=== PATIENT | male | born 1950 | race Caucasian/White ===

== ENCOUNTER → 2016-08-17 | Outpatient (CLI) | payer MEDICARE ==
--- NOTE | 2016-08-17 13:43 | CT ---
EXAMINATION TYPE: CT lumbar spine wo con DATE OF EXAM: 08/17/2016 9:08 AM COMPARISON: NONE HISTORY: Low back pain, bilateral hip pain CT DLP: 339.7 mGycm CONTRAST: None TECHNIQUE: CT of the lumbar spine is performed on a spiral scan at 3 mm thick sections. Reconstructed images are performed in the coronal and sagittal planes. FINDINGS: T12-L1: No focal disc herniation or significant disc bulge is evident. No spinal canal stenosis or neural foraminal stenosis is present. L1-L2: No focal disc herniation or significant disc bulge is evident. No spinal canal stenosis or n eural foraminal stenosis is present L2-L3: Mild disc bulging is anterior thecal sac contact. No spinal canal stenosis or neural foraminal stenosis isn't. L3-L4: Disc bulging is present with mild anterior thecal sac compression. Facet hypertrophy is presen t. Mild spinal canal narrowing may be present. L4-L5: Broad-based disc bulge is moderate anterior thecal sac compression. Facet hypertrophy is prese nt. Spinal canal narrowing is present. L5-S1: There is loss of disc height at this level. Vacuum disc phenomenon is present. No spinal canal stenosis is present. Vertebral alignment appears normal. Vascular calcifications within the aorta. There may be some fusif orm prominence of the distal abdominal aorta. The anterior wall extends out of the [id number] and AP measurement cannot be obtained. IMPRESSION: 1. Degenerative disc changes with loss of disc at L5-S1. 2. Disc bulging L2-3 through L5-S1. This greatest at L4-5 with moderate anterior thecal sac compressi on and some spinal canal narrowing. Milder spinal canal narrowing may be present L3-4.
== END | disposition home or self-care (01) ==
LOC: RADCTMAIN 08:33
PROVIDERS: ATTEND Family Medicine
DX: M99.73 Connective tissue and disc stenosis of intervertebral foramina of lumbar region (principal); M51.17 Intervertebral disc disorders with radiculopathy, lumbosacral region
CPT/HCPCS: 72131

== ENCOUNTER 2017-10-26 13:56 | Emergency (ER) | payer MEDICARE ==
[2017-10-26 14:20] VITALS: BP 127/58; PULSE 63; RESP 18; TEMP 98.3
[2017-10-26] MEDS ORDERED: KETOROLAC 60 MG/2 ML VIAL IM STA (14:41)
--- NOTE | 2017-10-26 14:46 | ED ---
General Adult HPI - General Chief complaint: Back Pain/Injury Stated complaint: Back pain Time Seen by Provider: 10/26/17 14:37 Source: patient, RN notes reviewed Mode of arrival: wheelchair Limitations: no limitations - History of Present Illness Initial comments: Patient is a pleasant 67-year-old male presenting to the emergency Department with complaints of lower back pain. Patient has chronic lower back pain. Symptoms have been worse the past few months. Patient has previously seen doctors and previously had x-rays. Patient has similar type discomfort. Discomfort starts lower back and radiates to both hips and down both legs. Patient denies loss of sensation. Patient denies weakness. Patient denies incontinence or retention of bowel or bladder. Patient has a history of crack cocaine use however states he has not used in the past 5 or 6 months. - Related Data Previous Rx's Medication Instructions Recorded Naproxen [Naprosyn] 500 mg PO BID #14 tab 09/05/15 Citalopram Hydrobromide [CeleXA] 20 mg PO DAILY #30 tab 03/15/16 Losartan [Cozaar] 50 mg PO DAILY #30 tab 03/15/16 Nicotine 14Mg/24Hr Patch [Habitrol] 1 patch TRANSDERM DAILY #14 patch 03/15/16 QUEtiapine [SEROquel] 50 mg PO HS #30 tab 03/15/16 Cyclobenzaprine [Flexeril] 10 mg PO TID PRN #12 tablet 10/26/17 methylPREDNISolone Dose Pack 24 mg PO DAILY #1 tab 10/26/17 [Medrol Dose Pack] Allergies Allergy/AdvReac Type Severity Reaction Status Date / Time No Known Allergies Allergy Verified 10/26/17 14:20 Review of Systems ROS Statement: Those systems with pertinent positive or pertinent negative responses have been documented in the HPI. ROS Other: All systems not noted in ROS Statement are negative. Constitutional: Denies: fever Eyes: Denies: eye pain ENT: Denies: ear pain Respiratory: Denies: cough Cardiovascular: Denies: chest pain Endocrine: Denies: fatigue Gastrointestinal: Denies: abdominal pain Genitourinary: Denies: dysuria Musculoskeletal: Reports: back pain Skin: Denies: rash Neurological: Denies: weakness Past Medical History Past Medical History: Hypertension Additional Past Medical History / Comment(s): sciatica, hepatitis C History of Any Multi-Drug Resistant Organisms: None Reported Past Surgical History: Coronary Bypass/CABG Additional Past Surgical History / Comment(s): left knee, right wrist, and right knee surgeries. I&D of the left knee following Staphylococcus infection. Past Anesthesia/Blood Transfusion Reactions: No Reported Reaction Past Psychological History: Anxiety, Depression Smoking Status: Current every day smoker Past Alcohol Use History: Occasional Past Drug Use History: Cocaine, Marijuana - Past Family History Mother History Unknown: Yes Additional Family Medical History / Comment(s): Mother is 85 years of age with no major medical problems. Father History Unknown: Yes Family Medical History: CVA/TIA, Hypertension Additional Family Medical History / Comment(s): Father at age 75 with history of for CVAs and hypertension. Brother(s) Additional Family Medical History / Comment(s): He has 4 brothers that are healthy with no major medical problems. He has one sister that is healthy. He has 3 daughters with no major medical problems. General Exam Limitations: no limitations General appearance: alert, in no apparent distress Head exam: Present: atraumatic Eye exam: Present: normal appearance Neck exam: Present: normal inspection. Absent: tenderness Respiratory exam: Present: normal lung sounds bilaterally Cardiovascular Exam: Present: regular rate, normal rhythm GI/Abdominal exam: Present: soft. Absent: tenderness, pulsatile mass Extremities exam: Present: normal inspection. Absent: tenderness, pedal edema, calf tenderness Back exam: Present: tenderness (Minimal tenderness lower lumbar spine), other ( Straight leg raise positive bilaterally around 45) Neurological exam: Present: alert. Absent: motor sensory deficit Expanded Sensory exam: Lower Extremity Light Touch: Normal Motor strength exam: RLE: 5, LLE: 5 Psychiatric exam: Present: normal affect, normal mood Skin exam: Present: normal color. Absent: rash Course Vital Signs 10/26/17 14:18 Temperature 98.3 F Pulse Rate 63 Respiratory 18 Rate Blood Pressure 127/58 O2 Sat by Pulse 99 Oximetry Disposition Clinical Impression: Low back pain Disposition: HOME SELF-CARE Condition: Stable Instructions: Chronic Back Pain (ED) Additional Instructions: Please follow-up with primary care physician in the next day or 2 for recheck and further evaluation and treatment. Return for weakness, loss of sensation, fever, loss of control of bowel or bladder, worsening symptoms or other concerns. Prescriptions: Cyclobenzaprine [Flexeril] 10 mg PO TID PRN #12 tablet PRN Reason: Pain methylPREDNISolone Dose Pack [Medrol Dose Pack] 24 mg PO DAILY #1 tab Is patient prescribed a controlled substance at d/c from ED?: No Referrals: Alessandro Barreto MD [Primary Care Provider] - 1-2 days Time of Disposition: 14:46
== END 2017-10-26 15:14 | disposition home or self-care (01) ==
LOC: EC 13:56
DX: M54.5 Low back pain (principal); F17.200 Nicotine dependence, unspecified, uncomplicated; Z86.19 Personal history of other infectious and parasitic diseases
CPT/HCPCS: 99283; 96372; J1885

== ENCOUNTER 2017-11-01 10:10 | Emergency (ER) | payer MEDICARE ==
[2017-11-01 10:46] VITALS: RESP 18
[2017-11-01] MEDS ORDERED: KETOROLAC 30 MG/ML 1 ML VIAL IM STA (12:11)
[2017-11-01] MEDS ORDERED: CYCLOBENZAPRINE 10 MG TAB PO STA (12:12)
--- NOTE | 2017-11-01 12:32 | ED ---
General Adult HPI - General Chief complaint: Back Pain/Injury Stated complaint: Lower back pain Time Seen by Provider: 11/01/17 12:03 Source: patient, RN notes reviewed Mode of arrival: ambulatory Limitations: no limitations - History of Present Illness Initial comments: 67-year-old male presents to the emergency department for a chief complaint of low back pain 6 months. Patient states he has shooting pains down the bilateral legs. Patient denies numbness or tingling in the lower extremities. Patient denies numbness or tingling in the groin or buttock area. Patient denies any bladder or bowel changes. He states he is urinating regularly. Patient denies any injuries to the back. Patient states he has had multiple x- rays and he does not want one today. Patient states he has an MRI scheduled in one week. Patient has no other complaints at this time including shortness of breath, chest pain, abdominal pain, nausea or vomiting, headache, or visual changes. - Related Data Home Medications Medication Instructions Recorded Confirmed QUEtiapine FUMARATE [SEROquel] 300 mg PO HS 10/26/17 10/26/17 Previous Rx's Medication Instructions Recorded Cyclobenzaprine [Flexeril] 10 mg PO TID PRN #12 tablet 10/26/17 methylPREDNISolone Dose Pack 24 mg PO DAILY #1 tab 10/26/17 [Medrol Dose Pack] Allergies Allergy/AdvReac Type Severity Reaction Status Date / Time No Known Allergies Allergy Verified 11/01/17 10:46 Review of Systems ROS Statement: Those systems with pertinent positive or pertinent negative responses have been documented in the HPI. ROS Other: All systems not noted in ROS Statement are negative. Past Medical History Past Medical History: Hypertension Additional Past Medical History / Comment(s): sciatica, hepatitis C History of Any Multi-Drug Resistant Organisms: None Reported Past Surgical History: Coronary Bypass/CABG Additional Past Surgical History / Comment(s): left knee, right wrist, and right knee surgeries. I&D of the left knee following Staphylococcus infection. Past Anesthesia/Blood Transfusion Reactions: No Reported Reaction Past Psychological History: Anxiety, Depression Smoking Status: Current every day smoker Past Alcohol Use History: Occasional Past Drug Use History: Cocaine, Marijuana - Past Family History Mother History Unknown: Yes Additional Family Medical History / Comment(s): Mother is 85 years of age with no major medical problems. Father History Unknown: Yes Family Medical History: CVA/TIA, Hypertension Additional Family Medical History / Comment(s): Father at age 75 with history of for CVAs and hypertension. Brother(s) Additional Family Medical History / Comment(s): He has 4 brothers that are healthy with no major medical problems. He has one sister that is healthy. He has 3 daughters with no major medical problems. General Exam Limitations: no limitations General appearance: alert, in no apparent distress Respiratory exam: Present: normal lung sounds bilaterally. Absent: respiratory distress, wheezes, rales, rhonchi, stridor Cardiovascular Exam: Present: regular rate, normal rhythm, normal heart sounds. Absent: systolic murmur, diastolic murmur, rubs, gallop, clicks Extremities exam: Present: full ROM (Full range of motion of lower extremities bilaterally. Patient is able to wiggle all toes.), normal capillary refill ( Refill less than 2 seconds in lower extremities bilaterally. PD and PT pulses strong with Doppler in lower extremities bilaterally.), other (Sensation intact in lower extremities bilaterally.) Back exam: Present: full ROM (Patient has full flexion without any pain. Patient has mild pain with extension of the back. Patient is able to twist and bend laterally.), tenderness (Mild lumbar tenderness). Absent: CVA tenderness ( R), CVA tenderness (L) Course Vital Signs 11/01/17 11/01/17 10:41 12:47 Temperature 97.0 F L 97.3 F L Pulse Rate 63 60 Respiratory 18 18 Rate Blood Pressure 137/65 134/72 O2 Sat by Pulse 100 99 Oximetry Medical Decision Making - Medical Decision Making 67-year-old male presents to the emergency determine for a chief complaint of lower back pain 6 months. Patient was seen in the emergency department recently and given a steroid as well as a muscle relaxer. Patient states these did not help very much. However the Toradol he was given in the emergency department last time did help. Patient was given Toradol and Flexeril in the ER today which helped with his pain. On exam patient has full flexion and extension of the lumbar spine. Patient has mild pain with extension of the lumbar spine. Patient is able to rotate the spine and laterally bend. PD and PT pulses strong with Doppler and lower extremities bilaterally. Feet warm to touch in the lower extremities bilaterally. Patient is able to move bilateral legs without difficulty. Patient denies any numbness or tingling in the groin area or buttocks. Patient denies any bladder or bowel changes. Patient was offered an x-ray which she refused because he has had x-rays before which were all normal. Patient has an MRI scheduled in one week. Patient will attend this appointment. He will take Motrin and Tylenol for pain relief in the meantime. He will follow up with primary care in 1-2 days. He was educated to return to the emergency department if he has any numbness or tingling in the feet, bladder or bowel changes, or saddle anesthesia. Disposition Clinical Impression: Mechanical back pain Disposition: HOME SELF-CARE Condition: Good Instructions: Chronic Back Pain (ED) Additional Instructions: Please take Motrin and Tylenol for pain. Please attend MRI appointment as scheduled. Follow-up with family doctor in one to 2 days. Return to the emergency department if you have any worsening symptoms, bladder or bowel changes, or loss of lower leg function. Is patient prescribed a controlled substance at d/c from ED?: No Referrals: Alessandro Barreto MD [Primary Care Provider] - 1-2 days Time of Disposition: 12:31
[2017-11-01 12:52] VITALS: BP 134/72; PULSE 60; TEMP 97.3
== END 2017-11-01 12:51 | disposition home or self-care (01) ==
LOC: EC 10:10
DX: M54.5 Low back pain (principal); F32.9 Major depressive disorder, single episode, unspecified; F17.200 Nicotine dependence, unspecified, uncomplicated; Z53.29 Procedure and treatment not carried out because of patient's decision for other reasons; Z95.1 Presence of aortocoronary bypass graft; Z79.899 Other long term (current) drug therapy
CPT/HCPCS: 99283; 96372; J1885

== ENCOUNTER 2017-11-20 18:29 | Emergency (ER) | payer MEDICARE ==
[2017-11-20 18:34] VITALS: BP 156/74; PULSE 77; RESP 18; TEMP 98.6
[2017-11-20] MEDS ORDERED: CYCLOBENZAPRINE 10MG STARTER 3 TAB BTL PO STA (18:48)
--- NOTE | 2017-11-20 18:52 | ED ---
General Adult HPI - General Chief complaint: Extremity Injury, Lower Stated complaint: Hip Pain Time Seen by Provider: 11/20/17 18:39 Source: EMS, RN notes reviewed Mode of arrival: EMS Limitations: no limitations - History of Present Illness Initial comments: Patient 67-year-old male presented to the emergency room with chief complaint of back pain. He states it's been going on for the last 4-6 months. Patient denies any specific injury or trauma. Does admit that he followed up with the family physician is scheduled MRIs first was canceled. States his sexual was early in the morning he could not make it there. Patient also admits that he's been at the [facility] most recently 1 week ago. He states he was given a short prescription of steroids and Flexeril. He states did not help much with his symptoms. He does admit that is experiencing some radicular pain to the top of the thighs bilaterally in both the left and right side. Denies any bowel or bladder incontinence or retention. Denies any saddle anesthesia. Patient states his are all symptoms that have been consistent over the last several months. Denies anything new today. Patient denies any recent fever, chills, shortness of breath, chest pain, abdominal pain, nausea or vomiting, dysuria or hematuria, constipation or diarrhea, headaches or visual changes, or any other complaints. - Related Data Home Medications Medication Instructions Recorded Confirmed QUEtiapine FUMARATE [SEROquel] 300 mg PO HS 10/26/17 11/01/17 Previous Rx's Medication Instructions Recorded Cyclobenzaprine [Flexeril] 10 mg PO TID PRN #12 tablet 10/26/17 methylPREDNISolone Dose Pack 24 mg PO DAILY #1 tab 10/26/17 [Medrol Dose Pack] Cyclobenzaprine [Flexeril] 10 mg PO TID #20 tab 11/20/17 Ibuprofen [Motrin] 600 mg PO Q6HR PRN #40 day 11/20/17 Allergies Allergy/AdvReac Type Severity Reaction Status Date / Time No Known Allergies Allergy Verified 11/01/17 10:46 Review of Systems ROS Statement: Those systems with pertinent positive or pertinent negative responses have been documented in the HPI. ROS Other: All systems not noted in ROS Statement are negative. Past Medical History Past Medical History: Hypertension Additional Past Medical History / Comment(s): sciatica, hepatitis C History of Any Multi-Drug Resistant Organisms: None Reported Past Surgical History: Coronary Bypass/CABG Additional Past Surgical History / Comment(s): left knee, right wrist, and right knee surgeries. I&D of the left knee following Staphylococcus infection. Past Anesthesia/Blood Transfusion Reactions: No Reported Reaction Past Psychological History: Anxiety, Depression Smoking Status: Current every day smoker Past Alcohol Use History: Occasional Past Drug Use History: Cocaine, Marijuana - Past Family History Mother History Unknown: Yes Additional Family Medical History / Comment(s): Mother is 85 years of age with no major medical problems. Father History Unknown: Yes Family Medical History: CVA/TIA, Hypertension Additional Family Medical History / Comment(s): Father at age 75 with history of for CVAs and hypertension. Brother(s) Additional Family Medical History / Comment(s): He has 4 brothers that are healthy with no major medical problems. He has one sister that is healthy. He has 3 daughters with no major medical problems. General Exam - General Exam Comments Initial Comments: General: The patient is awake and alert, in no distress, and does not appear acutely ill. Eye: Pupils are equal, round and reactive to light, extra-ocular movements are intact. No nystagmus. There is normal conjunctiva bilaterally. No signs of icterus. Ears, nose, mouth and throat: There are moist mucous membranes and no oral lesions. Neck: The neck is supple, there is no tenderness or JVD. Musculoskeletal: Normal ROM. Strength 5/5. Sensation intact. Neurological: A&O x 3. CN II-XII intact, There are no obvious motor or sensory deficits. Coordination appears grossly intact. Speech is normal. Skin: Skin is warm and dry and no rashes or lesions are noted. Psychiatric: Cooperative, appropriate mood & affect, normal judgment. Limitations: no limitations Course Vital Signs 11/20/17 18:30 Temperature 98.6 F Pulse Rate 77 Respiratory 18 Rate Blood Pressure 156/74 O2 Sat by Pulse 97 Oximetry Medical Decision Making - Medical Decision Making Patient is advised that MRI is status post at this time and he should try to make this upcoming appointment. Patient will be given prescription for Flexeril for his symptoms. Was on steroids recently in the past. Patient advised to use anti-inflammatories will be given prescription of ibuprofen. Disposition Clinical Impression: Chronic back pain Disposition: HOME SELF-CARE Condition: Good Instructions: Chronic Back Pain (ED) Additional Instructions: Please follow-up and have MRI performed as discussed. Please continue follow family physician or orthopedics for further evaluation. Please use medication as prescribed and return to emergency room for any other concerns. Prescriptions: Cyclobenzaprine [Flexeril] 10 mg PO TID #20 tab Ibuprofen [Motrin] 600 mg PO Q6HR PRN #40 day PRN Reason: Pain Is patient prescribed a controlled substance at d/c from ED?: No Referrals: Alessandro Barreto MD [Primary Care Provider] - 1-2 days Time of Disposition: 18:51
== END 2017-11-20 19:12 | disposition home or self-care (01) ==
LOC: EC 18:29
DX: G89.29 Other chronic pain (principal); M54.9 Dorsalgia, unspecified; F32.9 Major depressive disorder, single episode, unspecified; F17.200 Nicotine dependence, unspecified, uncomplicated; Z95.1 Presence of aortocoronary bypass graft; Z79.899 Other long term (current) drug therapy
CPT/HCPCS: 99283

== ENCOUNTER 2017-12-05 13:19 | Emergency (ER) | payer MEDICARE ==
[2017-12-05 14:53] VITALS: BP 127/74; PULSE 84; RESP 18; TEMP 98.2
--- NOTE | 2017-12-05 15:42 | ED ---
General Adult HPI - General Chief complaint: Extremity Injury, Lower Stated complaint: bilat hip/leg pain Time Seen by Provider: 12/05/17 15:02 Source: patient Mode of arrival: wheelchair Limitations: no limitations - History of Present Illness Initial comments: 67-year-old male presents to the emergency department for bilateral hip pain 5 months. Patient states the pain as a sharp shooting pain down bilateral hips. Patient states it is exacerbated when sitting and walking. Patient denies pain worsening the farther he walks. Patient denies calf pain or pain behind the knees. Patient denies bladder or bowel changes. Patient states that he has been scheduled an MRI but is having trouble getting to the appointment due to the bus system. Patient presented today for an MRI. Patient does not want an x -ray. Patient denies any injuries. Patient denies any IV drug use. Patient's states steroids have helped in the past. Patient has no other complaints at this time including shortness of breath, chest pain, abdominal pain, nausea or vomiting, headache, or visual changes. - Related Data Home Medications Medication Instructions Recorded Confirmed QUEtiapine FUMARATE [SEROquel] 300 mg PO HS 10/26/17 11/01/17 Previous Rx's Medication Instructions Recorded Cyclobenzaprine [Flexeril] 10 mg PO TID PRN #12 tablet 10/26/17 methylPREDNISolone Dose Pack 24 mg PO DAILY #1 tab 10/26/17 [Medrol Dose Pack] Cyclobenzaprine [Flexeril] 10 mg PO TID #20 tab 11/20/17 Ibuprofen [Motrin] 600 mg PO Q6HR PRN #40 day 11/20/17 predniSONE 50 mg PO DAILY #5 tablet 12/05/17 Allergies Allergy/AdvReac Type Severity Reaction Status Date / Time No Known Allergies Allergy Verified 12/05/17 14:52 Review of Systems ROS Statement: Those systems with pertinent positive or pertinent negative responses have been documented in the HPI. ROS Other: All systems not noted in ROS Statement are negative. Past Medical History Past Medical History: Hypertension Additional Past Medical History / Comment(s): sciatica, hepatitis C History of Any Multi-Drug Resistant Organisms: None Reported Past Surgical History: Coronary Bypass/CABG Additional Past Surgical History / Comment(s): left knee, right wrist, and right knee surgeries. I&D of the left knee following Staphylococcus infection. Past Anesthesia/Blood Transfusion Reactions: No Reported Reaction Past Psychological History: Anxiety, Depression Smoking Status: Current every day smoker Past Alcohol Use History: Occasional Past Drug Use History: None Reported - Past Family History Mother History Unknown: Yes Additional Family Medical History / Comment(s): Mother is 85 years of age with no major medical problems. Father History Unknown: Yes Family Medical History: CVA/TIA, Hypertension Additional Family Medical History / Comment(s): Father at age 75 with history of for CVAs and hypertension. Brother(s) Additional Family Medical History / Comment(s): He has 4 brothers that are healthy with no major medical problems. He has one sister that is healthy. He has 3 daughters with no major medical problems. General Exam Limitations: no limitations General appearance: alert, in no apparent distress Head exam: Present: atraumatic, normocephalic, normal inspection Eye exam: Present: normal appearance ENT exam: Present: normal exam, mucous membranes moist Neck exam: Present: normal inspection. Absent: tenderness, meningismus, lymphadenopathy Respiratory exam: Present: normal lung sounds bilaterally. Absent: respiratory distress, wheezes, rales, rhonchi, stridor Cardiovascular Exam: Present: regular rate, normal rhythm, normal heart sounds. Absent: bradycardia, tachycardia, irregular rhythm Extremities exam: Present: normal capillary refill (Refill less than 2 seconds. Feet are warm to palpation. Right foot has a strong PD and PT pulses with Doppler. Left foot has strong PT pulse with Doppler.). Absent: full ROM ( Patient has limited flexion of the lumbar spine to about 45. Patient is able to walk. Patient is able to flex the hips to about 90. Patient has full extension of the hips.), tenderness (No tenderness to the bilateral hips.), calf tenderness (No tenderness in the calf. No warmth swelling or redness in the calf.) Back exam: Present: normal inspection. Absent: full ROM (Patient has about 45 flexion of the lumbar spine.), tenderness Course Vital Signs 12/05/17 14:51 Temperature 98.2 F Pulse Rate 84 Respiratory 18 Rate Blood Pressure 127/74 O2 Sat by Pulse 98 Oximetry Medical Decision Making - Medical Decision Making 67-year-old male patient to the emergency department for a chief complaint of bilateral shooting hip pain 5 months. Patient states it is worse when he sits down as well as when he walks. Patient denies pain worsening the farther he walks. Patient denies any pain in the calf. Pain does not seem vascular in nature. On exam patient does have some limited range of motion of the lumbar spine and hips. Capillary refill less than 2 seconds in lower extremities bilaterally. Feet are warm to palpation. Right foot has strong PD and PT pulses on Doppler. Left foot has strong PT pulse with Doppler. Patient can feel me touch his feet. No bladder or bowel changes. Patient has an MRI scheduled but has trouble getting to the appointment due to the bus system. Patient was offered x-rays in the emergency department which she refused because he needs an MRI. He was now where we could not do an MRI through the emergency department. Patient will be referred to both orthopedics and vascular. He will follow up with primary care about the MRI. He will return to the emergency department if he has any worsening symptoms. Disposition Clinical Impression: Bilateral hip pain Disposition: HOME SELF-CARE Condition: Good Instructions: Hip Pain (ED) Additional Instructions: Please take steroid as directed. Please monitor for worsening symptoms and return if these occur. Discussed with your primary care doctor the best time for you to get your MRI. Follow-up with orthopedics and vascular in one to 2 days. Prescriptions: predniSONE 50 mg PO DAILY #5 tablet Is patient prescribed a controlled substance at d/c from ED?: No Referrals: Alessandro Barreto MD [Primary Care Provider] - 1-2 days Matthew Randolph MD [STAFF PHYSICIAN] - 1-2 days Jose Mckeon MD [STAFF PHYSICIAN] - 1-2 days Time of Disposition: 15:40
== END 2017-12-05 15:48 | disposition home or self-care (01) ==
LOC: EC 13:19
DX: M25.551 Pain in right hip (principal); M25.552 Pain in left hip; F32.9 Major depressive disorder, single episode, unspecified; F17.200 Nicotine dependence, unspecified, uncomplicated; Z79.899 Other long term (current) drug therapy
CPT/HCPCS: 99283

== ENCOUNTER → 2017-12-08 | Outpatient (CLI) | payer MEDICARE | END | disposition home or self-care (01) | LOC: RADMRIMAIN 11:44 | PROVIDERS: ATTEND Internal Medicine | DX: Z53.9 Procedure and treatment not carried out, unspecified reason (principal) | CPT/HCPCS: 36415; 82565; 84520 ==

== ENCOUNTER → 2017-12-08 | Outpatient (CLI) | payer MEDICARE ==
[2017-12-08 13:36] LABS: Blood Urea Nitrogen 14 mg/dL (9-20)
== END | disposition home or self-care (01) ==
LOC: LABWHC1 12:06
PROVIDERS: ATTEND Internal Medicine
DX: R10.30 Lower abdominal pain, unspecified (principal)
CPT/HCPCS: 36415; 82565; 84520

== ENCOUNTER 2017-12-12 13:10 | Emergency (ER) | payer MEDICARE ==
[2017-12-12 13:35] VITALS: BP 157/80; PULSE 78; RESP 18; TEMP 97.5
[2017-12-12] MEDS ORDERED: LIDOCAINE 1% INJ 10MG/ML (20 ML MDV) SQ ONE (13:51)
--- NOTE | 2017-12-12 14:08 | ED ---
Skin/Abscess/FB HPI - General Chief complaint: Skin/Abscess/Foreign Body Stated complaint: abscess under chin Time Seen by Provider: 12/12/17 13:37 Source: patient, RN notes reviewed Mode of arrival: ambulatory Limitations: no limitations - History of Present Illness Initial comments: 67-year-old male presents emergency Department with chief complaint of abscess underneath his chin. Patient states has been present for last couple weeks but has increased in size. He did have some drainage yesterday after he scraped off some skin. Patient reports no fever no chills no tobacco swelling states is minimally painful. Patient states she's had a history of these in the past. He believes it started with an ingrown hair. - Related Data Home Medications Medication Instructions Recorded Confirmed QUEtiapine FUMARATE [SEROquel] 300 mg PO HS 10/26/17 11/01/17 Previous Rx's Medication Instructions Recorded Cyclobenzaprine [Flexeril] 10 mg PO TID PRN #12 tablet 10/26/17 methylPREDNISolone Dose Pack 24 mg PO DAILY #1 tab 10/26/17 [Medrol Dose Pack] Cyclobenzaprine [Flexeril] 10 mg PO TID #20 tab 11/20/17 Ibuprofen [Motrin] 600 mg PO Q6HR PRN #40 day 11/20/17 predniSONE 50 mg PO DAILY #5 tablet 12/05/17 Sulfamethox-Tmp 800-160Mg [Bactrim 1 each PO Q12HR #20 tab 12/12/17 Ds] Allergies Allergy/AdvReac Type Severity Reaction Status Date / Time No Known Allergies Allergy Verified 12/12/17 13:35 Review of Systems ROS Statement: Those systems with pertinent positive or pertinent negative responses have been documented in the HPI. ROS Other: All systems not noted in ROS Statement are negative. Past Medical History Past Medical History: Hypertension Additional Past Medical History / Comment(s): sciatica, hepatitis C History of Any Multi-Drug Resistant Organisms: None Reported Past Surgical History: Coronary Bypass/CABG Additional Past Surgical History / Comment(s): left knee, right wrist, and right knee surgeries. I&D of the left knee following Staphylococcus infection. Past Anesthesia/Blood Transfusion Reactions: No Reported Reaction Past Psychological History: Anxiety, Depression Smoking Status: Current every day smoker Past Alcohol Use History: Occasional Past Drug Use History: None Reported - Past Family History Mother History Unknown: Yes Additional Family Medical History / Comment(s): Mother is 85 years of age with no major medical problems. Father History Unknown: Yes Family Medical History: CVA/TIA, Hypertension Additional Family Medical History / Comment(s): Father at age 75 with history of for CVAs and hypertension. Brother(s) Additional Family Medical History / Comment(s): He has 4 brothers that are healthy with no major medical problems. He has one sister that is healthy. He has 3 daughters with no major medical problems. General Exam Limitations: no limitations General appearance: alert, in no apparent distress Head exam: Present: atraumatic, normocephalic, normal inspection Eye exam: Present: normal appearance, PERRL, EOMI. Absent: scleral icterus, conjunctival injection, periorbital swelling ENT exam: Present: normal exam, normal oropharynx, mucous membranes moist, TM's normal bilaterally, normal external ear exam Neck exam: Present: full ROM. Absent: normal inspection (1 cm abscess inferior of the chin fluctuant with scab noted), tenderness, meningismus, lymphadenopathy Respiratory exam: Present: normal lung sounds bilaterally. Absent: respiratory distress, wheezes, rales, rhonchi, stridor Cardiovascular Exam: Present: regular rate, normal rhythm, normal heart sounds. Absent: systolic murmur, diastolic murmur, rubs, gallop, clicks Course Vital Signs 12/12/17 13:33 Temperature 97.5 F L Pulse Rate 78 Respiratory 18 Rate Blood Pressure 157/80 O2 Sat by Pulse 100 Oximetry Procedures - Incision & Drainage Consent Obtained: verbal consent Indication: Abscess Site: face Size (cm): 1 Anesthetic Used: lidocaine 1%, without epi Amount (mLs): 7 I&D Cleaning Method: Chloroprep Scalpel Used: #11 I&D Drainage Obtained: Pus, Blood Culture Obtained?: Yes Patient Tolerated Procedure: well, no complications Medical Decision Making - Medical Decision Making 67-year-old male presented for abscess. This was I&D in the emergency department. Patient had culture obtained patient minimal pain prior and no complications during the procedure. This is a localized abscess there is no concern for blood legs angina at this time. Patiently placed on Bactrim with follow-up tomorrow. Disposition Clinical Impression: Facial abscess Disposition: HOME SELF-CARE Condition: Stable Instructions: Abscess Incision and Drainage (ED) Additional Instructions: Please return to the Emergency Department if symptoms worsen or any other concerns. Prescriptions: Sulfamethox-Tmp 800-160Mg [Bactrim Ds] 1 each PO Q12HR #20 tab Is patient prescribed a controlled substance at d/c from ED?: No Referrals: Alessandro Barreto MD [Primary Care Provider] - 1-2 days Time of Disposition: 14:08
== END 2017-12-12 14:12 | disposition home or self-care (01) ==
LOC: EC 13:10
DX: L02.01 Cutaneous abscess of face (principal); F32.9 Major depressive disorder, single episode, unspecified; F17.200 Nicotine dependence, unspecified, uncomplicated; Z95.1 Presence of aortocoronary bypass graft; Z79.899 Other long term (current) drug therapy
CPT/HCPCS: 99283; 10060; 87070; 87205; 87077; 87186; J2001; 36415; 82565; 84520

== ENCOUNTER 2018-01-18 13:50 | Emergency (ER) | payer MEDICARE ==
[2018-01-18 13:57] VITALS: BP 171/76; PULSE 76; RESP 18; TEMP 97.8
--- NOTE | 2018-01-18 14:07 | ED ---
Skin/Abscess/FB HPI - General Chief complaint: Skin/Abscess/Foreign Body Stated complaint: lump under chin Time Seen by Provider: 01/18/18 14:04 Source: patient Mode of arrival: ambulatory Limitations: no limitations - History of Present Illness Initial comments: This is a 67-year-old male past medical history of hepatitis C and hypertension who presents today for chief complaint of multiple bumps under chin, that he says he thinks or ingrown hairs. Patient was seen here in the ER 3 weeks ago for same complaint, were to I&D was performed and patient was placed on Bactrim for 10 days. Patient states that the ID did give him some relief, and he took the whole course of antibiotics however the bumps remained. Patient states that the bump is tender to palpation, and there is some surrounding erythema patient denies any fever, chills or malaise. Patient was able to express some blood from one of the bumps under his chin however there is no expression of purulent discharge. Patient presented today requesting I&D of the abscesses. Patient presents emergency department in stable condition, afebrile. Patient denies any medication for the pain. - Related Data Home Medications Medication Instructions Recorded Confirmed QUEtiapine FUMARATE [SEROquel] 300 mg PO HS 10/26/17 11/01/17 Previous Rx's Medication Instructions Recorded Cyclobenzaprine [Flexeril] 10 mg PO TID PRN #12 tablet 10/26/17 methylPREDNISolone Dose Pack 24 mg PO DAILY #1 tab 10/26/17 [Medrol Dose Pack] Cyclobenzaprine [Flexeril] 10 mg PO TID #20 tab 11/20/17 Ibuprofen [Motrin] 600 mg PO Q6HR PRN #40 day 11/20/17 predniSONE 50 mg PO DAILY #5 tablet 12/05/17 Sulfamethox-Tmp 800-160Mg [Bactrim 1 each PO Q12HR #20 tab 12/12/17 Ds] Clindamycin [Cleocin] 450 mg PO Q8H 10 Days #90 capsule 01/18/18 Allergies Allergy/AdvReac Type Severity Reaction Status Date / Time No Known Allergies Allergy Verified 01/18/18 13:56 Review of Systems ROS Statement: Those systems with pertinent positive or pertinent negative responses have been documented in the HPI. ROS Other: All systems not noted in ROS Statement are negative. Constitutional: Denies: fever, chills, weakness, weight change, night sweats Respiratory: Denies: cough, dyspnea Cardiovascular: Denies: chest pain, palpitations Gastrointestinal: Denies: abdominal pain, nausea, vomiting Genitourinary: Denies: urgency, dysuria Skin: Reports: as per HPI, lesions. Denies: rash Neurological: Denies: headache, weakness, numbness, paresthesias, confusion Past Medical History Past Medical History: Hypertension Additional Past Medical History / Comment(s): sciatica, hepatitis C History of Any Multi-Drug Resistant Organisms: None Reported Past Surgical History: Coronary Bypass/CABG Additional Past Surgical History / Comment(s): left knee, right wrist, and right knee surgeries. I&D of the left knee following Staphylococcus infection. Past Anesthesia/Blood Transfusion Reactions: No Reported Reaction Past Psychological History: Anxiety, Depression Smoking Status: Current every day smoker Past Alcohol Use History: Rare Past Drug Use History: None Reported - Past Family History Mother History Unknown: Yes Additional Family Medical History / Comment(s): Mother is 85 years of age with no major medical problems. Father History Unknown: Yes Family Medical History: CVA/TIA, Hypertension Additional Family Medical History / Comment(s): Father at age 75 with history of for CVAs and hypertension. Brother(s) Additional Family Medical History / Comment(s): He has 4 brothers that are healthy with no major medical problems. He has one sister that is healthy. He has 3 daughters with no major medical problems. General Exam - General Exam Comments Initial Comments: General: The patient is awake and alert, in no distress, and does not appear acutely ill. Eye: Pupils are equal, round and reactive to light, extra-ocular movements are intact. No nystagmus. There is normal conjunctiva bilaterally. No signs of icterus. Ears, nose, mouth and throat: There are moist mucous membranes and no oral lesions. Neck: The neck is supple, there is no tenderness or JVD. No palpable submental , submandibular or cervical anterior cervical lymphadenopathy. Cardiovascular: There is a regular rate and rhythm. No murmur, rub or gallop is appreciated. Respiratory: Lungs are clear to auscultation, respirations are non-labored, breath sounds are equal. No wheezes, stridor, rales, or rhonchi. Musculoskeletal: Normal ROM. Pulses equal bilaterally 2+. Neurological: A&O x 3. CN II-XII intact, There are no obvious motor or sensory deficits. Coordination appears grossly intact. Speech is normal. Skin: Skin is warm and dry and no rashes. Multiple indurated confluent carbuncles under the chin, there is mild surrounding soft tissue erythema without swelling. Lesions are painful to palpation, there are some areas of fluctuance. Psychiatric: Cooperative, appropriate mood & affect, normal judgment. Limitations: no limitations Course Vital Signs 01/18/18 13:53 Temperature 97.8 F Pulse Rate 76 Respiratory 18 Rate Blood Pressure 171/76 O2 Sat by Pulse 100 Oximetry Procedures - Procedures Initial comment: Four palpable confluent carbuncles of the neck inferior to the chin area fluctuant to the most superior lesion. Iodine was used to cleanse the area, patient him with topical lidocaine locally. 10/#11 blade scapel used for I&D, expression of blood. Irrigated. Sterile bandage applied. Pt tolerated pt well. Medical Decision Making - Medical Decision Making 67-year-old male sitting today for chief complaint of bumps under chin. Upon physical examination the superior to be confluent carbuncles, with areas of fluctuance concerning for possible abscess. These do not appear to be lymphadenopathy, glands or ludwigs angina. Patient denies dental pain. Patient is afebrile, no concern for systemic infection at this time I&D was performed in the emergency department, unable to express purulent discharge for culture. Some blood was expressed. Patient was previously placed on Bactrim every 12 hours for 10 days for last I&D. Case is discussed Dr. Santoro, we will place patient on clindamycin every 8 hours for 10 days. [facility]. Patient is instructed to follow-up with primary care provider one to 2 days. Disposition Clinical Impression: Carbuncle of neck, Abscess of skin of neck Disposition: HOME SELF-CARE Condition: Good Instructions: Abscess Incision and Drainage (ED) Additional Instructions: Please use medication as discussed. Please follow-up with family doctor in the next 2 days. Please return to emergency room if the symptoms increase or worsen or for any other concerns. Prescriptions: Clindamycin [Cleocin] 450 mg PO Q8H 10 Days #90 capsule Is patient prescribed a controlled substance at d/c from ED?: No Referrals: None,Stated [REFERRING] - 1-2 days Time of Disposition: 14:49
== END 2018-01-18 14:54 | disposition home or self-care (01) ==
LOC: EC 13:50
DX: L02.13 Carbuncle of neck (principal); L02.11 Cutaneous abscess of neck; F32.9 Major depressive disorder, single episode, unspecified; F17.200 Nicotine dependence, unspecified, uncomplicated; Z95.1 Presence of aortocoronary bypass graft; Z79.899 Other long term (current) drug therapy
CPT/HCPCS: 10060; 99283

== ENCOUNTER → 2018-05-12 | Outpatient (CLI) | payer MEDICARE ==
--- NOTE | 2018-05-14 09:36 | MR ---
EXAMINATION TYPE: MR lumbar spine wo con DATE OF EXAM: 05/12/2018 COMPARISON: CT lumbar spine dated 08/17/2016 HISTORY: LBP, BLE radic TECHNIQUE: Multiplanar, multisequence images of the lumbar spine were acquired without intravenous contrast. FINDINGS: The lumbar spine vertebral bodies maintain normal vertebral body height and alignment. Mult ilevel disc desiccation is seen. Conus medullaris is unremarkable terminating at L1-L2. Paraspinal mu sculature is unremarkable. L1-L2: There is a broad-based disc bulge resulting in mild bilateral neural foraminal narrowing. No s reshma canal stenosis. L2-L3: There is a broad-based disc bulge and mild facet arthropathy resulting in mild to moderate james ateral neural foraminal narrowing. No spinal canal stenosis. L3-L4: There is a broad-based disc bulge and facet arthropathy resulting in moderate bilateral neural foraminal narrowing. Minimal ligamentum flavum buckling contributes to mild spinal canal stenosis at this level. L4-L5: There is facet arthropathy and a broad-based disc bulge resulting in mild to moderate right an d mild left neural foraminal narrowing. No spinal canal stenosis. L5-S1: There is a broad-based disc bulge and mild facet arthropathy resulting in mild bilateral neura l foraminal narrowing. No spinal canal stenosis. IMPRESSION: 1. No evidence of focal disc herniation, lumbar spine malalignment or compression deformity. 2. Moderate multilevel degenerative disc disease resulting in mild spinal canal stenosis at L3-L4 and variable neural foraminal narrowing ranging from mild to moderate most pronounced at L3-L4 where the re is abutment with the exiting nerve roots.
== END ==
LOC: RADMRIMAIN 16:13
PROVIDERS: ATTEND Family Medicine
DX: M48.061 Spinal stenosis, lumbar region without neurogenic claudication (principal); M99.73 Connective tissue and disc stenosis of intervertebral foramina of lumbar region; M51.36 Other intervertebral disc degeneration, lumbar region
CPT/HCPCS: 72148

== ENCOUNTER 2018-06-03 16:14 | Inpatient (IN) | payer MEDICARE ==
--- NOTE | 2018-06-03 18:08 | ED ---
Psych HPI - General Chief Complaint: Psychiatric Symptoms Stated Complaint: DEPRESSION, LEG PAIN Time Seen by Provider: 06/03/18 17:12 Source: patient Mode of arrival: ambulatory - History of Present Illness Initial Comments: 68-year-old male patient presents to the emergency department today with chief complaint of depression and "emotional problems". Patient states he has chronic leg pain and it is causing him to be very depressed. States he does not take medication for pain currently. He denies any recent injury to the legs or low back. Patient did report to nursing staff that he was feeling suicidal and homicidal. He denied both to me. He denies any alcohol use. States he occasionally uses crack to help with his pain. He denies any hallucinations rate states he is eating and drinking and sleeping without difficulty. States he has been admitted inpatient for psychiatric care in the past. He is requesting admission to [facility] at this time. Patient denies any recent rash, fever, chills, shortness breath, chest pain, abdominal pain, nausea , vomiting, diarrhea, constipation, back pain, numbness, tingling, dizziness, weakness, hematuria, dysuria, urinary urgency, urinary frequency, headache, visual changes, or any other complaints. - Related Data Home Medications Medication Instructions Recorded Confirmed QUEtiapine FUMARATE [SEROquel] 300 mg PO HS 10/26/17 06/03/18 Allergies Allergy/AdvReac Type Severity Reaction Status Date / Time No Known Allergies Allergy Verified 06/03/18 18:39 Review of Systems ROS Statement: Those systems with pertinent positive or pertinent negative responses have been documented in the HPI. ROS Other: All systems not noted in ROS Statement are negative. Past Medical History Past Medical History: Hypertension Additional Past Medical History / Comment(s): sciatica, hepatitis C History of Any Multi-Drug Resistant Organisms: None Reported Past Surgical History: Coronary Bypass/CABG Additional Past Surgical History / Comment(s): left knee, right wrist, and right knee surgeries. I&D of the left knee following Staphylococcus infection. Past Anesthesia/Blood Transfusion Reactions: No Reported Reaction Past Psychological History: Anxiety, Depression Smoking Status: Current every day smoker Past Alcohol Use History: Rare Past Drug Use History: Cocaine - Past Family History Mother History Unknown: Yes Additional Family Medical History / Comment(s): Mother is 85 years of age with no major medical problems. Father History Unknown: Yes Family Medical History: CVA/TIA, Hypertension Additional Family Medical History / Comment(s): Father at age 75 with history of for CVAs and hypertension. Brother(s) Additional Family Medical History / Comment(s): He has 4 brothers that are healthy with no major medical problems. He has one sister that is healthy. He has 3 daughters with no major medical problems. General Exam Limitations: no limitations General appearance: alert, in no apparent distress, other (Physical well- developed, well-nourished adult male patient in no acute distress. Vital signs upon presentation are temperature 97.5F, pulse 82, respirations 20, blood pressure 138/64, pulse ox 99% on room air.) Eye exam: Present: normal appearance, PERRL, EOMI. Absent: scleral icterus, conjunctival injection, periorbital swelling ENT exam: Present: normal exam, normal oropharynx, mucous membranes moist Respiratory exam: Present: normal lung sounds bilaterally. Absent: respiratory distress, wheezes, rales, rhonchi, stridor Cardiovascular Exam: Present: regular rate, normal rhythm, normal heart sounds. Absent: systolic murmur, diastolic murmur, rubs, gallop, clicks GI/Abdominal exam: Present: soft, normal bowel sounds. Absent: distended, tenderness, guarding, rebound, rigid Extremities exam: Present: normal inspection, full ROM, normal capillary refill , other (Skin to the lower extremities are pink, warm, and dry. Cap refills less than 3 seconds. Pedal pulses 2+ and equal bilaterally.). Absent: tenderness, pedal edema, joint swelling, calf tenderness Back exam: Present: normal inspection. Absent: vertebral tenderness Neurological exam: Present: alert, oriented X3, CN II-XII intact Psychiatric exam: Present: normal affect, normal mood Skin exam: Present: warm, dry, intact, normal color. Absent: rash Course Vital Signs 06/03/18 16:18 Temperature 97.5 F L Pulse Rate 82 Respiratory 20 Rate Blood Pressure 138/64 O2 Sat by Pulse 99 Oximetry Medical Decision Making - Medical Decision Making 68-year-old male patient percents to the emergency department today chief complaint of depression, does report suicidal and homicidal ideation to nursing staff. Physical examination is unremarkable. Labs reviewed and are unremarkable. Patient was seen and evaluated by emergency psychiatric services consult is felt that he would benefit from inpatient admission at this time. He 'll be transferred to the mental health unit. Patient is aware of plan and is agreeable. - Lab Data Result diagrams: 06/03/18 18:35 06/03/18 18:35 Lab Results 06/03/18 06/03/18 06/03/18 Range/Units 18:35 18:35 19:13 WBC 5.9 (3.8-10.6) k/uL RBC 4.78 (4.30-5.90) m/uL Hgb 14.3 (13.0-17.5) gm/dL Hct 44.5 (39.0-53.0) % MCV 93.1 (80.0-100.0) fL MCH 29.8 (25.0-35.0) pg MCHC 32.0 (31.0-37.0) g/dL RDW 13.6 (11.5-15.5) % Plt Count 150 (150-450) k/uL Neutrophils % 49 % Lymphocytes % 36 % Monocytes % 6 % Eosinophils % 6 % Basophils % 1 % Neutrophils # 2.9 (1.3-7.7) k/uL Lymphocytes # 2.2 (1.0-4.8) k/uL Monocytes # 0.4 (0-1.0) k/uL Eosinophils # 0.4 (0-0.7) k/uL Basophils # 0.0 (0-0.2) k/uL Sodium 139 (137-145) mmol/L Potassium 4.7 (3.5-5.1) mmol/L Chloride 105 (98-107) mmol/L Carbon Dioxide 25 (22-30) mmol/L Anion Gap 9 mmol/L BUN 26 H (9-20) mg/dL Creatinine 0.77 (0.66-1.25) mg/dL Est GFR (CKD-EPI)AfAm >90 (>60 ml/min/1.73 sqM) Est GFR (CKD-EPI)NonAf >90 (>60 ml/min/1.73 sqM) Glucose 98 (74-99) mg/dL Calcium 9.5 (8.4-10.2) mg/dL Total Bilirubin 0.6 (0.2-1.3) mg/dL AST 43 (17-59) U/L ALT 45 (21-72) U/L Alkaline Phosphatase 66 (38-126) U/L Total Protein 6.7 (6.3-8.2) g/dL Albumin 3.8 (3.5-5.0) g/dL Urine Color Yellow Urine Appearance Clear (Clear) Urine pH 7.5 (5.0-8.0) Ur Specific [place] 1.011 (1.001-1.035) Urine Protein Negative (Negative) Urine Glucose (UA) Negative (Negative) Urine Ketones Negative (Negative) Urine Blood Negative (Negative) Urine Nitrite Negative (Negative) Urine Bilirubin Negative (Negative) Urine Urobilinogen 2.0 (<2.0) mg/dL Ur Leukocyte Esterase Negative (Negative) - EKG Data -: EKG Interpreted by Fl EKG Comments: EKG obtained at 1930 shows normal sinus rhythm with a ventricular rate of 76, HI interval 142, QRS duration 70, QT 364, QTC 409. No evidence of ST elevation or depression. Disposition Clinical Impression: Depression Disposition: TRANSFER TO PSYCH HOSP/UNIT Condition: Serious - Out of Hospital Transfer - Req. Specs Out of Hospital Transfer - Requested Specifics[facility]
[2018-06-03 18:52] LABS: Basophils % (A) 1 %; Eosinophils # (A) 0.4 k/uL (0-0.7); Eosinophils % (A) 6 %; HCT 44.5 % (39.0-53.0); HGB 14.3 gm/dL (13.0-17.5); Lymphocytes # (A) 2.2 k/uL (1.0-4.8); Lymphocytes % (A) 36 %; MCH 29.8 pg (25.0-35.0); MCV 93.1 fL (80.0-100.0); Mean Platelet Volume 7.4; Monocytes # (A) 0.4 k/uL (0-1.0); Monocytes % (A) 6 %; Neutrophils # (A) 2.9 k/uL (1.3-7.7); Neutrophils % (A) 49 %; Platelet Count 150 k/uL (150-450); RBC 4.78 m/uL (4.30-5.90); RDW 13.6 % (11.5-15.5); WBC 5.9 k/uL (3.8-10.6)
[2018-06-03 19:05] LABS: ALT 45 U/L (21-72); AST 43 U/L (17-59); Albumin 3.8 g/dL (3.5-5.0); Alkaline Phosphatase 66 U/L (38-126); Blood Urea Nitrogen 26 mg/dL (9-20); Calcium 9.5 mg/dL (8.4-10.2); Carbon Dioxide 25 mmol/L (22-30); Glucose 98 mg/dL (74-99); Total Bilirubin 0.6 mg/dL (0.2-1.3); Total Protein 6.7 g/dL (6.3-8.2)
[2018-06-03 19:15] LABS: Anion Gap 9 mmol/L; Chloride 105 mmol/L (98-107); Potassium 4.7 mmol/L (3.5-5.1); Sodium 139 mmol/L (137-145)
[2018-06-03] MEDS ORDERED: KETOROLAC 30 MG/ML 1 ML VIAL IM STA (19:15)
[2018-06-03 19:32] LABS: Appearance,Urine Clear (Clear); Bilirubin,Urine Negative (Negative); Blood,Urine Negative (Negative); Color,Urine Yellow; Glucose,Urine (UA) Negative (Negative); Ketones,Urine Negative (Negative); Leukocyte Esterase,Urine Negative (Negative); Nitrite,Urine Negative (Negative); PH, Urine 7.5 (5.0-8.0); Protein,Urine Negative (Negative); Specific Gravity,Urine 1.011 (1.001-1.035)
[2018-06-03] MEDS ORDERED: MAGNESIUM HYDROXIDE 2,400 MG/10 ML CUP PO PRN (20:23)
[2018-06-03] MEDS ORDERED: ZIPRASIDONE 20 MG VIAL IM PRN (20:23)
[2018-06-03] MEDS ORDERED: MAG HYDROX/AL HYDROX/SIMETH 30 ML CUP PO PRN (20:23)
[2018-06-03] MEDS ORDERED: ACETAMINOPHEN TAB 325 MG TAB PO PRN (20:23)
[2018-06-03 21:18] LABS: Amphetamine Screen,Urine Not Detected (NotDetected); Barbiturate Screen,Urine Not Detected (NotDetected); Benzodiazepines Screen,Urine Not Detected (NotDetected); Cocaine Screen,Urine Not Detected (NotDetected); Methadone Screen, Urine Not Detected (NotDetected); Opiate Screen,Urine Not Detected (NotDetected); Oxycodone Screen, Urine Not Detected (NotDetected); Phencyclidine Screen,Urine Not Detected (NotDetected); Tricyclic Antidepressant,Urine Detected (NotDetected); Urn Cannabinoid Scrn Not Detected (NotDetected)
[2018-06-04 07:46] LABS: Basophils % (A) 1 %; Eosinophils # (A) 0.5 k/uL (0-0.7); Eosinophils % (A) 6 %; HCT 44.4 % (39.0-53.0); HGB 14.7 gm/dL (13.0-17.5); Lymphocytes # (A) 2.6 k/uL (1.0-4.8); Lymphocytes % (A) 33 %; MCH 30.4 pg (25.0-35.0); MCHC 33.2 g/dL (31.0-37.0); MCV 91.7 fL (80.0-100.0); Mean Platelet Volume 7.4; Monocytes # (A) 0.5 k/uL (0-1.0); Monocytes % (A) 7 %; Neutrophils # (A) 4.1 k/uL (1.3-7.7); Neutrophils % (A) 52 %; Platelet Count 160 k/uL (150-450); RBC 4.84 m/uL (4.30-5.90); RDW 13.5 % (11.5-15.5); WBC 7.8 k/uL (3.8-10.6)
[2018-06-04 07:59] LABS: ALT 48 U/L (21-72); AST 50 U/L (17-59); Albumin 3.4 g/dL (3.5-5.0); Alkaline Phosphatase 77 U/L (38-126); Anion Gap 7 mmol/L; Blood Urea Nitrogen 30 mg/dL (9-20); Calcium 9.4 mg/dL (8.4-10.2); Carbon Dioxide 24 mmol/L (22-30); Chloride 108 mmol/L (98-107); Cholesterol 156 mg/dL (<200); Glucose 90 mg/dL (74-99); HDL Cholesterol 41 mg/dL (40-60); LDL Cholesterol,Calculated 93 mg/dL (0-99); Potassium 4.9 mmol/L (3.5-5.1); Sodium 139 mmol/L (137-145); Total Bilirubin 0.6 mg/dL (0.2-1.3); Total Protein 6.3 g/dL (6.3-8.2); Triglycerides 110 mg/dL (<150)
[2018-06-04] MEDS: NICOTINE 14MG/24HR PATCH TRANSDERM SCH (09:48)
[2018-06-04 11:53] VITALS: BMI 19.1
--- NOTE | 2018-06-04 12:06 | P.HP ---
Psychiatric H&P - . H&P Date: 06/04/18 History & Physical: Allergies Allergy/AdvReac Type Severity Reaction Status Date / Time No Known Allergies Allergy Verified 06/03/18 18:39 Vital Signs Temp 97 F L 06/04/18 11:39 Pulse 76 06/04/18 11:39 Resp 16 06/04/18 11:39 BP 143/84 06/04/18 11:39 Pulse Ox 96 06/03/18 22:03 Intake & Output 06/03/18 06/04/18 06/04/18 18:59 06:59 18:59 Weight 58.967 kg 52 kg Laboratory Last Values WBC 7.8 k/uL (3.8-10.6) 06/04/18 07:26 RBC 4.84 m/uL (4.30-5.90) 06/04/18 07:26 Hgb 14.7 gm/dL (13.0-17.5) 06/04/18 07:26 Hct 44.4 % (39.0-53.0) 06/04/18 07:26 MCV 91.7 fL (80.0-100.0) 06/04/18 07:26 MCH 30.4 pg (25.0-35.0) 06/04/18 07:26 MCHC 33.2 g/dL (31.0-37.0) 06/04/18 07:26 RDW 13.5 % (11.5-15.5) 06/04/18 07:26 Plt Count 160 k/uL (150-450) 06/04/18 07:26 Neutrophils % 52 % 06/04/18 07:26 Lymphocytes % 33 % 06/04/18 07:26 Monocytes % 7 % 06/04/18 07:26 Eosinophils % 6 % 06/04/18 07:26 Basophils % 1 % 06/04/18 07:26 Neutrophils # 4.1 k/uL (1.3-7.7) 06/04/18 07:26 Lymphocytes # 2.6 k/uL (1.0-4.8) 06/04/18 07:26 Monocytes # 0.5 k/uL (0-1.0) 06/04/18 07:26 Eosinophils # 0.5 k/uL (0-0.7) 06/04/18 07:26 Basophils # 0.0 k/uL (0-0.2) 06/04/18 07:26 Sodium 139 mmol/L (137-145) 06/04/18 07:26 Potassium 4.9 mmol/L (3.5-5.1) 06/04/18 07:26 Chloride 108 mmol/L (98-107) H 06/04/18 07:26 Carbon Dioxide 24 mmol/L (22-30) 06/04/18 07:26 Anion Gap 7 mmol/L 06/04/18 07:26 BUN 30 mg/dL (9-20) H 06/04/18 07:26 Creatinine 0.84 mg/dL (0.66-1.25) 06/04/18 07:26 Est GFR (CKD-EPI)AfAm >90 (>60 ml/min/1.73 sqM) 06/04/18 07:26 Est GFR (CKD-EPI)NonAf 89 (>60 ml/min/1.73 sqM) 06/04/18 07:26 Glucose 90 mg/dL (74-99) 06/04/18 07:26 Calcium 9.4 mg/dL (8.4-10.2) 06/04/18 07:26 Total Bilirubin 0.6 mg/dL (0.2-1.3) 06/04/18 07:26 AST 50 U/L (17-59) 06/04/18 07:26 ALT 48 U/L (21-72) 06/04/18 07:26 Alkaline Phosphatase 77 U/L (38-126) 06/04/18 07:26 Total Protein 6.3 g/dL (6.3-8.2) 06/04/18 07:26 Albumin 3.4 g/dL (3.5-5.0) L 06/04/18 07:26 Triglycerides 110 mg/dL (<150) 06/04/18 07:26 Cholesterol 156 mg/dL (<200) 06/04/18 07:26 LDL Cholesterol, Calc 93 mg/dL (0-99) 06/04/18 07:26 HDL Cholesterol 41 mg/dL (40-60) 06/04/18 07:26 TSH 1.250 mIU/L (0.465-4.680) 06/04/18 07:26 Urine Color Yellow 06/03/18 19:13 Urine Appearance Clear (Clear) 06/03/18 19:13 Urine pH 7.5 (5.0-8.0) 06/03/18 19:13 Ur Specific [place] 1.011 (1.001-1.035) 06/03/18 19:13 Urine Protein Negative (Negative) 06/03/18 19:13 Urine Glucose (UA) Negative (Negative) 06/03/18 19:13 Urine Ketones Negative (Negative) 06/03/18 19:13 Urine Blood Negative (Negative) 06/03/18 19:13 Urine Nitrite Negative (Negative) 06/03/18 19:13 Urine Bilirubin Negative (Negative) 06/03/18 19:13 Urine Urobilinogen 2.0 mg/dL (<2.0) 06/03/18 19:13 Ur Leukocyte Esterase Negative (Negative) 06/03/18 19:13 Urine Opiates Screen Not Detected (NotDetected) 06/03/18 19:13 Ur Oxycodone Screen Not Detected (NotDetected) 06/03/18 19:13 Urine Methadone Screen Not Detected (NotDetected) 06/03/18 19:13 Ur Propoxyphene Screen Not Detected (NotDetected) 06/03/18 19:13 Ur Barbiturates Screen Not Detected (NotDetected) 06/03/18 19:13 U Tricyclic Antidepress Detected (NotDetected) H 06/03/18 19:13 Ur Phencyclidine Scrn Not Detected (NotDetected) 06/03/18 19:13 Ur Amphetamines Screen Not Detected (NotDetected) 06/03/18 19:13 U Methamphetamines Scrn Not Detected (NotDetected) 06/03/18 19:13 U Benzodiazepines Scrn Not Detected (NotDetected) 06/03/18 19:13 Urine Cocaine Screen Not Detected (NotDetected) 06/03/18 19:13 U Marijuana (THC) Screen Not Detected (NotDetected) 06/03/18 19:13 06/04/18 12:02 Chief Complaint : " Homicidal ideation" HPI: The patient admitted here secondary to worsening agitation and homicidal ideation towards [facility] facility. Hereports sleeping in car for last few months andhis car got towed by this gentleman. Heis very upset andangry. Has beentreated for Bipolar in past. Has been off his medications for long time. He has been feeling very stressed out due to chronic body aches, housing and financial issues. He has not been sleeping good. Denies symptoms of lesley, psychoses or OCD to me. PAST PSYCHIATRIC HISTORY: Bipolar Disorder ALLERGIES: NO KNOWN DRUG ALLERGIES MEDICATIONS: None CHEMICAL DEPENDENCY HISTORY: Crack Use. FAMILY PSYCHIATRIC HISTORY: Unknown SOCIAL HISTORY: The patient lives in a car as he his homeless. Finished High school and now disabled. MENTAL STATUS EXAM: The patient is an average height and built male appearing his stated age. Poor eye contact. Minimally interactive. Speech soft tone. Mood depressed and anxious with congruent affect. Has no suicidal ideation but has homicidal ideation. No symptoms of psychoses. Has poor insight and poor judgment STRENGTHS/WEAKNESSES: Housing, Financial INTELLECTUAL FUNCTIONING: average IMPRESSIONS: [] 1. Bipolar Disorder, most recent episode depression Stimulant Use Disorder PLAN: The patient has been admitted to the mental health unit in voluntarily. Will resume and adjust medications accordingly. He will be seen by internal medicine for routine history and physical exam. Social work will meet with the patient to complete a psychosocial assessment. We will monitor him for safety and encourage participation in the milieu. Vital signs reviewed.
[2018-06-04] MEDS ORDERED: IBUPROFEN 400 MG TAB PO PRN (15:05)
--- NOTE | 2018-06-04 15:09 | P.CONS ---
History of Present Illness - History of Present Illness This is a pleasant 68 years old male with past medical history of depression, hypertension and hepatitis C with C [place], he has history of coronary artery disease and chronic low back pain for one year. His exercise symptoms of depression and homicidal ideation and his been evaluated by psychiatrist and admitted to the psychiatric unit. Been asked to see the patient for medical consultation for medical management. Patient states that he complains only from constipation since yesterday but he doesn't want any other medication. Also was complaining of from low back pain that is something to be given for him. Review of Systems CONSTITUTIONAL: No fever, no malaise, no fatigue. HEENT: No recent visual problems or hearing problems. Denied any sore throat. CARDIOVASCULAR: No orthopnea, PND, no palpitations, no syncope. PULMONARY: No shortness of breath, no cough, no hemoptysis. GASTROINTESTINAL: No diarrhea, no nausea, no vomiting, no abdominal pain. Normoactive bowel sounds. NEUROLOGICAL: No headaches, no weakness, no numbness. HEMATOLOGICAL: Denies any bleeding or petechiae. GENITOURINARY: Denies any burning micturition, frequency, or urgency. MUSCULOSKELETAL/RHEUMATOLOGICAL: Denies any joint pain, swelling, or any muscle pain. ENDOCRINE: Denies any polyuria or polydipsia. Past Medical History Past Medical History: No Reported History, Hypertension Additional Past Medical History / Comment(s): sciatica, hepatitis C History of Any Multi-Drug Resistant Organisms: None Reported Past Surgical History: Coronary Bypass/CABG Additional Past Surgical History / Comment(s): left knee, right wrist, and right knee surgeries. I&D of the left knee following Staphylococcus infection. Past Anesthesia/Blood Transfusion Reactions: No Reported Reaction Past Psychological History: Anxiety, Depression Smoking Status: Current every day smoker Past Alcohol Use History: Rare Additional Past Alcohol Use History / Comment(s): Patient states he smokes 7 cigarettes per day and has been smoking since he was 9 years of age. He states he smoked marijuana on a regular basis in the past but quit 8-9 months ago. He denies any alcohol use and denies any previous alcohol abuse. He denies any street drug use. Past Drug Use History: Cocaine Additional Drug Use History / Comment(s): Smokes weed "when I have it" Pt also states he had been smoking crack cocaine but stopped three weeks ago - Past Family History Mother History Unknown: Yes Additional Family Medical History / Comment(s): Mother is 85 years of age with no major medical problems. Father History Unknown: Yes Family Medical History: CVA/TIA, Hypertension Additional Family Medical History / Comment(s): Father at age 75 with history of for CVAs and hypertension. Brother(s) Additional Family Medical History / Comment(s): He has 4 brothers that are healthy with no major medical problems. He has one sister that is healthy. He has 3 daughters with no major medical problems. Medications and Allergies Home Medications Medication Instructions Recorded Confirmed Type QUEtiapine FUMARATE [SEROquel] 300 mg PO HS 10/26/17 06/03/18 History Allergies Allergy/AdvReac Type Severity Reaction Status Date / Time No Known Allergies Allergy Verified 06/03/18 18:39 Physical Exam Vitals: Vital Signs Temp Pulse Pulse Resp BP BP Pulse Ox 06/04/18 11:39 97 F L 76 16 143/84 06/04/18 06:39 97.9 F 69 16 125/59 06/03/18 22:03 97.4 F L 76 16 143/84 96 06/03/18 20:23 97 F L 77 20 139/79 97 06/03/18 16:18 97.5 F L 82 20 138/64 99 Intake and Output 06/04/18 06/04/18 06/04/18 06:59 14:59 22:59 Other: Weight 52 kg GENERAL: The patient is alert and oriented x3, not in any acute distress. Well developed, well nourished. HEENT: Pupils are round and equally reacting to light. EOMI. No scleral icterus. No conjunctival pallor. Normocephalic, atraumatic. No pharyngeal erythema. No thyromegaly. CARDIOVASCULAR: S1 and S2 present. No murmurs, rubs, or gallops. PULMONARY: Chest is clear to auscultation, no wheezing or crackles. ABDOMEN: Soft, nontender, nondistended, normoactive bowel sounds. No palpable organomegaly. MUSCULOSKELETAL: No joint swelling or deformity. EXTREMITIES: No cyanosis, clubbing, or pedal edema. NEUROLOGICAL: Gross neurological examination did not reveal any focal deficits. SKIN: No rashes. Results CBC & Chem 7: 06/04/18 07:26 06/04/18 07:26 Labs: Abnormal Lab Results - Last 24 Hours (Table) 06/03/18 06/03/18 06/04/18 Range/Units 18:35 19:13 07:26 Chloride 108 H (98-107) mmol/L BUN 26 H 30 H (9-20) mg/dL Albumin 3.4 L (3.5-5.0) g/dL U Tricyclic Antidepress Detected H (NotDetected) Assessment and Plan Assessment: Depression, homicidal ideation and other psychiatric illnesses, management as per sec team. Chronic low back pain, continue with pain management Constipation,pt refused medication History of hepatitis C History of coronary artery disease History of degenerative joint disease Plan: This is a pleasant 68 years old male who presents with homicidal ideation, complains from chronic back pain. start ibuprofen for few days. Continue with pain management. Labs and medication were reviewed.. Continue same treatment. Continue with symptomatic treatment. Resume home medication. Monitor lytes and vitals. DVT and GI prophylaxis. Further recommendations of the clinical course of the patient Prognosis is guarded
[2018-06-04] MEDS: QUEtiapine 100 MG TAB PO SCH (21:40)
[2018-06-04] MEDS: LORazepam 1 MG TAB PO PRN (21:42)
[2018-06-05] MEDS ORDERED: DULoxetine HCL 30 MG CAPSULE.DR PO SCH (09:00)
[2018-06-05] MEDS: NICOTINE 14MG/24HR PATCH TRANSDERM SCH (09:01)
[2018-06-05 10:31] LABS: Hemoglobin A1C 5.5 % (4.0-6.0)
--- NOTE | 2018-06-05 17:10 | P.PN ---
Progress Note - Text Progress Note Date: 06/05/18 Found him still in lot of pain and depressed. Isolating and withdrawing MENTAL STATUS EXAM: The patient is an average height and built male appearing his stated age. Poor eye contact. Minimally interactive. Speech soft tone. Mood depressed and anxious with congruent affect. Has no suicidal ideation but has homicidal ideation. No symptoms of psychoses. Has poor insight and poor judgment STRENGTHS/WEAKNESSES: Housing, Financial INTELLECTUAL FUNCTIONING: average IMPRESSIONS: [] 1. Bipolar Disorder, most recent episode depression Stimulant Use Disorder PLAN: Will continue to adjust medications accordingly Social work will meet with the patient to complete a psychosocial assessment. We will monitor him for safety and encourage participation in the milieu. Vital signs reviewed.
[2018-06-05] MEDS: QUEtiapine 100 MG TAB PO SCH (20:27)
[2018-06-06] MEDS: DULoxetine HCL 60 MG CAPSULE.DR PO SCH (09:16)
[2018-06-06] MEDS: NICOTINE 14MG/24HR PATCH TRANSDERM SCH (09:16)
[2018-06-06] MEDS: traMADol 50 MG TAB PO PRN ×2 (11:16→15:17)
--- NOTE | 2018-06-06 12:00 | P.PN ---
Progress Note - Text Progress Note Date: 06/06/18 Found him in his room. Feeling very depressed and anxious. Still in lot of pain and depressed. Isolating and withdrawing MENTAL STATUS EXAM: The patient is an average height and built male appearing his stated age. Poor eye contact. Minimally interactive. Speech soft tone. Mood depressed and anxious with congruent affect. Has no suicidal ideation but has homicidal ideation. No symptoms of psychoses. Has poor insight and poor judgment STRENGTHS/WEAKNESSES: Housing, Financial INTELLECTUAL FUNCTIONING: average IMPRESSIONS: 1. Bipolar Disorder, most recent episode depression Stimulant Use Disorder PLAN: Will continue to adjust medications accordingly Encouraged to attend groups and meetings on the unit
[2018-06-06] MEDS: QUEtiapine 100 MG TAB PO SCH (20:12)
[2018-06-06] MEDS: LORazepam 1 MG TAB PO PRN (20:33)
[2018-06-07] MEDS: DULoxetine HCL 60 MG CAPSULE.DR PO SCH ×2 (10:27→13:12)
[2018-06-07] MEDS: NICOTINE 14MG/24HR PATCH TRANSDERM SCH ×2 (10:27→13:11)
--- NOTE | 2018-06-07 17:26 | P.PN ---
Progress Note - Text Progress Note Date: 06/07/18 Found him in his room. Feeling very depressed and anxious. In moderate distress due to chronic back and leg pains. Isolating and withdrawing MENTAL STATUS EXAM: The patient is an average height and built male appearing his stated age. Poor eye contact. Minimally interactive. Speech soft tone. Mood depressed and anxious with congruent affect. Has no suicidal ideation but has homicidal ideation. No symptoms of psychoses. Has poor insight and poor judgment STRENGTHS/WEAKNESSES: Housing, Financial INTELLECTUAL FUNCTIONING: average IMPRESSIONS: 1. Bipolar Disorder, most recent episode depression Stimulant Use Disorder PLAN: Will continue to adjust medications accordingly Encouraged to attend groups and meetings on the unit
[2018-06-07] MEDS: QUEtiapine 100 MG TAB PO SCH (20:10)
[2018-06-08] MEDS: NICOTINE 14MG/24HR PATCH TRANSDERM SCH (08:44)
[2018-06-08] MEDS: DULoxetine HCL 60 MG CAPSULE.DR PO SCH (08:44)
--- NOTE | 2018-06-08 10:56 | P.PN ---
Progress Note - Text Interval history: The patient is found in his room he follows me to an interview room. He indicates his mood is still frustrated. He describes feelings of anger towards individuals at the [facility]. He indicates that they had his vehicle towed away after had been there 2 weeks and it was inoperable. He was residing in that vehicle for the last 2 weeks. He indicates still feeling angry towards them and had thoughts of strangling them. We reviewed his current psychotropic medication his questions were answered. He has chronically been on Seroquel but the Cymbalta is been added since he has been here. Mental status exam: The patient is a short statured thin male appearing his stated age. He is dressed in his own clothing. Eye contact is intermittent speech is fluent. He responds to questions asked. He indicates his mood is depressed and angry. He reports having hopeless thinking. He reports no auditory or visual hallucinations he endorses no specific delusions. He is rather focused on having his car taken away not demonstrating appropriate insight into the situation. He demonstrates no verbal or physical aggressiveness. He demonstrates a bland affect. He is oriented to person place month day and year. Plan: The patient will continue on his current psychotropic medications. His questions regarding Cymbalta were answered. Vital signs reviewed. He is sleeping adequately at night. We will monitor him for safety and encourage participation in the milieu. He is concerned about lack of placement upon discharge and this was discussed during team meeting.
[2018-06-08] MEDS: traMADol 50 MG TAB PO PRN (15:51)
[2018-06-08] MEDS: QUEtiapine 100 MG TAB PO SCH (20:39)
[2018-06-08] MEDS: LORazepam 1 MG TAB PO PRN (20:42)
[2018-06-09] MEDS: NICOTINE 14MG/24HR PATCH TRANSDERM SCH (08:27)
[2018-06-09] MEDS: DULoxetine HCL 60 MG CAPSULE.DR PO SCH (08:27)
--- NOTE | 2018-06-09 11:00 | P.PN ---
Progress Note - Text Interval history: The patient's found in his room he follows me to an interview room. He indicates his mood is tired. He reports having ongoing hopeless feeling. He is concerned about where he will reside upon discharge. We reviewed his psychotropic medications he had no questions. He has not been attending groups and we discussed the importance of him participating in the milieu. He indicates he has been eating. Mental status exam: The patient is a thin short statured male appearing his stated age. Hygiene and grooming are impaired he is malodorous. He demonstrates some mild psychomotor slowing. Affect is bland. He reports a depressed mood with hopelessness thinking. He feels safe here in the hospital in terms of suicidal ideation. He has previously voiced homicidal thoughts. The patient demonstrates no verbal or physical aggressiveness he demonstrates no abnormal involuntary movements. He provides brief answers to questions asked and has no spontaneous speech. He is endorsing no auditory or visual hallucinations or any specific delusions. Plan: The patient will continue on his current psychotropic medication. He strongly encouraged to attend groups and participate in the milieu as it is an important part of the treatment we provide. We will monitor him for safety. Vital signs reviewed.
[2018-06-09] MEDS: QUEtiapine 100 MG TAB PO SCH (20:17)
[2018-06-09] MEDS: LORazepam 1 MG TAB PO PRN (20:18)
[2018-06-10] MEDS: NICOTINE 14MG/24HR PATCH TRANSDERM SCH (08:10)
[2018-06-10] MEDS: DULoxetine HCL 60 MG CAPSULE.DR PO SCH (08:10)
[2018-06-10] MEDS: LORazepam 1 MG TAB PO PRN (13:33)
[2018-06-10] MEDS: IBUPROFEN 600 MG TAB PO SCH ×2 (18:07→22:05)
[2018-06-10] MEDS ORDERED: DULoxetine HCL 30 MG CAPSULE.DR PO SCH (18:15)
[2018-06-10] MEDS: QUEtiapine 100 MG TAB PO SCH (20:34)
--- NOTE | 2018-06-10 21:43 | PN ---
DATE OF SERVICE: 06/10/2018 PROGRESS NOTE CHIEF COMPLAINT: The patient had anger, agitation, and was making threats after having his car towed, he had been living in his car. INTERVAL HISTORY: The patient has been doing fair. He had a quiet evening last night. He slept fair, does wake up some in the night. He has been mostly quiet today. He keeps to himself. He does not attend groups. He did request Ativan this afternoon at 1:33 pm stating he was having racing thoughts and anxiety. He was unable to identify specific issues about that. He continues to be fairly down in his mood. He has a poor outlook. His main issue is what will happen for a living situation when he is discharged. He tells me that he has been living for the last year in his car. Prior to that he had been renting a room in a house. Apparently the conditions were extremely poor and he eventually had to move out. In the middle of the night on the at 1:50 am, the patient had reported an episode of explosive diarrhea. He is not reporting any GI symptoms today. He has been cooperative. He says he has been limited in walking as he gets pain and tiredness in his legs. He says typically he will walk a short distance and then feels he has to sit down and rest. He tolerates his psychotropic medications. MENTAL STATUS: Patient gave fair eye contact. Psychomotor activity was slowed. Speech was monotone and soft. He answered questions with brief responses. His thoughts were clear. His affect was flat. His mood depressed. He seemed moderately distressed. There was no indication of thought disorder. He was ambulatory, walked with a slow measured gait. ASSESSMENT: I will continue the current diagnosis and treatment plan. I will increase Cymbalta to 90 mg a day. We will continue Seroquel 300 mg a day. I discontinued Ativan due to risk of fall as well as aggravation of any cognitive issues we can look for alternative options to help with anxiety if he has some acute episodes, we will continue to focus on stabilization and discharge planning. MARLA / SHANNON: [id number] / MTDD
[2018-06-11] MEDS: NICOTINE 14MG/24HR PATCH TRANSDERM SCH (07:35)
[2018-06-11] MEDS: DULoxetine HCL 30 MG CAPSULE.DR PO SCH (07:35)
[2018-06-11] MEDS: IBUPROFEN 600 MG TAB PO SCH ×3 (07:35→20:21)
--- NOTE | 2018-06-11 15:24 | PN ---
PROGRESS NOTE DATE OF SERVICE: 06/11/2018. CHIEF COMPLAINT: The patient had anger, agitation, and was making threats after having his car towed. He had been living in his car. INTERVAL HISTORY: Patient has been doing fair. He had a quiet evening last night. He slept well today. He has been up. He spends a fair amount of time in his room. He said that he attended 2 groups though I did not find a clear documentation of that. The patient says that his mood is about the same or perhaps a little better. He still worries about where he will be living when he is out of the hospital. For the most part he seems fairly down and withdrawn in his manner more than anything else. He tolerates his psychotropic medication. The patient did say that he is trying to make some effort at doing some therapeutic walking. MENTAL STATUS: Patient was in his room lying down. He was awake. He gave fair eye contact at best. Psychomotor activity was slowed. Speech was monotone and soft. He answered questions with brief 1 or 2 word responses. He did not say much. His affect was flat. Mood depressed. He seemed moderately distressed. ASSESSMENT: I will continue the current diagnosis and treatment plan at this point. I will continue Cymbalta 90 mg a day. I will switch the patient from Seroquel to Zyprexa, given that he has been on Seroquel prior to coming into the hospital and has continued to have mood issues, not clear he has gotten much benefit and would have concern that he may get excessive sedation from the Seroquel which could add to some of his withdrawal. Start Zyprexa 5 mg in the morning, 10 mg at bedtime. The aim of Zyprexa is to help augment his antidepressant. It is noted that Zyprexa in combination with SSRI medications does have an indication for complicated depression. We will continue to encourage the patient towards increased activity. We will focus on stabilization and discharge planning. MMODL / IJN: [id number] /
[2018-06-11] MEDS: OLANZapine 5 MG TAB PO SCH (15:44)
[2018-06-11] MEDS: QUEtiapine 100 MG TAB PO SCH (20:21)
[2018-06-11] MEDS ORDERED: OLANZapine 10 MG TAB PO SCH (21:00)
[2018-06-12] MEDS: NICOTINE 14MG/24HR PATCH TRANSDERM SCH (08:47)
[2018-06-12] MEDS: DULoxetine HCL 30 MG CAPSULE.DR PO SCH (08:47)
[2018-06-12] MEDS: OLANZapine 5 MG TAB PO SCH (08:47)
[2018-06-12] MEDS: IBUPROFEN 600 MG TAB PO SCH ×3 (08:47→20:48)
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
[2018-06-12] MEDS ORDERED: OLANZapine 5 MG TAB PO STA (19:59)
[2018-06-13] MEDS: IBUPROFEN 600 MG TAB PO SCH ×3 (07:55→21:10)
[2018-06-13] MEDS: NICOTINE 14MG/24HR PATCH TRANSDERM SCH (07:55)
[2018-06-13] MEDS: DULoxetine HCL 30 MG CAPSULE.DR PO SCH (07:56)
--- NOTE | 2018-06-13 12:07 | P.PN ---
Progress Note - Text Interval history: The patient is found in group he follows me to an interview room. He states his mood is stabilizing. He feels as though the Zyprexa is not the right medication for him and wants to go back on his Seroquel. He feels he is not able to sleep without the Seroquel. He has no questions or concerns regarding Cymbalta. He is making more of an effort to attend group. He discusses plans he will pursue upon discharge. Although he still has feelings of frustration regarding his car being towed he verbalizes no plan or intent to harm anyone. Appetite is been stable. Mental status exam: The patient is a short statured thin male appearing his stated age. He is dressed in his own clothing. Eye contact is appropriate. Speech is fluent spontaneous nonpressured. He denies having any suicidal or homicidal ideation intent or plan. He is endorsing no auditory or visual hallucinations or any specific delusions. His mood is becoming less depressed. He does voice feelings of frustration due to his vehicle being towed. Insight and judgment improving. He demonstrates no verbal or physical aggressiveness. He demonstrates no involuntary repetitive movements. Affect is constricted. Plan: The patient will continue on the Cymbalta as written we will discontinue the Zyprexa and restart Seroquel 150 mg at bedtime. We will monitor him for safety and encourage his continued participation in the milieu. We will continue to assess his status daily and he may be appropriate for discharge in the next 1-2 days.
[2018-06-13] MEDS ORDERED: OLANZapine 5 MG TAB PO SCH (21:00)
[2018-06-13] MEDS: QUEtiapine 100 MG TAB PO SCH (21:09)
[2018-06-14 07:00] VITALS: RESP 16
[2018-06-14] MEDS: NICOTINE 14MG/24HR PATCH TRANSDERM SCH (07:40)
[2018-06-14] MEDS: IBUPROFEN 600 MG TAB PO SCH ×3 (07:40→21:02)
[2018-06-14] MEDS: DULoxetine HCL 30 MG CAPSULE.DR PO SCH (07:40)
--- NOTE | 2018-06-14 10:15 | PN ---
PROGRESS NOTE DATE OF SERVICE: 06/14/2018 CHIEF COMPLAINT: The patient had anger, agitation, and was making threats after having his car towed. He had been living in his car. INTERVAL HISTORY: Patient has been doing fair. He had a quiet evening last night. He slept fairly well. Today he has been up. He did attend one group yesterday. He did complete a goals assessment. He seems to be doing a little better overall. He is a little more engaging. He acknowledges that he has had significant depression issues, though feels that he has made some progress in that regard. He has a better outlook. He has been able to talk about discharge plans. He has been cooperative. He reports no problems with his medications. MENTAL STATUS: Patient gave fairly good eye contact. Psychomotor activity was slowed. Speech was monotone. He answered questions appropriately. His thoughts were clear. He was soft spoken, though responded in a direct way to questions. He was thoughtful. His affect was somewhat constricted. His mood reserved. He seemed a little better in his mood in previous days. There was no indication of thought disorder. ASSESSMENT: I will continue the current diagnosis and treatment plan. Will continue psychotropic medications the same. Patient appears to tolerate his medications well. We will continue to focus on discharge planning issues. The patient has been able to engage in planning in this regard. I would anticipate the patient being discharged fairly soon. AMRLA / SHANNON: [id number] /
[2018-06-14] MEDS: QUEtiapine 100 MG TAB PO SCH (21:03)
[2018-06-15 07:08] VITALS: BP 116/53; PULSE 64; TEMP 98.1
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
[2018-06-15] MEDS: DULoxetine HCL 30 MG CAPSULE.DR PO SCH (09:49)
[2018-06-15] MEDS: IBUPROFEN 600 MG TAB PO SCH (09:50)
[2018-06-15] MEDS: NICOTINE 14MG/24HR PATCH TRANSDERM SCH (09:52)
== END 2018-06-15 11:30 | disposition home or self-care (01) | DRG 885 ==
LOC: EC 16:14 → 3MHU 20:17
PROVIDERS: ADMIT Psychiatry & Neurology Psychiatry; ATTEND Psychiatry & Neurology Psychiatry
DX: F31.4 Bipolar disorder, current episode depressed, severe, without psychotic features (principal); R45.851 Suicidal ideations; F14.10 Cocaine abuse, uncomplicated; Z71.6 Tobacco abuse counseling; F17.210 Nicotine dependence, cigarettes, uncomplicated; F41.9 Anxiety disorder, unspecified; G89.29 Other chronic pain; I10 Essential (primary) hypertension; I25.10 Atherosclerotic heart disease of native coronary artery without angina pectoris; K59.00 Constipation, unspecified; R45.850 Homicidal ideations; Z59.0 Homelessness; Z79.899 Other long term (current) drug therapy; Z82.3 Family history of stroke; Z82.49 Family history of ischemic heart disease and other diseases of the circulatory system; Z91.81 History of falling; Z95.1 Presence of aortocoronary bypass graft; M19.90 Unspecified osteoarthritis, unspecified site; M54.30 Sciatica, unspecified side; Z86.19 Personal history of other infectious and parasitic diseases
CPT/HCPCS: 36415; 80053; 80061; 80306; 81003; 82075; 83036; 84443; 85025; 93005; 96372; 99285

== ENCOUNTER 2018-07-21 09:17 | Emergency (ER) | payer MEDICARE ==
[2018-07-21] MEDS ORDERED: SODIUM CHLORIDE 0.9% 500 ML 500 ML IV STA (09:22)
[2018-07-21] MEDS ORDERED: SODIUM CHLORIDE 0.9% 1,000 ML IV STA ×2 (09:22)
--- NOTE | 2018-07-21 09:22 | ED ---
Weakness HPI - General Stated complaint: Found outside Time Seen by Provider: 07/21/18 09:21 - History of Present Illness Complaint: generalized weakness (hypothermia) -: unknown Location: generalized Severity: severe Severity scale (1-10): 8 Quality: tingling, numbness Consistency: constant Improves with: none Worsens with: none Context: other Associated Symptoms: denies other symptoms, fever/chills (freezing) - Related Data Home Medications Medication Instructions Recorded Confirmed DULoxetine HCL [Cymbalta] 30 mg PO DAILY 07/21/18 07/21/18 QUEtiapine FUMARATE [SEROquel] 300 mg PO HS 07/21/18 07/21/18 Allergies Allergy/AdvReac Type Severity Reaction Status Date / Time No Known Allergies Allergy Verified 07/21/18 10:47 Review of Systems ROS Statement: Those systems with pertinent positive or pertinent negative responses have been documented in the HPI. ROS Other: All systems not noted in ROS Statement are negative. Past Medical History Past Medical History: No Reported History, Hypertension Additional Past Medical History / Comment(s): sciatica, hepatitis C History of Any Multi-Drug Resistant Organisms: None Reported Past Surgical History: Coronary Bypass/CABG Additional Past Surgical History / Comment(s): left knee, right wrist, and right knee surgeries. I&D of the left knee following Staphylococcus infection. Past Anesthesia/Blood Transfusion Reactions: No Reported Reaction Past Psychological History: Anxiety, Depression Smoking Status: Current every day smoker Past Alcohol Use History: Rare Additional Past Alcohol Use History / Comment(s): Patient states he smokes 7 cigarettes per day and has been smoking since he was 9 years of age. He states he smoked marijuana on a regular basis in the past but quit 8-9 months ago. He denies any alcohol use and denies any previous alcohol abuse. He denies any street drug use. Past Drug Use History: Cocaine Additional Drug Use History / Comment(s): Smokes weed "when I have it" Pt also states he had been smoking crack cocaine but stopped three weeks ago - Past Family History Mother History Unknown: Yes Additional Family Medical History / Comment(s): Mother is 85 years of age with no major medical problems. Father History Unknown: Yes Family Medical History: CVA/TIA, Hypertension Additional Family Medical History / Comment(s): Father at age 75 with history of for CVAs and hypertension. Brother(s) Additional Family Medical History / Comment(s): He has 4 brothers that are healthy with no major medical problems. He has one sister that is healthy. He has 3 daughters with no major medical problems. General Exam General appearance: alert, in no apparent distress Head exam: Present: atraumatic, normocephalic, normal inspection Eye exam: Present: normal appearance, PERRL, EOMI. Absent: scleral icterus, conjunctival injection, periorbital swelling ENT exam: Present: normal exam, mucous membranes moist Neck exam: Present: normal inspection. Absent: tenderness, meningismus, lymphadenopathy Respiratory exam: Present: normal lung sounds bilaterally. Absent: respiratory distress, wheezes, rales, rhonchi, stridor Cardiovascular Exam: Present: regular rate, normal rhythm, normal heart sounds. Absent: systolic murmur, diastolic murmur, rubs, gallop, clicks GI/Abdominal exam: Present: soft, normal bowel sounds. Absent: distended, tenderness, guarding, rebound, rigid Extremities exam: Present: normal inspection, full ROM, normal capillary refill. Absent: tenderness, pedal edema, joint swelling, calf tenderness Back exam: Present: normal inspection Neurological exam: Present: alert, oriented X3, CN II-XII intact Psychiatric exam: Present: normal affect, normal mood Skin exam: Present: warm, dry, intact, normal color. Absent: rash Course Vital Signs 07/21/18 07/21/18 07/21/18 09:20 09:38 09:39 Temperature 96.2 F L 96.9 F L Pulse Rate 89 Pulse Rate [ 86 Carding Doubler ] Respiratory 18 Rate Blood Pressure 215/108 O2 Sat by Pulse 97 Oximetry 07/21/18 07/21/18 07/21/18 09:42 09:58 10:57 Temperature 97.7 F 98.1 F Pulse Rate 96 89 78 Pulse Rate [ Carding Doubler ] Respiratory 18 18 18 Rate Blood Pressure 179/93 162/85 118/63 O2 Sat by Pulse 97 98 98 Oximetry EKG Findings - EKG Comments: EKG Findings:: EKG shows sinus rhythm rate of 76, NJ 108, QRS 72, QTc 420 Medical Decision Making - Lab Data Result diagrams: 07/21/18 09:30 07/21/18 09:30 Lab Results 07/21/18 07/21/18 07/21/18 Range/Units 09:30 09:30 09:30 WBC 9.4 (3.8-10.6) k/uL RBC 4.85 (4.30-5.90) m/uL Hgb 14.6 (13.0-17.5) gm/dL Hct 44.2 (39.0-53.0) % MCV 91.3 (80.0-100.0) fL MCH 30.2 (25.0-35.0) pg MCHC 33.1 (31.0-37.0) g/dL RDW 13.9 (11.5-15.5) % Plt Count 146 L (150-450) k/uL Neutrophils % 73 % Lymphocytes % 17 % Monocytes % 7 % Eosinophils % 3 % Basophils % 0 % Neutrophils # 6.8 (1.3-7.7) k/uL Lymphocytes # 1.6 (1.0-4.8) k/uL Monocytes # 0.6 (0-1.0) k/uL Eosinophils # 0.2 (0-0.7) k/uL Basophils # 0.0 (0-0.2) k/uL PT (9.0-12.0) sec INR (<1.2) APTT (22.0-30.0) sec Sodium 140 (137-145) mmol/L Potassium 4.5 (3.5-5.1) mmol/L Chloride 105 (98-107) mmol/L Carbon Dioxide 23 (22-30) mmol/L Anion Gap 12 mmol/L BUN 16 (9-20) mg/dL Creatinine 0.70 (0.66-1.25) mg/dL Est GFR (CKD-EPI)AfAm >90 (>60 ml/min/1.73 sqM) Est GFR (CKD-EPI)NonAf >90 (>60 ml/min/1.73 sqM) Glucose 121 H (74-99) mg/dL Plasma Lactic Acid Alfa (0.7-2.0) mmol/L Calcium 9.8 (8.4-10.2) mg/dL Phosphorus 3.7 (2.5-4.5) mg/dL Magnesium 1.6 (1.6-2.3) mg/dL Total Bilirubin 0.8 (0.2-1.3) mg/dL AST 57 (17-59) U/L ALT 75 H (21-72) U/L Alkaline Phosphatase 106 (38-126) U/L Total Creatine Kinase 76 (55-170) U/L CK-MB (CK-2) 1.6 (0.0-2.4) ng/mL CK-MB (CK-2) Rel Index 2.1 Troponin I <0.012 (0.000-0.034) ng/mL Total Protein 7.2 (6.3-8.2) g/dL Albumin 4.2 (3.5-5.0) g/dL Serum Alcohol <10 mg/dL 07/21/18 07/21/18 Range/Units 09:30 09:30 WBC (3.8-10.6) k/uL RBC (4.30-5.90) m/uL Hgb (13.0-17.5) gm/dL Hct (39.0-53.0) % MCV (80.0-100.0) fL MCH (25.0-35.0) pg MCHC (31.0-37.0) g/dL RDW (11.5-15.5) % Plt Count (150-450) k/uL Neutrophils % % Lymphocytes % % Monocytes % % Eosinophils % % Basophils % % Neutrophils # (1.3-7.7) k/uL Lymphocytes # (1.0-4.8) k/uL Monocytes # (0-1.0) k/uL Eosinophils # (0-0.7) k/uL Basophils # (0-0.2) k/uL PT 11.1 (9.0-12.0) sec INR 1.0 (<1.2) APTT 26.2 (22.0-30.0) sec Sodium (137-145) mmol/L Potassium (3.5-5.1) mmol/L Chloride (98-107) mmol/L Carbon Dioxide (22-30) mmol/L Anion Gap mmol/L BUN (9-20) mg/dL Creatinine (0.66-1.25) mg/dL Est GFR (CKD-EPI)AfAm (>60 ml/min/1.73 sqM) Est GFR (CKD-EPI)NonAf (>60 ml/min/1.73 sqM) Glucose (74-99) mg/dL Plasma Lactic Acid Alfa 4.6 H* (0.7-2.0) mmol/L Calcium (8.4-10.2) mg/dL Phosphorus (2.5-4.5) mg/dL Magnesium (1.6-2.3) mg/dL Total Bilirubin (0.2-1.3) mg/dL AST (17-59) U/L ALT (21-72) U/L Alkaline Phosphatase (38-126) U/L Total Creatine Kinase (55-170) U/L CK-MB (CK-2) (0.0-2.4) ng/mL CK-MB (CK-2) Rel Index Troponin I (0.000-0.034) ng/mL Total Protein (6.3-8.2) g/dL Albumin (3.5-5.0) g/dL Serum Alcohol mg/dL Disposition Clinical Impression: Syncope, Weakness, Hypothermia Disposition: HOME SELF-CARE Condition: Good Instructions (If sedation given, give patient instructions): Acute Hypothermia (ED) Is patient prescribed a controlled substance at d/c from ED?: No Referrals: Halima Blanco MD [Primary Care Provider] - 1-2 days
[2018-07-21] MEDS ORDERED: DIAZEPAM 5 MG/ML 2 ML INJ IVP STA (09:27)
[2018-07-21 09:38] VITALS: RESP 18
[2018-07-21 09:54] LABS: Basophils % (A) 0 %; Eosinophils # (A) 0.2 k/uL (0-0.7); Eosinophils % (A) 3 %; HCT 44.2 % (39.0-53.0); HGB 14.6 gm/dL (13.0-17.5); Lymphocytes # (A) 1.6 k/uL (1.0-4.8); Lymphocytes % (A) 17 %; MCH 30.2 pg (25.0-35.0); MCHC 33.1 g/dL (31.0-37.0); MCV 91.3 fL (80.0-100.0); Mean Platelet Volume 7.7; Monocytes # (A) 0.6 k/uL (0-1.0); Monocytes % (A) 7 %; Neutrophils # (A) 6.8 k/uL (1.3-7.7); Neutrophils % (A) 73 %; Platelet Count 146 k/uL (150-450); RBC 4.85 m/uL (4.30-5.90); RDW 13.9 % (11.5-15.5); WBC 9.4 k/uL (3.8-10.6)
[2018-07-21 10:05] LABS: ALT 75 U/L (21-72); AST 57 U/L (17-59); Albumin 4.2 g/dL (3.5-5.0); Alcohol <10 mg/dL; Alkaline Phosphatase 106 U/L (38-126); Anion Gap 12 mmol/L; Blood Urea Nitrogen 16 mg/dL (9-20); Calcium 9.8 mg/dL (8.4-10.2); Carbon Dioxide 23 mmol/L (22-30); Chloride 105 mmol/L (98-107); Glucose 121 mg/dL (74-99); Magnesium 1.6 mg/dL (1.6-2.3); Partial Thromboplastin Time 26.2 sec (22.0-30.0); Phosphorus 3.7 mg/dL (2.5-4.5); Potassium 4.5 mmol/L (3.5-5.1); Prothrombin Time 11.1 sec (9.0-12.0); Sodium 140 mmol/L (137-145); Total Bilirubin 0.8 mg/dL (0.2-1.3); Total Protein 7.2 g/dL (6.3-8.2)
[2018-07-21 10:27] LABS: Creatine Kinase 76 U/L (55-170)
[2018-07-21 10:40] LABS: Creatine Kinase MB 1.6 ng/mL (0.0-2.4); Troponin I <0.012 ng/mL (0.000-0.034)
[2018-07-21 10:58] VITALS: PULSE 78
[2018-07-21 11:48] VITALS: BP 134/80; TEMP 98
== END 2018-07-21 12:00 | disposition home or self-care (01) ==
LOC: EC 09:17
DX: T68.XXXA Hypothermia, initial encounter (principal); R53.1 Weakness; R20.0 Anesthesia of skin; R20.2 Paresthesia of skin; F32.9 Major depressive disorder, single episode, unspecified; F41.9 Anxiety disorder, unspecified; F17.210 Nicotine dependence, cigarettes, uncomplicated; Z79.899 Other long term (current) drug therapy; W93.8XXA Exposure to other excessive cold of man-made origin, initial encounter
CPT/HCPCS: 36415; 80053; 82550; 82553; 83605; 83735; 84100; 84484; 85025; 85610; 85730; 99285; 96374; 96361 ×2; G0480; J3360; 80320

== ENCOUNTER 2018-11-16 17:39 | Inpatient (IN) | payer MEDICARE ==
--- NOTE | 2018-11-16 18:08 | ED ---
General Adult HPI - General Chief complaint: Psychiatric Symptoms Stated complaint: EPS eval Time Seen by Provider: 11/16/18 17:48 Source: patient, RN notes reviewed, old records reviewed Mode of arrival: ambulatory Limitations: no limitations - History of Present Illness Initial comments: 68 -year-old male presenting with depression and suicidal ideation. Patient states he is using cocaine, he plans to commit suicide by over dosing on cocaine. Denies any other substance ingestion. He states symptoms have been worsening over the past one week. Denies any physical harm. Denies any physical complaints. - Related Data Home Medications Medication Instructions Recorded Confirmed QUEtiapine FUMARATE [SEROquel] 300 mg PO HS 07/21/18 11/16/18 Allergies Allergy/AdvReac Type Severity Reaction Status Date / Time No Known Allergies Allergy Verified 11/16/18 18:32 Review of Systems ROS Statement: Those systems with pertinent positive or pertinent negative responses have been documented in the HPI. ROS Other: All systems not noted in ROS Statement are negative. Past Medical History Past Medical History: No Reported History, Hypertension Additional Past Medical History / Comment(s): sciatica, hepatitis C History of Any Multi-Drug Resistant Organisms: None Reported Past Surgical History: Coronary Bypass/CABG Additional Past Surgical History / Comment(s): left knee, right wrist, and right knee surgeries. I&D of the left knee following Staphylococcus infection. Past Anesthesia/Blood Transfusion Reactions: No Reported Reaction Past Psychological History: Anxiety, Depression Smoking Status: Current every day smoker Past Alcohol Use History: Rare Past Drug Use History: Cocaine - Past Family History Mother History Unknown: Yes Additional Family Medical History / Comment(s): Mother is 85 years of age with no major medical problems. Father History Unknown: Yes Family Medical History: CVA/TIA, Hypertension Additional Family Medical History / Comment(s): Father at age 75 with history of for CVAs and hypertension. Brother(s) Additional Family Medical History / Comment(s): He has 4 brothers that are healthy with no major medical problems. He has one sister that is healthy. He has 3 daughters with no major medical problems. General Exam Limitations: no limitations General appearance: alert, in no apparent distress Head exam: Present: atraumatic, normocephalic Eye exam: Present: normal appearance, PERRL ENT exam: Present: normal exam Neck exam: Present: normal inspection. Absent: tenderness, meningismus Respiratory exam: Present: normal lung sounds bilaterally. Absent: respiratory distress, wheezes Cardiovascular Exam: Present: regular rate, normal rhythm GI/Abdominal exam: Present: soft. Absent: distended, tenderness, guarding Extremities exam: Present: normal inspection, normal capillary refill. Absent: pedal edema Back exam: Present: normal inspection Neurological exam: Present: alert, oriented X3, CN II-XII intact. Absent: motor sensory deficit Psychiatric exam: Present: depressed, flat affect, suicidal ideation Skin exam: Present: warm, dry, intact. Absent: cyanosis, diaphoretic Course Vital Signs 11/16/18 17:47 Temperature 98.0 F Pulse Rate 80 Respiratory 18 Rate Blood Pressure 124/75 O2 Sat by Pulse 100 Oximetry Medical Decision Making - Medical Decision Making 68-year-old male presenting with depression suicidal ideation. Patient medically cleared, evaluated by EPS in the emergency department. He will be adm itted for further psychiatric evaluation treatment. Patient signed and for medical treatment. - Lab Data Lab Results 11/16/18 Range/Units 18:07 Urine Opiates Screen Not Detected (NotDetected) Ur Oxycodone Screen Not Detected (NotDetected) Urine Methadone Screen Not Detected (NotDetected) Ur Propoxyphene Screen Not Detected (NotDetected) Ur Barbiturates Screen Not Detected (NotDetected) U Tricyclic Antidepress Detected H (NotDetected) Ur Phencyclidine Scrn Not Detected (NotDetected) Ur Amphetamines Screen Not Detected (NotDetected) U Methamphetamines Scrn Not Detected (NotDetected) U Benzodiazepines Scrn Detected H (NotDetected) Urine Cocaine Screen Detected H (NotDetected) U Marijuana (THC) Screen Not Detected (NotDetected) Disposition Clinical Impression: Suicidal ideation, Depression, Cocaine use disorder Disposition: ADMITTED IP TO THIS [facility] Condition: Stable Is patient prescribed a controlled substance at d/c from ED?: No Referrals: Halima Blanco MD [Primary Care Provider] - 1-2 days Decision to Admit Reason: Admit from EC Decision Date: 11/16/18 Decision Time: 19:31
[2018-11-16 18:24] LABS: Amphetamine Screen,Urine Not Detected (NotDetected); Barbiturate Screen,Urine Not Detected (NotDetected); Benzodiazepines Screen,Urine Detected (NotDetected); Cocaine Screen,Urine Detected (NotDetected); Methadone Screen, Urine Not Detected (NotDetected); Opiate Screen,Urine Not Detected (NotDetected); Oxycodone Screen, Urine Not Detected (NotDetected); Phencyclidine Screen,Urine Not Detected (NotDetected); Tricyclic Antidepressant,Urine Detected (NotDetected); Urn Cannabinoid Scrn Not Detected (NotDetected)
[2018-11-16] MEDS ORDERED: MAGNESIUM HYDROXIDE 2,400 MG/10 ML CUP PO PRN (20:18)
[2018-11-16] MEDS ORDERED: ACETAMINOPHEN TAB 325 MG TAB PO PRN (20:18)
[2018-11-16] MEDS ORDERED: MAG HYDROX/AL HYDROX/SIMETH 30 ML CUP PO PRN (20:18)
[2018-11-16 22:02] LABS: Appearance,Urine Clear (Clear); Bilirubin,Urine Negative (Negative); Blood,Urine Negative (Negative); Color,Urine Yellow; Glucose,Urine (UA) Negative (Negative); Ketones,Urine Negative (Negative); Leukocyte Esterase,Urine Negative (Negative); Nitrite,Urine Negative (Negative); PH, Urine 5.5 (5.0-8.0); Protein,Urine Negative (Negative); Specific Gravity,Urine 1.026 (1.001-1.035)
[2018-11-16] MEDS: QUEtiapine 100 MG TAB PO SCH (22:12)
[2018-11-17 11:08] LABS: Basophils % (A) 1 %; Eosinophils # (A) 0.6 k/uL (0-0.7); Eosinophils % (A) 8 %; HCT 48.6 % (39.0-53.0); HGB 15.6 gm/dL (13.0-17.5); Lymphocytes # (A) 2.8 k/uL (1.0-4.8); Lymphocytes % (A) 36 %; MCH 29.2 pg (25.0-35.0); MCHC 32.1 g/dL (31.0-37.0); MCV 90.9 fL (80.0-100.0); Monocytes # (A) 0.6 k/uL (0-1.0); Monocytes % (A) 8 %; Neutrophils # (A) 3.5 k/uL (1.3-7.7); Neutrophils % (A) 46 %; Platelet Count 155 k/uL (150-450); RBC 5.35 m/uL (4.30-5.90); WBC 7.7 k/uL (3.8-10.6)
[2018-11-17 11:14] LABS: Bilirubin, Delta 0.1 mg/dL (0.0-0.2); Bilirubin,Unconjugated 0.8 mg/dL (0.0-1.1); Calcium 9.7 mg/dL (8.4-10.2); Total Bilirubin 0.9 mg/dL (0.2-1.3); Total Protein 6.9 g/dL (6.3-8.2)
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
[2018-11-17] MEDS: NICOTINE 14MG/24HR PATCH TRANSDERM SCH (13:11)
--- NOTE | 2018-11-17 14:03 | CONS ---
CONSULTATION REASON FOR CONSULTATION: Advice regarding hypertension and other multiple medical issues requested by Psychiatry. HISTORY OF PRESENT ILLNESS: This is a 68-year-old gentleman with past medical history of hypertension, sciatic, history of hepatitis C, history of CAD, CABG, anxiety, depression, history of polysubstance abuse including nicotine and as well as cocaine, being followed by Dr. Ly Moeller in the outpatient setting was admitted for psychiatric evaluation. There is no history of fever, chills, or rigors. No history of headache, loss of consciousness, seizures. Patient apparently had a pending consultation with SUZANNE Cuellar for evaluation and treatment of hepatitis C. PAST MEDICAL HISTORY: History of hypertension, sciatic, hepatitis C, history of CAD, CABG, anxiety, depression, history of nicotine dependence. MEDICATIONS: Prior to admission include Tylenol 650 q.4 p.r.n., Maalox 30 mL q.8 p.r.n., milk of magnesia, Habitrol 14 daily, Seroquel 100 mg q.h.s. SOCIAL HISTORY: History of smoking, history of THC, history of cocaine. REVIEW OF SYSTEMS: ENT: No diminished hearing or vision. CARDIOVASCULAR: No angina. RESPIRATION: As mentioned earlier. GI: As mentioned earlier. ; No dysuria. NERVOUS SYSTEM: No numbness or weakness. ALLERGY/IMMUNOLOGY: No asthma or hay fever. MUSCULOSKELETAL: As mentioned earlier. HEMATOLOGY: No history of anemia. ENDOCRINE: No history of diabetes or hypothyroidism. CONSTITUTIONAL: As mentioned earlier. DERMATOLOGY: Negative. RHEUMATOLOGY: Negative. PSYCHIATRY: As mentioned earlier. PHYSICAL EXAMINATION: Patient is alert, oriented x3. Pulse 68, blood pressure 130/59, respirations 16, temperature 98 degrees, pulse ox 98% on room air. HEENT: Conjunctivae normal. NECK: No jugular venous distension. CARDIOVASCULAR: S1, S2, muffled. RESPIRATION: Breath sounds diminished at the bases, a few scattered rhonchi, no crackles. ABDOMEN: Soft, nontender. LEGS: No edema, no swelling. NERVOUS SYSTEM: Higher functions as mentioned earlier, moves all 4 limbs, no focal deficits. LYMPHATICS: No lymph node enlargement in the neck or axillae. SKIN: No rash, ulcer or bleeding. JOINTS: No active deforming arthropathy. LABS: Sodium 140, potassium 4, AST is 70. ASSESSMENT: 1. Hypertension. 2. Sciatica. 3. Hepatitis C. 4. Coronary artery disease, coronary artery bypass grafting. 5. Anxiety, depression. 6. Polysubstance abuse including cocaine, THC. RECOMMENDATION: Recommend to continue with current management and symptomatic treatment. Recommend follow closely with primary physician. Resume the home medications. Follow up with . Guarded prognosis, further recommendations to follow. MMODL / IJN: [id number] / TRENT
[2018-11-17 18:46] LABS: Hemoglobin A1C 5.5 % (4.0-6.0)
[2018-11-17] MEDS: QUEtiapine 100 MG TAB PO SCH (21:24)
[2018-11-18] MEDS: NICOTINE 14MG/24HR PATCH TRANSDERM SCH (09:22)
--- NOTE | 2018-11-18 14:40 | P.PN ---
Progress Note - Text Progress Note Date: 11/18/18 Interval history: Patient is seen in cross coverage today. He is found in his room lying in bed. He relates that he does not wish to meet with me today. He relays that he is doing okay today. Mental status exam: He is found in his room lying in bed. After several times calling his name he does respond in relays that he does not wish to meet with me today. He relays that he is doing okay. He has not displaying any significant agitation. Plan: We'll maintain current psychotropic medication regimen. We'll attempt again tomorrow to interview patient. Continue to monitor for any medication side effects monitor his ongoing response to treatment.
[2018-11-18] MEDS: QUEtiapine 100 MG TAB PO SCH (20:49)
[2018-11-19] MEDS: NICOTINE 14MG/24HR PATCH TRANSDERM SCH (10:08)
--- NOTE | 2018-11-19 13:32 | P.PN ---
Progress Note - Text Progress Note Date: 11/19/18 Interval history: Patient is seen in [facility] again today. He is agreeable to come to the interview room. He is taking his psychotropic medication. He inquires regarding treatment regarding hepatitis C. He is encouraged to follow-up with his primary doctor. Mental status exam: He is alert and cooperative with the interview. His affect is restricted. Says his mood could be better but he does seem to report some improvement compared to when he came in the hospital. He denies any current thoughts of harm to self. He does not voice any thoughts of harm to others. Regarding any hallucinations he states that sometimes he sees a flash of a person go by. He does not show any agitation. Plan: We'll maintain current psychotropic medication regimen. Continue to monitor for any medication side effects monitor his ongoing response to treatment.
[2018-11-19] MEDS: QUEtiapine 100 MG TAB PO SCH (20:16)
[2018-11-20] MEDS: NICOTINE 14MG/24HR PATCH TRANSDERM SCH (08:49)
--- NOTE | 2018-11-20 12:27 | P.PN ---
Progress Note - Text Progress Note Date: 11/20/18 Interval History: Patient is a 68-year-old male who was found in his room sleeping and came to the interview room. Patient states that he has not been attending groups and spends his whole day in his room and states that he is not sure he needs rehab for his cocaine use. He complained of his roommates snoring and stated that when his roommate snores he has suicidal thoughts otherwise he does not. Patient reports that he is eating and had no other concerns at this time, questioning whether he needs inpatient rehab and whether his use of cocaine as a problem or not Mental Status: Appearance/Attitude: Patient is dressed in a hospital gown, makes little to no eye contact and is superficially cooperative Behavior: Patient does not exhibit any psychomotor agitation or retardation Speech/Language: Patient responds to questions, normal volume and rhythm and he is coherent Thought Process: Patient is goal-directed there is no evidence of loose association or flight of ideas Thought Content: Patient denies any auditory or visual hallucinations no delusions or paranoid ideation or elicited. Patient states he is not attending groups and spends his day in room in his room in bed. He states that he is eating and states that his roommate snores and when his roommate snores he feels suicidal otherwise he is not having suicidal thoughts. Patient states that he is not sure that the cocaine is a problem and uncertain about whether he needs inpatient rehab or not Suicidal/Homicidal Ideation: Patient states only time he has suicidal ideation was when his roommate was snoring otherwise he denies any suicidal thoughts and no current homicidal ideation Sensorium/Cognition: Patient is alert and oriented to person, place, and time and his recent and remote memory are grossly intact Mood/Affect: Patient's mood is restricted and his affect is appropriate to his mood Insight/Judgment: Patient's insight and judgment are fair Assessment: Patient continues to spend his days and his room in bed, not attending groups but states that he is eating and was sleeping until his roommate started snoring at which time the patient states that he felt suicidal otherwise he has no suicidal thoughts while on the unit. Patient is not endorsing any psychotic symptoms. Patient states that he is questioning whether his cocaine use is a problem or not and whether he needs to go to inpatient rehab. Patient has not been attending groups or activities. Plan: Patient will continue on Seroquel 300 mg at bedtime, patient was encouraged to attend groups and activities as well as to consider inpatient rehab for his cocaine use. Patient requires hospitalization to further stabilize his mood. Patient was given information on contacting inpatient rehab however he has not made any calls.
[2018-11-20] MEDS: QUEtiapine 100 MG TAB PO SCH (20:40)
[2018-11-21] MEDS: NICOTINE 14MG/24HR PATCH TRANSDERM SCH (09:31)
--- NOTE | 2018-11-21 14:58 | P.PN ---
Progress Note - Text Progress Note Date: 11/21/18 Interval History: Patient is a 68-year-old male who was seen who is sleeping in his room and is not been attending groups. Patient states that he doesn't feel like it and he has been eating. Patient states that he is now interested in inpatient rehab but has not made any calls. Patient reports that he is not feeling suicidal and was not hearing any voices. Patient states that he is not having any side effects from the restart of Seroquel 300 mg at bedtime Mental Status: Appearance/Attitude: Patient is dressed in appropriate clothing, makes intermittent eye contact and is cooperative Behavior: Patient does not exhibit any psychomotor agitation or retardation Speech/Language: Patient responds to questions with minimal information, speaks in a normal volume and rhythm and is coherent Thought Process: Patient is goal-directed and there is no evidence of loose association or flight of ideas Thought Content: Patient denies any auditory or visual hallucinations and no delusions or paranoid ideation or elicited. Patient states he doesn't feel like attending groups and so has not done so spends his day sleeping in his room and has been eating. Patient reports that he is denying any side effects from the Seroquel Suicidal/Homicidal Ideation: Patient denies any current suicidal or homicidal ideation Sensorium/Cognition: Patient is alert and oriented to person, place, and time and his recent and remote memory are grossly intact Mood/Affect: Patient's mood is stable and his affect is appropriate to his mood Insight/Judgment: Patient insight and judgment are fair Assessment: Patient has not been attending groups or activities however he has been eating and has been spending his day in bed sleeping. He reports that he now is interested in inpatient rehab but has not made any calls to begin the process. Patient reports no psychotic symptoms and states that he is not fee ling suicidal. He reports no side effects from the Seroquel. He reports that he is not feeling depressed Plan: Patient will continue on Seroquel 300 mg at bedtime the patient was instructed to contact programs to begin inpatient rehab, patient and I discussed discharge on he was agreeable with this plan. Patient states he has no place to live need to live at a [facility] after discharge.
[2018-11-21] MEDS: QUEtiapine 100 MG TAB PO SCH (20:16)
[2018-11-22 06:50] VITALS: BP 144/65; PULSE 61; RESP 14; TEMP 97.7
[2018-11-22] MEDS: NICOTINE 14MG/24HR PATCH TRANSDERM SCH (10:03)
--- NOTE | 2018-11-22 12:08 | P.PN ---
Progress Note - Text Progress Note Date: 11/22/18 Interval History: Patient is a 68-year-old male who was seen in the office today and he states that he is still feeling rotten because he is not thinking about anything. Patient spends his day in his room and states he is not attending any groups but is eating well. He states he contacted [facility] yesterday. Patient is not reporting any suicidal thoughts. States he has no side effects from the medication. Mental Status: Appearance/Attitude: Patient is neatly and appropriately dressed, makes intermittent eye contact and is cooperative Behavior: Patient does not display any psychomotor agitation or retardation. Speech/Language: Patient's speech is spontaneous with little elaboration and he speaks in a normal volume and rhythm and is coherent Thought Process: Patient is goal-directed there is no evidence of loose association or flight of ideas Thought Content: Patient denies any auditory or visual hallucinations and no delusions or paranoid ideation or elicited. Patient is sleeping and eating well. Patient states he feels rotten and states this is because he is not thinking about anything. Patient denies feeling hopeless helpless or worthless. Suicidal/Homicidal Ideation: Patient denies any current suicidal or homicidal ideation. Sensorium/Cognition: Patient is alert and oriented to person, place, time and his recent and remote memory are grossly intact. Mood/Affect: Patient's mood is stable and his affect is slightly blunted Insight/Judgment: Patient's insight and judgment are fair Assessment: Patient is not attending groups, spending his day in his room sleeping and he is eating well, patient states he feels rotten because he is not thinking about anything but was able to contact [facility] yesterday and states that he is still interested in going to inpatient rehab. Patient reports no side effects from the medication and does not report feeling depressed nor having any suicidal ideation at this time. Plan: Patient continues on Seroquel 300 mg at bedtime, packet will be faxed to [facility] and the patient and I discussed his discharge for tomorrow, patient states he will need to go to a skilled nursing as he has no other place to live.
[2018-11-22] MEDS: QUEtiapine 100 MG TAB PO SCH (20:35)
[2018-11-23] MEDS: NICOTINE 14MG/24HR PATCH TRANSDERM SCH (08:08)
--- NOTE | 2018-11-23 12:20 | P.DS ---
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 Patient states that he has been homeless for the last 5 days and had been living in a drug house but ran out of money. Patient states over the last 4 days he spent $1000 on cocaine. Patient was very tired during the interview and was not very elaborative when questioned. Patient states that he after his discharge from the inpatient unit here in June 2018 did not follow-up with the referral to professional counseling nor was he compliant with his medications at that time of cerebral 1 or 50 mg and Cymbalta 90 mg. He states that recently his primary care physician has prescribed Seroquel 300 mg at bedtime for which he states he was taking. Patient states that he's been using cocaine over the last 3 years started on it by a friend. He states that he's been homeless for the last 3 years. Patient states that he was feeling suicidal and states he was going to use cocaine states that he has never been to any rehab programs for his cocaine use. Patient did not endorse any symptoms of psychosis and was difficult to obtain any symptoms of lesley as the patient complains that he is depressed. Patient states that he is on disability receiving $1000 a month. Patient states he has not been eating well or sleeping well. Mental status on Admission: Appearance/Attitude: Patient is dressed in a hospital gown with poor grooming and makes intermittent eye contact and is cooperative Behavior: Patient does not display any psychomotor agitation or retardation Speech/Language: Patient's speech is nonspontaneous he is only responding to questions with brief sentences and is coherent and speaks in a normal volume and rhythm Thought Process: Patient is goal-directed although not elaborative and is no evidence of loose association or flight of ideas Thought Content: Patient denies any auditory or visual hallucinations and no delusions or paranoid ideation were elicited. Patient states that he is homeless and feeling depressed and tired and has not been sleeping or eating well prior to admission. Suicidal/Homicidal Ideation: Patient denies any current suicidal ideation or homicidal ideation Sensorium/Cognition: Patient is alert and oriented to person, place and time and his recent and remote memory are grossly intact Mood/Affect: Patient's mood is depressed and his affect is blunted Insight/Judgment: Patient's insight and judgment are fair Hospital Course: Patient was admitted on a voluntary basis, routine observation was ordered as well as group and activity therapy. Patient also had routine laboratory studies and a medical consultation. Patient stated that his home medication was Seroquel 300 mg at bedtime and he was continued on this while in the hospital. Patient spent most of his time while he was in the hospital in bed sleeping did not attend any groups or activities but was up eating well. Patient initially verbalized continued suicidal thoughts and depression but later in the hospital course deny that he was having any suicidal ideation and denied that he was feeling depressed. Patient was agreeable for referral for inpatient rehab and made to contact to [facility]. Patient on the day of discharge reported that he was feeling too sleepy on Seroquel 300 mg at bedtime and states he only been taking 150 mg as an outpatient and so at the time of discharge his dose will be decreased to 150 mg at bedtime. Patient voiced no other concerns or symptoms and he will stay in a senior care and be referred to [facility] as well for follow-up care. Allergies No Known Allergies Allergy (Verified 11/16/18 18:32) Laboratory Last Values WBC 7.7 k/uL (3.8-10.6) 11/17/18 10:41 RBC 5.35 m/uL (4.30-5.90) 11/17/18 10:41 Hgb 15.6 gm/dL (13.0-17.5) 11/17/18 10:41 Hct 48.6 % (39.0-53.0) 11/17/18 10:41 MCV 90.9 fL (80.0-100.0) 11/17/18 10:41 MCH 29.2 pg (25.0-35.0) 11/17/18 10:41 MCHC 32.1 g/dL (31.0-37.0) 11/17/18 10:41 RDW 14.0 % (11.5-15.5) 11/17/18 10:41 Plt Count 155 k/uL (150-450) 11/17/18 10:41 Neutrophils % 46 % 11/17/18 10:41 Lymphocytes % 36 % 11/17/18 10:41 Monocytes % 8 % 11/17/18 10:41 Eosinophils % 8 % 11/17/18 10:41 Basophils % 1 % 11/17/18 10:41 Neutrophils # 3.5 k/uL (1.3-7.7) 11/17/18 10:41 Lymphocytes # 2.8 k/uL (1.0-4.8) 11/17/18 10:41 Monocytes # 0.6 k/uL (0-1.0) 11/17/18 10:41 Eosinophils # 0.6 k/uL (0-0.7) 11/17/18 10:41 Basophils # 0.0 k/uL (0-0.2) 11/17/18 10:41 Sodium 142 mmol/L (137-145) 11/17/18 10:41 Potassium 5.0 mmol/L (3.5-5.1) 11/17/18 10:41 Chloride 105 mmol/L (98-107) 11/17/18 10:41 Carbon Dioxide 30 mmol/L (22-30) 11/17/18 10:41 Anion Gap 7 mmol/L 11/17/18 10:41 BUN 22 mg/dL (9-20) H 11/17/18 10:41 Creatinine 1.01 mg/dL (0.66-1.25) 11/17/18 10:41 Est GFR (CKD-EPI)AfAm 88 (>60 ml/min/1.73 sqM) 11/17/18 10:41 Est GFR (CKD-EPI)NonAf 76 (>60 ml/min/1.73 sqM) 11/17/18 10:41 Glucose 86 mg/dL (74-99) 11/17/18 10:[address] Glu mg/dL 111 11/17/18 10:41 Hemoglobin A1c 5.5 % (4.0-6.0) 11/17/18 10:41 Calcium 9.7 mg/dL (8.4-10.2) 11/17/18 10:41 Total Bilirubin 0.9 mg/dL (0.2-1.3) 11/17/18 10:41 Conjugated Bilirubin 0.0 mg/dL (0.0-0.3) 11/17/18 10:41 Unconjugated Bilirubin 0.8 mg/dL (0.0-1.1) 11/17/18 10:41 Delta Bilirubin 0.1 mg/dL (0.0-0.2) 11/17/18 10:41 AST 70 U/L (17-59) H 11/17/18 10:41 ALT 56 U/L (21-72) 11/17/18 10:41 Alkaline Phosphatase 81 U/L (38-126) 11/17/18 10:41 Total Protein 6.9 g/dL (6.3-8.2) 11/17/18 10:41 Albumin 4.0 g/dL (3.5-5.0) 11/17/18 10:41 Triglycerides 84 mg/dL (<150) 11/17/18 10:41 Cholesterol 140 mg/dL (<200) 11/17/18 10:41 LDL Cholesterol, Calc 80 mg/dL (0-99) 11/17/18 10:41 HDL Cholesterol 43 mg/dL (40-60) 11/17/18 10:41 TSH 0.687 mIU/L (0.465-4.680) 11/17/18 10:41 Urine Color Yellow 11/16/18 18:07 Urine Appearance Clear (Clear) 11/16/18 18:07 Urine pH 5.5 (5.0-8.0) 11/16/18 18:07 Ur Specific Ada 1.026 (1.001-1.035) 11/16/18 18:07 Urine Protein Negative (Negative) 11/16/18 18:07 Urine Glucose (UA) Negative (Negative) 11/16/18 18:07 Urine Ketones Negative (Negative) 11/16/18 18:07 Urine Blood Negative (Negative) 11/16/18 18:07 Urine Nitrite Negative (Negative) 11/16/18 18:07 Urine Bilirubin Negative (Negative) 11/16/18 18:07 Urine Urobilinogen 2.0 mg/dL (<2.0) 11/16/18 18:07 Ur Leukocyte Esterase Negative (Negative) 11/16/18 18:07 Urine Opiates Screen Not Detected (NotDetected) 11/16/18 18:07 Ur Oxycodone Screen Not Detected (NotDetected) 11/16/18 18:07 Urine Methadone Screen Not Detected (NotDetected) 11/16/18 18:07 Ur Propoxyphene Screen Not Detected (NotDetected) 11/16/18 18:07 Ur Barbiturates Screen Not Detected (NotDetected) 11/16/18 18:07 U Tricyclic Antidepress Detected (NotDetected) H 11/16/18 18:07 Ur Phencyclidine Scrn Not Detected (NotDetected) 11/16/18 18:07 Ur Amphetamines Screen Not Detected (NotDetected) 11/16/18 18:07 U Methamphetamines Scrn Not Detected (NotDetected) 11/16/18 18:07 U Benzodiazepines Scrn Detected (NotDetected) H 11/16/18 18:07 Urine Cocaine Screen Detected (NotDetected) H 11/16/18 18:07 U Marijuana (THC) Screen Not Detected (NotDetected) 11/16/18 18:07 Discharge Mental Status: Appearance/Attitude: Patient is neatly and appropriately dressed, makes eye contact and is cooperative Behavior: Patient does not display any psychomotor agitation or retardation. Speech/Language: Patient's speech is spontaneous although with little elaboration, he speaks in a normal volume and rhythm and is coherent. Thought Process: patient is goal-directed there is no evidence of loose association or flight of ideas Thought Content: patient denies any auditory or visual hallucinations no delusions or paranoid ideation or elicited. Patient states that he has been eating but is feeling too sleepy during the day and stated today that he was only taking 150 mg a Seroquel at bedtime not 300 as he stated on admission. Patient requested his Seroquel be decreased back to 150 mg for discharge. Patient has not been attending groups or activities. Suicidal/Homicidal Ideation: patient denies any current suicidal or homicidal ideation Sensorium/Cognition: patient is alert and oriented to person, place, and time and his recent and remote memory are grossly intact Mood/Affect: patient's mood is stable and his affect is appropriate Insight/Judgment: patient's insight and judgment are fair Risk Assessment: patient's risk for readmission high should the patient not be compliant with medication and appointments and return to using drugs and/or alc ohol Discharge Plan: patient will be discharged, he will be living in a senior care, he has a follow-up appointment at [facility] on November 29 and the patient requested his Seroquel be decreased to 150 mg at bedtime and he will be given a prescription for this. Patient was advised to avoid any alcohol or drugs and be compliant with follow-up care and his medication. Patient also has an intake scheduled at [facility] on November 28 and he was advised to avoid all alcohol and drugs prior to his intake at [facility]. Patient Condition at Discharge: Stable Plan - Discharge Summary New Discharge Prescriptions: New QUEtiapine [SEROquel] 100 mg PO HS #21 tablet Discontinued QUEtiapine FUMARATE [SEROquel] 300 mg PO HS Discharge Medication List QUEtiapine [SEROquel] 100 mg PO HS #21 tablet 11/23/18 [Rx] Follow up Appointment(s)/Referral(s): [facility] [Outside] - 11/28/18 9:15 am (11/28/18 at 915 intake ) [facility] [Outside] - 11/29/18 1:30 pm Halima Blanco MD [Primary Care Provider] - 1-2 days Patient Instructions/Handouts: Cocaine Abuse (DC), Depression (DC), Suicide Prevention (DC) Activity/Diet/Wound Care/Special Instructions: Activity and diet as tolerated. No guns or weapons in the home. Refrain from all drugs and alcohol not prescribed by physician. Take all medications as prescribed. Attend all follow up appointments as scheduled. If in need of medication refills, please go to your primary care physician, or go to your out patient psychiatric provider. If in crisis, please call , or go the nearest ER. Discharge Disposition: HOME SELF-CARE
[2018-11-23 14:20] VITALS: BMI 19.5
== END 2018-11-23 14:07 | disposition home or self-care (01) | DRG 897 ==
LOC: EC 17:39 → 3MHU 20:09
PROVIDERS: ADMIT Psychiatry & Neurology Psychiatry; ATTEND Psychiatry & Neurology Psychiatry
DX: F14.24 Cocaine dependence with cocaine-induced mood disorder (principal); R45.851 Suicidal ideations; I10 Essential (primary) hypertension; I25.10 Atherosclerotic heart disease of native coronary artery without angina pectoris; M54.30 Sciatica, unspecified side; F41.9 Anxiety disorder, unspecified; B19.20 Unspecified viral hepatitis C without hepatic coma; F12.10 Cannabis abuse, uncomplicated; F17.210 Nicotine dependence, cigarettes, uncomplicated; Z71.6 Tobacco abuse counseling; Z91.19 Patient's noncompliance with other medical treatment and regimen; Z79.899 Other long term (current) drug therapy; Z59.0 Homelessness; Z98.890 Other specified postprocedural states; Z95.1 Presence of aortocoronary bypass graft; Z86.19 Personal history of other infectious and parasitic diseases; Z82.3 Family history of stroke; Z82.49 Family history of ischemic heart disease and other diseases of the circulatory system
CPT/HCPCS: 80053; 80061; 80306; 81003; 82075; 82248; 83036; 84443; 85025; 99285

== ENCOUNTER 2019-04-12 06:20 | Emergency (ER) | payer MEDICARE ==
[2019-04-12 06:31] VITALS: RESP 18; TEMP 97.4
[2019-04-12] MEDS ORDERED: IBUPROFEN 600 MG STARTER PACK 4 TAB BTL PO STA (06:44)
[2019-04-12] MEDS ORDERED: amLODIPine 5 MG TAB PO STA (06:47)
[2019-04-12] MEDS ORDERED: Acetaminophen-Codeine 300-30mg TAB PO STA (06:47)
--- NOTE | 2019-04-12 06:48 | ED ---
Extremity Problem HPI - General Chief complaint: Extremity Problem,Nontraumatic Stated complaint: Leg and Hip Pain Time Seen by Provider: 04/12/19 06:32 Source: patient, EMS, RN notes reviewed, old records reviewed Mode of arrival: EMS Limitations: physical limitation - History of Present Illness Initial comments: Patient is a 6-year-old male, presents emergency department today for chief complaint of leg and hip pain, complaining of arthritis-like pain. He reports he is homeless and been outside for the past 8 weeks. He states it was cold last night which flared up his chronic leg and hip pain. Patient reports that he's had no fall or trauma. Patient states that he has "only here for pain pills". 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 - Related Data Previous Rx's Medication Instructions Recorded Ibuprofen [Motrin] 400 mg PO Q4H #20 tab 04/12/19 Allergies Allergy/AdvReac Type Severity Reaction Status Date / Time No Known Allergies Allergy Verified 04/12/19 07:28 Review of Systems ROS Statement: Those systems with pertinent positive or pertinent negative responses have been documented in the HPI. ROS Other: All systems not noted in ROS Statement are negative. Past Medical History Past Medical History: No Reported History, Hypertension Additional Past Medical History / Comment(s): sciatica, hepatitis C History of Any Multi-Drug Resistant Organisms: None Reported Past Surgical History: Coronary Bypass/CABG Additional Past Surgical History / Comment(s): left knee, right wrist, and right knee surgeries. I&D of the left knee following Staphylococcus infection. Past Anesthesia/Blood Transfusion Reactions: No Reported Reaction Past Psychological History: Anxiety, Depression Smoking Status: Current every day smoker Past Alcohol Use History: Rare Past Drug Use History: Cocaine - Past Family History Mother History Unknown: Yes Additional Family Medical History / Comment(s): Mother is 85 years of age with no major medical problems. Father History Unknown: Yes Family Medical History: CVA/TIA, Hypertension Additional Family Medical History / Comment(s): Father at age 75 with history of for CVAs and hypertension. Brother(s) Additional Family Medical History / Comment(s): He has 4 brothers that are healthy with no major medical problems. He has one sister that is healthy. He has 3 daughters with no major medical problems. General Exam - General Exam Comments Initial Comments: 69-year-old male. Limitations: physical limitation General appearance: alert, in no apparent distress Head exam: Present: atraumatic, normocephalic, normal inspection Eye exam: Present: normal appearance, PERRL, EOMI. Absent: scleral icterus, conjunctival injection, periorbital swelling ENT exam: Present: normal exam, mucous membranes moist Neck exam: Present: normal inspection Respiratory exam: Present: normal lung sounds bilaterally. Absent: respiratory distress, wheezes, rales, rhonchi, stridor Cardiovascular Exam: Present: regular rate, normal rhythm, normal heart sounds. Absent: systolic murmur, diastolic murmur, rubs, gallop, clicks GI/Abdominal exam: Present: soft, normal bowel sounds. Absent: distended, tenderness, guarding, rebound, rigid Extremities exam: Present: normal inspection, full ROM, normal capillary refill, other (Patient's refusing to allow me to take off socks check pulse or exam his legs due to being cold.). Absent: tenderness, pedal edema, joint swelling, calf tenderness Back exam: Present: normal inspection Neurological exam: Present: alert, oriented X3, CN II-XII intact Psychiatric exam: Present: agitated, other (hostile mood and derogitory to staff. ). Absent: normal affect, normal mood Skin exam: Present: warm, dry, intact, normal color. Absent: rash Course Vital Signs 04/12/19 06:27 Temperature 97.4 F L Pulse Rate 61 Respiratory 18 Rate Blood Pressure 180/79 O2 Sat by Pulse 100 Oximetry Medical Decision Making - Medical Decision Making Patient is a 69-year-old male presents today for chronic hip and leg pain. Patient has been on the cold states it's been a flareup of his arthritis. Denies any fall or trauma. What emergency Department Patient was given blank ets, he was digitally hostile to staff, stating "he is only here for pain pills". Patient was given it's a temperature medicine of Motrin, 1 Tylenol codeine, and was given 1 dose of Norflex to 2 noted the pressure elevation. Patient was reevaluated and resting comfortably in bed, has full range of motion of his lower extremities. I discussed that Patient needs to follow-up with primary care doctor. Discussed taking referrals for shelters. All questions were answered and return parameters were discussed. Disposition Clinical Impression: Chronic leg pain, Hip pain, bilateral, Episode of hypertension Disposition: HOME SELF-CARE Condition: Good Instructions (If sedation given, give patient instructions): Arthralgia (ED) Additional Instructions: Please use medication as discussed. Please follow up with family doctor if symptoms have not improved over the next two days. Please return to the emergency room if your symptoms increase or worsen or for any other concerns. Prescriptions: Ibuprofen [Motrin] 400 mg PO Q4H #20 tab Is patient prescribed a controlled substance at d/c from ED?: No Referrals: Halima Blanco MD [Primary Care Provider] - 1-2 days Time of Disposition: 07:44
[2019-04-12 08:09] VITALS: BP 170/73; PULSE 63
== END 2019-04-12 08:06 | disposition home or self-care (01) ==
LOC: EC 06:20
DX: G89.29 Other chronic pain (principal); M25.552 Pain in left hip; M25.551 Pain in right hip; I10 Essential (primary) hypertension; R45.1 Restlessness and agitation; F17.200 Nicotine dependence, unspecified, uncomplicated; B19.20 Unspecified viral hepatitis C without hepatic coma; M54.30 Sciatica, unspecified side; Z95.1 Presence of aortocoronary bypass graft; Z98.890 Other specified postprocedural states; Z59.0 Homelessness
CPT/HCPCS: 99284

== ENCOUNTER 2019-08-09 18:37 | Inpatient (IN) | payer MEDICARE, MEDICAID ==
--- NOTE | 2019-08-09 18:57 | ED ---
General Adult HPI - General Chief complaint: Psychiatric Symptoms Stated complaint: Mental Health Time Seen by Provider: 08/09/19 18:45 Source: patient Mode of arrival: ambulatory Limitations: no limitations - History of Present Illness Initial comments: Dictation was produced using [employer] dictation software. please excuse any grammatical, word or spelling errors. Chief Complaint: 69-year-old male presents with auditory hallucinations History of Present Illness: Patient is 69-year-old male he presents today with auditory hallucinations. Patient states she's been hearing voices for the last 3 months. States that the voices tell him but random things. Patient has any suicidal or homicidal ideation. States that he lives at home by himself. Denies any medical complaints at this time. Here in the emergency department because he is tired of several weeks of hearing voices. He requests to see a psychiatrist. He reports having history of psychiatric disease in the past. Denies taking any medications. The ROS documented in this emergency department record has been reviewed and confirmed by me. Those systems with pertinent positive or negative responses have been documented in the HPI. All other systems are other negative and/or noncontributory. PHYSICAL EXAM: General Impression: Alert and oriented x3, not in acute distress HEENT: Normocephalic atraumatic, extra-ocular movements intact, pupils equal and reactive to light bilaterally, mucous membranes moist. Cardiovascular: Heart regular rate and rhythm, S1&S2 audible, no murmurs, rubs or gallops Chest: Lungs clear to auscultation bilaterally, no rhonchi, no wheeze, no rales Abdomen: Bowel sounds present, abdomen soft, non-tender, non-distended, no organ omegaly Musculoskeletal: Pulses present and equal in all extremities, no peripheral edema Motor: no focal deficits noted Neurological: CN II-XII grossly intact, no focal motor or sensory deficits noted Skin: Intact with no visualized rashes Psych: Normal affect and mood ED course: 69 yo Male presents with auditory hallucinations. Vital signs upon arrival are within acceptable limits. Patient medically cleared for EPS evaluation. Patient will be admitted to inpatient psychiatry - Related Data Previous Rx's Medication Instructions Recorded FLUoxetine HCL [PROzac] 40 mg PO DAILY #30 cap 08/16/19 Melatonin 10 mg PO HS tablet 08/16/19 Nicotine 14Mg/24Hr Patch [Habitrol] 1 patch TRANSDERM DAILY patch 08/16/19 OLANZapine [ZyPREXA] 10 mg PO HS #30 tab 08/16/19 Pantoprazole [Protonix] 40 mg PO AC-[id number] tablet. 08/16/19 Allergies Allergy/AdvReac Type Severity Reaction Status Date / Time No Known Allergies Allergy Verified 08/10/19 00:20 Review of Systems ROS Statement: Those systems with pertinent positive or pertinent negative responses have been documented in the HPI. ROS Other: All systems not noted in ROS Statement are negative. Past Medical History Past Medical History: Hypertension Additional Past Medical History / Comment(s): sciatica, hepatitis C History of Any Multi-Drug Resistant Organisms: None Reported Past Surgical History: Coronary Bypass/CABG Additional Past Surgical History / Comment(s): left knee, right wrist, and right knee surgeries. I&D of the left knee following Staphylococcus infection. Past Anesthesia/Blood Transfusion Reactions: No Reported Reaction Past Psychological History: Anxiety, Depression Smoking Status: Current every day smoker Past Alcohol Use History: Rare Past Drug Use History: Cocaine - Past Family History Mother History Unknown: Yes Additional Family Medical History / Comment(s): Mother is 85 years of age with no major medical problems. Father History Unknown: Yes Family Medical History: CVA/TIA, Hypertension Additional Family Medical History / Comment(s): Father at age 75 with history of for CVAs and hypertension. Brother(s) Additional Family Medical History / Comment(s): He has 4 brothers that are healthy with no major medical problems. He has one sister that is healthy. He has 3 daughters with no major medical problems. General Exam Limitations: no limitations Course Vital Signs 08/09/19 08/09/19 18:41 21:17 Temperature 98.3 F 98.4 F Pulse Rate 83 74 Respiratory 16 16 Rate Blood Pressure 161/82 117/54 O2 Sat by Pulse 100 98 Oximetry Medical Decision Making - Lab Data Result diagrams: 08/10/19 07:46 08/10/19 07:46 Lab Results 08/09/19 Range/Units 19:18 Urine Opiates Screen Not Detected (NotDetected) Ur Oxycodone Screen Not Detected (NotDetected) Urine Methadone Screen Not Detected (NotDetected) Ur Propoxyphene Screen Not Detected (NotDetected) Ur Barbiturates Screen Not Detected (NotDetected) U Tricyclic Antidepress Not Detected (NotDetected) Ur Phencyclidine Scrn Not Detected (NotDetected) Ur Amphetamines Screen Not Detected (NotDetected) U Methamphetamines Scrn Not Detected (NotDetected) U Benzodiazepines Scrn Not Detected (NotDetected) Urine Cocaine Screen Not Detected (NotDetected) U Marijuana (THC) Screen Not Detected (NotDetected) Disposition Clinical Impression: Psychosis Disposition: ADMITTED IP TO THIS [facility] Condition: Fair Decision Time: 22:49
[2019-08-09 19:49] LABS: Amphetamine Screen,Urine Not Detected (NotDetected); Cocaine Screen,Urine Not Detected (NotDetected); Opiate Screen,Urine Not Detected (NotDetected); Phencyclidine Screen,Urine Not Detected (NotDetected)
[2019-08-09 19:50] LABS: Barbiturate Screen,Urine Not Detected (NotDetected); Benzodiazepines Screen,Urine Not Detected (NotDetected); Methadone Screen, Urine Not Detected (NotDetected); Oxycodone Screen, Urine Not Detected (NotDetected); Tricyclic Antidepressant,Urine Not Detected (NotDetected); Urn Cannabinoid Scrn Not Detected (NotDetected)
[2019-08-09] MEDS ORDERED: LORazepam 1 MG TAB PO PRN (21:30)
[2019-08-09] MEDS ORDERED: ACETAMINOPHEN TAB 325 MG TAB PO PRN (21:30)
[2019-08-09] MEDS ORDERED: MAG HYDROX/AL HYDROX/SIMETH 30 ML CUP PO PRN (21:30)
[2019-08-09] MEDS ORDERED: ZIPRASIDONE 20 MG VIAL IM PRN (21:30)
[2019-08-09] MEDS ORDERED: MAGNESIUM HYDROXIDE 2,400 MG/10 ML CUP PO PRN (21:30)
[2019-08-10 08:33] LABS: Basophils % (A) 1 %; Eosinophils # (A) 0.2 k/uL (0-0.7); Eosinophils % (A) 4 %; HCT 45.6 % (39.0-53.0); HGB 14.6 gm/dL (13.0-17.5); Lymphocytes # (A) 2.4 k/uL (1.0-4.8); Lymphocytes % (A) 37 %; MCH 29.7 pg (25.0-35.0); MCHC 32.1 g/dL (31.0-37.0); MCV 92.5 fL (80.0-100.0); Mean Platelet Volume 8.2; Monocytes # (A) 0.5 k/uL (0-1.0); Monocytes % (A) 8 %; Neutrophils # (A) 3.2 k/uL (1.3-7.7); Neutrophils % (A) 49 %; Platelet Count 162 k/uL (150-450); RBC 4.93 m/uL (4.30-5.90); RDW 12.9 % (11.5-15.5); WBC 6.4 k/uL (3.8-10.6)
[2019-08-10 08:43] LABS: ALT 41 U/L (4-49); AST 56 U/L (17-59); African American GFR (CKD) >90 (>60 ml/min/1.73 sqM); Albumin 3.6 g/dL (3.5-5.0); Alkaline Phosphatase 90 U/L (38-126); Anion Gap 6 mmol/L; Blood Urea Nitrogen 22 mg/dL (9-20); Calcium 9.2 mg/dL (8.4-10.2); Carbon Dioxide 29 mmol/L (22-30); Chloride 102 mmol/L (98-107); Cholesterol 132 mg/dL (<200); Glucose 84 mg/dL (74-99); HDL Cholesterol 44 mg/dL (40-60); LDL Cholesterol,Calculated 76 mg/dL (0-99); Non-African American GFR(CKD) 89 (>60 ml/min/1.73 sqM); Potassium 4.6 mmol/L (3.5-5.1); Sodium 137 mmol/L (137-145); Total Bilirubin 1.2 mg/dL (0.2-1.3); Total Protein 6.5 g/dL (6.3-8.2); Triglycerides 61 mg/dL (<150)
[2019-08-10] MEDS: NICOTINE 14MG/24HR PATCH TRANSDERM SCH (10:25)
--- NOTE | 2019-08-10 10:48 | P.CONS ---
History of Present Illness - History of Present Illness This is a pleasant 69 years old male with past medical history of hypertension, COPD, hepatitis C, coronary artery disease status post CABG, anxiety depression, cigarette smoker smoking marijuana. Previous history of cocaine drug Presents because of auditory hallucination and he was admitted to the mental health unit, medical consult has been requested for medical management. She denies symptoms, no chest pain, no abdominal pain, no dyspnea, no change in urine or bowel habits, no nausea vomiting. No fever. Vitas looks stable. Labs are unremarkable including CBC, BMP, liver enzymes, TSH, urinary tracts drained. Patient counseled about quitting smoking, and substance abuse oriented, he denies alcohol use Past Medical History Past Medical History: Hypertension Additional Past Medical History / Comment(s): sciatica, hepatitis C- current/active History of Any Multi-Drug Resistant Organisms: None Reported Past Surgical History: Coronary Bypass/CABG Additional Past Surgical History / Comment(s): left knee, right wrist, and right knee surgeries. I&D of the left knee following Staphylococcus infection, denies CABG. Past Anesthesia/Blood Transfusion Reactions: No Reported Reaction Past Psychological History: Anxiety, Depression Smoking Status: Current every day smoker Past Alcohol Use History: Rare Additional Past Alcohol Use History / Comment(s): Patient states he smokes 7 cigarettes per day and has been smoking since he was 9 years of age. He states he smoked marijuana on a regular basis in the past but quit 8-9 months ago. He denies any alcohol use and denies any previous alcohol abuse. He denies any street drug use. Past Drug Use History: Cocaine Additional Drug Use History / Comment(s): Smokes weed "when I have it" Pt also states he had been smoking crack cocaine but stopped three weeks ago - Past Family History Mother History Unknown: Yes Additional Family Medical History / Comment(s): Mother is 85 years of age with no major medical problems. Father History Unknown: Yes Family Medical History: CVA/TIA, Hypertension Additional Family Medical History / Comment(s): Father at age 75 with history of for CVAs and hypertension. Brother(s) Additional Family Medical History / Comment(s): He has 4 brothers that are healthy with no major medical problems. He has one sister that is healthy. He has 3 daughters with no major medical problems. Medications and Allergies Home Medications Medication Instructions Recorded Confirmed Type No Known Home Medications 08/09/19 08/10/19 History Allergies Allergy/AdvReac Type Severity Reaction Status Date / Time No Known Allergies Allergy Verified 08/10/19 00:20 Physical Exam Vitals: Vital Signs Temp Pulse Pulse Resp BP BP Pulse Ox 08/10/19 07:02 98.4 F 68 16 129/62 08/09/19 21:41 98.0 F 78 16 136/80 96 08/09/19 21:17 98.4 F 74 16 117/54 98 08/09/19 18:41 98.3 F 83 16 161/82 100 Intake and Output 08/09/19 08/10/19 08/10/19 22:59 06:59 14:59 Other: Weight 51.738 kg 51.738 kg Results CBC & Chem 7: 08/10/19 07:46 08/10/19 07:46 Labs: Abnormal Lab Results - Last 24 Hours (Table) 08/10/19 Range/Units 07:46 BUN 22 H (9-20) mg/dL Assessment and Plan Plan: -Auditory hallucination, and review of his history of anxiety and depression. Management [facility] primary team -Nicotine dependence. Patient is counseled continue with nicotine patch -Substance abuse including marijuana, history of cocaine abuse. Patient is counseled -History of Hypertension. Currently patient is not on any medication and his blood pressure is controlled -History of coronary artery disease status post CABG Patient was instructed to follow up with his PCP Dr. mccarty in one week , however pt is not interested in follow up Thank you for consulting us, we will follow up with the patient on as needed basis. Please feel free to contact us for any further question or clarification
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
[2019-08-10] MEDS ORDERED: MELATONIN 5 MG TABLET PO PRN (12:29)
[2019-08-10] MEDS: PANTOPRAZOLE 40 MG TABLET PO SCH (13:20)
[2019-08-10 14:24] LABS: Hemoglobin A1C 5.4 % (4.0-6.0)
[2019-08-10] MEDS: OLANZapine 5 MG TAB PO SCH (21:19)
[2019-08-11] MEDS: NICOTINE 14MG/24HR PATCH TRANSDERM SCH ×2 (10:00→10:04)
[2019-08-11] MEDS: PANTOPRAZOLE 40 MG TABLET PO SCH (10:00)
--- NOTE | 2019-08-11 13:55 | P.PN ---
Progress Note - Text Progress Note Date: 08/11/19 Interval history: Patient seen in [facility] today. He says he slept well last night and he is eating well. He does not voice any adverse psychotropic medication side effects. He does describe continuing to have some auditory hallucinations, he relates visual hallucinations are better today. Mental status exam: He is alert and cooperative with the interview. He does not show any agitation. His mood overall seems to be better today. He denies any thoughts of harm to self or others. He verbalizes some ongoing auditory hallucinations, he makes reference to it being a woman's voice. He describes that any visual hallucinations are improved today. He does not show any agitation. Plan: Patient will be maintained on current psychotropic medication regimen. Continue to monitor for any medication side effects and monitor his ongoing response to treatment.
[2019-08-11] MEDS: OLANZapine 5 MG TAB PO SCH (21:25)
[2019-08-12] MEDS: NICOTINE 14MG/24HR PATCH TRANSDERM SCH (09:11)
[2019-08-12] MEDS: PANTOPRAZOLE 40 MG TABLET PO SCH (09:11)
--- NOTE | 2019-08-12 10:31 | P.PN ---
Progress Note - Text Progress Note Date: 08/12/19 Interval history: Patient seen in [facility] again today. He slept well last night. He does seem to be eating well. He continues to describe hearing a woman's voice. He does not verbalize any adverse psychotropic medication side effects. Mental status exam: He is alert and cooperative with the interview. His answers are somewhat brief. His affect is restricted. His mood he seems to describe is overall better. He denies any thoughts of harm to self or others. He reports that he is continuing to hear woman's voice telling him that she is not going to leave him and calling his name. He denies any visual hallucinations. He does not show any agitation. Plan: Patient will be maintained on current psychotropic medication regimen. Continue to monitor for any medication side effects and monitor his ongoing response to treatment
[2019-08-12] MEDS: OLANZapine 5 MG TAB PO SCH (22:06)
[2019-08-13] MEDS: PANTOPRAZOLE 40 MG TABLET PO SCH (08:36)
[2019-08-13] MEDS: NICOTINE 14MG/24HR PATCH TRANSDERM SCH (08:36)
--- NOTE | 2019-08-13 09:35 | P.PN ---
Progress Note - Text Progress Note Date: 08/13/19 Interval History: Patient was seen lying down in his bed this morning and was directable and agr eeable streaked red in the office. Patient continues to have a constricted affect however states that he is doing "better" overall and claimed that his mood is also been improving. He states that he has been taking his medications over the weekend and denies any complaints. He states that he is sleeping through the night. Patient claims that the voices have been continuing on and he describes his ex-girlfriend telling him "random things". Patient is agreeable to have his Zyprexa increased today. He denies any side effects at this time. He states that his appetite is fair and energy level is fair. At this time patient denies any suicidal or homical ideations, intent or plan. Patient denies any visual hallucinations and denies any paranoia or delusions. Patient was asking about options for housing as he is currently homeless. Mental Status Exam: General Appearance: Patient appears to be stated age is alert, and attempts to cooperate. Patient appears to have improving hygiene and grooming. Behavior: Patient is seated without any agitated behavior. Attempts to cooperate. Speech: Patient's speech is fluent and nonpressured. Soft tone Mood/Affect: Patient reports their mood is "fine", affect is congruent and constricted. Suicidality/Homicidality: Patient denies having any homicidal ideation intent or plan. Denies any suicidal ideations at this time. Perceptions: Patient denies any visual hallucinations and has auditory hallucinations of his ex-girlfriend Though content/process: There is no evidence of any delusional thought content and thought process is linear and goal-directed. [place]/poverty of content. Memory and concentration: AOX3, grossly intact for the purposes of this session. Judgment and insight: poor Assessment Bipolar disorder with psychotic features History of cocaine abuse Nicotine dependence Plan: -Patient continues to meet criteria for inpatient psychiatric admission for symptom stabilization and safety. Patient has signed adult voluntary form and medication consent and was placed in patient's chart. -Medications: Will increase Zyprexa to 7.5 mg daily at bedtime for mood stabilization/psychosis. Will continue to titrate up as needed. Melatonin 5 mg daily at bedtime when necessary for sleep. -When necessary Ativan and Geodon for agitation/aggression. -NRT - nicotine patch -SW on board for discharge planning. Encourage patient to participate in groups to work on coping skills. Patient is currently homeless at this time and will need to speak to social worker palliative care about housing options.
[2019-08-13] MEDS ORDERED: OLANZapine 2.5 MG TAB PO SCH (21:00)
[2019-08-14] MEDS: NICOTINE 14MG/24HR PATCH TRANSDERM SCH (08:56)
[2019-08-14] MEDS: PANTOPRAZOLE 40 MG TABLET PO SCH (08:56)
[2019-08-14] MEDS: FLUoxetine HCL 20 MG CAP PO SCH (09:46)
--- NOTE | 2019-08-14 11:07 | P.PN ---
Progress Note - Text Progress Note Date: 08/14/19 Interval History: Patient was seen lying down in his bed this morning and was directable and agr eeable to speak with script writer in the office. Patient continues to have a constricted affect and states that he is continuing to feel depressed at this time. He spoke about feeling hopeless and also states that the Zyprexa did not help him sleep last night. He states that the voices that he is hearing are the same intensity and have not changed and are distressing to him. He states that he has been taking his medications over the weekend and denies any complaints. Patient claimed that he went to 1 group yesterday and will be trying to go to more groups today. Patient has mainly been isolating himself in his room. Patient is agreeable to have his Zyprexa increased today once again and will take melatonin at nighttime. Patient was also agreeable to be started on Prozac at this time for mood. He denies any side effects at this time. He states that his appetite is fair and energy level is poor. At this time patient denies any suicidal or homical ideations, intent or plan. Patient denies any visual hallucinations and denies any paranoia or delusions. Mental Status Exam: General Appearance: Patient appears to be stated age is alert, and attempts to cooperate. Patient appears to have poor hygiene and grooming. Poor eye contact. Behavior: Patient is seated without any agitated behavior. Attempts to cooperate. Speech: Patient's speech is fluent and nonpressured. Soft tone Mood/Affect: Patient reports their mood is "depressed", affect is congruent and constricted. Suicidality/Homicidality: Patient denies having any homicidal ideation intent or plan. Denies any suicidal ideations at this time. Perceptions: Patient denies any visual hallucinations and has auditory hallucinations of his ex-girlfriend Though content/process: There is no evidence of any delusional thought content and thought process is linear and goal-directed. [place]/poverty of content. Memory and concentration: AOX3, grossly intact for the purposes of this session. Judgment and insight: poor Assessment Bipolar disorder with psychotic features History of cocaine abuse Nicotine dependence Plan: -Patient continues to meet criteria for inpatient psychiatric admission for symptom stabilization and safety. Patient has signed adult voluntary form and medication consent and was placed in patient's chart. -Medications: Will increase Zyprexa to 10 mg daily at bedtime for mood stabilization/psychosis. Will continue to titrate up as needed. Melatonin 5 mg daily at bedtime for sleep. Added on Prozac 20 mg daily for mood. -When necessary Ativan and Geodon for agitation/aggression. -NRT - nicotine patch -SW on board for discharge planning. Encourage patient to participate in groups to work on coping skills. Patient is currently homeless at this time and will either be discharged to a residential versus his friend's house. Likely discharge in 2-3 days.
[2019-08-14] MEDS ORDERED: MELATONIN 3 MG TABLET PO SCH (21:00)
[2019-08-14] MEDS ORDERED: OLANZapine 5 MG TAB PO SCH (21:00)
[2019-08-14] MEDS: OLANZapine 10 MG TAB PO SCH (21:13)
[2019-08-15 06:29] VITALS: RESP 15
[2019-08-15] MEDS: FLUoxetine HCL 20 MG CAP PO SCH (09:08)
[2019-08-15] MEDS: NICOTINE 14MG/24HR PATCH TRANSDERM SCH (09:08)
[2019-08-15] MEDS: PANTOPRAZOLE 40 MG TABLET PO SCH (09:08)
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
[2019-08-15 15:25] VITALS: BMI 19.8
[2019-08-15] MEDS ORDERED: MELATONIN 5 MG TABLET PO SCH (21:00)
[2019-08-15] MEDS: OLANZapine 10 MG TAB PO SCH (21:05)
[2019-08-16 06:47] VITALS: PULSE 54; TEMP 97.6
[2019-08-16 06:48] VITALS: BP 138/72
[2019-08-16] MEDS ORDERED: FLUoxetine HCL 20 MG CAP PO SCH (09:00)
[2019-08-16] MEDS: NICOTINE 14MG/24HR PATCH TRANSDERM SCH (09:26)
[2019-08-16] MEDS: PANTOPRAZOLE 40 MG TABLET PO SCH (09:26)
--- NOTE | 2019-08-16 12:37 | DS ---
DISCHARGE SUMMARY DATE OF ADMISSION: 08/09/2019 DATE OF DISCHARGE: 08/16/2019. ADMISSION AND DISCHARGE DIAGNOSES: 1. Bipolar disorder with psychotic features. 2. History of cocaine dependence. 3. Hypertension. 4. History of coronary artery bypass. HISTORY OF PRESENTING ILLNESS: The patient presented to the ED with increasing intensity of auditory hallucinations for the past 3 months. He said that he was hearing voices saying random things. He had a history of cocaine abuse, though his urine drug screen on admission was negative. He had been living in his car for the past 5 months though it was recently impounded as a significant stress issue. He was sleeping poorly. He had some thoughts of suicide and made statements of "wanting to cut myself." He did not have a plan in this regard. He had been off psychotropic medications for the past 7 months. He was admitted for further evaluation. PAST MEDICAL HISTORY: As per medical consultation. MENTAL STATUS EXAM: Hygiene and grooming were poor. He sat without agitation. He was cooperative. His speech was fluent and non-pressured. At times he was hesitant in his speech. Affect was incongruent and constricted. Mood was even. He did not present with outward indications of delusional thoughts or response to internal stimuli. Cognitive exam was clear. PHYSICAL EXAM: As per medical consultation. COURSE OF HOSPITALIZATION: The patient was admitted for comprehensive medical, psychiatric and psychosocial evaluation. We engaged the patient in individual and group therapeutic activities. The patient was started on Zyprexa 5 mg at bedtime. The dose was titrated up to 10 mg a day. In addition, he was started on Prozac 20 mg a day. On August 14, the dose was increased to 40 mg a day. The patient tended to keep to himself. He spent a lot of time in his room. He only attended one group. During his hospital stay, he was reporting that voices were persistent but they were not distressing him. He could say that he was able to distract himself from the voices. He felt some improvement with his mood. Appetite was fair and energy was improving. He was able to engage in discharge planning. CONDITION AT DISCHARGE: Patient was stable. His mood was improved. He was having less intrusive hallucinations. He tolerated his psychotropic medications. He voiced no thoughts of harm to self or others. RECOMMENDATIONS AND FOLLOWUP: The patient is discharged to a local snf with followup set up through social work. Please refer to discharge records for details. Discharge medications include: 1. Prozac 40 mg a day. 2. Zyprexa 10 mg at bedtime. MMODL / IJN: [id number] /
== END 2019-08-16 12:49 | disposition home or self-care (01) | DRG 885 ==
LOC: EC 18:37 → 3MHU 21:26
PROVIDERS: ADMIT Psychiatry & Neurology Psychiatry; ATTEND Psychiatry & Neurology Psychiatry
DX: F31.89 Other bipolar disorder (principal); F23 Brief psychotic disorder; F14.20 Cocaine dependence, uncomplicated; R45.851 Suicidal ideations; F17.210 Nicotine dependence, cigarettes, uncomplicated; I10 Essential (primary) hypertension; M54.30 Sciatica, unspecified side; B19.20 Unspecified viral hepatitis C without hepatic coma; F41.9 Anxiety disorder, unspecified; I25.10 Atherosclerotic heart disease of native coronary artery without angina pectoris; J44.9 Chronic obstructive pulmonary disease, unspecified; F12.90 Cannabis use, unspecified, uncomplicated; Z95.1 Presence of aortocoronary bypass graft; Z59.0 Homelessness; Z71.6 Tobacco abuse counseling; Z71.3 Dietary counseling and surveillance; Z98.890 Other specified postprocedural states; Z86.19 Personal history of other infectious and parasitic diseases; Z82.49 Family history of ischemic heart disease and other diseases of the circulatory system; Z82.3 Family history of stroke
CPT/HCPCS: 80053; 80061; 80306; 82075; 83036; 84443; 85025; 99285

== ENCOUNTER 2019-08-29 09:43 | Inpatient (IN) | payer MEDICARE, MEDICAID ==
[2019-08-29] MEDS ORDERED: SODIUM CHLORIDE 0.9% 500 ML 500 ML IV STA (10:31)
--- NOTE | 2019-08-29 10:36 | ED ---
General Adult HPI - General Chief complaint: Upper Respiratory Infection Stated complaint: Cough Time Seen by Provider: 08/29/19 10:06 Source: patient, old records reviewed Mode of arrival: ambulatory Limitations: no limitations - History of Present Illness Initial comments: 69-year-old male with a past medical or history of hypertension, sciatica, depr ession, bipolar disorder presents to the emergency department with police. Apparently patient was kicked out of a homeless residential today. Patient states the told him they were full. Therefore the police were called this patient did not have anywhere to go and he was brought here. Patient states he does have a cough and congestion and doesn't feel well because of this. Patient also stating he is hearing voices which has never happened before. States he is taking his normal medications. Patient is noted to be prescribed Zyprexa and Prozac. - Related Data Home Medications Medication Instructions Recorded Confirmed Infinity Boost 1 tab PO DAILY 08/29/19 08/29/19 Previous Rx's Medication Instructions Recorded FLUoxetine HCL [PROzac] 40 mg PO DAILY #30 cap 08/16/19 OLANZapine [ZyPREXA] 10 mg PO HS #30 tab 08/16/19 Allergies Allergy/AdvReac Type Severity Reaction Status Date / Time No Known Allergies Allergy Verified 08/29/19 10:21 Review of Systems ROS Statement: Those systems with pertinent positive or pertinent negative responses have been documented in the HPI. ROS Other: All systems not noted in ROS Statement are negative. Past Medical History Past Medical History: Hypertension Additional Past Medical History / Comment(s): sciatica, hepatitis C History of Any Multi-Drug Resistant Organisms: None Reported Past Surgical History: Coronary Bypass/CABG Additional Past Surgical History / Comment(s): left knee, right wrist, and right knee surgeries. I&D of the left knee following Staphylococcus infection. Past Anesthesia/Blood Transfusion Reactions: No Reported Reaction Past Psychological History: Anxiety, Depression Smoking Status: Current every day smoker Past Alcohol Use History: Rare Past Drug Use History: Cocaine - Past Family History Mother History Unknown: Yes Additional Family Medical History / Comment(s): Mother is 85 years of age with no major medical problems. Father History Unknown: Yes Family Medical History: CVA/TIA, Hypertension Additional Family Medical History / Comment(s): Father at age 75 with history of for CVAs and hypertension. Brother(s) Additional Family Medical History / Comment(s): He has 4 brothers that are healthy with no major medical problems. He has one sister that is healthy. He has 3 daughters with no major medical problems. General Exam Limitations: no limitations General appearance: alert, in no apparent distress Head exam: Present: atraumatic, normocephalic, normal inspection Eye exam: Present: normal appearance, PERRL, EOMI. Absent: scleral icterus, conjunctival injection, periorbital swelling ENT exam: Present: normal exam, mucous membranes moist Neck exam: Present: normal inspection, full ROM. Absent: tenderness, meningismus, lymphadenopathy Respiratory exam: Present: normal lung sounds bilaterally. Absent: respiratory distress, wheezes, rales, rhonchi, stridor Cardiovascular Exam: Present: regular rate, normal rhythm, normal heart sounds. Absent: systolic murmur, diastolic murmur, rubs, gallop, clicks GI/Abdominal exam: Present: soft, normal bowel sounds. Absent: distended, tenderness, guarding, rebound, rigid Course Vital Signs 08/29/19 08/29/19 08/29/19 09:46 11:42 12:00 Temperature 97.5 F L Pulse Rate 66 72 72 Respiratory 18 16 16 Rate Blood Pressure 194/96 176/72 158/70 O2 Sat by Pulse 99 98 97 Oximetry Medical Decision Making - Medical Decision Making EPS RN evaluated patient, recommend inpatient management. - Lab Data Result diagrams: 08/29/19 10:50 08/29/19 10:50 Lab Results 08/29/19 08/29/19 08/29/19 Range/Units 10:16 10:50 10:50 WBC 8.5 (3.8-10.6) k/uL RBC 4.85 (4.30-5.90) m/uL Hgb 14.8 (13.0-17.5) gm/dL Hct 45.1 (39.0-53.0) % MCV 93.0 (80.0-100.0) fL MCH 30.6 (25.0-35.0) pg MCHC 32.9 (31.0-37.0) g/dL RDW 13.5 (11.5-15.5) % Plt Count 135 L (150-450) k/uL Neutrophils % 58 % Lymphocytes % 27 % Monocytes % 8 % Eosinophils % 5 % Basophils % 0 % Neutrophils # 4.9 (1.3-7.7) k/uL Lymphocytes # 2.3 (1.0-4.8) k/uL Monocytes # 0.7 (0-1.0) k/uL Eosinophils # 0.4 (0-0.7) k/uL Basophils # 0.0 (0-0.2) k/uL Sodium 140 (137-145) mmol/L Potassium 4.5 (3.5-5.1) mmol/L Chloride 110 H (98-107) mmol/L Carbon Dioxide 25 (22-30) mmol/L Anion Gap 5 mmol/L BUN 23 H (9-20) mg/dL Creatinine 0.71 (0.66-1.25) mg/dL Est GFR (CKD-EPI)AfAm >90 (>60 ml/min/1.73 sqM) Est GFR (CKD-EPI)NonAf >90 (>60 ml/min/1.73 sqM) Glucose 88 (74-99) mg/dL Calcium 8.8 (8.4-10.2) mg/dL Total Bilirubin 0.8 (0.2-1.3) mg/dL AST 54 (17-59) U/L ALT 54 H (4-49) U/L Alkaline Phosphatase 112 (38-126) U/L Total Protein 6.4 (6.3-8.2) g/dL Albumin 3.5 (3.5-5.0) g/dL Urine Color Yellow Urine Appearance Clear (Clear) Urine pH 6.0 (5.0-8.0) Ur Specific Muir 1.023 (1.001-1.035) Urine Protein Negative (Negative) Urine Glucose (UA) Negative (Negative) Urine Ketones Negative (Negative) Urine Blood Negative (Negative) Urine Nitrite Negative (Negative) Urine Bilirubin Negative (Negative) Urine Urobilinogen 4.0 (<2.0) mg/dL Ur Leukocyte Esterase Negative (Negative) Urine Opiates Screen Not Detected (NotDetected) Ur Oxycodone Screen Not Detected (NotDetected) Urine Methadone Screen Not Detected (NotDetected) Ur Propoxyphene Screen Not Detected (NotDetected) Ur Barbiturates Screen Not Detected (NotDetected) U Tricyclic Antidepress Not Detected (NotDetected) Ur Phencyclidine Scrn Not Detected (NotDetected) Ur Amphetamines Screen Not Detected (NotDetected) U Methamphetamines Scrn Not Detected (NotDetected) U Benzodiazepines Scrn Not Detected (NotDetected) Urine Cocaine Screen Not Detected (NotDetected) U Marijuana (THC) Screen Not Detected (NotDetected) Influenza Type A RNA (Not Detectd) Influenza Type B (PCR) (Not Detectd) 08/29/19 Range/Units 11:00 WBC (3.8-10.6) k/uL RBC (4.30-5.90) m/uL Hgb (13.0-17.5) gm/dL Hct (39.0-53.0) % MCV (80.0-100.0) fL MCH (25.0-35.0) pg MCHC (31.0-37.0) g/dL RDW (11.5-15.5) % Plt Count (150-450) k/uL Neutrophils % % Lymphocytes % % Monocytes % % Eosinophils % % Basophils % % Neutrophils # (1.3-7.7) k/uL Lymphocytes # (1.0-4.8) k/uL Monocytes # (0-1.0) k/uL Eosinophils # (0-0.7) k/uL Basophils # (0-0.2) k/uL Sodium (137-145) mmol/L Potassium (3.5-5.1) mmol/L Chloride (98-107) mmol/L Carbon Dioxide (22-30) mmol/L Anion Gap mmol/L BUN (9-20) mg/dL Creatinine (0.66-1.25) mg/dL Est GFR (CKD-EPI)AfAm (>60 ml/min/1.73 sqM) Est GFR (CKD-EPI)NonAf (>60 ml/min/1.73 sqM) Glucose (74-99) mg/dL Calcium (8.4-10.2) mg/dL Total Bilirubin (0.2-1.3) mg/dL AST (17-59) U/L ALT (4-49) U/L Alkaline Phosphatase (38-126) U/L Total Protein (6.3-8.2) g/dL Albumin (3.5-5.0) g/dL Urine Color Urine Appearance (Clear) Urine pH (5.0-8.0) Ur Specific Mu[place] (1.001-1.035) Urine Protein (Negative) Urine Glucose (UA) (Negative) Urine Ketones (Negative) Urine Blood (Negative) Urine Nitrite (Negative) Urine Bilirubin (Negative) Urine Urobilinogen (<2.0) mg/dL Ur Leukocyte Esterase (Negative) Urine Opiates Screen (NotDetected) Ur Oxycodone Screen (NotDetected) Urine Methadone Screen (NotDetected) Ur Propoxyphene Screen (NotDetected) Ur Barbiturates Screen (NotDetected) U Tricyclic Antidepress (NotDetected) Ur Phencyclidine Scrn (NotDetected) Ur Amphetamines Screen (NotDetected) U Methamphetamines Scrn (NotDetected) U Benzodiazepines Scrn (NotDetected) Urine Cocaine Screen (NotDetected) U Marijuana (THC) Screen (NotDetected) Influenza Type A RNA Not Detected (Not Detectd) Influenza Type B (PCR) Not Detected (Not Detectd) Disposition Clinical Impression: Auditory hallucinations Disposition: TRANSFER TO PSYCH HOSP/UNIT Condition: Fair Is patient prescribed a controlled substance at d/c from ED?: No Referrals: Halima Blanco MD [Primary Care Provider] - 1-2 days Time of Disposition: 15:30
[2019-08-29 11:11] LABS: Basophils % (A) 0 %; Eosinophils # (A) 0.4 k/uL (0-0.7); Eosinophils % (A) 5 %; HCT 45.1 % (39.0-53.0); HGB 14.8 gm/dL (13.0-17.5); Lymphocytes # (A) 2.3 k/uL (1.0-4.8); Lymphocytes % (A) 27 %; MCH 30.6 pg (25.0-35.0); MCHC 32.9 g/dL (31.0-37.0); Mean Platelet Volume 8.2; Monocytes # (A) 0.7 k/uL (0-1.0); Monocytes % (A) 8 %; Neutrophils # (A) 4.9 k/uL (1.3-7.7); Neutrophils % (A) 58 %; Platelet Count 135 k/uL (150-450); RBC 4.85 m/uL (4.30-5.90); RDW 13.5 % (11.5-15.5); WBC 8.5 k/uL (3.8-10.6)
[2019-08-29 11:12] LABS: Appearance,Urine Clear (Clear); Bilirubin,Urine Negative (Negative); Blood,Urine Negative (Negative); Color,Urine Yellow; Glucose,Urine (UA) Negative (Negative); Ketones,Urine Negative (Negative); Leukocyte Esterase,Urine Negative (Negative); Nitrite,Urine Negative (Negative); Protein,Urine Negative (Negative); Specific Gravity,Urine 1.023 (1.001-1.035)
--- NOTE | 2019-08-29 11:16 | XR ---
EXAMINATION TYPE: XR chest 2V DATE OF EXAM: 08/29/2019 COMPARISON: NONE HISTORY: Cough TECHNIQUE: Frontal and lateral views of the chest are obtained. FINDINGS: There is no focal air space opacity, pleural effusion, or pneumothorax seen. The cardiac silhouette size is upper limits of normal size. The osseous structures are intact. Mild multilevel degenerative change of the spine. IMPRESSION: No acute cardiopulmonary process.
[2019-08-29 11:26] LABS: ALT 54 U/L (4-49); AST 54 U/L (17-59); African American GFR (CKD) >90 (>60 ml/min/1.73 sqM); Albumin 3.5 g/dL (3.5-5.0); Alkaline Phosphatase 112 U/L (38-126); Anion Gap 5 mmol/L; Blood Urea Nitrogen 23 mg/dL (9-20); Calcium 8.8 mg/dL (8.4-10.2); Carbon Dioxide 25 mmol/L (22-30); Chloride 110 mmol/L (98-107); Glucose 88 mg/dL (74-99); Non-African American GFR(CKD) >90 (>60 ml/min/1.73 sqM); Potassium 4.5 mmol/L (3.5-5.1); Sodium 140 mmol/L (137-145); Total Bilirubin 0.8 mg/dL (0.2-1.3); Total Protein 6.4 g/dL (6.3-8.2)
[2019-08-29 11:28] LABS: Amphetamine Screen,Urine Not Detected (NotDetected); Barbiturate Screen,Urine Not Detected (NotDetected); Benzodiazepines Screen,Urine Not Detected (NotDetected); Cocaine Screen,Urine Not Detected (NotDetected); Methadone Screen, Urine Not Detected (NotDetected); Opiate Screen,Urine Not Detected (NotDetected); Oxycodone Screen, Urine Not Detected (NotDetected); Phencyclidine Screen,Urine Not Detected (NotDetected); Tricyclic Antidepressant,Urine Not Detected (NotDetected); Urn Cannabinoid Scrn Not Detected (NotDetected)
[2019-08-29] MEDS ORDERED: MAGNESIUM HYDROXIDE 2,400 MG/10 ML CUP PO PRN (16:30)
[2019-08-29] MEDS ORDERED: ACETAMINOPHEN TAB 325 MG TAB PO PRN (16:30)
[2019-08-29] MEDS ORDERED: MAG HYDROX/AL HYDROX/SIMETH 30 ML CUP PO PRN (16:30)
[2019-08-29] MEDS ORDERED: LORazepam 1 MG TAB PO PRN (16:30)
[2019-08-29] MEDS: OLANZapine 10 MG TAB PO SCH (22:00)
[2019-08-30] MEDS: NICOTINE 14MG/24HR PATCH TRANSDERM SCH (10:17)
[2019-08-30] MEDS: FLUoxetine HCL 20 MG CAP PO SCH (10:17)
--- NOTE | 2019-08-30 11:11 | P.HP ---
Psychiatric H&P - . H&P Date: 08/30/19 History & Physical: Allergies Allergy/AdvReac Type Severity Reaction Status Date / Time No Known Allergies Allergy Verified 08/29/19 10:21 Vital Signs Temp 98.0 F 08/30/19 10:19 Pulse 76 08/30/19 10:19 Resp 16 08/30/19 10:19 BP 149/71 08/30/19 10:19 Pulse Ox 95 08/30/19 10:19 Intake & Output 08/29/19 08/30/19 08/30/19 18:59 06:59 18:59 Intake Total 500 Balance 500 Weight 58.967 kg Intake: Amount of Fluid Infused ( 500 ml) Laboratory Last Values WBC 8.5 k/uL (3.8-10.6) 08/29/19 10:50 RBC 4.85 m/uL (4.30-5.90) 08/29/19 10:50 Hgb 14.8 gm/dL (13.0-17.5) 08/29/19 10:50 Hct 45.1 % (39.0-53.0) 08/29/19 10:50 MCV 93.0 fL (80.0-100.0) 08/29/19 10:50 MCH 30.6 pg (25.0-35.0) 08/29/19 10:50 MCHC 32.9 g/dL (31.0-37.0) 08/29/19 10:50 RDW 13.5 % (11.5-15.5) 08/29/19 10:50 Plt Count 135 k/uL (150-450) L 08/29/19 10:50 Neutrophils % 58 % 08/29/19 10:50 Lymphocytes % 27 % 08/29/19 10:50 Monocytes % 8 % 08/29/19 10:50 Eosinophils % 5 % 08/29/19 10:50 Basophils % 0 % 08/29/19 10:50 Neutrophils # 4.9 k/uL (1.3-7.7) 08/29/19 10:50 Lymphocytes # 2.3 k/uL (1.0-4.8) 08/29/19 10:50 Monocytes # 0.7 k/uL (0-1.0) 08/29/19 10:50 Eosinophils # 0.4 k/uL (0-0.7) 08/29/19 10:50 Basophils # 0.0 k/uL (0-0.2) 08/29/19 10:50 Sodium 140 mmol/L (137-145) 08/29/19 10:50 Potassium 4.5 mmol/L (3.5-5.1) 08/29/19 10:50 Chloride 110 mmol/L (98-107) H 08/29/19 10:50 Carbon Dioxide 25 mmol/L (22-30) 08/29/19 10:50 Anion Gap 5 mmol/L 08/29/19 10:50 BUN 23 mg/dL (9-20) H 08/29/19 10:50 Creatinine 0.71 mg/dL (0.66-1.25) 08/29/19 10:50 Est GFR (CKD-EPI)AfAm >90 (>60 ml/min/1.73 sqM) 08/29/19 10:50 Est GFR (CKD-EPI)NonAf >90 (>60 ml/min/1.73 sqM) 08/29/19 10:50 Glucose 88 mg/dL (74-99) 08/29/19 10:50 Calcium 8.8 mg/dL (8.4-10.2) 08/29/19 10:50 Total Bilirubin 0.8 mg/dL (0.2-1.3) 08/29/19 10:50 AST 54 U/L (17-59) 08/29/19 10:50 ALT 54 U/L (4-49) H 08/29/19 10:50 Alkaline Phosphatase 112 U/L (38-126) 08/29/19 10:50 Total Protein 6.4 g/dL (6.3-8.2) 08/29/19 10:50 Albumin 3.5 g/dL (3.5-5.0) 08/29/19 10:50 TSH 0.424 mIU/L (0.465-4.680) L 08/29/19 10:50 Free T4 0.86 ng/dL (0.78-2.19) 08/29/19 10:50 Urine Color Yellow 08/29/19 10:16 Urine Appearance Clear (Clear) 08/29/19 10:16 Urine pH 6.0 (5.0-8.0) 08/29/19 10:16 Ur Specific [place] 1.023 (1.001-1.035) 08/29/19 10:16 Urine Protein Negative (Negative) 08/29/19 10:16 Urine Glucose (UA) Negative (Negative) 08/29/19 10:16 Urine Ketones Negative (Negative) 08/29/19 10:16 Urine Blood Negative (Negative) 08/29/19 10:16 Urine Nitrite Negative (Negative) 08/29/19 10:16 Urine Bilirubin Negative (Negative) 08/29/19 10:16 Urine Urobilinogen 4.0 mg/dL (<2.0) 08/29/19 10:16 Ur Leukocyte Esterase Negative (Negative) 08/29/19 10:16 Urine Opiates Screen Not Detected (NotDetected) 08/29/19 10:16 Ur Oxycodone Screen Not Detected (NotDetected) 08/29/19 10:16 Urine Methadone Screen Not Detected (NotDetected) 08/29/19 10:16 Ur Propoxyphene Screen Not Detected (NotDetected) 08/29/19 10:16 Ur Barbiturates Screen Not Detected (NotDetected) 08/29/19 10:16 U Tricyclic Antidepress Not Detected (NotDetected) 08/29/19 10:16 Ur Phencyclidine Scrn Not Detected (NotDetected) 08/29/19 10:16 Ur Amphetamines Screen Not Detected (NotDetected) 08/29/19 10:16 U Methamphetamines Scrn Not Detected (NotDetected) 08/29/19 10:16 U Benzodiazepines Scrn Not Detected (NotDetected) 08/29/19 10:16 Urine Cocaine Screen Not Detected (NotDetected) 08/29/19 10:16 U Marijuana (THC) Screen Not Detected (NotDetected) 08/29/19 10:16 Influenza Type A RNA Not Detected (Not Detectd) 08/29/19 11:00 Influenza Type B (PCR) Not Detected (Not Detectd) 08/29/19 11:00 08/30/19 10:33 IDENTIFYING DATA: Patient is a 69-year-old male with a history of bipolar disorder who currently is homeless single has 3 daughters were estranged and collects Social Security disability HPI: Patient presented to the hospital yesterday and was accompanied by police. Patient had been recently discharged from mental health unit on 08/09/2019 for bipolar depression. Patient claimed in the ER that he was kicked out of the homeless skilled nursing and stated that he did not have anywhere to go. Patient was n oted to have cough and congestion however was influenza negative had normal white count and normal chest x-ray. Patient claims that he had been compliant on his medications including Zyprexa and Prozac. Patient's UDS was negative at this time however in the past patient has been positive for cocaine abuse. Was seen at the bedside and appeared to be irritable with ad writer and swore at him and was difficult to redirect. Patient eventually followed ad writer to the room/office to speak. Patient was concrete and guarded and gave few details about life in the hospital. He states that he was sleeping in the laundry room of an apartment as he was not able to get into the skilled nursing. He states that his mood is "not good" and admitted to depression. He denies any anxiety at this time. He mentions that he has poor sleep. Patient also claims that he continues to hear voices however are not distressing to him. He states that the voices are of his ex-girlfriend telling him to do things including "don't do this don't do that". Patient stated that he does not know why the police brought him into the hospital Patient denies any homicidal ideations intent or plan. At this time patient denies any visual hallucinations. Patient denies any flight of ideas racing thoughts and increased in goal directed behavior. He denies any suicidal or homicidal ideations intent or plan. Patient admits to using cigarettes every day. He does not endorse any other drug use and states that he can quit cocaine about 7 months ago. PAST PSYCHIATRIC HISTORY: Patient states that he has a history of bipolar disorder and polysubstance abuse in the past. Patient has been hospitalized on the mental health floor several times and the last admission was on 08/09/2019. Patient was then discharged on Zyprexa 10 mg daily at bedtime and Prozac 40 mg daily. Patient has failed to follow-up with [facility]. He denies any history of suicide attempts in the past. PMH: CAD, hepatitis C, sciatica, hypertension ALLERGIES: as per EMR CHEMICAL DEPENDENCY HISTORY: as per HPI FAMILY PSYCHIATRIC/SUBSTANCE USE HISTORY: denies SOCIAL HISTORY: Patient was born and raised in [place] and patient is now currently homeless and was living in his car. 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 He has 3 daughters were estranged and currently collects Social Security disability. MENTAL STATUS EXAM: General Appearance: Patient appears to be stated age is alert, and irritable/guarded. Patient appears to have poor hygiene and grooming. Behavior: Patient is seated without any agitated behavior. Irritable/guarded. Speech: Patient's speech is fluent and nonpressured. Soft tone, hesitant at times. Mood/Affect: Patient reports their mood is "not good", affect is incongruent and constricted. Suicidality/Homicidality: Patient denies having any homicidal ideation intent or plan. Denies any suicidal ideations intent or plan.. Perceptions: Patient denies any visual hallucinations and has auditory hallucinations of his ex-girlfriend Though content/process: There is no evidence of any delusional thought content and thought process is linear and goal-directed. [place]/guarded. Memory and concentration: AOX3, grossly intact for the purposes of this session. Can spell "WORLD" backwards Judgment and insight: poor STRENGTHS/WEAKNESSES: strength is that patient is resilient. Weakness is that patient has poor judgment and poor insight INTELLECT: average IMPRESSIONS: Bipolar disorder with psychotic features History of cocaine abuse Nicotine dependence PLAN: -Patient is admitted under voluntary status to MHU for stabilization of psychiatric symptoms and safety. Patient signed adult voluntary form and medication consent and is placed in patient's chart. -Medications : Will restart patient on Zyprexa 10 mg daily at bedtime for mood stabilization/psychosis. We'll plan to titrated up as tolerated/needed. We'll restart Prozac 40 mg daily for mood. -Ativan and Geodon PRN for agitation/aggression -Patient was informed of the risks, benefits and side effects of the medication and patient verbally consented to taking the medications. Patient signed med con sent form and was placed in chart. -Internal Medicine consult to perform medical evaluation and physical. -NRT - nicotine patch -SW on board for discharge planning. Encourage patient to participate in groups to work on coping skills. Patient is currently homeless at this time and will work on placement. 08/30/19 10:36 08/30/19 11:07
--- NOTE | 2019-08-30 18:44 | P.MDCNMH ---
History of Present Illness H&P Date: 08/30/19 Chief Complaint: Medical management 69-year-old male with PMH of hypertension, sciatica, depression and bipolar disorder presents the ED brought by police after eating kicked out of a homeless care home today. He has been admitted to mental health unit for observation. [facility] physicians has been consulted for medical management of this patient. Patient complains of URI-like symptoms for the past 2 weeks. His symptoms are characterized by rhinorrhea, nasal congestion and a dry cough. Patient reports smoking half pack of cigarettes daily for the past 50 years. Patient denies any headache, lower extremity edema, nausea or vomiting, fever or chills, chest pain, shortness of breath, changes in urination or bowel habits. No changes in appetite or weight. He denies any dizziness, numbness/weakness/tingling of the extremities. Review of lab work shows platelet count of 135, chloride of 110, BUN 23, ALT 54, TSH 0.424. Urinalysis is negative. UDS is negative. Influenza is negative. Review of Systems Pertinent positives and negatives as discussed in HPI, a complete review of systems was performed and all other systems are negative. Past Medical History Past Medical History: Hypertension Additional Past Medical History / Comment(s): sciatica, hepatitis C History of Any Multi-Drug Resistant Organisms: None Reported Past Surgical History: Coronary Bypass/CABG Additional Past Surgical History / Comment(s): left knee, right wrist, and right knee surgeries. I&D of the left knee following Staphylococcus infection. Past Anesthesia/Blood Transfusion Reactions: No Reported Reaction Past Psychological History: Anxiety, Depression Smoking Status: Current every day smoker Past Alcohol Use History: Rare Past Drug Use History: Cocaine - Past Family History Mother History Unknown: Yes Additional Family Medical History / Comment(s): Mother is 85 years of age with no major medical problems. Father History Unknown: Yes Family Medical History: CVA/TIA, Hypertension Additional Family Medical History / Comment(s): Father at age 75 with history of for CVAs and hypertension. Brother(s) Additional Family Medical History / Comment(s): He has 4 brothers that are healthy with no major medical problems. He has one sister that is healthy. He has 3 daughters with no major medical problems. Medications and Allergies Home Medications Medication Instructions Recorded Confirmed Type FLUoxetine HCL [PROzac] 40 mg PO DAILY #30 cap 08/16/19 08/29/19 Rx OLANZapine [ZyPREXA] 10 mg PO HS #30 tab 08/16/19 08/29/19 Rx Infinity Boost 1 tab PO DAILY 08/29/19 08/29/19 History Allergies Allergy/AdvReac Type Severity Reaction Status Date / Time No Known Allergies Allergy Verified 08/29/19 10:21 Physical Exam Vitals: Vital Signs Temp Pulse Resp BP Pulse Ox 08/30/19 10:19 98.0 F 76 16 149/71 95 General: [non toxic], [no distress], [appears at stated age] Derm: [warm], [dry] Head: [atraumatic], [normocephalic], [symmetric] Eyes: [EOMI], [no lid lag], [anicteric sclera] Mouth: [no lip lesion], [mucus membranes moist] Cardiovascular: [S1S2 reg], [no murmur], [positive posterior tibial pulse bilateral], Lungs: [CTA bilateral], [no rhonchi, no rales] , [no accessory muscle use] Abdominal: [soft], [ nontender to palpation], [no guarding], [no appreciable organomegaly] Ext: [no gross muscle atrophy], [no edema], [no contractures] Neuro: [ CN II-XI grossly intact], [no focal neuro deficits] Psych: [Alert], [oriented], [appropriate affect] Cranial Nerve Examination - Cranial Nerves Cranial Nerve II- Optic: Intact Cranial Nerve III- Oculomotor: Intact Cranial Nerve IV- Trochlear: Intact Cranial Nerve V- Trigeminal: Intact Cranial Nerve - Abducens: Intact Cranial Nerve VII- Facial: Intact Cranial Nerve VIII- Auditory: Intact Cranial Nerve IX- Glossopharyngeal: Intact Cranial Nerve X- Vagus: Intact Cranial Nerve XI- Accessory: Intact Cranial Nerve XII- Hypoglossal: Intact Results CBC & Chem 7: 08/29/19 10:50 08/29/19 10:50 Labs: Abnormal Lab Results - Last 24 Hours (Table) 08/29/19 Range/Units 10:50 TSH 0.424 L (0.465-4.680) mIU/L Assessment and Plan Assessment: Hypertension Viral URI Thrombocytopenia Low TSH Elevated BUN Patient's blood pressures currently 149/71. He does not take any antihypertensi ve medication at home and will be monitored for the time being. Patient's symptoms of rhinorrhea, congestion and dry cough is consistent with a viral URI. We will symptomatically treat this patient. He does have a low platelet count of 135 which is of unknown significance. There are no signs of bleeding at this time. His TSH is decreased at 0.4-4 with free T4 within normal limits. He will need to repeat his TSH in 6 weeks. His elevated BUN of 23 is likely due to dehydration. Patient has been encourage hydration by mouth. Thank you for this consult. Please call with any additional questions or concerns.
[2019-08-30] MEDS: OLANZapine 10 MG TAB PO SCH (20:46)
[2019-08-31] MEDS: NICOTINE 14MG/24HR PATCH TRANSDERM SCH (09:33)
[2019-08-31] MEDS: FLUoxetine HCL 20 MG CAP PO SCH (09:33)
--- NOTE | 2019-08-31 11:52 | P.PN ---
Progress Note - Text Progress Note Date: 08/31/19 Interval History: Patient was seen laying down in his bed and was directable and agreeable to sp scottk with advertising writer however did not want to leave his room. Patient states that he has been taking his medications and claims that he would like to keep the doses at the same at this time. He states that he was able to sleep tonight however was complaining about the air ventilation in the new room that he has. He states that he is continuing to hear the voices which are chronic for him of his ex-girlfriend telling him what to do. He states that he is learning to live with them. He states that he has mainly been isolating himself in his room and states that his mood is "okay" and denies any depression at this time. He denies any anxiety. He states that he has not been going to groups. At this time patient denies any suicidal or homical ideations, intent or plan. Patient denies any auditory, visual hallucinations and denies any paranoia or delusions. Patient denies any side effects from the medications and has been compliant with meds. Mental Status Exam: General Appearance: Patient appears to be stated age is alert, and less irritable today. Patient appears to have poor hygiene and grooming. Behavior: Patient is seated without any agitated behavior. Less irritable today. Speech: Patient's speech is fluent and nonpressured. Soft tone Mood/Affect: Patient reports their mood is "ok", affect is congruent and constricted. Suicidality/Homicidality: Patient denies having any homicidal ideation intent or plan. Denies any suicidal ideations intent or plan.. Perceptions: Patient denies any visual hallucinations and has auditory hallucinations of his ex-girlfriend Though content/process: There is no evidence of any delusional thought content and thought process is linear and goal-directed. [place]/guarded, poverty of content. Memory and concentration: AOX3, grossly intact for the purposes of this session. Can spell "WORLD" backwards Judgment and insight: poor, mildly improving Assessment Bipolar disorder with psychotic features History of cocaine abuse Nicotine dependence Plan: -Patient continues to meet criteria for inpatient psychiatric admission for symptom stabilization and safety. Patient has signed adult voluntary form and medication consent and was placed in patient's chart. -Medications: Can continue with Zyprexa 10 mg daily at bedtime for mood stabilization/psychosis. Continue with Prozac 40 mg daily for mood. -When necessary Ativan and Geodon for agitation/aggression. -NRT - nicotine patch -SW on board for discharge planning. Encouraged the patient to participate in milieu. Patient is currently homeless at this time and will work on placement.
[2019-08-31] MEDS: OLANZapine 10 MG TAB PO SCH (21:40)
[2019-09-01] MEDS: NICOTINE 14MG/24HR PATCH TRANSDERM SCH (08:21)
[2019-09-01] MEDS: FLUoxetine HCL 20 MG CAP PO SCH (08:21)
--- NOTE | 2019-09-01 11:30 | P.PN ---
Progress Note - Text Interval history: The patient is found in his room he follows me to an interview room. He indicates his mood is okay but he still has feelings of depression. He states he's been going to groups but nonetheless morning. He indicates he ate breakfast and slept throughout the night. He has been compliant with medication. He states that the Prozac gets in his hips and releases the pain and he is able to move better. He describes experiencing an auditory hallucination which appears chronic. This is a female voice asking for money. He states he experiences no auditory hallucinations directing self-harm or harm to others. He indicates feeling safe in the hospital. Socially speaking he is homeless and states he's not sure where he then ago from the hospital once he is discharged. Mental status exam: The patient is alert he is dressed in hospital gowns. Hygiene grooming fair. Eye contact is appropriate speech is fluent spontaneous nonpressured. He speaks quietly. He demonstrates no pressured speech he demonstrates no tangential thinking loose associations or flight of ideas. He does not appear hypomanic or manic. He maintains a bland affect throughout the session. He reports feeling safe in the hospital he reports no homicidal ideation intent or plan. He endorses a frequent auditory hallucination asking for money but endorses no command auditory hallucinations. He demonstrates no verbal or physical aggressiveness or any involuntary repetitive movements. Insight and judgment limited. Plan: The patient will continue on his current psychotropic medication. He has no questions or concerns regarding the Zyprexa or Prozac. Vital signs reviewed. He is encouraged to more fully participate in the milieu. We will monitor him for safety. He requires continued psychiatric hospitalization for evaluation and treatment purposes.
[2019-09-01] MEDS: OLANZapine 10 MG TAB PO SCH (22:15)
[2019-09-02] MEDS: FLUoxetine HCL 20 MG CAP PO SCH (09:10)
[2019-09-02] MEDS: NICOTINE 14MG/24HR PATCH TRANSDERM SCH (09:10)
--- NOTE | 2019-09-02 11:47 | P.PN ---
Progress Note - Text Interval history: The patient's found in his room he prefers to speak their today. He indicates that his mood is "not bad". He has been isolating in his room this morning. He indicates that he did go down and eat breakfast however. He reports ongoing auditory hallucinations but states that they are becoming less frequent. He continues to hear the same female voice saying things such as "what are you doing, when are you going to come see me?" He has no questions or concerns regarding his psychotropic medication. Mental status exam: The patient is a male appearing his stated age he is lying in bed he is alert he makes appropriate eye contact. He maintains a constricted to bland affect. He reports feeling safe in the hospital in terms of suicidal ideation. He reports no homicidal ideation intent or plan. He endorses an auditory hallucination as noted but states it is noncommanding. No visual hallucinations reported no specific delusions reported. He does not appear to be attending to the hallucination during our conversation. He demonstrates no tangential thinking loose associations or flight of ideas. Her is no evidence of hypomania or lesley. He demonstrates no verbal or physical aggressiveness he demonstrates no involuntary repetitive movements. Insight and judgment limited. Plan: The patient will continue on his current psychotropic medication. He strongly encouraged to participate in the milieu including groups and is encouraged to ambulate several times a day. Vital signs reviewed. We will continue to monitor him for safety.
[2019-09-02] MEDS: OLANZapine 10 MG TAB PO SCH (21:49)
[2019-09-03] MEDS: NICOTINE 14MG/24HR PATCH TRANSDERM SCH (09:09)
[2019-09-03] MEDS: FLUoxetine HCL 20 MG CAP PO SCH (09:09)
--- NOTE | 2019-09-03 11:38 | P.PN ---
Progress Note - Text Progress Note Date: 09/03/19 Interval History: Patient was seen sitting in the lounge and this morning and was directable and agreeable to speak with radio news writer in the office. Patient states that he did fairly well this weekend and offered no overnight complaints. He states that the voices he's been hearing of his ex-girlfriend have gradually been improving. Patient continues to have a constricted affect and is preoccupied about his discharge and his safety. He states that he is only gone to some groups however not finding them helpful. She continues to be concrete and have poverty of content. Patient asked radio news writer about how he can turn down the air in his room. He states that his mood has been gradually improving with the medications and wants to remain the same dose. He denies any depression at this time. He denies any anxiety. At this time patient denies any suicidal or homical ideations, intent or plan. Patient denies any auditory, visual hallucinations and denies any paranoia or delusions. Patient denies any side effects from the medications and has been compliant with meds. Mental Status Exam: General Appearance: Patient appears to be stated age is alert, and less irritable today, attempts to cooperate. Patient appears to have improving hygiene and grooming. Behavior: Patient is seated without any agitated behavior. Attempts to cooperate. Speech: Patient's speech is fluent and nonpressured. Soft tone Mood/Affect: Patient reports their mood is "fine", affect is congruent and constricted. Suicidality/Homicidality: Patient denies having any homicidal ideation intent or plan. Denies any suicidal ideations intent or plan.. Perceptions: Patient denies any visual hallucinations and has auditory hallucinations of his ex-girlfriend Though content/process: There is no evidence of any delusional thought content. [place]/guarded, poverty of content. Memory and concentration: AOX3, grossly intact for the purposes of this session. Can spell "WORLD" backwards Judgment and insight: poor, mildly improving Assessment Bipolar disorder with psychotic features History of cocaine abuse Nicotine dependence Plan: -Patient continues to meet criteria for inpatient psychiatric admission for symptom stabilization and safety. Patient has signed adult voluntary form and medication consent and was placed in patient's chart. -Medications: Can continue with Zyprexa 10 mg daily at bedtime for mood stabilization/psychosis. Continue with Prozac 40 mg daily for mood. -When necessary Ativan and Geodon for agitation/aggression. -NRT - nicotine patch -SW on board for discharge planning. Encouraged the patient to participate in milieu. Patient is currently homeless at this time and will work on placement.
[2019-09-03] MEDS: OLANZapine 10 MG TAB PO SCH (22:55)
[2019-09-04] MEDS: FLUoxetine HCL 20 MG CAP PO SCH (08:41)
[2019-09-04] MEDS: NICOTINE 14MG/24HR PATCH TRANSDERM SCH (08:41)
--- NOTE | 2019-09-04 11:22 | P.PN ---
Progress Note - Text Progress Note Date: 09/04/19 Interval History: Patient was living down in his room this morning and was directable and agreea ble to speak with property underwriter in the office. Patient appeared to have a constricted affect this morning and states that he slept well last night. He denied any overnight complaints. He continues to state that the voices he's been hearing of his ex-girlfriend have gradually been improving and are not distressing him any longer. Patient is continuing to mainly isolate himself in his room. He states that he is only gone to 1 group yesterday and patient did not elaborate further on what the group was about. She continues to be concrete and have poverty of content. He states that his mood has been "fine" and states that he is continuing to be hopeful about a placement when he is discharged from the unit. He denies any depression at this time. He denies any anxiety. At this time patient denies any suicidal or homical ideations, intent or plan. Patient denies any visual hallucinations and denies any paranoia or delusions. Patient denies any side effects from the medications and has been compliant with meds. Mental Status Exam: General Appearance: Patient appears to be short in stature, stated age is alert, attempts to cooperate. Patient appears to have improving hygiene and grooming. Behavior: Patient is seated without any agitated behavior. Attempts to cooperate. Speech: Patient's speech is fluent and nonpressured. Soft tone Mood/Affect: Patient reports their mood is "fine", affect is congruent and constricted. Suicidality/Homicidality: Patient denies having any homicidal ideation intent or plan. Denies any suicidal ideations intent or plan.. Perceptions: Patient denies any visual hallucinations and has auditory hallucinations of his ex-girlfriend Though content/process: There is no evidence of any delusional thought content. [place]/guarded, poverty of content. Memory and concentration: AOX3, grossly intact for the purposes of this session. Can spell "WORLD" backwards Judgment and insight: poor, mildly improving Assessment Bipolar disorder with psychotic features History of cocaine abuse Nicotine dependence Plan: -Patient continues to meet criteria for inpatient psychiatric admission for symptom stabilization and safety. Patient has signed adult voluntary form and medication consent and was placed in patient's chart. -Medications: Can continue with Zyprexa 10 mg daily at bedtime for mood stabilization/psychosis. Continue with Prozac 40 mg daily for mood. -When necessary Ativan and Geodon for agitation/aggression. -NRT - nicotine patch -SW on board for discharge planning. Encouraged the patient to participate in milieu. Patient is currently homeless at this time and will continue to work on placement.
[2019-09-04] MEDS: OLANZapine 10 MG TAB PO SCH (20:17)
[2019-09-05] MEDS: FLUoxetine HCL 20 MG CAP PO SCH (08:20)
[2019-09-05] MEDS: NICOTINE 14MG/24HR PATCH TRANSDERM SCH (08:20)
--- NOTE | 2019-09-05 14:30 | P.PN ---
Subjective Progress Note Date: 09/05/19 Patient seen and chart reviewed. The patient reports doing okay but his affect remained constricted. The patient reports fair sleep but the poor appetite. He has been withdrawn and isolating himself in his room and refuses to go to any groups or unit activities. The patient is appropriately pleasant during the interview. He continues to report slow improvement in auditory hallucinations.. At this time patient denies any suicidal or homicidal ideations, intent or plan. Patient denies any visual hallucinations and denies any paranoia or delusions. Patient denies any side effects from the medications and has been compliant with meds. Mental Status Exam: General Appearance: Patient appears to be short in stature, stated age is alert, attempts to cooperate. Behavior: Patient is seated without any agitated behavior. Attempts to cooperate. Speech: Patient's speech is fluent and nonpressured. Soft tone Mood/Affect: Patient reports their mood is "fine", affect is congruent and constricted. Suicidality/Homicidality: Patient denies having any homicidal ideation intent or plan. Denies any suicidal ideations intent or plan.. Perceptions: Patient denies any visual hallucinations and has auditory hallucinations of his ex-girlfriend Though content/process: There is no evidence of any delusional thought content. [place]/guarded, poverty of content. Memory and concentration: AOX3, grossly intact for the purposes of this session. Judgment and insight: poor Assessment Bipolar disorder with psychotic features History of cocaine abuse Nicotine dependence Plan: -Patient continues to meet criteria for inpatient psychiatric admission for symptom stabilization and safety. Patient has signed adult voluntary form and medication consent and was placed in patient's chart. -Medications: Can continue with Zyprexa 10 mg daily at bedtime for mood stabilization/psychosis. Continue with Prozac 40 mg daily for mood. -When necessary Ativan and Geodon for agitation/aggression. -NRT - nicotine patch -SW on board for discharge planning. Encouraged the patient to participate in milieu. Patient is currently homeless at this time and will continue to work on placement. Objective - Vital Signs Vital signs: Vital Signs Temp 97.8 F 09/05/19 06:15 Pulse 60 09/05/19 06:15 Resp 15 09/05/19 06:15 BP 131/60 09/05/19 06:15 Pulse Ox 93 L 09/03/19 07:28 - Labs CBC & Chem 7: 08/29/19 10:50 08/29/19 10:50
[2019-09-05] MEDS: OLANZapine 10 MG TAB PO SCH (21:06)
[2019-09-06] MEDS: NICOTINE 14MG/24HR PATCH TRANSDERM SCH (08:38)
[2019-09-06] MEDS: FLUoxetine HCL 20 MG CAP PO SCH (08:38)
[2019-09-06 09:58] VITALS: BMI 20.6
--- NOTE | 2019-09-06 12:17 | P.PN ---
Subjective Progress Note Date: 09/06/19 Patient seen and chart reviewed. The patient reports doing okay and reports improvement in his mood and functioning. The patient remained withdrawn and isolative and refuses to attend any unit activities. The patient reports improved sleep and appetite but complains of the food doesn't taste good. HThe patient is appropriately pleasant during the interview. He continues to report slow improvement in auditory hallucinations.. At this time patient denies any suicidal or homicidal ideations, intent or plan. Patient denies any visual hallucinations and denies any paranoia or delusions. Patient denies any side effects from the medications and has been compliant with meds. Objective - Vital Signs Vital signs: Vital Signs Temp 97.7 F 09/06/19 05:19 Pulse 60 09/06/19 05:19 Resp 16 09/06/19 05:19 BP 172/78 09/06/19 05:19 Pulse Ox 94 L 09/06/19 05:19 Intake & Output 09/05/19 09/06/19 09/06/19 18:59 06:59 18:59 Weight 56.2 kg - Exam Mental Status Exam: General Appearance: Patient appears to be short in stature, stated age is alert, attempts to cooperate. Behavior: Patient is seated without any agitated behavior. Attempts to cooperate. Speech: Patient's speech is fluent and nonpressured. Soft tone Mood/Affect: Patient reports their mood is "fine", affect is congruent and constricted. Suicidality/Homicidality: Patient denies having any homicidal ideation intent or plan. Denies any suicidal ideations intent or plan.. Perceptions: Patient denies any visual hallucinations and has auditory hallucinations of his ex-girlfriend Though content/process: There is no evidence of any delusional thought content. [place]/guarded, poverty of content. Memory and concentration: AOX3, grossly intact for the purposes of this session. Judgment and insight: poor - Labs CBC & Chem 7: 08/29/19 10:50 08/29/19 10:50 Assessment and Plan Assessment: Assessment Bipolar disorder with psychotic features History of cocaine abuse Nicotine dependence Plan: Plan: -Patient continues to meet criteria for inpatient psychiatric admission for symptom stabilization and safety. Patient has signed adult voluntary form and medication consent and was placed in patient's chart. -Medications: Continue with Zyprexa 10 mg daily at bedtime for mood stabilization/psychosis. Continue with Prozac 40 mg daily for mood. -When necessary Ativan and Geodon for agitation/aggression. -NRT - nicotine patch -SW on board for discharge planning. Encouraged the patient to participate in milieu. Patient is currently homeless at this time and will continue to work on placement.
[2019-09-06] MEDS: OLANZapine 10 MG TAB PO SCH (20:42)
[2019-09-07] MEDS: FLUoxetine HCL 20 MG CAP PO SCH (08:23)
[2019-09-07] MEDS: NICOTINE 14MG/24HR PATCH TRANSDERM SCH (08:23)
--- NOTE | 2019-09-07 12:22 | P.PN ---
Subjective Progress Note Date: 09/07/19 Patient seen and chart reviewed. The patient reports doing alright and reports improvement in his mood and functioning. The patient remained withdrawn and isolative but reports going to a group yesterday. The patient reports good sleep and appetite. HThe patient is appropriately pleasant during the interview. He continues to report increase in auditory hallucinations today. At this time patient denies any suicidal or homicidal ideations, intent or plan. Patient denies any visual hallucinations and denies any paranoia or delusions. Patient denies any side effects from the medications and has been compliant with meds. Objective - Vital Signs Vital signs: Vital Signs Temp 97.8 F 09/07/19 06:15 Pulse 61 09/07/19 06:15 Resp 15 09/07/19 06:15 BP 141/68 09/07/19 06:15 Pulse Ox 96 09/06/19 18:42 Intake & Output 09/06/19 09/07/19 09/07/19 18:59 06:59 18:59 Weight 56.2 kg - Exam Mental Status Exam: General Appearance: Patient appears to be short in stature, stated age is alert, attempts to cooperate. Behavior: Patient is seated without any agitated behavior. Attempts to cooperate. Speech: Patient's speech is fluent and nonpressured. Soft tone Mood/Affect: Patient reports their mood is "alright", affect is congruent and constricted. Suicidality/Homicidality: Patient denies having any homicidal ideation intent or plan. Denies any suicidal ideations intent or plan.. Perceptions: Patient denies any visual hallucinations and has auditory hallucin ations of his ex-girlfriend Though content/process: There is no evidence of any delusional thought content. [place]/guarded, poverty of content. Memory and concentration: AOX3, grossly intact for the purposes of this session. Judgment and insight: poor - Labs CBC & Chem 7: 08/29/19 10:50 08/29/19 10:50 Assessment and Plan Assessment: Assessment Bipolar disorder with psychotic features History of cocaine abuse Nicotine dependence Plan: Plan: -Patient continues to meet criteria for inpatient psychiatric admission for symptom stabilization and safety. Patient has signed adult voluntary form and medication consent and was placed in patient's chart. -Medications: Increase Zyprexa 15 mg daily at bedtime for mood stabilization/psychosis. Continue with Prozac 40 mg daily for mood. -When necessary Ativan and Geodon for agitation/aggression. -NRT - nicotine patch -SW on board for discharge planning. Encouraged the patient to participate in milieu. Patient is currently homeless at this time and will continue to work on placement.
[2019-09-07] MEDS: OLANZapine 5 MG TAB PO SCH (20:42)
[2019-09-08] MEDS: NICOTINE 14MG/24HR PATCH TRANSDERM SCH (08:45)
[2019-09-08] MEDS: FLUoxetine HCL 20 MG CAP PO SCH (08:46)
--- NOTE | 2019-09-08 12:21 | P.PN ---
Subjective Progress Note Date: 09/08/19 Principal diagnosis: Bipolar disorder with psychotic features, History of cocaine abuse, Nicotine dependence I reviewed the medical record and attempted to interview the patient. He would not get out of bed for the interview. In response to questions about himself he reply that he is "okay". He was unwilling to engage in discussion about his psychiatric symptoms. He is sleeping 6-7 hours per night and does not attend therapeutic groups and activities. He remains reclusive and isolative. He has minimal interaction with staff or peers. Objective - Vital Signs Vital signs: Vital Signs Temp 97.7 F 09/08/19 06:18 Pulse 65 09/08/19 06:18 Resp 14 09/08/19 06:18 BP 156/68 09/08/19 06:18 Pulse Ox 96 09/06/19 18:42 - Exam He presented as a casually groomed 69-year-old male who was guarded but pleasant on approach. He made eye contact and appeared to attend to the interview. He had a flat facial expression. He was alert and oriented to person and place. His speech was not spontaneous and had decreased rate, rhythm and volume. He had no articulation difficulties. His affect was flat and not reactive. In response to questions about suicidal ideation he replied "no". He gave a similar response to questions about homicidality. He did not express clear ideas reference, paranoid ideation or delusions. His thinking was concre te and associations appeared organized. He would not talk about hallucinatory experiences but did not appear to be responding to internal stimuli during our encounter. - Labs CBC & Chem 7: 08/29/19 10:50 08/29/19 10:50 Assessment and Plan Assessment: He is seriously mentally ill remarkably improve from admission. Plan: Continue psychiatric hospitalization due to severity of his psychiatric symptoms. Continue Prozac 40 mg daily and Zyprexa 15 mg at bedtime. Encourage participation in therapeutic groups and activities as tolerated. Evaluate clinical status response to treatment daily basis.
[2019-09-08] MEDS: OLANZapine 5 MG TAB PO SCH (20:44)
[2019-09-09] MEDS: NICOTINE 14MG/24HR PATCH TRANSDERM SCH (08:14)
[2019-09-09] MEDS: FLUoxetine HCL 20 MG CAP PO SCH (08:14)
--- NOTE | 2019-09-09 13:46 | P.PN ---
Subjective Progress Note Date: 09/09/19 Principal diagnosis: Bipolar disorder with psychotic features, History of cocaine abuse, Nicotine dependence I reviewed the medical record and attempted to interview the patient. He remains isolative and uninvolved with therapeutic groups and activities. He refused to get out of bed for the interview. He was pleasant but volunteered no information. When I inquired about his mood he replied "not good". He denied side effects to his current medications (Prozac and Zyprexa). He slept 7 hours last night. He does not engage with peers or therapeutic staff. Objective - Vital Signs Vital signs: Vital Signs Temp 98.0 F 09/09/19 06:20 Pulse 77 09/09/19 06:20 Resp 15 09/09/19 06:20 BP 107/53 09/09/19 06:20 Pulse Ox 96 09/06/19 18:42 - Exam He presented as a thin with short statured elderly man who appeared depressed. He did not make eye contact and did not engage in interview. He showed psychomotor retardation. Her speech was slow with decreased rate and rhythm. His affect was depressed and not reactive. He did not express suicidal ideation or wishes. He didn't express ideas reference or paranoid ideation. His thinking was concrete but his associations appeared coherent and logical. He denied hallucinations and did not appear to be responding to internal stimuli. - Labs CBC & Chem 7: 08/29/19 10:50 08/29/19 10:50 Assessment and Plan Assessment: Remains seriously mentally ill and minimally improve from admission. He is isolative and uninvolved with therapeutic activities.. Plan: Continue psychiatric hospitalization due to severity of his psychiatric symptoms. Continue Prozac 40 mg daily and Zyprexa 15 mg at bedtime. Encourage participation in therapeutic groups and activities as tolerated. Evaluate cl inical status response to treatment daily basis.
[2019-09-09] MEDS: OLANZapine 5 MG TAB PO SCH (20:42)
[2019-09-10] MEDS: FLUoxetine HCL 20 MG CAP PO SCH (09:00)
[2019-09-10] MEDS: NICOTINE 14MG/24HR PATCH TRANSDERM SCH (09:00)
--- NOTE | 2019-09-10 10:12 | P.PN ---
Progress Note - Text Progress Note Date: 09/10/19 Interval History: Patient was seen playing down on his bed in his room this morning and was dire ctable and agreeable to speak with radio script writer. Patient appeared to have an improved affect this morning and was appropriate during conversation. Patient continues to be concrete in his thought content and denied any overnight complaints stating that he slept to the night. He states that he is taking his medications and denies any side effects at this time. He continues to state that he is hearing his ex-girlfriend's voice however claims it is not bothering him at the moment and the voices have been improving. Patient is continuing to mainly isolate himself in his room during the day and states that he does not feel like going to groups as he doesn't "learn anything from them". He states that his mood has been "ok" and states that he is continuing to be hopeful about a placement when he is discharged from the unit. He denies any depression at this time. At this time patient denies any suicidal or homical ideations, intent or plan. Patient denies any visual hallucinations and denies any paranoia or delusions. Patient denies any side effects from the medications and has been compliant with meds. Mental Status Exam: General Appearance: Patient appears to be short in stature, stated age is alert, attempts to cooperate. Patient appears to have improving hygiene and grooming. Behavior: Patient is seated without any agitated behavior. Attempts to cooperate/concrete Speech: Patient's speech is fluent and nonpressured. Soft tone Mood/Affect: Patient reports their mood is "ok", affect is congruent and constricted. Suicidality/Homicidality: Patient denies having any homicidal ideation intent or plan. Denies any suicidal ideations intent or plan.. Perceptions: Patient denies any visual hallucinations and has auditory hallucinations of his ex-girlfriend which are improving Though content/process: There is no evidence of any delusional thought content. [place]/guarded, poverty of content. Memory and concentration: AOX3, grossly intact for the purposes of this session. Can spell "WORLD" backwards Judgment and insight: poor, mildly improving Assessment Bipolar disorder with psychotic features History of cocaine abuse Nicotine dependence Plan: -Patient continues to meet criteria for inpatient psychiatric admission for symptom stabilization and safety. Patient has signed adult voluntary form and medication consent and was placed in patient's chart. -Medications: Can continue with Zyprexa 15 mg daily at bedtime for mood stabilization/psychosis. Continue with Prozac 40 mg daily for mood. -When necessary Ativan and Geodon for agitation/aggression. -NRT - nicotine patch -SW on board for discharge planning. Encouraged the patient to participate in milieu. Patient is currently homeless at this time and will continue to work on placement.
[2019-09-10] MEDS: OLANZapine 5 MG TAB PO SCH (20:34)
[2019-09-11 06:53] VITALS: BP 152/81; PULSE 65; RESP 15; TEMP 97.9
[2019-09-11] MEDS: NICOTINE 14MG/24HR PATCH TRANSDERM SCH (08:11)
[2019-09-11] MEDS: FLUoxetine HCL 20 MG CAP PO SCH (08:11)
--- NOTE | 2019-09-11 10:12 | P.DS ---
Providers Date of admission: 08/29/19 16:28 Expected date of discharge: 09/11/19 Attending physician: Sheldon Robbins MD Consults: 08/29/19 16:30 Consult Physician Routine Consulting Provider: Ernestine Morgan Consult Reason/Comments: H & P and medical care Do you want consulting provider notified?: Yes Primary care physician: Halima Blanco - Discharge Diagnosis(es) (1) Bipolar disorder with psychotic features Current Visit: Yes Status: Acute Priority: High (2) History of cocaine abuse Current Visit: Yes Status: Acute Priority: Low (3) Nicotine dependence Current Visit: Yes Status: Acute Priority: Low Hospital Course: Admission HPI: Patient is a 69-year-old male with a history of bipolar disorder who currently is homeless single has 3 daughters were estranged and collects Social Security disability. Patient presented to the hospital yesterday and was accompanied by police. Patient had been recently discharged from mental health unit on 08/09/2019 for bipolar depression. Patient claimed in the ER that he was [facility] the [facility] and stated that he did not have anywhere to go. Patient was noted to have cough and congestion however was influenza negative had normal white count and normal chest x-ray. Patient claims that he had been compliant on his medications including Zyprexa and Prozac. Patient's UDS was negative at this time however in the past patient has been positive for cocaine abuse. Was seen at the bedside and appeared to be irritable with staff writer and swore at him and was difficult to redirect. Patient eventually followed staff writer to the room/office to speak. Patient was concrete and guarded and gave few details about life in the hospital. He states that he was sleeping in the laundry room of an apartment as he was not able to get into the [facility]. He states that his mood is "not good" and admitted to depression. He denies any anxiety at this time. He mentions that he has poor sleep. Patient also claims that he continues to hear voices however are not distressing to him. He states that the voices are of his ex-girlfriend telling him to do things including "don't do this don't do that". Patient stated that he does not know why the police brought him into the hospital Patient denies any homicidal ideations intent or plan. At this time patient denies any visual hallucinations. Patient denies any flight of ideas racing thoughts and increased in goal directed behavior. He denies any suicidal or homicidal ideations intent or plan. Patient admits to using cigarettes every day. He does not endorse any other drug use and states that he can quit cocaine about 7 months ago. Hospital course: Upon admission to the unit patient was initially calm and cooperative. Patient was however directable and agreeable to commence treatment. Patient got along well with other patients on the unit and followed unit protocol. Patient was compliant with the medications and denied any side effects throughout hospital course. Patient was re-started on Prozac 40 mg daily for mood and also restarted on Zyprexa which was increased to a dose of 15 mg nightly for mood stabilization/psychosis. Patient spoke of his stressors and engaged in individual therapy and only went to some groups. Patient was also seen by medical team for history and physical exam. Throughout the course of the hospitalization patient gradually improved with regards to mood, anxiety, psychotic symptoms, sleep and became future oriented with improved insight and judgment. Patient was noted to have chronic non-distressing auditory hallucinations which improved with medications and treatment and the voices return back to their baseline. On the day of discharge patient denied any suicidal or homicidal ideations intent or plan denied any visual hallucinations. Patient endorsed wanting to live for his future and his health. The patient denied any access to guns or weapons. Patient denied any paranoia and did not endorse any delusions. Patient does have a significant history of substance abuse and was counseled on abstaining from all substances including alcohol and marijuana. Patient was also counseled on the medications and need for regular compliance and was encouraged to follow-up with their outpatient appointment for mental health and also for primary care. Mental status exam: General Appearance: Patient appears to be short in stature, unshaven, stated age is alert, pleasant, and attempts to be cooperative. Patient is in no acute distress and has fair hygiene and grooming Behavior: Patient is calmly seated without any agitated behavior. Speech: Patient's speech is fluent and nonpressured. Soft tone. Mood/Affect: Patient reports their mood is "good", affect is congruent and euthymic. Suicidality/Homicidality: Patient denies having any suicidal or homicidal ideation intent or plan. Perceptions: Patient denies any visual hallucinations. Patient continues to have chronic and stable non-distressing auditory hallucinations which have improved during hospitalization. Though content/process: There is no evidence of any delusional thought content and thought process is linear and goal-directed. Memory and concentration: AOX3, grossly intact for the purposes of this session. Can spell "WORLD" backwards correctly. Judgment and insight: improved with guarded prognosis Impression: Bipolar disorder with psychotic features History of cocaine abuse Nicotine dependence Plan: -Continue with discharge today as patient has improved and stabilized psychiatrically and is not currently an imminent threat to himself and/or others. Patient has a chronic history of homelessness which may lead to chronically elevated risk of self-harm unintentionally. -Continue medications: Zyprexa 15 mg daily at bedtime for mood stabilization/psychosis. Continue with Prozac 40 mg daily for mood. -Patient was counseled on the need for medication compliance and appropriate follow-up at mental health and also primary care for medical issues. Patient verbalized understanding and agreed. -Social work to help patient arrange for housing and a ride after discharge. Social work also to arrange for patients follow up appointments with [facility] for psychiatric care along with follow up with primary care provider. -Patient counseled on abstaining from recreational drugs and marijuana and alcohol. Was informed/educated on the adverse effects on their physical and mental health. Patient verbally agreed and understood. -Patient was instructed to return to the hospital or seek immediate medical care if their psychiatric or medical symptoms do worsen or reoccur. Allergies Allergy/AdvReac Type Severity Reaction Status Date / Time No Known Allergies Allergy Verified 08/31/19 16:48 Laboratory Results WBC 8.5 k/uL (3.8-10.6) 08/29/19 10:50 RBC 4.85 m/uL (4.30-5.90) 08/29/19 10:50 Hgb 14.8 gm/dL (13.0-17.5) 08/29/19 10:50 Hct 45.1 % (39.0-53.0) 08/29/19 10:50 MCV 93.0 fL (80.0-100.0) 08/29/19 10:50 MCH 30.6 pg (25.0-35.0) 08/29/19 10:50 MCHC 32.9 g/dL (31.0-37.0) 08/29/19 10:50 RDW 13.5 % (11.5-15.5) 08/29/19 10:50 Plt Count 135 k/uL (150-450) L 08/29/19 10:50 Neutrophils % 58 % 08/29/19 10:50 Lymphocytes % 27 % 08/29/19 10:50 Monocytes % 8 % 08/29/19 10:50 Eosinophils % 5 % 08/29/19 10:50 Basophils % 0 % 08/29/19 10:50 Neutrophils # 4.9 k/uL (1.3-7.7) 08/29/19 10:50 Lymphocytes # 2.3 k/uL (1.0-4.8) 08/29/19 10:50 Monocytes # 0.7 k/uL (0-1.0) 08/29/19 10:50 Eosinophils # 0.4 k/uL (0-0.7) 08/29/19 10:50 Basophils # 0.0 k/uL (0-0.2) 08/29/19 10:50 Sodium 140 mmol/L (137-145) 08/29/19 10:50 Potassium 4.5 mmol/L (3.5-5.1) 08/29/19 10:50 Chloride 110 mmol/L (98-107) H 08/29/19 10:50 Carbon Dioxide 25 mmol/L (22-30) 08/29/19 10:50 Anion Gap 5 mmol/L 08/29/19 10:50 BUN 23 mg/dL (9-20) H 08/29/19 10:50 Creatinine 0.71 mg/dL (0.66-1.25) 08/29/19 10:50 Est GFR (CKD-EPI)AfAm >90 (>60 ml/min/1.73 sqM) 08/29/19 10:50 Est GFR (CKD-EPI)NonAf >90 (>60 ml/min/1.73 sqM) 08/29/19 10:50 Glucose 88 mg/dL (74-99) 08/29/19 10:50 Calcium 8.8 mg/dL (8.4-10.2) 08/29/19 10:50 Total Bilirubin 0.8 mg/dL (0.2-1.3) 08/29/19 10:50 AST 54 U/L (17-59) 08/29/19 10:50 ALT 54 U/L (4-49) H 08/29/19 10:50 Alkaline Phosphatase 112 U/L (38-126) 08/29/19 10:50 Total Protein 6.4 g/dL (6.3-8.2) 08/29/19 10:50 Albumin 3.5 g/dL (3.5-5.0) 08/29/19 10:50 TSH 0.424 mIU/L (0.465-4.680) L 08/29/19 10:50 Free T4 0.86 ng/dL (0.78-2.19) 08/29/19 10:50 Urine Color Yellow 08/29/19 10:16 Urine Appearance Clear (Clear) 08/29/19 10:16 Urine pH 6.0 (5.0-8.0) 08/29/19 10:16 Ur Specific [place] 1.023 (1.001-1.035) 08/29/19 10:16 Urine Protein Negative (Negative) 08/29/19 10:16 Urine Glucose (UA) Negative (Negative) 08/29/19 10:16 Urine Ketones Negative (Negative) 08/29/19 10:16 Urine Blood Negative (Negative) 08/29/19 10:16 Urine Nitrite Negative (Negative) 08/29/19 10:16 Urine Bilirubin Negative (Negative) 08/29/19 10:16 Urine Urobilinogen 4.0 mg/dL (<2.0) 08/29/19 10:16 Ur Leukocyte Esterase Negative (Negative) 08/29/19 10:16 Urine Opiates Screen Not Detected (NotDetected) 08/29/19 10:16 Ur Oxycodone Screen Not Detected (NotDetected) 08/29/19 10:16 Urine Methadone Screen Not Detected (NotDetected) 08/29/19 10:16 Ur Propoxyphene Screen Not Detected (NotDetected) 08/29/19 10:16 Ur Barbiturates Screen Not Detected (NotDetected) 08/29/19 10:16 U Tricyclic Antidepress Not Detected (NotDetected) 08/29/19 10:16 Ur Phencyclidine Scrn Not Detected (NotDetected) 08/29/19 10:16 Ur Amphetamines Screen Not Detected (NotDetected) 08/29/19 10:16 U Methamphetamines Scrn Not Detected (NotDetected) 08/29/19 10:16 U Benzodiazepines Scrn Not Detected (NotDetected) 08/29/19 10:16 Urine Cocaine Screen Not Detected (NotDetected) 08/29/19 10:16 U Marijuana (THC) Screen Not Detected (NotDetected) 08/29/19 10:16 Influenza Type A RNA Not Detected (Not Detectd) 08/29/19 11:00 Influenza Type B (PCR) Not Detected (Not Detectd) 08/29/19 11:00 Vital Signs Temp 97.9 F 09/11/19 06:30 Pulse 65 09/11/19 06:30 Resp 15 09/11/19 06:30 BP 152/81 09/11/19 06:30 Pulse Ox 98 09/11/19 06:30 Patient Condition at Discharge: Stable Plan - Discharge Summary Discharge Rx Participant: No New Discharge Prescriptions: New FLUoxetine HCL 40 mg PO DAILY 30 Days capsule Nicotine 14Mg/24Hr Patch [Habitrol] 1 patch TRANSDERM DAILY 14 Days patch OLANZapine [OLANZapine Odt] 15 mg PO HS 30 Days tab.rapdis Acetaminophen Tab [Tylenol] 650 mg PO Q4HR PRN tab PRN Reason: Pain/Discomfort Discontinued FLUoxetine HCL [PROzac] 40 mg PO DAILY #30 cap OLANZapine [ZyPREXA] 10 mg PO HS #30 tab Infinity Boost 1 tab PO DAILY Discharge Medication List Acetaminophen Tab [Tylenol] 650 mg PO Q4HR PRN tab 09/11/19 [Rx] FLUoxetine HCL 40 mg PO DAILY 30 Days capsule 09/11/19 [Rx] Nicotine 14Mg/24Hr Patch [Habitrol] 1 patch TRANSDERM DAILY 14 Days patch [Rx] OLANZapine [OLANZapine Odt] 15 mg PO HS 30 Days tab.rapdis 09/11/19 [Rx] Follow up Appointment(s)/Referral(s): Halima Blanco MD [Primary Care Provider] - [facility] Week Patient Instructions/Handouts: Cocaine Abuse (DC), Bipolar Disorder (DC), Depression (DC) Activity/Diet/Wound Care/Special Instructions: Activity and diet as tolerated. Avoid the use of street drugs and alcohol. Take all medications as prescribed. When you are in need of refills on your me dications please contact your medical provider and/or outpatient psychiatrist to have this done. Please go to scheduled outpatient appointment for aftercare treatment. If symptoms return or become worse, call the crisis line at and/or go to the nearest emergency room for evaluation. Discharge Disposition: HOME SELF-CARE
== END 2019-09-11 14:41 | disposition home or self-care (01) | DRG 885 ==
LOC: EC 09:43 → 3MHU 16:28
PROVIDERS: ADMIT Psychiatry & Neurology Psychiatry; ATTEND Psychiatry & Neurology Psychiatry
DX: F31.89 Other bipolar disorder (principal); F17.210 Nicotine dependence, cigarettes, uncomplicated; F29 Unspecified psychosis not due to a substance or known physiological condition; F41.9 Anxiety disorder, unspecified; I10 Essential (primary) hypertension; I25.10 Atherosclerotic heart disease of native coronary artery without angina pectoris; J06.9 Acute upper respiratory infection, unspecified; Z59.0 Homelessness; Z79.899 Other long term (current) drug therapy; Z82.3 Family history of stroke; Z82.49 Family history of ischemic heart disease and other diseases of the circulatory system; Z95.1 Presence of aortocoronary bypass graft; F14.11 Cocaine abuse, in remission; Z63.8 Other specified problems related to primary support group
CPT/HCPCS: 36415; 71046; 80053; 80306; 81003; 82075; 84439; 84443; 85025; 87502; 96360; 96361; 99285

== ENCOUNTER 2019-10-09 02:51 | Inpatient (IN) | payer MEDICARE, OTHER ==
[2019-10-09] MEDS ORDERED: MORPHINE SULFATE 2 MG/ML SYRINGE IVP STA (03:07)
[2019-10-09] MEDS ORDERED: ONDANSETRON 4 MG/2 ML VIAL IVP STA (03:07)
[2019-10-09] MEDS ORDERED: SODIUM CHLORIDE 0.9% 500 ML 500 ML IV STA (03:07)
--- NOTE | 2019-10-09 03:12 | ED ---
Nausea/Vomiting/Diarrhea HPI - General Chief complaint: Nausea/Vomiting/Diarrhea Stated complaint: nausea,vomiting Source: patient, EMS Mode of arrival: EMS Limitations: no limitations - History of Present Illness Initial comments: The patient is a 6-year-old male with past history of hepatitis C who presents to the emergency room with reported nausea, vomiting and epigastric abdominal pain. The patient states that he has been residing in [place] for the past 2 weeks. 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 Reports that he requested that police escort him to [place] as he resides here. Police dropped him off at a bus stop about an hour ago. Reports several he was there he began not feeling well. He began having epiga stric abdominal pain without radiation. He then had several episodes of nonbilious, nonbloody vomiting. She denies hematemesis. No ripping or tearing sensation to his back. Does admit to chest pain which has been present for the past 12 hours. No history of cardiac disease. Denies shortness of breath. No recent fevers or chills. Denies cough or hemoptysis. There are no alleviating, precipitating or modifying factors - Related Data Previous Rx's Medication Instructions Recorded Acetaminophen Tab [Tylenol] 650 mg PO Q4HR PRN tab 09/11/19 FLUoxetine HCL 40 mg PO DAILY 30 Days capsule 09/11/19 Nicotine 14Mg/24Hr Patch [Habitrol] 1 patch TRANSDERM DAILY 14 Days 09/11/19 patch OLANZapine [OLANZapine Odt] 15 mg PO HS 30 Days tab.rapdis 09/11/19 Allergies Allergy/AdvReac Type Severity Reaction Status Date / Time No Known Allergies Allergy Verified 08/31/19 16:48 Review of Systems ROS Statement: Those systems with pertinent positive or pertinent negative responses have been documented in the HPI. ROS Other: All systems not noted in ROS Statement are negative. Past Medical History Past Medical History: No Reported History Additional Past Medical History / Comment(s): sciatica, hepatitis C History of Any Multi-Drug Resistant Organisms: None Reported Past Surgical History: No Surgical Hx Reported Additional Past Surgical History / Comment(s): left knee, right wrist, and right knee surgeries. I&D of the left knee following Staphylococcus infection. Past Anesthesia/Blood Transfusion Reactions: No Reported Reaction Past Psychological History: Anxiety, Depression Smoking Status: Current every day smoker Past Alcohol Use History: Rare Past Drug Use History: Cocaine - Past Family History Mother History Unknown: Yes Additional Family Medical History / Comment(s): Mother is 85 years of age with no major medical problems. Father History Unknown: Yes Family Medical History: CVA/TIA, Hypertension Additional Family Medical History / Comment(s): Father at age 75 with history of for CVAs and hypertension. Brother(s) Additional Family Medical History / Comment(s): He has 4 brothers that are healthy with no major medical problems. He has one sister that is healthy. He has 3 daughters with no major medical problems. General Exam Limitations: no limitations Course Vital Signs 10/09/19 10/09/19 10/09/19 02:55 02:59 03:00 Temperature 97.6 F Pulse Rate 68 Respiratory 20 Rate Blood Pressure 175/96 175/96 175/96 O2 Sat by Pulse 98 Oximetry 10/09/19 10/09/19 10/09/19 03:10 03:20 03:30 Temperature Pulse Rate 72 79 74 Respiratory Rate Blood Pressure 175/96 175/96 175/96 O2 Sat by Pulse 97 Oximetry 10/09/19 10/09/19 10/09/19 03:40 03:50 04:00 Temperature Pulse Rate 73 73 Respiratory 18 Rate Blood Pressure 147/84 147/84 147/84 O2 Sat by Pulse 97 Oximetry Medical Decision Making - Medical Decision Making Upon arrival the patient was placed into room 6. There are history and physical exam was performed. Peripheral IV had been established by EMS. He was given 4 mg of Zofran by us. 12-lead EKG was performed. Laboratory studies were conducted. Patient was given 1500 mL of normal saline. Laboratory studies are markable for a lactic acid of 2.5. ALT 50. Lipase 1098. CT demonstrates normal appendix. Sigmoid diverticulosis without diverticulitis. Thrombosis of the abdominal aorta just below the renal arteries with collateral vessel development of the anterior abdominal wall. I did discuss results regarding the thrombosed aorta with Dr. Burgess. He does clarify that the findings resemble chronic changes as the patient does have collateral flow. The patient does report to the sensation that his feet are cold but this has been chronic. He does have capillary refill of about 5 seconds however no palpable pulses. I do attempt to utilize the Doppler however I cannot detect a pulse. I discussed the results with the patient. Recommend hospital admission in order to trend his troponins and a vascular consult for which the patient did agree. Patient will be admitted to [facility]. He remained in stable condition awaiting a bed on the floor - Lab Data Result diagrams: 10/09/19 03:06 10/09/19 03:06 Lab Results 10/09/19 10/09/19 10/09/19 Range/Units 03:06 03:06 03:06 WBC 11.5 H (3.8-10.6) k/uL RBC 4.89 (4.30-5.90) m/uL Hgb 15.4 (13.0-17.5) gm/dL Hct 45.6 (39.0-53.0) % MCV 93.1 (80.0-100.0) fL MCH 31.6 (25.0-35.0) pg MCHC 33.9 (31.0-37.0) g/dL RDW 13.3 (11.5-15.5) % Plt Count 176 (150-450) k/uL Neutrophils % 57 % Lymphocytes % 31 % Monocytes % 6 % Eosinophils % 4 % Basophils % 0 % Neutrophils # 6.5 (1.3-7.7) k/uL Lymphocytes # 3.5 (1.0-4.8) k/uL Monocytes # 0.7 (0-1.0) k/uL Eosinophils # 0.5 (0-0.7) k/uL Basophils # 0.0 (0-0.2) k/uL PT 11.5 (9.0-12.0) sec INR 1.1 (<1.2) APTT 23.9 (22.0-30.0) sec Sodium 136 L (137-145) mmol/L Potassium 3.9 (3.5-5.1) mmol/L Chloride 102 (98-107) mmol/L Carbon Dioxide 26 (22-30) mmol/L Anion Gap 8 mmol/L BUN 17 (9-20) mg/dL Creatinine 0.74 (0.66-1.25) mg/dL Est GFR (CKD-EPI)AfAm >90 (>60 ml/min/1.73 sqM) Est GFR (CKD-EPI)NonAf >90 (>60 ml/min/1.73 sqM) Glucose 100 H (74-99) mg/dL Plasma Lactic Acid Alfa (0.7-2.0) mmol/L Calcium 9.2 (8.4-10.2) mg/dL Magnesium 1.7 (1.6-2.3) mg/dL Total Bilirubin 0.7 (0.2-1.3) mg/dL AST 59 (17-59) U/L ALT 50 H (4-49) U/L Alkaline Phosphatase 114 (38-126) U/L Creatine Kinase 54 L (55-170) U/L Troponin I (0.000-0.034) ng/mL Total Protein 6.8 (6.3-8.2) g/dL Albumin 3.8 (3.5-5.0) g/dL Lipase 1098 H (23-300) U/L 10/09/19 10/09/19 Range/Units 03:06 03:06 WBC (3.8-10.6) k/uL RBC (4.30-5.90) m/uL Hgb (13.0-17.5) gm/dL Hct (39.0-53.0) % MCV (80.0-100.0) fL MCH (25.0-35.0) pg MCHC (31.0-37.0) g/dL RDW (11.5-15.5) % Plt Count (150-450) k/uL Neutrophils % % Lymphocytes % % Monocytes % % Eosinophils % % Basophils % % Neutrophils # (1.3-7.7) k/uL Lymphocytes # (1.0-4.8) k/uL Monocytes # (0-1.0) k/uL Eosinophils # (0-0.7) k/uL Basophils # (0-0.2) k/uL PT (9.0-12.0) sec INR (<1.2) APTT (22.0-30.0) sec Sodium (137-145) mmol/L Potassium (3.5-5.1) mmol/L Chloride (98-107) mmol/L Carbon Dioxide (22-30) mmol/L Anion Gap mmol/L BUN (9-20) mg/dL Creatinine (0.66-1.25) mg/dL Est GFR (CKD-EPI)AfAm (>60 ml/min/1.73 sqM) Est GFR (CKD-EPI)NonAf (>60 ml/min/1.73 sqM) Glucose (74-99) mg/dL Plasma Lactic Acid Alfa 2.5 H* (0.7-2.0) mmol/L Calcium (8.4-10.2) mg/dL Magnesium (1.6-2.3) mg/dL Total Bilirubin (0.2-1.3) mg/dL AST (17-59) U/L ALT (4-49) U/L Alkaline Phosphatase (38-126) U/L Creatine Kinase (55-170) U/L Troponin I <0.012 (0.000-0.034) ng/mL Total Protein (6.3-8.2) g/dL Albumin (3.5-5.0) g/dL Lipase (23-300) U/L - EKG Data EKG Comments: EKG demonstrates a sinus rhythm with PVC. Rate of 64. MN interval 1:30. QRS of 84. QTC 441. No acute ST segment elevations or depressions concerning for ischemic changes. Disposition Clinical Impression: Vomiting, Chest pain, Abdominal aorta thrombosis Disposition: ADMITTED IP TO THIS HOSP Condition: Stable Is patient prescribed a controlled substance at d/c from ED?: No Referrals: Halima Blanco MD [Primary Care Provider] - 1-2 days Decision to Admit Reason: Admit from EC Decision Date: 10/09/19 Decision Time: 04:59
[2019-10-09 03:20] LABS: Basophils % (A) 0 %; Eosinophils # (A) 0.5 k/uL (0-0.7); Eosinophils % (A) 4 %; HCT 45.6 % (39.0-53.0); HGB 15.4 gm/dL (13.0-17.5); Lymphocytes # (A) 3.5 k/uL (1.0-4.8); Lymphocytes % (A) 31 %; MCH 31.6 pg (25.0-35.0); MCHC 33.9 g/dL (31.0-37.0); MCV 93.1 fL (80.0-100.0); Mean Platelet Volume 8.2; Monocytes # (A) 0.7 k/uL (0-1.0); Monocytes % (A) 6 %; Neutrophils # (A) 6.5 k/uL (1.3-7.7); Neutrophils % (A) 57 %; Platelet Count 176 k/uL (150-450); RBC 4.89 m/uL (4.30-5.90); RDW 13.3 % (11.5-15.5); WBC 11.5 k/uL (3.8-10.6)
[2019-10-09 03:36] LABS: INR 1.1 (<1.2); Partial Thromboplastin Time 23.9 sec (22.0-30.0); Prothrombin Time 11.5 sec (9.0-12.0)
[2019-10-09 03:38] LABS: ALT 50 U/L (4-49); AST 59 U/L (17-59); African American GFR (CKD) >90 (>60 ml/min/1.73 sqM); Albumin 3.8 g/dL (3.5-5.0); Alkaline Phosphatase 114 U/L (38-126); Anion Gap 8 mmol/L; Blood Urea Nitrogen 17 mg/dL (9-20); Calcium 9.2 mg/dL (8.4-10.2); Carbon Dioxide 26 mmol/L (22-30); Chloride 102 mmol/L (98-107); Creatine Kinase 54 U/L (55-170); Glucose 100 mg/dL (74-99); Magnesium 1.7 mg/dL (1.6-2.3); Non-African American GFR(CKD) >90 (>60 ml/min/1.73 sqM); Potassium 3.9 mmol/L (3.5-5.1); Sodium 136 mmol/L (137-145); Total Bilirubin 0.7 mg/dL (0.2-1.3); Total Protein 6.8 g/dL (6.3-8.2)
--- NOTE | 2019-10-09 04:44 | CT ---
EXAMINATION TYPE: CT abdomen pelvis w con DATE OF EXAM: 10/09/2019 COMPARISON: None HISTORY: Abd pain, nausea, vomiting CT DLP: 580.40 mGycm Automated exposure control for dose reduction was used. CONTRAST: Performed with IV Contrast, patient injected with 100 mL of Isovue 300. Lung bases are clear of consolidation. There is mild subsegmental atelectasis right lung base. Heart size is normal. There is no pericardial effusion. There is small hiatal hernia. Stomach is intact. Ga llbladder appears normal. Liver and spleen appear normal. There is no pancreatic mass. The bile ducts are not dilated. There is no adrenal mass. Kidneys show satisfactory contrast opacification. There is no hydronephrosi s. There is normal excretion on the delayed images. There is no retroperitoneal adenopathy. There is no contrast seen in the abdominal aorta below the renal arteries. There is extensive atheros clerotic vascular calcification. There is some collateral flow seen in superficial intramuscular bran ches on the anterior abdominal wall which fill the femoral arteries in the left and right inguinal re gion. There are multiple sigmoid diverticula. I see no evidence of diverticulitis. There is no evidence of a bowel obstruction. There is no mesenteric edema. There is no ascites or free air. Appendix is poste rior and appears normal. Appendix extends up to the liver. Lumbar vertebra have normal alignment. Posterior elements are intact. Bony pelvis is intact. There is some narrowing of the L3-4 disc space. There is no compression fracture. There is arterial flow seen in the superior mesenteric artery and the celiac artery with plaque forma tion near the origins. There is bilateral arterial flow in the renal arteries. IMPRESSION: Normal appendix. Sigmoid diverticulosis without diverticulitis. 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
--- NOTE | 2019-10-09 04:46 | XR ---
EXAMINATION TYPE: XR chest 2V DATE OF EXAM: 10/09/2019 COMPARISON: 08/29/2019 HISTORY: Cough TECHNIQUE: 2 views FINDINGS: There is no heart failure nor confluent pneumonic infiltrate. Costophrenic angles are clear . Heart size is normal. There are chest leads. Bony thorax is intact. IMPRESSION: No active cardiopulmonary disease. Normal heart. No change.
[2019-10-09] MEDS ORDERED: NALOXONE 0.4 MG/ML 1 ML VIAL IV PRN (04:59)
[2019-10-09] MEDS ORDERED: ONDANSETRON 4 MG/2 ML VIAL IVP PRN (04:59)
--- NOTE | 2019-10-09 10:10 | P.GSCN ---
<Anne Lea - Last Filed: 10/09/19 09:56> History of Present Illness History of present illness: HISTORY OF PRESENTING ILLNESS This is a pleasant 69-year-old male past medical history significant for hepatitis C, chronic nicotine dependence and former heavy alcohol use. He has been sober for over 7 years. He denies prior diagnosis of peripher vascular disease. He presented to the hospital with symptoms of abdominal pain, nausea and vomiting. He underwent a CT abdomen/pelvis revaling thrombosis of the abdominal aorta just below the renal arteries with collaterals on the anterior abdominal wall. For this reason a vascular consult was placed. He is seen and examines laying flat resting comfortably in bed in no acute distress. He states his abdominal pain, nausea and vomiting has been intermittently occurring for the last few weeks. He has been experiencing pain in his legs for many years. He also describes his legs feeling cold frequently, especially at night. Laboratory data reviewed, WBC 11.5, hemoglobin 15.4, platelets 176, INR 1.1, sodium 136, potassium 3.9, lactic acid on admission 2. 5 repeat today 1.6, magnesium 1.7, CK 54, cardiac enzymes negative 2, lipase 1098 and Covid 19 ne gative. Current daily medications include fluoxetine 40 mg daily. He underwent a lower extremity Doppler in 2016 revealing moderate bilateral iliofemoral disease. REVIEW OF SYSTEMS At the time of my exam: CONSTITUTIONAL: Denies fever or chills. CARDIOVASCULAR: Denies chest pain, shortness of breath, orthopnea, PND or palpitations. RESPIRATORY: Denies cough. GASTROINTESTINAL: Complains of abdominal pain and nausea. Denies diarrhea, constipation or vomiting. MUSCULOSKELETAL: Denies myalgias. NEUROLOGIC: Denies numbness, tingling or weakness. ENDOCRINE: Denies fatigue, weight change, polydipsia or polyurina. GENITOURINARY: Denies burning, hematuria or urgency with micturation. HEMATOLOGIC: Denies history of anemia or bleeding. PHYSICAL EXAMINATION Blood pressure 149/79 heart rate 59 afebrile and maintaining oxygen saturation on room air. CONSTITUTIONAL: No apparent distress. HEENT: Head is normocephalic. Pupils are equal, round. Sclerae anicteric. Mucous membranes of the mouth are moist. No JVD. No carotid bruit. EXTREMITIES: Pulses auscultated by Doppler only; bilateral posterior tibial artery biphasic; bilateral dorsalis pedis monophasic. NEUROLOGIC EXAMINATION: Patient is awake, alert and oriented x3. ASSESSMENT Abdominal aorta thrombosis, chronic. Evidence of collateral flow Peripheral vascular disease Chronic nicotine dependence History of hepatitis C Former alcohol dependence, has been sober for 7 years PLAN No acute intervention required on this admission. However, he would benefit from lower extremity revascularization and thrombus removal. These procedures discussed in detail per Dr. Land. Follow up in the office in the next 1-2 weeks for further discussion and planning. Recommend daily aspirin 81 mg and atrovastatin 40 mg daily. Smoking cessation recommended. Stable for discharge from a vascular perspective. Thank you kindly for this consultation. Nurse Practitioner note has been reviewed, I agree with a documented findings and plan of care. Patient was seen and examined. Past Medical History Past Medical History: No Reported History Additional Past Medical History / Comment(s): sciatica, hepatitis C History of Any Multi-Drug Resistant Organisms: None Reported Past Surgical History: No Surgical Hx Reported Additional Past Surgical History / Comment(s): left knee, right wrist, and right knee surgeries. I&D of the left knee following Staphylococcus infection. Past Anesthesia/Blood Transfusion Reactions: No Reported Reaction Past Psychological History: Anxiety, Depression Smoking Status: Current every day smoker Past Alcohol Use History: None Reported Past Drug Use History: None Reported Additional Drug Use History / Comment(s): . - Past Family History Mother History Unknown: Yes Additional Family Medical History / Comment(s): Mother is 85 years of age with no major medical problems. Father History Unknown: Yes Family Medical History: CVA/TIA, Hypertension Additional Family Medical History / Comment(s): Father at age 75 with history of for CVAs and hypertension. Brother(s) Additional Family Medical History / Comment(s): He has 4 brothers that are healthy with no major medical problems. He has one sister that is healthy. He has 3 daughters with no major medical problems. Medications and Allergies Home Medications Medication Instructions Recorded Confirmed Type FLUoxetine HCL 40 mg PO DAILY 30 Days capsule 09/11/19 10/09/19 Rx Allergies Allergy/AdvReac Type Severity Reaction Status Date / Time No Known Allergies Allergy Verified 10/09/19 08:06 Surgical - Exam Vital Signs Temp Pulse Resp BP Pulse Ox 97.6 F 68 20 175/96 98 10/09/19 02:55 10/09/19 02:55 10/09/19 02:55 10/09/19 02:55 10/09/19 02:55 Results - Labs 10/09/19 03:06 10/09/19 03:06 Abnormal Lab Results - Last 24 Hours (Table) 10/09/19 10/09/19 10/09/19 Range/Units 03:06 03:06 03:06 WBC 11.5 H (3.8-10.6) k/uL Sodium 136 L (137-145) mmol/L Glucose 100 H (74-99) mg/dL Plasma Lactic Acid Alfa 2.5 H* (0.7-2.0) mmol/L ALT 50 H (4-49) U/L Creatine Kinase 54 L (55-170) U/L Lipase 1098 H (23-300) U/L Diabetes panel 10/09/19 Range/Units 03:06 Sodium 136 L (137-145) mmol/L Potassium 3.9 (3.5-5.1) mmol/L Chloride 102 (98-107) mmol/L Carbon Dioxide 26 (22-30) mmol/L BUN 17 (9-20) mg/dL Creatinine 0.74 (0.66-1.25) mg/dL Glucose 100 H (74-99) mg/dL Calcium 9.2 (8.4-10.2) mg/dL AST 59 (17-59) U/L ALT 50 H (4-49) U/L Alkaline Phosphatase 114 (38-126) U/L Total Protein 6.8 (6.3-8.2) g/dL Albumin 3.8 (3.5-5.0) g/dL Calcium panel 10/09/19 Range/Units 03:06 Calcium 9.2 (8.4-10.2) mg/dL Albumin 3.8 (3.5-5.0) g/dL Pituitary panel 10/09/19 Range/Units 03:06 Sodium 136 L (137-145) mmol/L Potassium 3.9 (3.5-5.1) mmol/L Chloride 102 (98-107) mmol/L Carbon Dioxide 26 (22-30) mmol/L BUN 17 (9-20) mg/dL Creatinine 0.74 (0.66-1.25) mg/dL Glucose 100 H (74-99) mg/dL Calcium 9.2 (8.4-10.2) mg/dL Adrenal panel 10/09/19 Range/Units 03:06 Sodium 136 L (137-145) mmol/L Potassium 3.9 (3.5-5.1) mmol/L Chloride 102 (98-107) mmol/L Carbon Dioxide 26 (22-30) mmol/L BUN 17 (9-20) mg/dL Creatinine 0.74 (0.66-1.25) mg/dL Glucose 100 H (74-99) mg/dL Calcium 9.2 (8.4-10.2) mg/dL Total Bilirubin 0.7 (0.2-1.3) mg/dL AST 59 (17-59) U/L ALT 50 H (4-49) U/L Alkaline Phosphatase 114 (38-126) U/L Total Protein 6.8 (6.3-8.2) g/dL Albumin 3.8 (3.5-5.0) g/dL <Abdelrahman Land - Last Filed: 10/09/19 20:16> History of Present Illness History of present illness: Will require aortobifemoral bypass in the future after medical clearance. Surgical - Exam Vital Signs Temp Pulse Resp BP Pulse Ox 97.6 F 68 20 175/96 98 10/09/19 02:55 10/09/19 02:55 10/09/19 02:55 10/09/19 02:55 10/09/19 02:55 Results - Labs 10/09/19 03:06 10/09/19 03:06 Abnormal Lab Results - Last 24 Hours (Table) 10/09/19 10/09/19 10/09/19 Range/Units 03:06 03:06 03:06 WBC 11.5 H (3.8-10.6) k/uL Sodium 136 L (137-145) mmol/L Glucose 100 H (74-99) mg/dL Plasma Lactic Acid Alfa 2.5 H* (0.7-2.0) mmol/L ALT 50 H (4-49) U/L Creatine Kinase 54 L (55-170) U/L Lipase 1098 H (23-300) U/L Diabetes panel 10/09/19 Range/Units 03:06 Sodium 136 L (137-145) mmol/L Potassium 3.9 (3.5-5.1) mmol/L Chloride 102 (98-107) mmol/L Carbon Dioxide 26 (22-30) mmol/L BUN 17 (9-20) mg/dL Creatinine 0.74 (0.66-1.25) mg/dL Glucose 100 H (74-99) mg/dL Calcium 9.2 (8.4-10.2) mg/dL AST 59 (17-59) U/L ALT 50 H (4-49) U/L Alkaline Phosphatase 114 (38-126) U/L Total Protein 6.8 (6.3-8.2) g/dL Albumin 3.8 (3.5-5.0) g/dL Calcium panel 10/09/19 Range/Units 03:06 Calcium 9.2 (8.4-10.2) mg/dL Albumin 3.8 (3.5-5.0) g/dL Pituitary panel 10/09/19 Range/Units 03:06 Sodium 136 L (137-145) mmol/L Potassium 3.9 (3.5-5.1) mmol/L Chloride 102 (98-107) mmol/L Carbon Dioxide 26 (22-30) mmol/L BUN 17 (9-20) mg/dL Creatinine 0.74 (0.66-1.25) mg/dL Glucose 100 H (74-99) mg/dL Calcium 9.2 (8.4-10.2) mg/dL Adrenal panel 10/09/19 Range/Units 03:06 Sodium 136 L (137-145) mmol/L Potassium 3.9 (3.5-5.1) mmol/L Chloride 102 (98-107) mmol/L Carbon Dioxide 26 (22-30) mmol/L BUN 17 (9-20) mg/dL Creatinine 0.74 (0.66-1.25) mg/dL Glucose 100 H (74-99) mg/dL Calcium 9.2 (8.4-10.2) mg/dL Total Bilirubin 0.7 (0.2-1.3) mg/dL AST 59 (17-59) U/L ALT 50 H (4-49) U/L Alkaline Phosphatase 114 (38-126) U/L Total Protein 6.8 (6.3-8.2) g/dL Albumin 3.8 (3.5-5.0) g/dL
[2019-10-09] MEDS ORDERED: ASPIRIN 81 MG ONE (11:16)
[2019-10-09] MEDS: ATORVASTATIN 40 MG TAB PO SCH (11:22)
[2019-10-09] MEDS: ASPIRIN 81 MG PO SCH (11:22)
[2019-10-09] MEDS ORDERED: PANTOPRAZOLE 40 MG/10 ML VIAL ONE (11:38)
[2019-10-09] MEDS: PANTOPRAZOLE 40 MG/10 ML VIAL IVP SCH ×2 (11:43→20:35)
[2019-10-09] MEDS: SODIUM CHLORIDE 0.9% 1,000 ML IV SCH ×2 (11:44→20:35)
[2019-10-09] MEDS ORDERED: NICOTINE 14MG/24HR PATCH TRANSDERM STA (12:01)
--- NOTE | 2019-10-09 12:06 | P.HPIM ---
History of Present Illness 69-year-old pleasant gentleman came in with complaints of left upper quadrant and epigastric abdominal pain associated with nausea vomiting moderate severity sharp in nature. Patient is also complaining of pain in the legs with ambu lation appears to have cerebrovascular disease patient has extensive smoking history still smokes about half a pack a day. 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 Patient was evaluated by vascular surgery no further intervention at this time except for aspirin and statin. Patient also found to have mildly elevated lipase. Nausea vomiting improved patient was started on clear liquid diet. Patient does have some leukocytosis patient denied any fever chills patient denied any cough. Patient was complaining of falls although doesn't appear to have significant weakness clinically no focal neurological deficit patient had limited lactic acid on admission no evidence of infection at this time. Patient was tested for coronavirus which is negative. Review of Systems REVIEW OF SYSTEMS: CONSTITUTIONAL: No fever, no malaise, no fatigue. HEENT: No recent visual problems or hearing problems. Denied any sore throat. CARDIOVASCULAR: No chest pain, orthopnea, PND, no palpitations, no syncope. PULMONARY: No shortness of breath, no cough, no hemoptysis. GASTROINTESTINAL: As mentioned in HPI NEUROLOGICAL: No headaches, no weakness, no numbness. HEMATOLOGICAL: Denies any bleeding or petechiae. GENITOURINARY: Denies any burning micturition, frequency, or urgency. MUSCULOSKELETAL/RHEUMATOLOGICAL: Denies any joint pain, swelling, or any muscle pain. ENDOCRINE: Denies any polyuria or polydipsia. The rest of the 14-point review of systems is negative. Past Medical History Past Medical History: No Reported History Additional Past Medical History / Comment(s): sciatica, hepatitis C History of Any Multi-Drug Resistant Organisms: None Reported Past Surgical History: No Surgical Hx Reported Additional Past Surgical History / Comment(s): left knee, right wrist, and right knee surgeries. I&D of the left knee following Staphylococcus infection. Past Anesthesia/Blood Transfusion Reactions: No Reported Reaction Past Psychological History: Anxiety, Depression Smoking Status: Current every day smoker Past Alcohol Use History: None Reported Past Drug Use History: None Reported Additional Drug Use History / Comment(s): . - Past Family History Mother History Unknown: Yes Additional Family Medical History / Comment(s): Mother is 85 years of age with no major medical problems. Father History Unknown: Yes Family Medical History: CVA/TIA, Hypertension Additional Family Medical History / Comment(s): Father at age 75 with history of for CVAs and hypertension. Brother(s) Additional Family Medical History / Comment(s): He has 4 brothers that are he althy with no major medical problems. He has one sister that is healthy. He has 3 daughters with no major medical problems. Medications and Allergies Home Medications Medication Instructions Recorded Confirmed Type FLUoxetine HCL 40 mg PO DAILY 30 Days capsule 09/11/19 10/09/19 Rx Allergies Allergy/AdvReac Type Severity Reaction Status Date / Time No Known Allergies Allergy Verified 10/09/19 08:06 Physical Exam Vitals: Vital Signs Temp Pulse Pulse Resp BP BP Pulse Ox 10/09/19 11:20 97.8 F 58 L 16 113/79 97 10/09/19 08:00 97.7 F 59 L 16 149/79 97 10/09/19 06:47 97.7 F 67 16 186/82 97 10/09/19 06:17 97.6 F 69 18 156/80 10/09/19 06:00 71 18 169/89 96 10/09/19 05:50 71 169/89 10/09/19 05:40 71 169/89 10/09/19 05:30 69 18 171/83 97 10/09/19 05:20 69 171/83 10/09/19 05:10 80 171/83 10/09/19 05:00 68 167/84 10/09/19 04:50 68 167/84 10/09/19 04:40 67 167/84 10/09/19 04:30 68 10/09/19 04:20 69 10/09/19 04:00 147/84 10/09/19 03:50 73 147/84 10/09/19 03:40 73 18 147/84 97 10/09/19 03:30 74 175/96 10/09/19 03:20 79 175/96 10/09/19 03:10 72 175/96 97 10/09/19 03:00 175/96 10/09/19 02:59 175/96 10/09/19 02:55 97.6 F 68 20 175/96 98 Intake and Output 0410/09/19 10/09/19 22:59 06:59 14:59 Output Total 400 Balance -400 Output: Urine 400 Other: Weight 58.967 kg PHYSICAL EXAMINATION: GENERAL: The patient is alert and oriented x3, not in any acute distress. Well developed, well nourished. HEENT: Pupils are round and equally reacting to light. EOMI. No scleral icterus. No conjunctival pallor. Normocephalic, atraumatic. No pharyngeal erythema. No thyromegaly. CARDIOVASCULAR: S1 and S2 present. No murmurs, rubs, or gallops. PULMONARY: Chest is clear to auscultation, no wheezing or crackles. ABDOMEN: Soft, nontender, nondistended, normoactive bowel sounds. No palpable organomegaly. MUSCULOSKELETAL: No joint swelling or deformity. EXTREMITIES: No cyanosis, clubbing, or pedal edema. NEUROLOGICAL: Gross neurological examination did not reveal any focal deficits. SKIN: No rashes. Results CBC & Chem 7: 10/09/19 03:06 10/09/19 03:06 Labs: Abnormal Lab Results - Last 24 Hours (Table) 10/09/19 10/09/19 10/09/19 Range/Units 03:06 03:06 03:06 WBC 11.5 H (3.8-10.6) k/uL Sodium 136 L (137-145) mmol/L Glucose 100 H (74-99) mg/dL Plasma Lactic Acid Alfa 2.5 H* (0.7-2.0) mmol/L ALT 50 H (4-49) U/L Creatine Kinase 54 L (55-170) U/L Lipase 1098 H (23-300) U/L Thrombosis Risk Factor Assmnt - Choose All That Apply Any of the Below Risk Factors Present?: No Other Risk Factors: Yes Each Risk Factor Represents 2 Points: Age 61-74 years Thrombosis Risk Factor Assessment Total Risk Factor Score: 2 Thrombosis Risk Factor Assessment Level: Low Risk Assessment and Plan Plan: -Possible gastritis peptic ulcer disease or mild pancreatitis: Patient will be started on Protonix possibility of pancreatic that is low patient quit drinking alcohol a few months ago. Patient does have history of hepatitis C. Patient's diet will be advanced patient will obtain ultrasound of the gallbladder to rule out any cholelithiasis or gallstone pancreatitis. But my suspicion for pancreatitis is low most probably patient has peptic ulcer disease. -Ruled out acute coronary syndromes -Severe peripheral vascular disease no further intervention at this time nicotine cessation counseling was provided patient was started on statin and aspirin -Nicotine abuse: Counseling was provided -History of hepatitis C for which patient will need to follow midmdstric probably as an outpatient -Falls PT and OT evaluation patient doesn't have any focal deficits at this time -DVT prophylaxis early ambulation
--- NOTE | 2019-10-09 16:08 | US ---
EXAMINATION TYPE: US gallbladder DATE OF EXAM: 10/09/2019 COMPARISON: NONE CLINICAL HISTORY: gall stones. RUQ Pain EXAM MEASUREMENTS: Liver Length: 13.6 cm Gallbladder Wall: .3 cm CBD: .5 cm Right Kidney: 8.9 x 3.9 x 3.6 cm Pancreas: Slightly echogenic. Liver: wnl Gallbladder: No stones seen Evidence for sonographic Randolph's sign: No CBD: wnl Right Kidney: Cortical thinning. IMPRESSION: 1. There is some mild gallbladder wall thickening present. Additional changes to suggest acute cholec ystitis is not evident.
[2019-10-10 07:38] VITALS: BP 137/65; PULSE 58; RESP 17; TEMP 98.4
[2019-10-10 07:58] LABS: Basophils % (A) 1 %; Eosinophils # (A) 0.4 k/uL (0-0.7); Eosinophils % (A) 6 %; HCT 41.7 % (39.0-53.0); HGB 14.1 gm/dL (13.0-17.5); Lymphocytes # (A) 2.3 k/uL (1.0-4.8); Lymphocytes % (A) 37 %; MCHC 33.9 g/dL (31.0-37.0); MCV 94.4 fL (80.0-100.0); Mean Platelet Volume 8.2; Monocytes # (A) 0.5 k/uL (0-1.0); Monocytes % (A) 8 %; Neutrophils % (A) 48 %; Platelet Count 122 k/uL (150-450); RBC 4.41 m/uL (4.30-5.90); RDW 13.6 % (11.5-15.5); WBC 6.2 k/uL (3.8-10.6)
[2019-10-10 08:04] LABS: African American GFR (CKD) >90 (>60 ml/min/1.73 sqM); Anion Gap 4 mmol/L; Blood Urea Nitrogen 14 mg/dL (9-20); Calcium 8.4 mg/dL (8.4-10.2); Carbon Dioxide 22 mmol/L (22-30); Chloride 109 mmol/L (98-107); Glucose 78 mg/dL (74-99); Non-African American GFR(CKD) >90 (>60 ml/min/1.73 sqM); Potassium 4.3 mmol/L (3.5-5.1); Sodium 135 mmol/L (137-145)
--- NOTE | 2019-10-10 09:26 | P.PN ---
Subjective Progress Note Date: 10/10/19 Principal diagnosis: Chronic aortic and iliac occlusion Patient was seen. No changes overnight. No new complaints. Objective - Vital Signs Vital signs: Vital Signs Temp 98.4 F 10/10/19 07:37 Pulse 58 L 10/10/19 07:37 Resp 17 10/10/19 07:37 BP 137/65 10/10/19 07:37 Pulse Ox 95 10/10/19 07:37 Intake & Output 10/09/19 10/10/19 10/10/19 18:59 06:59 18:59 Intake Total 700 480 Output Total 400 Balance 300 480 Weight 57.5 kg Intake: Intake, IV Titration 300 Amount Sodium Chloride 0.9% 1, 100 000 ml @ 100 mls/hr IV . Q10H JITENDRA Rx#:[id number] Sodium Chloride 0.9% 500 200 ml 500 ml @ 999 mls/hr IV .Q31M STA Rx#:[id number] Oral 400 480 Output: Urine 400 Other: Voiding Method Toilet # Voids 0 # Bowel Movements 0 - Exam Patient resting comfortably. - Constitutional General appearance: Present: average body habitus - Respiratory Respiratory: bilateral: CTA - Cardiovascular Rhythm: regular - Neurologic Neurologic: Present: CNII-XII intact. Absent: focal deficits - Psychiatric Psychiatric: Present: appropriate affect, intact judgment & insight - Labs CBC & Chem 7: 10/10/19 07:19 10/10/19 07:19 Labs: Abnormal Lab Results - Last 24 Hours (Table) 10/10/19 10/10/19 Range/Units 07:19 07:19 Plt Count 122 L (150-450) k/uL Sodium 135 L (137-145) mmol/L Chloride 109 H (98-107) mmol/L Assessment and Plan Assessment: #1 chronic aortoiliac occlusion\ #2 severe lower extremity claudication, rest pain [place] classification 4 #3 chronic nicotine dependence #4 history of hepatitis C #5 former alcohol dependence Plan: No emergent vascular surgery required at this time. We will follow up in the outpatient in 1-2 weeks once he is cleared medically we will schedule him for aortobifemoral bypass. He is to continue his aspirin and atorvastatin. Smoking cessation is recommended prior to surgical intervention. We will sign off and re-eval at your request.
[2019-10-10] MEDS: SODIUM CHLORIDE 0.9% 1,000 ML IV SCH (09:27)
[2019-10-10] MEDS: ATORVASTATIN 40 MG TAB PO SCH (09:28)
[2019-10-10] MEDS: PANTOPRAZOLE 40 MG/10 ML VIAL IVP SCH (09:28)
[2019-10-10] MEDS: ASPIRIN 81 MG PO SCH (09:28)
--- NOTE | 2019-10-10 12:35 | P.DS ---
Providers Date of admission: 10/09/19 07:55 Expected date of discharge: 10/10/19 Attending physician: Martha Casas Consults: 10/09/19 05:03 Consult Physician Routine Consulting Provider: Abdelrahman Land Consult Reason/Comments: aortic thrombosis, chronic appearing Do you want consulting provider notified?: Yes, Notify in am Primary care physician: Halima Wall [facility] Hospital Course: Final diagnosis -Possible gastritis peptic ulcer disease or mild pancreatitis -Ruled out acute coronary syndromes -Ruled out Covid 19 -Severe peripheral vascular disease -Nicotine abuse -History of hepatitis C -Falls -DVT prophylaxis Discharge disposition Patient is being discharged in a stable condition with guarded prognosis to home. Patient will follow-up with Dr. Wall upon discharge. Patient also instructed to follow-up with vascular surgery Dr. Land in the outpatient setting in 1 week. Total time taken is 35 minutes. History of present illness This is a 69-year-old male who was recently admitted with left upper quadrant and epigastric pain associated with nausea and vomiting and was being closely monitored. Patient was noted to have a significant atherosclerotic thrombotic occlusion of the inferior vena cava and vascular surgery was consulted. Recommending outpatient follow-up in the next 1-2 weeks along with continuing to avoid tobacco use and being initiated on aspirin and a statin upon discharge. Patient will also continue on Prilosec twice daily in the outpatient setting. Discussed with the patient at length about avoiding tobacco use and advancing diet slowly as tolerated. Patient verbalized understanding. Currently no reports of chest pain, shortness of breath, or palpitations. She is afebrile. No reports of nausea or vomiting and patient is tolerating diet. Patient was having some pain in the legs which is most likely chronic and some mild weakness stating he had a fall a few days ago. Patient was seen and evaluated by physical therapy and patient was up with a steady gait with no issues. Patient does not want to go to a rehab facility and would like to go home. Patient will be discharged home today. On exam vital signs are stable. Temp is 98.5F, pulse is 80, respirations are 18, blood pressure is 108/61, oxygen saturation is 98% on room air. Cardio S1, S2 are present. Respiratory is clear to auscultation. Abdomen is soft with mild tenderness noted around the incisional site. Nervous system shows no focal deficits. Please refer to medication reconciliation sheet for a list of medications. Patient Condition at Discharge: Stable Plan - Discharge Summary Discharge Rx Participant: No New Discharge Prescriptions: New Aspirin 81 mg PO DAILY 30 Days #30 chew Atorvastatin [Lipitor] 40 mg PO DAILY 30 Days #30 tab Omeprazole [PriLOSEC] 20 mg PO AC-BID 30 Days #60 cap Continue FLUoxetine HCL 40 mg PO DAILY 30 Days capsule Discharge Medication List FLUoxetine HCL 40 mg PO DAILY 30 Days capsule 09/11/19 [Rx] Aspirin 81 mg PO DAILY 30 Days #30 chew 10/10/19 [Rx] Atorvastatin [Lipitor] 40 mg PO DAILY 30 Days #30 tab 10/10/19 [Rx] Omeprazole [PriLOSEC] 20 mg PO AC-BID 30 Days #60 cap 10/10/19 [Rx] Follow up Appointment(s)/Referral(s): Abdelrahman Land DO [STAFF PHYSICIAN] - 10/16/19 3:15 pm Halima Wall MD [Primary Care Provider] - 10/15/19 10:45 am (This will be a TeleHealth appointment. Please call office to confirm your phone number. Thank you.) Patient Instructions/Handouts: How to Stop Smoking (ED), Cigarette Smoking and Your Health (GEN) Activity/Diet/Wound Care/Special Instructions: Activity limited until follow up follow up with primary care provider upon discharge advance diet as tolerated Discharge Disposition: HOME SELF-CARE
== END 2019-10-10 13:49 | disposition home or self-care (01) | DRG 383 ==
LOC: EC 02:51 → 3SCARD 05:04 → OBSVTOIN 07:55 → 4SSUR 13:34
PROVIDERS: ADMIT Hospitalist; ATTEND Hospitalist
DX: K27.9 Peptic ulcer, site unspecified, unspecified as acute or chronic, without hemorrhage or perforation (principal); K85.90 Acute pancreatitis without necrosis or infection, unspecified; I74.09 Other arterial embolism and thrombosis of abdominal aorta; I74.5 Embolism and thrombosis of iliac artery; K29.70 Gastritis, unspecified, without bleeding; B18.2 Chronic viral hepatitis C; D72.829 Elevated white blood cell count, unspecified; F17.210 Nicotine dependence, cigarettes, uncomplicated; F32.9 Major depressive disorder, single episode, unspecified; F41.9 Anxiety disorder, unspecified; I73.9 Peripheral vascular disease, unspecified; K57.30 Diverticulosis of large intestine without perforation or abscess without bleeding; R07.9 Chest pain, unspecified; R74.8 Abnormal levels of other serum enzymes; Z20.828 Contact with and (suspected) exposure to other viral communicable diseases; Z79.899 Other long term (current) drug therapy; Z82.3 Family history of stroke; Z82.49 Family history of ischemic heart disease and other diseases of the circulatory system
CPT/HCPCS: 36415; 71046; 74177; 76705; 80048; 80053; 82550; 83605; 83690; 83735; 84484; 85025; 85610; 85730; 87635; 93005; 96374; 96375; 99285

== ENCOUNTER 2020-02-19 09:14 | Inpatient (IN) | payer MEDICARE, OTHER ==
[2020-02-19] MEDS ORDERED: SODIUM CHLORIDE 0.9% 1,000 ML IV STA (09:38)
[2020-02-19 09:54] LABS: Basophils # (A) 0.2 k/uL (0-0.2); Basophils % (A) 1 %; Eosinophils # (A) 0.6 k/uL (0-0.7); Eosinophils % (A) 4 %; HCT 44.5 % (39.0-53.0); HGB 14.1 gm/dL (13.0-17.5); Lymphocytes # (A) 4.4 k/uL (1.0-4.8); Lymphocytes % (A) 29 %; MCH 31.6 pg (25.0-35.0); MCHC 31.8 g/dL (31.0-37.0); MCV 99.4 fL (80.0-100.0); Mean Platelet Volume 8.3; Monocytes # (A) 0.8 k/uL (0-1.0); Monocytes % (A) 5 %; Neutrophils # (A) 9.2 k/uL (1.3-7.7); Neutrophils % (A) 60 %; Platelet Count 283 k/uL (150-450); RBC 4.48 m/uL (4.30-5.90); RDW 14.1 % (11.5-15.5); WBC 15.3 k/uL (3.8-10.6)
[2020-02-19 10:01] LABS: INR 1.1 (<1.2); Partial Thromboplastin Time 23.9 sec (22.0-30.0); Prothrombin Time 11.1 sec (9.0-12.0)
[2020-02-19 10:02] LABS: AST 74 U/L (17-59); African American GFR (CKD) >90 (>60 ml/min/1.73 sqM); Albumin 4.3 g/dL (3.5-5.0); Alkaline Phosphatase 167 U/L (38-126); Anion Gap 19 mmol/L; Blood Urea Nitrogen 14 mg/dL (9-20); Calcium 10.1 mg/dL (8.4-10.2); Carbon Dioxide 17 mmol/L (22-30); Chloride 104 mmol/L (98-107); Creatine Kinase 71 U/L (55-170); Glucose 168 mg/dL (74-99); Magnesium 2.2 mg/dL (1.6-2.3); Non-African American GFR(CKD) 88 (>60 ml/min/1.73 sqM); Sodium 140 mmol/L (137-145); Total Protein 7.7 g/dL (6.3-8.2)
--- NOTE | 2020-02-19 10:02 | ED ---
General Adult HPI - General Chief complaint: Weakness Stated complaint: leg numbness Time Seen by Provider: 02/19/20 09:28 Source: patient, EMS, RN notes reviewed Mode of arrival: EMS Limitations: no limitations - History of Present Illness Initial comments: 69-year-old male presents emergency department via EMS chief complaint generalized weakness. Patient states that he attempted to walk back to the [place] home yesterday but became very tired and states he cannot do it so he sat down and there is no buses. Patient states he spent the night outside. Patient does complain his cold and they just aches. He hasn't went of head injury, loss consciousness, chest pain, shortness of breath. He states he has no major health issues. Patient states he went to [employer] to get better food patient was found to have bags of food with him. - Related Data Home Medications Medication Instructions Recorded Confirmed Atorvastatin [Lipitor] 40 mg PO HS 02/19/20 02/19/20 Omeprazole [PriLOSEC] 20 mg PO BID@0800,1600 02/19/20 02/19/20 Previous Rx's Medication Instructions Recorded FLUoxetine HCL 40 mg PO DAILY 30 Days capsule 09/11/19 Aspirin 81 mg PO DAILY 30 Days #30 chew 10/10/19 Allergies Allergy/AdvReac Type Severity Reaction Status Date / Time No Known Allergies Allergy Verified 02/19/20 10:16 Review of Systems ROS Statement: Those systems with pertinent positive or pertinent negative responses have been documented in the HPI. ROS Other: All systems not noted in ROS Statement are negative. Past Medical History Past Medical History: No Reported History Additional Past Medical History / Comment(s): sciatica, hepatitis C History of Any Multi-Drug Resistant Organisms: None Reported Past Surgical History: No Surgical Hx Reported Additional Past Surgical History / Comment(s): left knee, right wrist, and right knee surgeries. I&D of the left knee following Staphylococcus infection. Past Anesthesia/Blood Transfusion Reactions: No Reported Reaction Past Psychological History: Anxiety, Depression Smoking Status: Current every day smoker Past Alcohol Use History: Rare Past Drug Use History: None Reported - Past Family History Mother History Unknown: Yes Additional Family Medical History / Comment(s): Mother is 85 years of age with no major medical problems. Father History Unknown: Yes Family Medical History: CVA/TIA, Hypertension Additional Family Medical History / Comment(s): Father at age 75 with history of for CVAs and hypertension. Brother(s) Additional Family Medical History / Comment(s): He has 4 brothers that are healthy with no major medical problems. He has one sister that is healthy. He has 3 daughters with no major medical problems. General Exam Limitations: no limitations General appearance: alert, in no apparent distress, other (Patient is cool to the touch.) Head exam: Present: atraumatic, normocephalic, normal inspection Eye exam: Present: normal appearance, PERRL, EOMI. Absent: scleral icterus, conjunctival injection, periorbital swelling ENT exam: Present: normal exam, normal oropharynx, mucous membranes moist Neck exam: Present: normal inspection, full ROM. Absent: tenderness, meningism us, lymphadenopathy Respiratory exam: Present: normal lung sounds bilaterally. Absent: respiratory distress, wheezes, rales, rhonchi, stridor Cardiovascular Exam: Present: regular rate (Heart rate 82), normal rhythm, normal heart sounds. Absent: systolic murmur, diastolic murmur, rubs, gallop, clicks GI/Abdominal exam: Present: soft, normal bowel sounds. Absent: distended, tenderness, guarding, rebound, rigid Extremities exam: Present: other (Lower extremity strength equal bilaterally neurovascular intact equal color equal warmth pulses are equal) Back exam: Present: full ROM. Absent: tenderness Neurological exam: Present: alert, oriented X3, CN II-XII intact, reflexes normal. Absent: motor sensory deficit Skin exam: Present: warm, dry, intact, normal color. Absent: rash Course Vital Signs 02/19/20 02/19/20 02/19/20 09:18 09:26 10:34 Temperature 94.1 F L 95.6 F L Pulse Rate 82 86 Respiratory 16 16 Rate Blood Pressure 202/106 111/100 O2 Sat by Pulse 100 99 Oximetry 02/19/20 11:10 Temperature 95.4 F L Pulse Rate 86 Respiratory 16 Rate Blood Pressure 134/61 O2 Sat by Pulse 100 Oximetry - Reevaluation(s) Reevaluation #1: 02/19/20 10:02 I did contact [facility] who stated the patient is on emergency bed basis. Patient has 90 days as they're attempting to find permanent placement or home for patient. They have no significant history on the patient. Medical Decision Making - Medical Decision Making 69-year-old presented for weakness. Patient unable lactic acidosis of 12.1 with no evidence of infection. X-ray, urinalysis unremarkable. Patient was mildly hypothermic is improving with bearhugger Patient feels improved though be admitted for fluid hydration, repeat lactate - Lab Data Result diagrams: 02/19/20 09:42 02/19/20 09:42 Lab Results 02/19/20 02/19/20 02/19/20 Range/Units 09:42 09:42 09:42 WBC 15.3 H (3.8-10.6) k/uL RBC 4.48 (4.30-5.90) m/uL Hgb 14.1 (13.0-17.5) gm/dL Hct 44.5 (39.0-53.0) % MCV 99.4 (80.0-100.0) fL MCH 31.6 (25.0-35.0) pg MCHC 31.8 (31.0-37.0) g/dL RDW 14.1 (11.5-15.5) % Plt Count 283 (150-450) k/uL Neutrophils % 60 % Lymphocytes % 29 % Monocytes % 5 % Eosinophils % 4 % Basophils % 1 % Neutrophils # 9.2 H (1.3-7.7) k/uL Lymphocytes # 4.4 (1.0-4.8) k/uL Monocytes # 0.8 (0-1.0) k/uL Eosinophils # 0.6 (0-0.7) k/uL Basophils # 0.2 (0-0.2) k/uL PT 11.1 (9.0-12.0) sec INR 1.1 (<1.2) APTT 23.9 (22.0-30.0) sec Sodium 140 (137-145) mmol/L Potassium 5.2 H (3.5-5.1) mmol/L Chloride 104 (98-107) mmol/L Carbon Dioxide 17 L (22-30) mmol/L Anion Gap 19 mmol/L BUN 14 (9-20) mg/dL Creatinine 0.87 (0.66-1.25) mg/dL Est GFR (CKD-EPI)AfAm >90 (>60 ml/min/1.73 sqM) Est GFR (CKD-EPI)NonAf 88 (>60 ml/min/1.73 sqM) Glucose 168 H (74-99) mg/dL Plasma Lactic Acid Alfa (0.7-2.0) mmol/L Calcium 10.1 (8.4-10.2) mg/dL Magnesium 2.2 (1.6-2.3) mg/dL Total Bilirubin 2.0 H (0.2-1.3) mg/dL AST 74 H (17-59) U/L ALT 40 (4-49) U/L Alkaline Phosphatase 167 H (38-126) U/L Creatine Kinase 71 (55-170) U/L Troponin I (0.000-0.034) ng/mL Total Protein 7.7 (6.3-8.2) g/dL Albumin 4.3 (3.5-5.0) g/dL Urine Color Urine Appearance (Clear) Urine pH (5.0-8.0) Ur Specific [place] (1.001-1.035) Urine Protein (Negative) Urine Glucose (UA) (Negative) Urine Ketones (Negative) Urine Blood (Negative) Urine Nitrite (Negative) Urine Bilirubin (Negative) Urine Urobilinogen (<2.0) mg/dL Ur Leukocyte Esterase (Negative) 02/19/20 02/19/20 02/19/20 Range/Units 09:42 09:42 10:54 WBC (3.8-10.6) k/uL RBC (4.30-5.90) m/uL Hgb (13.0-17.5) gm/dL Hct (39.0-53.0) % MCV (80.0-100.0) fL MCH (25.0-35.0) pg MCHC (31.0-37.0) g/dL RDW (11.5-15.5) % Plt Count (150-450) k/uL Neutrophils % % Lymphocytes % % Monocytes % % Eosinophils % % Basophils % % Neutrophils # (1.3-7.7) k/uL Lymphocytes # (1.0-4.8) k/uL Monocytes # (0-1.0) k/uL Eosinophils # (0-0.7) k/uL Basophils # (0-0.2) k/uL PT (9.0-12.0) sec INR (<1.2) APTT (22.0-30.0) sec Sodium (137-145) mmol/L Potassium (3.5-5.1) mmol/L Chloride (98-107) mmol/L Carbon Dioxide (22-30) mmol/L Anion Gap mmol/L BUN (9-20) mg/dL Creatinine (0.66-1.25) mg/dL Est GFR (CKD-EPI)AfAm (>60 ml/min/1.73 sqM) Est GFR (CKD-EPI)NonAf (>60 ml/min/1.73 sqM) Glucose (74-99) mg/dL Plasma Lactic Acid Alfa 12.1 H* (0.7-2.0) mmol/L Calcium (8.4-10.2) mg/dL Magnesium (1.6-2.3) mg/dL Total Bilirubin (0.2-1.3) mg/dL AST (17-59) U/L ALT (4-49) U/L Alkaline Phosphatase (38-126) U/L Creatine Kinase (55-170) U/L Troponin I <0.012 (0.000-0.034) ng/mL Total Protein (6.3-8.2) g/dL Albumin (3.5-5.0) g/dL Urine Color Yellow Urine Appearance Clear (Clear) Urine pH 5.0 (5.0-8.0) Ur Specific [place] 1.012 (1.001-1.035) Urine Protein Negative (Negative) Urine Glucose (UA) Negative (Negative) Urine Ketones Negative (Negative) Urine Blood Negative (Negative) Urine Nitrite Negative (Negative) Urine Bilirubin Negative (Negative) Urine Urobilinogen 6.0 (<2.0) mg/dL Ur Leukocyte Esterase Negative (Negative) Disposition Clinical Impression: Lactic acidosis, Dehydration, Hypothermia Disposition: ADMITTED IP TO THIS [facility] Condition: Fair Referrals: None,Stated [Primary Care Provider] - 1-2 days
[2020-02-19 10:09] LABS: ALT 40 U/L (4-49)
[2020-02-19 10:15] LABS: Potassium 5.2 mmol/L (3.5-5.1)
[2020-02-19] MEDS ORDERED: SODIUM CHLORIDE 0.9% 2,000 ML IV ONE (10:18)
--- NOTE | 2020-02-19 10:35 | XR ---
EXAMINATION TYPE: XR chest 1V DATE OF EXAM: 02/19/2020 COMPARISON: Chest x-ray October 09, 2019. HISTORY: Weakness. TECHNIQUE: Single AP portable frontal upright view of the chest is obtained. FINDINGS: There is some chronic parenchymal changes bilaterally without suspicious new focal air spa ce opacity, pleural effusion, or pneumothorax seen. The cardiac silhouette size is stable and upper limits of normal with atherosclerotic change aortic knob. Multilevel spurring in thoracic spine. IMPRESSION: Chronic changes without acute pulmonary process.
[2020-02-19 11:07] LABS: Appearance,Urine Clear (Clear); Bilirubin,Urine Negative (Negative); Blood,Urine Negative (Negative); Color,Urine Yellow; Glucose,Urine (UA) Negative (Negative); Ketones,Urine Negative (Negative); Leukocyte Esterase,Urine Negative (Negative); Nitrite,Urine Negative (Negative); Protein,Urine Negative (Negative); Specific Gravity,Urine 1.012 (1.001-1.035)
[2020-02-19] MEDS ORDERED: NALOXONE 0.4 MG/ML 1 ML VIAL IV PRN (11:48)
[2020-02-19] MEDS ORDERED: ONDANSETRON 4 MG/2 ML VIAL IVP PRN (11:48)
[2020-02-19] MEDS: SODIUM CHLORIDE 0.9% 1,000 ML IV SCH ×2 (13:06→23:02)
[2020-02-19] MEDS ORDERED: ACETAMINOPHEN TAB 325 MG TAB PO PRN (17:34)
--- NOTE | 2020-02-19 18:27 | P.HPIM ---
History of Present Illness H&P Date: 02/19/20 Chief Complaint: Hypothermia 69-year-old male with unknown past medical history presents to the ED after being brought by EMS. Patient states that yesterday, someone offered him a ride to [place] to get groceries. When patient was done shopping, he had no way of going home. Patient states that he ended up sleeping overnight in a dumpster behind [employer]. Patient reports medical problems but is unsure of what they are. Patient states that he lives in assisted living at [place]. Patient states that he feels back to baseline. He denies any headache, lower extremity edema, nausea or vomiting, fever or chills, cough, chest pain, shortness of breath, palpitations, changes in urination or bowel habits. No changes in appetite or weight. He denies any dizziness, numbness/weakness/tingling of the extremities. He reports a previous history of alcohol abuse but has been sober for the past year. He denies any illicit drug use. In the ED, he was found to be hypothermic with a temperature of 94.1 Fahrenheit and blood pressure of 202/106. CBC showed leukocytosis with WBC count of 15.3. CMP showed potassium of 5.2, bicarbonate of 17, glucose of 168. Lactic acid was 12.1. Total bilirubin was 2, AST 74, alkaline phosphatase 167. Troponin was less than 0.012, EKG showing sinus rhythm with T-wave abnormalities. Urinalysis was negative. Review of Systems Pertinent positives and negatives as discussed in HPI, a complete review of systems was performed and all other systems are negative. Past Medical History Past Medical History: No Reported History Additional Past Medical History / Comment(s): sciatica, hepatitis C History of Any Multi-Drug Resistant Organisms: None Reported Past Surgical History: No Surgical Hx Reported Additional Past Surgical History / Comment(s): left knee, right wrist, and right knee surgeries. I&D of the left knee following Staphylococcus infection. Past Anesthesia/Blood Transfusion Reactions: No Reported Reaction Past Psychological History: Anxiety, Depression Smoking Status: Current every day smoker Past Alcohol Use History: Rare Additional Past Alcohol Use History / Comment(s): NO ETOHx1 year and does not do street drugs in 8 months Past Drug Use History: None Reported Additional Drug Use History / Comment(s): . - Past Family History Mother History Unknown: Yes Additional Family Medical History / Comment(s): Mother is 85 years of age with no major medical problems. Father History Unknown: Yes Family Medical History: CVA/TIA, Hypertension Additional Family Medical History / Comment(s): Father at age 75 with history of for CVAs and hypertension. Brother(s) Additional Family Medical History / Comment(s): He has 4 brothers that are healthy with no major medical problems. He has one sister that is healthy. He has 3 daughters with no major medical problems. Medications and Allergies Home Medications Medication Instructions Recorded Confirmed Type FLUoxetine HCL 40 mg PO DAILY 30 Days capsule 09/11/19 02/19/20 Rx Aspirin 81 mg PO DAILY 30 Days #30 chew 10/10/19 02/19/20 Rx Atorvastatin [Lipitor] 40 mg PO HS 02/19/20 02/19/20 History Omeprazole [PriLOSEC] 20 mg PO BID@0800,1600 02/19/20 02/19/20 History Allergies Allergy/AdvReac Type Severity Reaction Status Date / Time No Known Allergies Allergy Verified 02/19/20 10:16 Physical Exam Vitals: Vital Signs Temp Pulse Pulse Resp BP BP Pulse Ox 02/19/20 16:47 98.4 F 60 151/67 99 02/19/20 15:00 97.9 F 85 17 129/91 98 02/19/20 14:45 16 02/19/20 12:56 97.9 F 02/19/20 12:12 96.7 F L 86 16 136/76 99 02/19/20 11:10 95.4 F L 86 16 134/61 100 02/19/20 10:34 95.6 F L 86 16 111/100 99 02/19/20 09:26 94.1 F L 202/106 02/19/20 09:18 82 16 100 Intake and Output 02/19/20 02/19/20 02/19/20 06:59 14:59 22:59 Other: Voiding Method Urinal Weight 58.967 kg General: [non toxic], [no distress], [appears at stated age] Derm: [warm], [dry] Head: [atraumatic], [normocephalic], [symmetric] Eyes: [EOMI], [no lid lag], [anicteric sclera] Mouth: [no lip lesion], [mucus membranes moist] Cardiovascular: [S1S2 reg], [no murmur], [positive posterior tibial pulse bilateral], Lungs: [CTA bilateral], [no rhonchi, no rales] , [no accessory muscle use] Abdominal: [soft], [ nontender to palpation], [no guarding], [no appreciable organomegaly] Ext: [no gross muscle atrophy], [no edema], [no contractures] Neuro: [ CN II-XI grossly intact], [no focal neuro deficits] Psych: [Alert], [oriented], [appropriate affect] Results CBC & Chem 7: 02/19/20 09:42 02/19/20 09:42 Labs: Abnormal Lab Results - Last 24 Hours (Table) 02/19/20 02/19/20 02/19/20 Range/Units 09:42 09:42 09:42 WBC 15.3 H (3.8-10.6) k/uL Neutrophils # 9.2 H (1.3-7.7) k/uL Potassium 5.2 H (3.5-5.1) mmol/L Carbon Dioxide 17 L (22-30) mmol/L Glucose 168 H (74-99) mg/dL Plasma Lactic Acid Alfa 12.1 H* (0.7-2.0) mmol/L Total Bilirubin 2.0 H (0.2-1.3) mg/dL AST 74 H (17-59) U/L Alkaline Phosphatase 167 H (38-126) U/L Thrombosis Risk Factor Assmnt - Choose All That Apply Each Risk Factor Represents 2 Points: Age 61-74 years Thrombosis Risk Factor Assessment Total Risk Factor Score: 2 Thrombosis Risk Factor Assessment Level: Low Risk Assessment and Plan Assessment: Sepsis Lactic acidosis Hypothermia Leukocytosis Hyperkalemia Transaminitis Depression Patient meets sepsis criteria with no known source of infection. He was initially hypothermic with a low of 94.1 Fahrenheit, leukocytosis of 15.3 and lactic acid of 12.1. However, his hypothermia is likely related to spending a prolonged amount of time outdoors. His leukocytosis is likely reactive and CBC will be repeated tomorrow. We will hold any antibiotics at this time. Start normal saline at 100 mL per hour. Repeat lactic acid until negative. Continue bearhug until normothermic. His potassium of 5.2 was from a hemolyzed specimen and will be repeated tomorrow morning. He will be placed on telemetry monitoring. We will obtain liver ultrasound for his transaminitis which is likely related to his previous history of alcohol abuse. Even though fluoxetine can cause hypothermia, his hypothermia is likely related to prolonged exposure to the outdoors. We will restart fluoxetine and consult psychiatry for further recommendations. We will also need collateral information from [place]. DVT prophylaxis: Heparin Discussed with: [Patient] Anticipated discharge: [1-2 days] Anticipated discharge place: [Home] A total of [35] minutes was spent on the care of this complex patient more than 50% of the time was spent in counseling and care coordination.
[2020-02-19] MEDS: ATORVASTATIN 40 MG TAB PO SCH (20:18)
[2020-02-19] MEDS: HEPARIN SODIUM,PORCINE 5,000 UNIT/ML 1 ML VIAL SQ SCH (20:18)
[2020-02-20] MEDS: HEPARIN SODIUM,PORCINE 5,000 UNIT/ML 1 ML VIAL SQ SCH ×2 (08:28→20:42)
[2020-02-20] MEDS: ASPIRIN 81 MG PO SCH (08:28)
[2020-02-20] MEDS: PANTOPRAZOLE 40 MG TABLET PO SCH (08:28)
[2020-02-20] MEDS: SODIUM CHLORIDE 0.9% 1,000 ML IV SCH (08:28)
[2020-02-20] MEDS: FLUoxetine HCL 20 MG CAP PO SCH (08:28)
[2020-02-20 09:30] LABS: Basophils # (A) 0.1 k/uL (0-0.2); Basophils % (A) 2 %; Eosinophils # (A) 0.3 k/uL (0-0.7); Eosinophils % (A) 4 %; HCT 35.6 % (39.0-53.0); HGB 11.8 gm/dL (13.0-17.5); Lymphocytes # (A) 1.9 k/uL (1.0-4.8); Lymphocytes % (A) 30 %; MCH 32.3 pg (25.0-35.0); MCV 97.7 fL (80.0-100.0); Mean Platelet Volume 8.1; Monocytes # (A) 0.4 k/uL (0-1.0); Monocytes % (A) 7 %; Neutrophils # (A) 3.5 k/uL (1.3-7.7); Neutrophils % (A) 56 %; Platelet Count 150 k/uL (150-450); RBC 3.65 m/uL (4.30-5.90); WBC 6.2 k/uL (3.8-10.6)
--- NOTE | 2020-02-20 09:43 | US ---
EXAMINATION TYPE: US liver DATE OF EXAM: 02/20/2020 COMPARISON: CT abdomen pelvis 10/09/2019. The latter ultrasound 10/01/2019. CLINICAL HISTORY: transaminitis. Patient denies abd. pain EXAM MEASUREMENTS: Liver Length: 15.0 cm Gallbladder Wall: 0.6 cm CBD: 0.5 cm Right Kidney: 10.1 x 4.6 x 4.4 cm Pancreas: Normal Liver: The liver is heterogenous with coarsened echotexture. There is a hypoechoic mass within the r ight liver measuring 7.1 x 7.1 x 5.0 cm with internal Doppler flow. Trace perihepatic ascites. Gallbladder: No cholelithiasis. There is gallbladder wall adenomyomatosis. The gallbladder wall is a gain thickened measuring up to 6 mm. There is pericholecystic edema. Electromechanical Assembler reports negative sonographic Randolph sign. CBD: Normal Right Kidney: Normal IMPRESSION: 1. Diffusely heterogenous coarsened liver. There is a 7.1 cm hypoechoic masslike area of the right li graham with internal vascularity. Trace perihepatic ascites is seen. Differential includes hepatic mass or less likely focal parenchymal change such as fatty sparing. Recommend MRI of the liver for further characterization. 2. Pericholecystic edema and redemonstrated color wall thickening. Negative sonographic Randolph sign. Findings likely due to adjacent hepatic disease. If there is clinical concern for acute cholecystitis , consider nuclear medicine HIDA scan.
[2020-02-20 09:50] LABS: ALT 28 U/L (4-49); AST 54 U/L (17-59); African American GFR (CKD) >90 (>60 ml/min/1.73 sqM); Albumin 2.9 g/dL (3.5-5.0); Alkaline Phosphatase 126 U/L (38-126); Anion Gap 4 mmol/L; Blood Urea Nitrogen 13 mg/dL (9-20); Calcium 8.4 mg/dL (8.4-10.2); Carbon Dioxide 26 mmol/L (22-30); Chloride 107 mmol/L (98-107); Glucose 93 mg/dL (74-99); Non-African American GFR(CKD) 89 (>60 ml/min/1.73 sqM); Potassium 4.1 mmol/L (3.5-5.1); Sodium 137 mmol/L (137-145); Total Bilirubin 1.3 mg/dL (0.2-1.3); Total Protein 5.6 g/dL (6.3-8.2)
[2020-02-20 11:36] VITALS: BMI 18.6
--- NOTE | 2020-02-20 13:17 | P.PN ---
Subjective Progress Note Date: 02/20/20 Patient was seen and examined. No acute events overnight. Patient with no complaints. States he feels at baseline. He denies any chest pain, shortness breath or palpitations. No nausea or vomiting. No fever or chills. Objective - Vital Signs Vital signs: Vital Signs Temp 98 F 02/20/20 11:39 Pulse 46 L 02/20/20 11:39 Resp 18 02/20/20 11:39 BP 134/64 02/20/20 11:39 Pulse Ox 99 02/20/20 11:39 Intake & Output 02/19/20 02/20/20 02/20/20 18:59 06:59 18:59 Intake Total 1200 Output Total 800 Balance 400 Weight 58.967 kg 58.967 kg Intake: Intake, IV Titration 1200 Amount Sodium Chloride 0.9% 1, 1200 000 ml @ 100 mls/hr IV . Q10H [facility] Rx#:[id number] Output: Urine 800 Other: Voiding Method Urinal Urinal # Voids 1 - Exam General: [non toxic], [no distress], [appears at stated age] Derm: [warm], [dry] Head: [atraumatic], [normocephalic], [symmetric] Eyes: [EOMI], [no lid lag], [anicteric sclera] Mouth: [no lip lesion], [mucus membranes moist] Cardiovascular: [S1S2 reg], [no murmur], [positive posterior tibial pulse bilateral], Lungs: [CTA bilateral], [no rhonchi, no rales] , [no accessory muscle use] Abdominal: [soft], [ nontender to palpation], [no guarding], [no appreciable organomegaly] Ext: [no gross muscle atrophy], [no edema], [no contractures] Neuro: [no focal neuro deficits] Psych: [Alert], [oriented], [appropriate affect] - Labs CBC & Chem 7: 02/20/20 08:48 02/20/20 08:48 Labs: Abnormal Lab Results - Last 24 Hours (Table) 02/20/20 02/20/20 Range/Units 08:48 08:48 RBC 3.65 L (4.30-5.90) m/uL Hgb 11.8 L (13.0-17.5) gm/dL Hct 35.6 L (39.0-53.0) % Total Protein 5.6 L (6.3-8.2) g/dL Albumin 2.9 L (3.5-5.0) g/dL Assessment and Plan Assessment: Transaminitis with liver mass History of abdominal aorta thrombosis Depression Resolved: Sepsis, lactic acidosis, hypothermia, leukocytosis, hyperkalemia Liver mass was seen on liver ultrasound. GI will be consulted for further recom mendations. MRI liver will be ordered with and without contrast. Patient was evaluated by vascular surgery during his previous admission and recommended outpatient follow-up. He will need adequate follow-up with vascular surgery in the outpatient setting. Patient initially met sepsis criteria with no known source of infection. He was initially hypothermic with a low of 94.1 Fahrenheit, leukocytosis of 15.3 and lactic acid of 12.1. However, his hypothermia is likely related to spending a prolonged amount of time outdoors. His leukocytosis is likely reactive and has resolved. Lactic acid is now within normal limits and patient is normothermic without intervention. His hyperkalemia has resolved. Psychiatry was consulted for his history of depression. Case was discussed with Dr. Robbins, cleared for discharge on current antidepressant, needs outpatient follow-up. [Patient admitted for hypothermia. Resolved. Liver mass seen on ultrasound not seen on previous CT. GI consulted, MRI liver pending. Likely DC today or tomorrow.]
--- NOTE | 2020-02-20 13:32 | P.CN ---
Psychiatric Consult - . Consult date: 02/20/20 Consult:: 02/20/20 11:46 IDENTIFYING DATA: Patient is a 69-year-old male with a history of bipolar disorder who currently lives in a long term, has 3 daughters were estranged and collects Social Security disability HPI: Patient presented to the hospital yesterday after calling EMS. Patient apparently had been sleeping in a dumpster behind [facility] and complaint of hypothermia. Patient also claimed he had medical problems was nonspecific about it. Patient was found to be hypothermic with elevated blood pressure in the ER. Patient was admitted to medical floors to treated for Sirs. Psychiatry is consulted for evaluation. Patient was previously on the mental health unit in August 2019 and was previously on Prozac and Zyprexa for bipolar disorder and cocaine abuse. Today patient was evaluated bedside and appeared to be sleeping. He was awoken and was cooperative and calm with real estate underwriter. Patient claims that he is feeling better today and was vague about why he was sleeping in a dumpster. He states that he was at [facility] to get groceries and then do not have a ride back and claims it started raining so he felt cold. Patient has a history of chronic homelessness and is now living at a long term. He states that he has been taking his medications at home however does not know the dose or what he is taking. He is not endorsing any delusions at this time or any paranoia. He claims that his mood is "fine" and states that his sleep last night was "not good" and agreeable to get started back on his Zyprexa. Patient denies any homicidal ideations intent or plan. At this time patient denies any visual hallucinations. Patient denies any flight of ideas racing thoughts and increased in goal directed behavior. He denies any suicidal or homicidal ideations intent or plan. Patient admits to using cigarettes every day. He denies any current recreational drug use. PAST PSYCHIATRIC HISTORY: Patient states that he has a history of bipolar disorder and polysubstance abuse in the past. Patient has been hospitalized on the mental health floor several times and the last admission was on 08/2019. Patient was then discharged on Zyprexa 15 mg daily at bedtime and Prozac 40 mg daily. Patient follows up with [facility]. He denies any history of suicide attempts in the past. PMH: CAD, hepatitis C, sciatica, hypertension ALLERGIES: as per EMR CHEMICAL DEPENDENCY HISTORY: as per HPI FAMILY PSYCHIATRIC/SUBSTANCE USE HISTORY: denies SOCIAL HISTORY: Patient was born and raised in [facility] and patient is currently living in a long term. 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 He has 3 daughters were estranged and currently collects Social Security disability. MENTAL STATUS EXAM: General Appearance: Patient appears to be stated age is alert, directable, and c ooperative. Patient appears to have fair hygiene and grooming wearing hospital gown with fair eye contact. Behavior: Patient is calmly lying in bed without any agitated behavior. Calm and cooperative. Speech: Patient's speech is fluent and nonpressured. Vague. Mood/Affect: Patient reports their mood is "fine", affect is congruent Suicidality/Homicidality: Patient denies having any suicidal or homicidal ideation intent or plan. Perceptions: Patient denies any visual hallucinations and denies any auditory hallucinations Though content/process: [place], logical. No delusions or paranoia. Memory and concentration: AOX3, grossly intact for the purposes of this session. Can spell "WORLD" backwards Judgment and insight: Chronically limited. IMPRESSIONS: Bipolar disorder with psychotic features History of cocaine abuse Nicotine dependence PLAN: -At this time patient DOES NOT meet criteria for inpatient psychiatric admission. -Would recommend the following medication changes/additions: We'll restart Zyprexa 7.5 mg daily at bedtime for mood stabilization/insomnia. Continue with Prozac 40 mg daily for mood. -Patient is currently established with [facility] will be going back for follow-up. grain i farmworker to assist patient with discharge planning and patient to be discharged back to his previous long term once he is medically stabilized. -Psychiatry will sign off at this point, please contact with any questions. 02/20/20 13:25
[2020-02-20] MEDS: ATORVASTATIN 40 MG TAB PO SCH (20:42)
[2020-02-20] MEDS: OLANZapine 2.5 MG TAB PO SCH (20:43)
[2020-02-21 06:42] LABS: ALT 31 U/L (4-49); AST 57 U/L (17-59); African American GFR (CKD) >90 (>60 ml/min/1.73 sqM); Albumin 2.7 g/dL (3.5-5.0); Alkaline Phosphatase 114 U/L (38-126); Anion Gap 3 mmol/L; Blood Urea Nitrogen 13 mg/dL (9-20); Calcium 8.5 mg/dL (8.4-10.2); Carbon Dioxide 27 mmol/L (22-30); Chloride 111 mmol/L (98-107); Glucose 80 mg/dL (74-99); Non-African American GFR(CKD) 84 (>60 ml/min/1.73 sqM); Potassium 3.9 mmol/L (3.5-5.1); Sodium 141 mmol/L (137-145); Total Bilirubin 1.2 mg/dL (0.2-1.3); Total Protein 5.3 g/dL (6.3-8.2)
[2020-02-21] MEDS ORDERED: OLANZapine 2.5 MG TAB PO SCH (09:00)
[2020-02-21] MEDS: PANTOPRAZOLE 40 MG TABLET PO SCH (09:24)
[2020-02-21] MEDS: HEPARIN SODIUM,PORCINE 5,000 UNIT/ML 1 ML VIAL SQ SCH ×2 (09:24→21:22)
[2020-02-21] MEDS: ASPIRIN 81 MG PO SCH (09:24)
[2020-02-21] MEDS: FLUoxetine HCL 20 MG CAP PO SCH (09:25)
[2020-02-21 12:12] LABS: Hepatitis A Antibody IgM Non-Reactive (Non-Reactive); Hepatitis B Core IgM Non-Reactive (Non-Reactive); Hepatitis B Surface Antigen Non-Reactive (Non-Reactive); Hepatitis C IgG Antibody Reactive (Non-Reactive)
--- NOTE | 2020-02-21 13:01 | P.CONS ---
History of Present Illness - Reason for Consult Consult date: 02/20/20 Liver mass Requesting physician: Rosamaria Ferrell - Chief Complaint Passed out - History of Present Illness 69-year-old male with a known medical history of hepatitis C who presented to the hospital after being found passed out at [facility] and brought in by EMS. On discussion with the patient he reports a known history of hepatitis C for which she is treatment edelmira. The patient is unsure of how he contracted the virus and denies any history of IV drug abuse or blood transfusions in the past. The patient believes he has had hepatitis C for approximately 10 years. He denies any history of chronic liver disease. The patient reports heavy alcohol abuse over a 30-40 year. Currently reports abstinence from alcohol. He denies any GI bleeding, prior EGD or colonoscopy, prior requirement for paracentesis or jaundice. He does report that he feels he is been more confused recently. The patient had laboratory evaluation on presentation significant for WBC 6.2, hemoglobin 11.8, platelet count 150,000, INR 1.1, total bilirubin 1.3, phosphatase 126, AST 54 and ALT 28. Patient had ultrasound of the abdomen with findings of a thickened coarsened echotexture of the liver as well as a 7.1 cm liver mass of unknown etiology. Review of Systems REVIEW OF SYSTEMS: CONSTITUTIONAL: Denies any fevers, chills, weight change or fatigue. CARDIOVASCULAR: Denies any chest pain, palpitations high or low blood pressures RESPIRATORY: Denies any shortness of breath, hemoptysis or cough. GENITOURINARY: No dysuria or hematuria. MUSCULOSKELETAL: No weakness reported. SKIN: Denies any new rashes or lesions, jaundice or pallor. PSYCHIATRIC: Significant history of alcohol abuse. NEUROLOGY: Denies headache, denies any new focal deficits brought to the hospital due to being passed out/unresponsive. EARS/NOSE/THROAT: No recent hearing change, congestion, nasal discharge or sore throat. EYES: No pain in eyes, discharge or change in vision. GASTROINTESTINAL: As per HPI. Past Medical History Past Medical History: No Reported History Additional Past Medical History / Comment(s): sciatica, hepatitis C History of Any Multi-Drug Resistant Organisms: None Reported Past Surgical History: No Surgical Hx Reported Additional Past Surgical History / Comment(s): left knee, right wrist, and right knee surgeries. I&D of the left knee following Staphylococcus infection. Past Anesthesia/Blood Transfusion Reactions: No Reported Reaction Past Psychological History: Anxiety, Depression Smoking Status: Current every day smoker Past Alcohol Use History: Rare Additional Past Alcohol Use History / Comment(s): NO ETOHx1 year and does not do street drugs in 8 months Past Drug Use History: None Reported Additional Drug Use History / Comment(s): . - Past Family History Mother History Unknown: Yes Additional Family Medical History / Comment(s): Mother is 85 years of age with no major medical problems. Father History Unknown: Yes Family Medical History: CVA/TIA, Hypertension Additional Family Medical History / Comment(s): Father at age 75 with history of for CVAs and hypertension. Brother(s) Additional Family Medical History / Comment(s): He has 4 brothers that are healthy with no major medical problems. He has one sister that is healthy. He has 3 daughters with no major medical problems. Medications and Allergies Home Medications Medication Instructions Recorded Confirmed Type FLUoxetine HCL 40 mg PO DAILY 30 Days capsule 09/11/19 02/19/20 Rx Aspirin 81 mg PO DAILY 30 Days #30 chew 10/10/19 02/19/20 Rx Atorvastatin [Lipitor] 40 mg PO HS 02/19/20 02/19/20 History Omeprazole [PriLOSEC] 20 mg PO BID@0800,1600 02/19/20 02/19/20 History Allergies Allergy/AdvReac Type Severity Reaction Status Date / Time No Known Allergies Allergy Verified 02/19/20 10:16 Physical Exam Vitals: Vital Signs Temp Pulse Pulse Resp BP BP Pulse Ox 02/20/20 11:39 98 F 46 L 18 134/64 99 02/20/20 05:00 98.3 F 59 L 16 151/75 98 02/19/20 21:00 98.7 F 62 18 148/56 95 02/19/20 16:47 98.4 F 60 151/67 99 02/19/20 15:00 97.9 F 85 17 129/91 98 Intake and Output 02/19/20 02/20/20 02/20/20 22:59 06:59 14:59 Intake Total 1200 1550 Output Total 400 400 Balance -175 671 [id number] Intake: Intake, IV Titration 1200 900 Amount Sodium Chloride 0.9% 1, 1200 900 000 ml @ 100 mls/hr IV . Q10H [facility] Rx#:[id number] Oral 650 Output: Urine 400 400 Other: Voiding Method Urinal # Voids 1 3 Weight 58.967 kg On physical examination, patient appears comfortable in no apparent distress. HEAD: Normocephalic, atraumatic. EYES: No scleral icterus. No conjunctival injection. MOUTH: No lesions, tongue midline. NECK: Trachea midline, no gross abnormalities. CHEST: Clear to auscultation with no wheezing or rhonchi appreciated. HEART: Regular rate and rhythm. ABDOMEN: Soft, nontender to palpation. Bowel sounds are positive. No organomegaly. No guarding or rigidity. EXTREMITIES: No pedal edema. SKIN: No rashes, no jaundice. NEUROLOGIC: Alert and oriented x3. No focal deficits. Results CBC & Chem 7: 02/20/20 08:48 02/21/20 05:56 Labs: Abnormal Lab Results - Last 24 Hours (Table) 02/20/20 02/20/20 Range/Units 08:48 08:48 RBC 3.65 L (4.30-5.90) m/uL Hgb 11.8 L (13.0-17.5) gm/dL Hct 35.6 L (39.0-53.0) % Total Protein 5.6 L (6.3-8.2) g/dL Albumin 2.9 L (3.5-5.0) g/dL US - abdomen: report reviewed (ultrasound of the abdomen with findings of a thickened coarsened echotexture of the liver as well as a 7.1 cm liver mass of unknown etiology.) Assessment and Plan (1) Liver mass Narrative/Plan: 69-year-old male with a known history of previous alcohol abuse which he currently reports abstinence and chronic hepatitis C for which she is treatment edelmira who presented to the hospital as he was found unresponsive at [facility]. On questioning patient reports a long-standing history of hepatitis C for which he has not received treatment. He denies any history of being told of chronic liver disease or family history of liver disease. He denies any signs or symptoms of decompensated liver disease with no prior GI bleeding, ascites or jaundice. He does report some confusion. Ultrasound of the abdomen performed i n evaluation was significant for findings suggestive of liver cirrhosis with a coarsened echotexture of the liver as well as a 7.1 cm mass of unknown etiology. Current Visit: Yes Status: Acute Code(s): R16.0 - HEPATOMEGALY, NOT ELSEWHERE CLASSIFIED SNOMED Code(s): 201958127 (2) Hepatitis C Current Visit: Yes Status: Acute Code(s): B19.20 - UNSPECIFIED VIRAL HEPATITIS C WITHOUT HEPATIC COMA SNOMED Code(s): 40065940 Plan: Supportive care Okay for diet as tolerated Tumor markers ordered Would recommend MRI of the abdomen with and without contrast which is ordered for further evaluation of the liver or triple phase computed tomography scan due to suspicion for possible HCC Continued alcohol abstinence Other medical management per primary team Thank you for allowing us to participate in the care of the patient
[2020-02-21 13:42] LABS: Carcinoembryonic Antigen 4.3 ng/mL (0.0-4.9)
--- NOTE | 2020-02-21 13:50 | P.PN ---
Subjective Progress Note Date: 02/21/20 Principal diagnosis: liver mass Patient was seen and examined at the bedside. He is without any complaints. He denies any abdominal pain, nausea, vomiting, or diarrhea. He tolerated his breakfast well this morning. He is awaiting to go for an MRI with and without contrast today. He is sleepy but arousable, he is alert and oriented 3. Objective - Vital Signs Vital signs: Vital Signs Temp 97.8 F 02/21/20 04:21 Pulse 53 L 02/21/20 04:21 Resp 16 02/21/20 04:21 BP 180/77 02/21/20 04:21 Pulse Ox 98 02/21/20 04:21 Intake & Output 02/20/20 02/21/20 02/21/20 18:59 06:59 18:59 Intake Total 1550 1200 Output Total 1200 Balance 1550 0 Weight 58.967 kg Intake: Intake, IV Titration 900 1200 Amount Sodium Chloride 0.9% 1, 900 1200 000 ml @ 100 mls/hr IV . Q10H JITENDRA Rx#:[id number] Oral 650 Output: Urine 1200 Other: Voiding Method Urinal # Voids 2 - Exam General appearance: The patient is drowsy but easily arousable, alert, oriented, in no acute distress. HET: Head is normocephalic and atraumatic. Neck: Supple without lymphadenopathy. Trachea midline. Heart: S1 S2. Regular rate and rhythm. Lungs: No crackles or wheezes are heard. Abdomen: Soft, nontender, nondistended with bowel sounds. No guarding or rigidity. No palpable organomegaly or masses. Extremities: Normal skin color and turgor. Neurological: No focal deficits. Alert and oriented 3. - Labs CBC & Chem 7: 02/20/20 08:48 02/21/20 05:56 Labs: Abnormal Lab Results - Last 24 Hours (Table) 02/21/20 Range/Units 05:56 Chloride 111 H (98-107) mmol/L Total Protein 5.3 L (6.3-8.2) g/dL Albumin 2.7 L (3.5-5.0) g/dL Assessment and Plan Assessment: (1) Liver mass Narrative/Plan: 69-year-old male with a known history of previous alcohol abuse which he currently reports abstinence and chronic hepatitis C for which she is treatment edelmira who presented to the hospital as he was found unresponsive at [facility]. On questioning patient reports a long-standing history of hepatitis C for which he has not received treatment. He denies any history of being told of chronic liver disease or family history of liver disease. He denies any signs or symptoms of decompensated liver disease with no prior GI bleeding, ascites or jaundice. He does report some confusion. Ultrasound of the abdomen performed in evaluation was significant for findings suggestive of liver cirrhosis with a coarsened echotexture of the liver as well as a 7.1 cm mass of unknown etiology. Current Visit: Yes Status: Acute Code(s): R16.0 - HEPATOMEGALY, NOT ELSEWHERE CLASSIFIED SNOMED Code(s): 793377206 (2) Hepatitis C Current Visit: Yes Status: Acute Code(s): B19.20 - UNSPECIFIED VIRAL HEPATITIS C WITHOUT HEPATIC COMA SNOMED Code(s): 86921228 Plan: Supportive care Okay for diet as tolerated Tumor markers ordered and elevated Oncology consulted, appreciate recommendation Hepatitis C antibody positive, quantitative and genotype ordered Would recommend MRI of the abdomen with and without contrast which is ordered for further evaluation of the liver or triple phase computed tomography scan due to suspicion for possible HCC Continued alcohol abstinence Other medical management per primary team Recommend follow-up in office as outpatient Thank you for allowing us to participate in the care of the patient The impression and plan of care has been dictated as directed. I performed a history and examination of this patient, discussed the same with the dictator. I agree with the dictator's note ,documented as a scribe. Any additional findings or plans will be noted.
[2020-02-21 14:12] LABS: Cancer Antigen 19-9 24.4 U/mL (0.0-34.9)
[2020-02-21 14:17] LABS: Alpha Fetoprotein, Tumor Mkr 6865.7 ng/mL (0.0-7.9)
--- NOTE | 2020-02-21 15:08 | MR ---
EXAMINATION TYPE: MR liver wo/w con DATE OF EXAM: 02/21/2020 COMPARISON: CT abdomen and pelvis October 09, 2019. Liver ultrasound from yesterday. HISTORY: Abnormal liver ultrasound, mass seen CONTRAST: Standard multiplanar, multisequence MRI departmental protocol utilizing 6 mL intravenous Gadavist georgi olinium contrast. Imaging is performed of the abdomen focusing on the liver. FINDINGS: Liver: Liver remains overall normal in size. New perihepatic ascites is confirmed. Corresponding to ultrasound in the medial segment left hepatic lobe lesion or area of concern inferio rly is identified that is isointense to remainder of liver on T1-weighted images and shows slight T2 hyperintensity relative to remainder of liver. Dynamic postcontrast images show heterogeneous progressive increased enhancement of this lesion or ar ea relative to remainder of the liver. Area of concern difficult to accurately measure as it is appro ximately 7.9 x 4.9 x 4.5 cm on axial image 19 series 601 and coronal image 11 series 301. This lesion appears to expand the inferior aspect of the liver versus recent CT. Lesion may even be external to the liver though felt less likely. There is irregular linear extension of T2 hyperintensity relative to the remainder of the liver into the left hepatic lobe on the MRI. The main portal vein appears patent on more delayed postcontrast im ages perhaps slightly narrowed from CT due to mass effect of the lesion seen along its anterior-infer ior aspect. Patency of right and middle portal venous branches noted. There is patency of the hepatic veins draining into the IVC. There is poor visualization of left branch of the portal vein. Gallbladder is abnormal similar to ultrasound where there is poor distention and areas of abnormal wa ll thickening particularly near the anterior aspect. Some surrounding edema is present. No obvious new suspicious intrahepatic or extrahepatic biliary ductal dilatation noted. Other: There are new small to tiny bilateral pleural effusions. Mild to moderate generalized fat repl aced atrophy of the pancreas slightly more prominent from CT is felt present. Spleen and both adrenal glands are within normal limits. No concerning renal mass or hydronephrosis. No suspicious bowel dil atation. Visualized osseous structures are intact. Mild distention of bladder is present. IMPRESSION: Persistent abnormal appearance to the gallbladder which is contracted with surrounding ascites and ec centric abnormal wall thickening. New suspicious lesion centrally in or adjacent to the liver with lo mary mass effect is felt present. Former is favored with some new expansion of the inferior medial seg ment left hepatic lobe. Findings worrisome for neoplasm such as focal cholangiocarcinoma. I'm worried for left-sided portal venous thrombus possibly tumor thrombus. Advise correlating with repeat multip hase liver protocol contrast enhanced CT as there is definitive significant change from prior CT Apri l 2019.
--- NOTE | 2020-02-21 17:35 | P.PN ---
Subjective Progress Note Date: 02/21/20 Patient was seen and examined. No acute events overnight. Patient not very communicative. Denies any complaints. Objective - Vital Signs Vital signs: Vital Signs Temp 98.4 F 02/21/20 12:19 Pulse 111 H 02/21/20 12:19 Resp 17 02/21/20 12:19 BP 134/77 02/21/20 12:19 Pulse Ox 98 02/21/20 12:19 Intake & Output 02/20/20 02/21/20 02/21/20 18:59 06:59 18:59 Intake Total 1550 1200 Output Total 1200 Balance 1550 0 Weight 58.967 kg Intake: Intake, IV Titration 900 1200 Amount Sodium Chloride 0.9% 1, 900 1200 000 ml @ 100 mls/hr IV . Q10H JITENDRA Rx#:[id number] Oral 650 Output: Urine 1200 Other: Voiding Method Urinal Urinal # Voids 2 2 - Exam General: [non toxic], [no distress], [appears at stated age] Derm: [warm], [dry] Head: [atraumatic], [normocephalic], [symmetric] Eyes: [EOMI], [no lid lag], [anicteric sclera] Mouth: [no lip lesion], [mucus membranes moist] Cardiovascular: [S1S2 reg], [no murmur], [positive posterior tibial pulse bilateral], Lungs: [CTA bilateral], [no rhonchi, no rales] , [no accessory muscle use] Abdominal: [soft], [ nontender to palpation], [no guarding], [no appreciable organomegaly] Ext: [no gross muscle atrophy], [no edema], [no contractures] Neuro: [no focal neuro deficits] Psych: [Alert], [oriented], [appropriate affect] - Labs CBC & Chem 7: 02/20/20 08:48 02/21/20 05:56 Labs: Abnormal Lab Results - Last 24 Hours (Table) 02/21/20 02/21/20 02/21/20 Range/Units 05:56 05:56 05:56 Chloride 111 H (98-107) mmol/L Total Protein 5.3 L (6.3-8.2) g/dL Albumin 2.7 L (3.5-5.0) g/dL Tumor Marker AFP 6865.7 H (0.0-7.9) ng/mL Hep C IgG Ab Reactive H (Non-Reactive) Assessment and Plan Assessment: Transaminitis with liver mass History of abdominal aorta thrombosis Depression Resolved: Sepsis, lactic acidosis, hypothermia, leukocytosis, hyperkalemia Liver mass was seen on liver ultrasound. GI will be consulted for further recommendations. MRI liver shows abnormal wall thickening of the gallbladder, worrisome for focal cholangiocarcinoma, left-sided portal venous thrombus possibly tumor thrombus. Oncology has been consulted for further management. Patient was evaluated by vascular surgery during his previous admission and recommended outpatient follow-up. He will need adequate follow-up with vascular surgery in the outpatient setting. Patient initially met sepsis criteria with no known source of infection. He was initially hypothermic with a low of 94.1 Fahrenheit, leukocytosis of 15.3 and lactic acid of 12.1. However, his hypothermia is likely related to spending a prolonged amount of time outdoors. His leukocytosis is likely reactive and has resolved. Lactic acid is now within normal limits and patient is normothermic without intervention. His hyperkalemia has resolved. Psychiatry was consulted for his history of depression. Case was discussed with Dr. Robbins, cleared for discharge on current antidepressant, needs outpatient fo llow-up. [Patient admitted for hypothermia. Resolved. Liver mass seen on ultrasound not seen on previous CT. MRI shows possible cholangiocarcinoma. Oncology consultation pending.]
[2020-02-22] MEDS: ATORVASTATIN 40 MG TAB PO SCH (01:31)
[2020-02-22] MEDS: OLANZapine 2.5 MG TAB PO SCH (01:31)
[2020-02-22] MEDS: ASPIRIN 81 MG PO SCH (08:40)
[2020-02-22] MEDS: PANTOPRAZOLE 40 MG TABLET PO SCH (08:40)
[2020-02-22] MEDS: HEPARIN SODIUM,PORCINE 5,000 UNIT/ML 1 ML VIAL SQ SCH (08:40)
[2020-02-22] MEDS: FLUoxetine HCL 20 MG CAP PO SCH (08:40)
[2020-02-22 09:41] LABS: ALT 35 U/L (4-49); AST 66 U/L (17-59); African American GFR (CKD) >90 (>60 ml/min/1.73 sqM); Albumin 2.9 g/dL (3.5-5.0); Alkaline Phosphatase 124 U/L (38-126); Anion Gap 3 mmol/L; Blood Urea Nitrogen 14 mg/dL (9-20); Calcium 8.9 mg/dL (8.4-10.2); Carbon Dioxide 29 mmol/L (22-30); Chloride 106 mmol/L (98-107); Glucose 118 mg/dL (74-99); Non-African American GFR(CKD) 87 (>60 ml/min/1.73 sqM); Potassium 4.2 mmol/L (3.5-5.1); Sodium 138 mmol/L (137-145); Total Bilirubin 1.1 mg/dL (0.2-1.3); Total Protein 5.6 g/dL (6.3-8.2)
[2020-02-22 13:07] VITALS: BP 171/75; PULSE 50; RESP 16; TEMP 98.3
[2020-02-22] MEDS ORDERED: amLODIPine 10 MG TAB PO SCH (13:15)
--- NOTE | 2020-02-22 13:30 | P.PN ---
Subjective Progress Note Date: 02/22/20 Principal diagnosis: liver mass Patient was seen and examined lying in bed sleeping. He was easily arousable, states he is very tired. He denies any abdominal pain, nausea, vomiting, or diarrhea. He denies any shortness of breath or chest pain. He is tolerating his diet. His CA-19-9 was 24.4, CEA 4.3, alpha-fetoprotein tumor marker elevated at 6865. MRI performed yesterday which showed persistent abnormal appearance of the gallbladder which is contracted with surrounding ascites an eccentric abnormal wall thickening. A suspicious lesion centrally in or adjacent to the liver with local mass effect is felt present. Former was expansion of the inferior medial segment of the left hepatic lobe. Findings are worrisome for neoplasm such as focal cholangiocarcinoma. There is worry for left-sided portal venous thrombus possibly tumor thrombus. Advise correlating with repeat multiphasic liver protocol contrast-enhanced CT as there is definitive significant change from prior CT 10/01/2019. Objective - Vital Signs Vital signs: Vital Signs Temp 98.3 F 02/22/20 13:00 Pulse 50 L 02/22/20 13:00 Resp 16 02/22/20 13:00 BP 171/75 02/22/20 13:00 Pulse Ox 98 02/22/20 13:00 Intake & Output 02/21/20 02/22/20 02/22/20 18:59 06:59 18:59 Intake Total 240 Output Total 850 Balance -610 Intake: Oral 240 Output: Urine 850 Other: Voiding Method Urinal Urinal # Voids 2 0 # Bowel Movements 0 0 - Exam General appearance: The patient is drowsy but easily arousable, alert, oriented, in no acute distress. HET: Head is normocephalic and atraumatic. Neck: Supple without lymphadenopathy. Trachea midline. Heart: S1 S2. Regular rate and rhythm. Lungs: No crackles or wheezes are heard. Abdomen: Soft, nontender, nondistended with bowel sounds. No guarding or rigidity. No palpable organomegaly or masses. Extremities: Normal skin color and turgor. Neurological: No focal deficits. Alert and oriented 3. - Labs CBC & Chem 7: 02/20/20 08:48 02/22/20 08:35 Labs: Abnormal Lab Results - Last 24 Hours (Table) 02/21/20 02/22/20 Range/Units 05:56 08:35 Glucose 118 H (74-99) mg/dL AST 66 H (17-59) U/L Total Protein 5.6 L (6.3-8.2) g/dL Albumin 2.9 L (3.5-5.0) g/dL Tumor Marker AFP 6865.7 H (0.0-7.9) ng/mL Assessment and Plan Assessment: (1) Liver mass Narrative/Plan: 69-year-old male with a known history of previous alcohol abuse which he currently reports abstinence and chronic hepatitis C for which she is treatment edelmira who presented to the hospital as he was found unresponsive at [facility]. On questioning patient reports a long-standing history of hepatitis C for which he has not received treatment. He denies any history of being told of chronic liver disease or family history of liver disease. He denies any signs or symptoms of decompensated liver disease with no prior GI bleeding, ascites or jaundice. He does report some confusion. Ultrasound of the abdomen performed in evaluation was significant for findings suggestive of liver cirrhosis with a coarsened echotexture of the liver as well as a 7.1 cm mass of unknown etiology. Current Visit: Yes Status: Acute Code(s): R16.0 - HEPATOMEGALY, NOT ELSEWHERE CLASSIFIED SNOMED Code(s): 399295933 (2) Hepatitis C Current Visit: Yes Status: Acute Code(s): B19.20 - UNSPECIFIED VIRAL HEPATITIS C WITHOUT HEPATIC COMA SNOMED Code(s): 13009983 Plan: Supportive care Okay for diet as tolerated Tumor markers ordered and elevated Oncology consulted, appreciate recommendations and input Hepatitis C antibody positive, quantitative and genotype ordered MRI of abdomen completed Continued alcohol abstinence Other medical management per primary team Recommend follow-up in office as outpatient for hepatitis C treatment Thank you for allowing us to participate in the care of the patient The impression and plan of care has been dictated as directed. I performed a history and examination of this patient, discussed the same with the dictator. I agree with the dictator's note ,documented as a scribe. Any additional findings or plans will be noted.
--- NOTE | 2020-02-22 15:31 | P.CONS ---
History of Present Illness - Reason for Consult Consult date: 02/22/20 Increased AFP and liver Mass Requesting physician: Denise Tabor - Chief Complaint Abd Pain - History of Present Illness 69 year old male patient with multiple co morbidities and known history of ETOH abuse and liver disease. Abdominal Imaging revealed single liver mass and elevated AFP, therefore oncology was asked to further evaluate. Review of Systems All systems: negative (HPI) Past Medical History Past Medical History: No Reported History Additional Past Medical History / Comment(s): sciatica, hepatitis C History of Any Multi-Drug Resistant Organisms: None Reported Past Surgical History: No Surgical Hx Reported Additional Past Surgical History / Comment(s): left knee, right wrist, and right knee surgeries. I&D of the left knee following Staphylococcus infection. Past Anesthesia/Blood Transfusion Reactions: No Reported Reaction Past Psychological History: Anxiety, Depression Smoking Status: Current every day smoker Past Alcohol Use History: Rare Additional Past Alcohol Use History / Comment(s): NO ETOHx1 year and does not do street drugs in 8 months Past Drug Use History: None Reported Additional Drug Use History / Comment(s): . - Past Family History Mother History Unknown: Yes Additional Family Medical History / Comment(s): Mother is 85 years of age with no major medical problems. Father History Unknown: Yes Family Medical History: CVA/TIA, Hypertension Additional Family Medical History / Comment(s): Father at age 75 with history of for CVAs and hypertension. Brother(s) Additional Family Medical History / Comment(s): He has 4 brothers that are healthy with no major medical problems. He has one sister that is healthy. He has 3 daughters with no major medical problems. Medications and Allergies Home Medications Medication Instructions Recorded Confirmed Type FLUoxetine HCL 40 mg PO DAILY 30 Days capsule 09/11/19 02/19/20 Rx Aspirin 81 mg PO DAILY 30 Days #30 chew 10/10/19 02/19/20 Rx Atorvastatin [Lipitor] 40 mg PO HS 02/19/20 02/19/20 History Omeprazole [PriLOSEC] 20 mg PO BID@0800,1600 02/19/20 02/19/20 History Allergies Allergy/AdvReac Type Severity Reaction Status Date / Time No Known Allergies Allergy Verified 02/19/20 10:16 Physical Exam Vitals: Vital Signs Temp Pulse Pulse Resp BP Pulse Ox 02/22/20 13:00 98.3 F 50 L 16 171/75 98 02/22/20 04:45 98.5 F 65 18 178/91 98 02/21/20 19:11 98.8 F 56 L 56 L 16 168/79 02/21/20 19:07 56 L Intake and Output 02/22/20 02/22/20 02/22/20 06:59 14:59 22:59 Intake Total 240 Output Total 850 Balance -610 Intake: Oral 240 Output: Urine 850 Other: Voiding Method Urinal # Voids 0 0 # Bowel Movements 0 0 - Constitutional General appearance: cooperative, no acute distress - EENT Eyes: EOMI, PERRLA ENT: hard of hearing, NA/AT - Respiratory Respiratory: bilateral: CTA - Cardiovascular Rhythm: regular Heart sounds: normal: S1, S2 - Gastrointestinal General gastrointestinal: organomegaly, tenderness - Integumentary Integumentary: jaundiced - Neurologic Neurologic: CNII-XII intact - Musculoskeletal Musculoskeletal: generalized weakness - Psychiatric Psychiatric: A&O x's 3, appropriate affect Results CBC & Chem 7: 02/20/20 08:48 02/22/20 08:35 Labs: Abnormal Lab Results - Last 24 Hours (Table) 02/22/20 Range/Units 08:35 Glucose 118 H (74-99) mg/dL AST 66 H (17-59) U/L Total Protein 5.6 L (6.3-8.2) g/dL Albumin 2.9 L (3.5-5.0) g/dL MRI - abdomen: report reviewed Assessment and Plan (1) Hepatitis C Status: Acute Code(s): B19.20 - UNSPECIFIED VIRAL HEPATITIS C WITHOUT HEPATIC COMA SNOMED Code(s): 38604008 (2) Liver mass Status: Acute Code(s): R16.0 - HEPATOMEGALY, NOT ELSEWHERE CLASSIFIED SNOMED Code(s): 253384822 Plan: Assessment and Recommendations: Liver Mass and increased AFP - - Appears to be a contained mass in liver, therefore will need surgical evaluation at [facility] with Dr. Jeana Oliver - Will have our office set this up as he will need to be off blood thinners for surgical intervention. From oncology standpointment he may be discharged to follow-up with Surgeon. He is aware Have discussed with Primary team Defer d/c to primary team Physician Attest:I have completed the full history and physical and agree with above dictation, dictated as a scribe
--- NOTE | 2020-02-22 16:07 | P.DS ---
Providers Date of admission: 02/21/20 11:05 Expected date of discharge: 02/22/20 Attending physician: Rosamaria Ferrell MD Consults: 02/19/20 18:21 Consult Physician Routine Consulting Provider: Sheldon Robbins Consult Reason/Comments: found sleeping outside [facility], h/o MDD Do you want consulting provider notified?: Yes 02/20/20 11:36 Consult Physician Routine Consulting Provider: Mariana Suarez Consult Reason/Comments: abnormal Liver Ultrasound Do you want consulting provider notified?: Yes 02/21/20 14:31 Consult Physician Urgent Consulting Provider: Ajit Scott Consult Reason/Comments: liver mass, levated AFP and CA-19 Do you want consulting provider notified?: Yes Primary care physician: Stated None Hospital Course: 69-year-old male with unknown past medical history presents to the ED after being brought by EMS. Patient states that yesterday, someone offered him a ride to [facility] to get groceries. When patient was done shopping, he had no way of going home. Patient states that he ended up sleeping overnight in a dumpster behind [facility]. Patient reports medical problems but is unsure of what they are. Patient states that he lives in assisted living at [facility]. Patient states that he feels back to baseline. He denies any headache, lower extremity edema, nausea or vomiting, fever or chills, cough, chest pain, shortness of breath, palpitations, changes in urination or bowel habits. No changes in appetite or weight. He denies any dizziness, numbness/weakness/tingling of the extremities. He reports a previous history of alcohol abuse but has been sober for the past year. He denies any illicit drug use. In the ED, he was found to be hypothermic with a temperature of 94.1 Fahrenheit and blood pressure of 202/106. CBC showed leukocytosis with WBC count of 15.3. CMP showed potassium of 5.2, bicarbonate of 17, glucose of 168. Lactic acid was 12.1. Total bilirubin was 2, AST 74, alkaline phosphatase 167. Troponin was less than 0.01 2, EKG showing sinus rhythm with T-wave abnormalities. Urinalysis was negative. Patient initially met sepsis criteria with no known source of infection. He was initially hypothermic with a low of 94.1 Fahrenheit, leukocytosis of 15.3 and lactic acid of 12.1. However, his hypothermia was likely related to spending a prolonged amount of time outdoors. His leukocytosis is likely reactive and res olved. Lactic acid trended to within normal limits and patient was normothermic without intervention. His hyperkalemia resolved. Psychiatry evaluated the patient for his depression and cleared the patient for discharge. With regard to his transaminitis liver ultrasound was obtained. Liver mass was seen on ultrasound. GI was consulted and recommended MRI of the liver. MRI liver shows abnormal wall thickening of the gallbladder, worrisome for focal cholangiocarcinoma, left-sided portal venous thrombus possibly tumor thrombus. Oncology has been consulted and recommended follow up with oncology at [facility]. General: [non toxic], [no distress], [appears at stated age] Derm: [warm], [dry] Head: [atraumatic], [normocephalic], [symmetric] Eyes: [EOMI], [no lid lag], [anicteric sclera] Mouth: [no lip lesion], [mucus membranes moist] Cardiovascular: [S1S2 reg], [no murmur], [positive posterior tibial pulse bilateral], Lungs: [CTA bilateral], [no rhonchi, no rales] , [no accessory muscle use] Abdominal: [soft], [ nontender to palpation], [no guarding], [no appreciable organomegaly] Ext: [no gross muscle atrophy], [no edema], [no contractures] Neuro: [no focal neuro deficits] Psych: [Alert], [oriented], [appropriate affect] Discharge diagnosis Transaminitis with liver mass History of abdominal aorta thrombosis Depression Resolved: Sepsis, lactic acidosis, hypothermia, leukocytosis, hyperkalemia This complex discharge took about 35 minutes to complete. Pertinent Studies: Chest x-ray, liver ultrasound, MRI of the liver Patient Condition at Discharge: Fair Plan - Discharge Summary Discharge Rx Participant: No New Discharge Prescriptions: Continue FLUoxetine HCL 40 mg PO DAILY 30 Days capsule Aspirin 81 mg PO DAILY 30 Days #30 chew Atorvastatin [Lipitor] 40 mg PO HS Omeprazole [PriLOSEC] 20 mg PO BID@0800,1600 Discharge Medication List FLUoxetine HCL 40 mg PO DAILY 30 Days capsule 09/11/19 [Rx] Aspirin 81 mg PO DAILY 30 Days #30 chew 10/10/19 [Rx] Atorvastatin [Lipitor] 40 mg PO HS 02/19/20 [History] Omeprazole [PriLOSEC] 20 mg PO BID@0800,1600 02/19/20 [History] Follow up Appointment(s)/Referral(s): Ajit Scott MD [STAFF PHYSICIAN] - 1 Week (office to call you with appt. time and date.) Sheldon Robbins MD [Medical Doctor] - 1 Week Abdelrahman Land DO [STAFF PHYSICIAN] - 1 Week (please call office to set up appt. time and date) None,Stated [Primary Care Provider] - 1-2 days Patient Instructions/Handouts: Dehydration (DC), Acute Hypothermia (DC), Lactic Acidosis (GEN) Activity/Diet/Wound Care/Special Instructions: Diet: Regular FU PCP within 3 days of DC. FU with Psyc and Vascular Sx within 1 week of DC. Take all medications as advised. Follow-up with hematology oncology within 1 week of discharge. We will give you an appointment to follow-up at [facility] with an oncologist there. It is crucial that you follow-up. Discharge Disposition: HOME SELF-CARE
--- NOTE | 2020-02-25 12:47 | CDI ---
Documentation Clarification Form Date: 02/25/2020 11:35:00 AM From: Myra Newman Phone: If you have a question about this query, please contact Radha Patricia [employer] at [phone] between 8am and 5pm. Admit Date: 02/21/2020 11:05:00 AM Patient Name: Denys Wood Visit Number: [id number] Discharge Date: 02/22/2020 04:36:00 PM ATTENTION: The Clinical Documentation Specialists (CDI) and [facility] Coding Staff appreciate your assistance in clarifying documentation. Please respond to the clarification below the line at the bottom and electronically sign. The CDI & [facility] Coding staff will review the response and follow-up if needed. Please note: Queries are made part of the Legal Health Record. If you have any questions, please contact the author of this message via ITS. Dr. Rosamaria Ferrell Per DCS "Patient initially met sepsis criteria with no known source of infection. He was hypothermic - 94.1F, leukocytosis 15.3 and lactic acid of 12.1. However hypothermia was likely related to spending a porolonged amount of time outdoors. Leukocytosis like reactive. Lactic acid trended to within normal limits and within normal limits without intervention. Discharge diagnosis documents sepsis has resolved. Please clarify. Did patient have sepsis or was it ruled out. History/Risk Factors: Hep C, hypothermia, lactic acidosis WBC 15.3 Lactic acid: 12.1 Vitals signs on admission: 94.1 F, 82 bpm, 202/106, 100% RA In your professional opinion, please clarify if patient had sepsis or was it ruled out. Condition Sepsis ruled out SIRS, without underlying infectious process Sepsis Severe Sepsis Septic Shock Other, please specify Unable to determine SIRS Criteria (2 or more of the following may indicate SIRS): -Temperature < 96.8F (36C) or > 101.0F (38.3C) -Heart Rate > 90 bpm -Respiratory Rate > 20 breaths/min or PaCO2 < 32 mmHg -White Blood Cell Count > 12,000 or < 4,000 cells/mm3 or > 10% bands -Lactate >2.0 mmol/L (>4.0 is equivalent to septic shock) SIRS without underlying infectious process MTDD
== END 2020-02-22 16:36 | disposition home or self-care (01) | DRG 442 ==
LOC: EC 09:14 → 6NMEDSUR 11:58 → OBSVTOIN 02-21 11:05
PROVIDERS: ADMIT Family Medicine; ATTEND Family Medicine
DX: R16.0 Hepatomegaly, not elsewhere classified (principal); E87.2 Acidosis; R18.8 Other ascites; R65.10 Systemic inflammatory response syndrome (SIRS) of non-infectious origin without acute organ dysfunction; B18.2 Chronic viral hepatitis C; E86.0 Dehydration; E87.5 Hyperkalemia; F10.11 Alcohol abuse, in remission; F12.11 Cannabis abuse, in remission; F17.210 Nicotine dependence, cigarettes, uncomplicated; F31.9 Bipolar disorder, unspecified; F41.9 Anxiety disorder, unspecified; K74.60 Unspecified cirrhosis of liver; M54.30 Sciatica, unspecified side; I25.10 Atherosclerotic heart disease of native coronary artery without angina pectoris; I10 Essential (primary) hypertension; I71.4 Abdominal aortic aneurysm, without rupture; Z82.3 Family history of stroke; Z82.49 Family history of ischemic heart disease and other diseases of the circulatory system; Z79.82 Long term (current) use of aspirin; Z79.899 Other long term (current) drug therapy; T68.XXXA Hypothermia, initial encounter; X31.XXXA Exposure to excessive natural cold, initial encounter; Z20.828 Contact with and (suspected) exposure to other viral communicable diseases
CPT/HCPCS: 36415; 71045; 74183; 76705; 80053; 80074; 81003; 82105; 82140; 82378; 82550; 83605; 83735; 84484; 85025; 85610; 85730; 86301; 87522; 93005; 96360; 96361; 99285

== ENCOUNTER → 2020-03-13 | Outpatient (CLI) | payer MEDICARE, OTHER ==
--- NOTE | 2020-03-13 14:49 | NM ---
EXAMINATION TYPE: NM bone scan whole body DATE OF EXAM: 03/13/2020 COMPARISON: NONE HISTORY: Liver mass Delayed whole-body scanning was performed following the injection of 23.2 mCi Tc 99m MDP. Images acq uired 3 hours post injection. FINDINGS: Faint uptake is seen throughout the thoracic spine which appears to be likely degenerative. Faint uptake involving the right patella likely post arthritic. No suspicious increased or reduced u ptake. Mild intensity uptake in the midthoracic spine. IMPRESSION: Faint uptake throughout the thoracic spine and mid cervical spine likely degenerative. No definite ingram spicious uptake.
== END | disposition home or self-care (01) ==
LOC: RADNMMAIN 10:23
PROVIDERS: ATTEND Internal Medicine Hematology & Oncology
DX: R16.0 Hepatomegaly, not elsewhere classified (principal); Z79.890 Hormone replacement therapy
CPT/HCPCS: 78306; A9503

== ENCOUNTER 2020-04-14 14:36 | Inpatient (IN) | payer MEDICARE, OTHER ==
[2020-04-14] MEDS ORDERED: SODIUM CHLORIDE 0.9% 1,000 ML IV STA (15:16)
[2020-04-14] MEDS ORDERED: ONDANSETRON 4 MG/2 ML VIAL IVP STA (15:16)
[2020-04-14 15:53] LABS: Albumin 3.5 g/dL (3.5-5.0); Calcium 9.2 mg/dL (8.4-10.2); Potassium 4.8 mmol/L (3.5-5.1); Total Bilirubin 1.4 mg/dL (0.2-1.3); Total Protein 6.9 g/dL (6.3-8.2)
[2020-04-14 15:59] LABS: Basophils # (A) 0.1 k/uL (0-0.2); Basophils % (A) 1 %; Eosinophils % (A) 0 %; HCT 40.9 % (39.0-53.0); HGB 12.6 gm/dL (13.0-17.5); Lymphocytes # (A) 0.8 k/uL (1.0-4.8); Lymphocytes % (A) 5 %; MCH 31.5 pg (25.0-35.0); MCHC 30.9 g/dL (31.0-37.0); MCV 102.1 fL (80.0-100.0); Macrocytosis Slight; Monocytes # (A) 0.8 k/uL (0-1.0); Monocytes % (A) 5 %; Neutrophils # (A) 13.1 k/uL (1.3-7.7); Neutrophils % (A) 88 %; Platelet Count 181 k/uL (150-450); RBC 4.01 m/uL (4.30-5.90); RDW 14.8 % (11.5-15.5); WBC 14.9 k/uL (3.8-10.6)
--- NOTE | 2020-04-14 16:25 | ED ---
Nausea/Vomiting/Diarrhea HPI - General Chief complaint: Nausea/Vomiting/Diarrhea Stated complaint: Weakness Time Seen by Provider: 04/14/20 15:00 Source: patient Mode of arrival: EMS Limitations: no limitations - History of Present Illness Initial comments: Patient is a 70-year-old male, history of liver disease, psych history, presenting to emergency Department with complaints of nausea, vomiting and some mild abdominal discomfort. Patient is not cooperative, arguing during questioning. Denies any fevers, he states he was recently started on omep razole. He states he vomited twice today. He states he has not seen anybody regarding his liver mass or liver disease. He denies any chest pain, shortness of breath. States his abdominal pain is epigastric, comes and goes. Denies regular bowel movements, urinary complaints. He has no other complaints at this time. She is temperature is low, rest of vitals are normal. - Related Data Home Medications Medication Instructions Recorded Confirmed Omeprazole [PriLOSEC] 20 mg PO BID@0800,1600 02/19/20 04/14/20 Dexamethasone [Decadron] 4 mg PO DAILY@0800 04/14/20 04/14/20 FLUoxetine HCL 40 mg PO DAILY@0800 04/14/20 04/14/20 Sulfamethoxazole/Trimethoprim 1 tab PO Q12H 04/14/20 04/14/20 [Bactrim DS 800-160 mg] Allergies Allergy/AdvReac Type Severity Reaction Status Date / Time No Known Allergies Allergy Verified 04/14/20 19:06 Review of Systems ROS Statement: Those systems with pertinent positive or pertinent negative responses have been documented in the HPI. ROS Other: All systems not noted in ROS Statement are negative. Past Medical History Past Medical History: Cancer Additional Past Medical History / Comment(s): sciatica, hepatitis C, liver cancer History of Any Multi-Drug Resistant Organisms: None Reported Past Surgical History: Orthopedic Surgery Additional Past Surgical History / Comment(s): left knee, right wrist, and right knee surgeries. I&D of the left knee following Staphylococcus infection. Past Anesthesia/Blood Transfusion Reactions: No Reported Reaction Past Psychological History: Anxiety, Depression Smoking Status: Current every day smoker Past Alcohol Use History: Rare Past Drug Use History: None Reported - Past Family History Mother History Unknown: Yes Additional Family Medical History / Comment(s): Mother is 85 years of age with no major medical problems. Father History Unknown: Yes Family Medical History: CVA/TIA, Hypertension Additional Family Medical History / Comment(s): Father at age 75 with history of for CVAs and hypertension. Brother(s) Additional Family Medical History / Comment(s): He has 4 brothers that are healthy with no major medical problems. He has one sister that is healthy. He has 3 daughters with no major medical problems. General Exam - General Exam Comments Initial Comments: GENERAL: Patient appears disheveled, fatigued, no acute distress. HEAD: Atraumatic, normocephalic. EYES: Pupils equal round and reactive to light, extraocular movements intact, sclera anicteric, conjunctiva are normal. Eyelids were unremarkable. ENT: TMs normal, nares patent, oropharynx clear without exudates. Moist mucous membranes. NECK: Normal range of motion, supple without lymphadenopathy or JVD. LUNGS: Unlabored respirations. Breath sounds clear to auscultation bilaterally and equal. No wheezes rales or rhonchi. HEART: Regular rate and rhythm without murmurs, rubs or gallops. ABDOMEN: Mild diffuse abdominal pain, no specific area pain. Soft, normoactive bowel sounds. No guarding, no rebound. No masses appreciated. : Deferred MUSCULOSKELETAL: Normal extremities with adequate strength and normal range of motion, no pitting or edema. No clubbing or cyanosis. NEUROLOGICAL: Patient is alert and oriented x 3. Motor and sensory are also intact. Cranial nerves II through XII grossly intact. Symmetrical smile. Normal speech, normal gait. PSYCH: Normal mood, normal affect. SKIN: Warm, Dry, normal turgor, no rashes or lesions noted. Limitations: no limitations Course Vital Signs 04/14/20 04/14/20 04/14/20 14:57 17:15 18:15 Temperature 96.8 F L 97.8 F Pulse Rate 69 66 68 Respiratory 18 18 18 Rate Blood Pressure 162/78 150/68 128/74 O2 Sat by Pulse 100 100 100 Oximetry Medical Decision Making - Medical Decision Making Patient is a 70-year-old male here with complaints of vomiting, fatigue, dehydration. He has been somewhat uncooperative, arguing with staff. His vitals are stable. Patient leukocytosis 14.9, sodium is 133, lactic acid is 4.9, her enzymes are slightly elevated, bilirubin is 1.4. Chest x-ray shows no acute process. They give patient a liter bolus, Zofran, has been resting comfortably in the ER. Patient will be admitted for dehydration, lactic acidosis. He is in agreement with this plan of care. Did start him on maintenance fluids. Patient accepted by Dr. Kerr. Case discussed with Dr. rabago. - Lab Data Result diagrams: 04/14/20 15:21 04/14/20 15:21 Lab Results 04/14/20 04/14/20 04/14/20 Range/Units 15:21 15:21 15:21 WBC 14.9 H (3.8-10.6) k/uL RBC 4.01 L (4.30-5.90) m/uL Hgb 12.6 L (13.0-17.5) gm/dL Hct 40.9 (39.0-53.0) % MCV 102.1 H (80.0-100.0) fL MCH 31.5 (25.0-35.0) pg MCHC 30.9 L (31.0-37.0) g/dL RDW 14.8 (11.5-15.5) % Plt Count 181 (150-450) k/uL Neutrophils % 88 % Lymphocytes % 5 % Monocytes % 5 % Eosinophils % 0 % Basophils % 1 % Neutrophils # 13.1 H (1.3-7.7) k/uL Lymphocytes # 0.8 L (1.0-4.8) k/uL Monocytes # 0.8 (0-1.0) k/uL Eosinophils # 0.0 (0-0.7) k/uL Basophils # 0.1 (0-0.2) k/uL Macrocytosis Slight Sodium 133 L (137-145) mmol/L Potassium 4.8 (3.5-5.1) mmol/L Chloride 104 (98-107) mmol/L Carbon Dioxide 23 (22-30) mmol/L Anion Gap 6 mmol/L BUN 28 H (9-20) mg/dL Creatinine 1.22 (0.66-1.25) mg/dL Est GFR (CKD-EPI)AfAm 69 (>60 ml/min/1.73 sqM) Est GFR (CKD-EPI)NonAf 60 (>60 ml/min/1.73 sqM) Glucose 168 H (74-99) mg/dL Lactic Ac Sepsis Rflx Plasma Lactic Acid Alfa 4.9 H* (0.7-2.0) mmol/L Calcium 9.2 (8.4-10.2) mg/dL Total Bilirubin 1.4 H (0.2-1.3) mg/dL AST 144 H (17-59) U/L ALT 69 H (4-49) U/L Alkaline Phosphatase 257 H (38-126) U/L Total Protein 6.9 (6.3-8.2) g/dL Albumin 3.5 (3.5-5.0) g/dL 04/14/20 Range/Units 15:58 WBC (3.8-10.6) k/uL RBC (4.30-5.90) m/uL Hgb (13.0-17.5) gm/dL Hct (39.0-53.0) % MCV (80.0-100.0) fL MCH (25.0-35.0) pg MCHC (31.0-37.0) g/dL RDW (11.5-15.5) % Plt Count (150-450) k/uL Neutrophils % % Lymphocytes % % Monocytes % % Eosinophils % % Basophils % % Neutrophils # (1.3-7.7) k/uL Lymphocytes # (1.0-4.8) k/uL Monocytes # (0-1.0) k/uL Eosinophils # (0-0.7) k/uL Basophils # (0-0.2) k/uL Macrocytosis Sodium (137-145) mmol/L Potassium (3.5-5.1) mmol/L Chloride (98-107) mmol/L Carbon Dioxide (22-30) mmol/L Anion Gap mmol/L BUN (9-20) mg/dL Creatinine (0.66-1.25) mg/dL Est GFR (CKD-EPI)AfAm (>60 ml/min/1.73 sqM) Est GFR (CKD-EPI)NonAf (>60 ml/min/1.73 sqM) Glucose (74-99) mg/dL Lactic Ac Sepsis Rflx Y Plasma Lactic Acid Alfa (0.7-2.0) mmol/L Calcium (8.4-10.2) mg/dL Total Bilirubin (0.2-1.3) mg/dL AST (17-59) U/L ALT (4-49) U/L Alkaline Phosphatase (38-126) U/L Total Protein (6.3-8.2) g/dL Albumin (3.5-5.0) g/dL Disposition Clinical Impression: Hepatitis C, Vomiting, Dehydration, Lactic acidosis, Hypothermia Disposition: ADMITTED IP TO THIS [facility] Condition: Stable Decision Date: 04/14/20 Decision Time: 16:27
[2020-04-14] MEDS ORDERED: KETOROLAC 15 MG/ML 1 ML VIAL IVP PRN (16:28)
[2020-04-14] MEDS ORDERED: ONDANSETRON 4 MG/2 ML VIAL IVP PRN (16:28)
[2020-04-14] MEDS ORDERED: NALOXONE 0.4 MG/ML 1 ML VIAL IV PRN (16:28)
--- NOTE | 2020-04-14 16:35 | XR ---
EXAMINATION TYPE: XR chest 2V DATE OF EXAM: 04/14/2020 CLINICAL HISTORY: short of breath. TECHNIQUE: Frontal and lateral view of the chest. COMPARISON: 02/19/2020 chest radiograph FINDINGS: The cardiac silhouette is within upper normal limits for size. Pulmonary vasculature is no rmal. There is no focal air space opacity, pleural effusion, or pneumothorax seen. The osseous struct ures are intact. IMPRESSION: No acute cardiopulmonary process.
[2020-04-14] MEDS: SODIUM CHLORIDE 0.9% 1,000 ML IV SCH (17:17)
[2020-04-15] MEDS: FLUoxetine HCL 20 MG CAP PO SCH (11:37)
[2020-04-15] MEDS: dexAMETHasone 4 MG TAB PO SCH (11:37)
--- NOTE | 2020-04-15 17:02 | P.HPIM ---
History of Present Illness H&P Date: 04/15/20 Chief Complaint: Vomiting History of presenting complaint: This is a 70-year-old patient who follows with visiting physicians. Lives at [facility] home. Patient was last here on . Had a MRI of the liver. It showed abnormal appearance of the gallbladder contracted and some abnormal wall thickening. New suspicious lesion next to the liver with local mass effect was felt to be present. Some expansion of the inferior medial segment of the left hepatic lobe. Concern is for cholangiocarcinoma. And possibly left-sided portal venous thrombus. Patient was seen by GI Dr. Greer last admission and oncology team Dr. Scott. Patient is supposed to follow-up and an different hospital being coordinated by oncology. Patient's face have not given him an appointment. Patient does get occasional abdominal pain on and off. Appetite is okay. No fever no chills. His last bowel movement was 2 days ago. Patient is hungry. Does use a walker to baseline. Liver ultrasound that Adama 7.1 cm hypoechoic masslike area of the right liver with internal vascularity. Patient not the best of historians Review of systems: GEN.: Tired EYES: None HEENT: None NECK: None RESPIRATORY: None CARDIOVASCULAR: None GASTROINTESTINAL: None GENITOURINARY: As above MUSCULOSKELETAL: Joint pains LYMPHATICS: None HEMATOLOGICAL: None PSYCHIATRY: Slightly forgetful NEUROLOGICAL: None Past medical history to include: Hypertension, liver mass to be followed up at [facility]. Hepatitis C, sciatica, anxiety depression, gait dysfunction uses a walker, depression Social history: Lives at [facility], smoking occasionally. No alcohol for a year. Denies any use of recreational drugs. Physical examination: VITAL SIGNS: 98.4, 55, 17, 125/86, 99% room air GENERAL: BMI 19.2, laying in bed, awake tired. EYES: Pupils equal. Conjunctiva normal. HEENT: [External appearance of nose and ears normal, oral cavity missing teeth. NECK: JVD unable to assess; masses not palpable. HEART: First and second heart sounds are normal; no edema. LUNGS: Respiratory rate increased; decreased breath sounds. ABDOMEN: Soft, nontender, liver spleen not palpable, no masses palpable. PSYCH: [Alert and oriented x3; mood and affect tired l. NEUROLOGICAL: Cranial nerves grossly intact; no facial asymmetry, power and sensation grossly intact. LYMPHATICS: No lymph nodes palpable in the axilla and neck INVESTIGATIONS, reviewed in the clinical context: White count 40.9 hemoglobin 12.6 platelets 181 potassium 4.8 creatinine 1.22 Lactic acid 4.9 Total bilirubin 1.4 AST 144 ALT 69 Assessment: -This is a patient has a right liver lobe mass with adjoining questionable hepat ic vein thrombosis, patient supposed to follow-up at [facility]. Has not received an appointment. -Depression not otherwise specified -Chronic gait dysfunction uses a walker -Mild cognitive impairment -Lactic acidosis likely type II -Hepatitis C Plan: Patient diet to be slightly advanced. Home medications to be advanced. No indication for antibiotics at present time. Get a consultation from oncology. Discussed with the patient. Past Medical History Past Medical History: Cancer Additional Past Medical History / Comment(s): sciatica, hepatitis C, liver cancer History of Any Multi-Drug Resistant Organisms: None Reported Past Surgical History: Orthopedic Surgery Additional Past Surgical History / Comment(s): left knee, right wrist, and right knee surgeries. I&D of the left knee following Staphylococcus infection. Past Anesthesia/Blood Transfusion Reactions: No Reported Reaction Past Psychological History: Anxiety, Depression Smoking Status: Current every day smoker Past Alcohol Use History: Rare Past Drug Use History: None Reported - Past Family History Mother History Unknown: Yes Additional Family Medical History / Comment(s): Mother is 85 years of age with no major medical problems. Father History Unknown: Yes Family Medical History: CVA/TIA, Hypertension Additional Family Medical History / Comment(s): Father at age 75 with history of for CVAs and hypertension. Brother(s) Additional Family Medical History / Comment(s): He has 4 brothers that are healthy with no major medical problems. He has one sister that is healthy. He has 3 daughters with no major medical problems. Medications and Allergies Home Medications Medication Instructions Recorded Confirmed Type Omeprazole [PriLOSEC] 20 mg PO BID@0800,1600 02/19/20 04/14/20 History Dexamethasone [Decadron] 4 mg PO DAILY@0800 04/14/20 04/14/20 History FLUoxetine HCL 40 mg PO DAILY@0800 04/14/20 04/14/20 History Sulfamethoxazole/Trimethoprim 1 tab PO Q12H 04/14/20 04/14/20 History [Bactrim DS 800-160 mg] Allergies Allergy/AdvReac Type Severity Reaction Status Date / Time No Known Allergies Allergy Verified 04/14/20 19:06 Physical Exam Vitals: Vital Signs Temp Pulse Pulse Resp BP BP Pulse Ox 04/15/20 09:41 98.2 F 55 L 17 125/86 99 04/15/20 06:30 98.4 F 67 16 120/60 97 04/15/20 04:00 98.2 F 64 16 112/58 98 04/15/20 00:00 60 18 120/75 98 04/14/20 21:00 98.0 F 65 18 129/70 99 04/14/20 18:15 68 18 128/74 100 04/14/20 17:15 97.8 F 66 18 150/68 100 04/14/20 14:57 96.8 F L 69 18 162/78 100 Results CBC & Chem 7: 04/14/20 15:21 04/14/20 15:21 Labs: Abnormal Lab Results - Last 24 Hours (Table) 04/14/20 04/14/20 04/14/20 Range/Units 15:21 15:21 15:21 WBC 14.9 H (3.8-10.6) k/uL RBC 4.01 L (4.30-5.90) m/uL Hgb 12.6 L (13.0-17.5) gm/dL MCV 102.1 H (80.0-100.0) fL MCHC 30.9 L (31.0-37.0) g/dL Neutrophils # 13.1 H (1.3-7.7) k/uL Lymphocytes # 0.8 L (1.0-4.8) k/uL Sodium 133 L (137-145) mmol/L BUN 28 H (9-20) mg/dL Glucose 168 H (74-99) mg/dL Plasma Lactic Acid Alfa 4.9 H* (0.7-2.0) mmol/L Total Bilirubin 1.4 H (0.2-1.3) mg/dL AST 144 H (17-59) U/L ALT 69 H (4-49) U/L Alkaline Phosphatase 257 H (38-126) U/L 04/14/20 Range/Units 18:18 WBC (3.8-10.6) k/uL RBC (4.30-5.90) m/uL Hgb (13.0-17.5) gm/dL MCV (80.0-100.0) fL MCHC (31.0-37.0) g/dL Neutrophils # (1.3-7.7) k/uL Lymphocytes # (1.0-4.8) k/uL Sodium (137-145) mmol/L BUN (9-20) mg/dL Glucose (74-99) mg/dL Plasma Lactic Acid Alfa 2.2 H* (0.7-2.0) mmol/L Total Bilirubin (0.2-1.3) mg/dL AST (17-59) U/L ALT (4-49) U/L Alkaline Phosphatase (38-126) U/L
[2020-04-15] MEDS: SODIUM CHLORIDE 0.9% 1,000 ML IV SCH ×2 (20:28→20:45)
[2020-04-16] MEDS: FLUoxetine HCL 20 MG CAP PO SCH (08:50)
[2020-04-16] MEDS: SODIUM CHLORIDE 0.9% 1,000 ML IV SCH ×2 (10:36→23:15)
[2020-04-16] MEDS: dexAMETHasone 4 MG TAB PO SCH (10:36)
--- NOTE | 2020-04-16 15:42 | P.CONS ---
History of Present Illness - Reason for Consult Consult date: 04/15/20 Abdominal Mass Requesting physician: Marisol Suero - Chief Complaint Weakness dehydration - History of Present Illness Mr. Wood is a very pleasant male with a PMH of ETOH cirrhosis, Hep C, residing at [facility], that we were asked to see 02/22/20 at [facility] due to elevate APF ([id number]) and liver mass found on US liver dated 02/20/20 when pt was admitted with abd pain. LFTs were noted to be elevated as well. There was a 7.1x7.1x5cm hyperechoic mass in the right lobe of the liver, thickened gallbladder wall. MRI liver 02/21/20 impression was abnormal gallbladder that is contracted, ascites and abnormal wall thickening, ? portal thrombosis vs tumor thrombosis, central liver mass. Pt is poor historian, poor appetite, thin cachetic. Dr. Scott discussed with pt and [facility] the implications of the work up so far completed. Pt was found to have single liver mass on US abd, MRI liver confirms the same. NM BS, CXR did not show any metastatic disease (CTAP was not performed as [facility] did not see the auth for it done 5 days prior), AFP was elevated >6000 and pt has medical Hx of hep C and ETOH liver cirrhosis. HCC can be diagnosed based on these positives. He was subsequently discharged from hospital and set up with [facility] and for Follow-up with Dr. Scott. He did not show and during evaluation today he states he could not get a hold of [facility] and he does not recall talking to anyone from here. He appears weak and has blanket over head. Initially would not remove blanket to talk to me. I did remind him that [facility] was set up for 03/21/[address] outpatient CT scans Chest, Abdomen, Pelvis and bone scan. He is a poor historian. He did not show for his scheduled CTs in therefore I had asked him if he is interested in moving forward and undergoing further work-up and potential treatment. He stated he is. We will restage this admission. Review of Systems All systems: negative Constitutional: Reports as per HPI Past Medical History Past Medical History: Chest Pain / Angina, Hypertension, Liver Disease, Syncope, Vascular Disorder Additional Past Medical History / Comment(s): Pt recently admitted to [facility] on 02/21/20 with transaminitis with liver mass and is to be evaluated at [facility] but pt states no appointment yet. Other hx: abdominal aortic thrombosis, hepatitis C, chronic upper back pain, sciatica. History of Any Multi-Drug Resistant Organisms: None Reported Past Surgical History: Orthopedic Surgery Additional Past Surgical History / Comment(s): Pt states bilateral knee arthrotomies d/t infection, R wrist fracture with surgery. Past Anesthesia/Blood Transfusion Reactions: No Reported Reaction Smoking Status: Current some day smoker - Past Family History Mother History Unknown: Yes Additional Family Medical History / Comment(s): Mother is 85 years of age with no major medical problems. Father History Unknown: Yes Family Medical History: CVA/TIA, Hypertension Additional Family Medical History / Comment(s): Father at age 75 with history of for CVAs and hypertension. Brother(s) Additional Family Medical History / Comment(s): He has 4 brothers that are healthy with no major medical problems. He has one sister that is healthy. He has 3 daughters with no major medical problems. Medications and Allergies Home Medications Medication Instructions Recorded Confirmed Type Omeprazole [PriLOSEC] 20 mg PO BID@0800,1600 02/19/20 04/14/20 History Dexamethasone [Decadron] 4 mg PO DAILY@0800 04/14/20 04/14/20 History FLUoxetine HCL 40 mg PO DAILY@0800 04/14/20 04/14/20 History Sulfamethoxazole/Trimethoprim 1 tab PO Q12H 04/14/20 04/14/20 History [Bactrim DS 800-160 mg] Allergies Allergy/AdvReac Type Severity Reaction Status Date / Time No Known Allergies Allergy Verified 04/14/20 19:06 Physical Exam Vitals: Vital Signs Temp Pulse Pulse Resp BP BP Pulse Ox 04/15/20 14:55 97.8 F 64 19 100/42 99 04/15/20 09:41 98.2 F 55 L 17 125/86 99 04/15/20 06:30 98.4 F 67 16 120/60 97 04/15/20 04:00 98.2 F 64 16 112/58 98 04/15/20 00:00 60 18 120/75 98 04/14/20 21:00 98.0 F 65 18 129/70 99 04/14/20 18:15 68 18 128/74 100 04/14/20 17:15 97.8 F 66 18 150/68 100 Intake and Output 04/15/20 04/15/20 04/15/20 06:59 14:59 22:59 Output Total 0 Balance 0 Output: Urine 0 Other: Weight 53.977 kg - Constitutional General appearance: cooperative, no acute distress, thin - EENT Eyes: EOMI, poor dentition ENT: NA/AT - Neck Neck: normal ROM - Respiratory Respiratory: bilateral: diminished (Weak inspiration) - Cardiovascular Rhythm: regular Heart sounds: normal: S1, S2 - Gastrointestinal General gastrointestinal: soft, tenderness - Integumentary Integumentary: jaundiced - Neurologic HANS - Musculoskeletal Musculoskeletal: generalized weakness - Psychiatric Poor historian Psychiatric: A&O x's 3 Results CBC & Chem 7: 04/14/20 15:21 04/14/20 15:21 Labs: Abnormal Lab Results - Last 24 Hours (Table) 04/14/20 04/14/20 04/14/20 Range/Units 15:21 15:21 15:21 WBC 14.9 H (3.8-10.6) k/uL RBC 4.01 L (4.30-5.90) m/uL Hgb 12.6 L (13.0-17.5) gm/dL MCV 102.1 H (80.0-100.0) fL MCHC 30.9 L (31.0-37.0) g/dL Neutrophils # 13.1 H (1.3-7.7) k/uL Lymphocytes # 0.8 L (1.0-4.8) k/uL Sodium 133 L (137-145) mmol/L BUN 28 H (9-20) mg/dL Glucose 168 H (74-99) mg/dL Plasma Lactic Acid Alfa 4.9 H* (0.7-2.0) mmol/L Total Bilirubin 1.4 H (0.2-1.3) mg/dL AST 144 H (17-59) U/L ALT 69 H (4-49) U/L Alkaline Phosphatase 257 H (38-126) U/L 04/14/20 Range/Units 18:18 WBC (3.8-10.6) k/uL RBC (4.30-5.90) m/uL Hgb (13.0-17.5) gm/dL MCV (80.0-100.0) fL MCHC (31.0-37.0) g/dL Neutrophils # (1.3-7.7) k/uL Lymphocytes # (1.0-4.8) k/uL Sodium (137-145) mmol/L BUN (9-20) mg/dL Glucose (74-99) mg/dL Plasma Lactic Acid Alfa 2.2 H* (0.7-2.0) mmol/L Total Bilirubin (0.2-1.3) mg/dL AST (17-59) U/L ALT (4-49) U/L Alkaline Phosphatase (38-126) U/L Assessment and Plan (1) Hepatitis C Current Visit: Yes Status: Acute Code(s): B19.20 - UNSPECIFIED VIRAL HEPATITIS C WITHOUT HEPATIC COMA SNOMED Code(s): 69839079 (2) Bipolar I disorder with depression, severe Current Visit: No Status: Acute Priority: High Code(s): F31.4 - BIPOLAR DISORD, CRNT EPSD DEPRESS, SEV, W/O PSYCH FEATURES SNOMED Code(s): 580231899200 (3) Bipolar disorder with psychotic features Current Visit: No Status: Acute Priority: High Code(s): F31.9 - BIPOLAR DISORDER, UNSPECIFIED SNOMED Code(s): 07439348 (4) Liver mass Current Visit: No Status: Acute Code(s): R16.0 - HEPATOMEGALY, NOT ELSEWHERE CLASSIFIED SNOMED Code(s): 435763942 (5) Nicotine dependence Current Visit: No Status: Acute Priority: Low Code(s): F17.200 - NICOTINE DEPENDENCE, UNSPECIFIED, UNCOMPLICATED SNOMED Code(s): 43675197 Plan: Plan: Assessment and Recommendations: Liver Mass and increased AFP - - Appears to be a contained mass in liver, therefore will need surgical evaluation at [facility] with Dr. Jeana Oliver - Our office set this up for 03/21/[address] scans for staging. He did not show for either nor did he follow-up in office as discussions are noted in outpatient chart - He will still need to be seen at [facility] for surgical evaluation in the interim will order restaging. Patient states he wants diagnostics and potential treatment. Portal Vein Thrombosis: [place] to be tumor thrombus - In which he was prescribed Aspirin at last discharge, does not appear he continued after discharge Increased LFTs Plan: - Staging CT chest, Abdomen, Pelvis, imaging Brain Mental status changes, bone scan - Recheck AFP - Discussion of compliance and states he wishes to continue with diagnostic and potential treatment although he appears quite weak and his overall performance declined since last admission. Rec PT/OT during stay.
[2020-04-16] MEDS: IOPAMIDOL CONTRAST (ORAL USE) VIAL PO PRN ×2 (16:21→17:29)
[2020-04-16] MEDS: LISINOPRIL-HCTZ 10-12.5 MG 1 EACH TAB PO SCH (21:34)
--- NOTE | 2020-04-16 23:45 | P.PN ---
Progress Note - Text Progress Note Date: 04/16/20 Chief Complaint: Vomiting History of presenting complaint: This is a 70-year-old patient who follows with visiting physicians. Lives at [facility]'s home. Patient was last here on . Had a MRI of the liver. It showed abnormal appearance of the gallbladder contracted and some abnormal wall thickening. New suspicious lesion next to the liver with local mass effect was felt to be present. Some expansion of the inferior medial segment of the left hepatic lobe. Concern is for cholangiocarcinoma. And possibly left-sided portal venous thrombus. Patient was seen by GI Dr. Greer last admission and oncology team Dr. Scott. Patient is supposed to follow-up and an different hospital being coordinated by oncology. Patient's face have not given him an appointment. Patient does get occasional abdominal pain on and off. Appetite is okay. No fever no chills. His last bowel movement was 2 days ago. Patient is hungry. Does use a walker to baseline. Liver ultrasound that Adama 7.1 cm hypoechoic masslike area of the right liver with internal vascularity. Patient not the best of historians. Per oncology team. Had set up an appointment for March [address] scans for staging. He did not show for any of his appointments. Today-laying in bed. Comfortable. Oral intake good. Review of systems: Was done for constitutional, cardiovascular, GI, pulmonary. relevant finding as above Active Medications Dexamethasone (Dexamethasone 4 Mg Tab) 4 mg PO DAILY@0800 [facility] Last Admin: 04/16/20 10:36 Dose: 4 mg Documented by: Fluoxetine HCl (Fluoxetine Hcl 20 Mg Cap) 40 mg PO DAILY@0800 [facility] Last Admin: 04/16/20 08:50 Dose: 40 mg Documented by: Lisinopril/HCTZ (Lisinopril-Hctz 10-12.5 Mg 1 Each Tab) 1 each PO BID [facility] Last Admin: 04/16/20 21:34 Dose: 1 each Documented by: Sodium Chloride (Saline 0.9%) 1,000 mls @ 75 mls/hr IV .[id number] [facility] Last Admin: 04/16/20 23:15 Dose: Not Given Documented by: Naloxone HCl (Naloxone 0.4 Mg/Ml 1 Ml Vial) 0.2 mg IV Q2M PRN PRN Reason: Opioid Reversal Ondansetron HCl (Ondansetron 4 Mg/2 Ml Vial) 4 mg IVP Q8HR PRN PRN Reason: Nausea And Vomiting Physical examination: VITAL SIGNS: 97.8, 55, 17, 153 with 71, 97% room air GENERAL: Laying in bed, comfortable EYES: Pupils equal. Conjunctiva normal. HEENT: [External appearance of nose and ears normal, oral cavity missing teeth. NECK: JVD unable to assess; masses not palpable. HEART: First and second heart sounds are normal; no edema. LUNGS: Respiratory rate increased; decreased breath sounds. ABDOMEN: Soft, nontender, liver spleen not palpable, no masses palpable. PSYCH: [Alert and oriented x3; mood and affect tired l. INVESTIGATIONS, reviewed in the clinical context: White count 40.9 hemoglobin 12.6 platelets 181 potassium 4.8 creatinine 1.22 Lactic acid 4.9 Total bilirubin 1.4 AST 144 ALT 69 Assessment: -This is a patient has a right liver lobe mass with adjoining questionable hepatic vein thrombosis, patient supposed to follow-up at [facility]. Has not received an appointment. -Depression not otherwise specified -Chronic gait dysfunction uses a walker -Mild cognitive impairment -Lactic acidosis likely type II -Hepatitis C Plan: Staging computed tomography scan of the chest abdomen pelvis, MRI of the brain with contrast, nuclear scan of the whole body ordered by oncology. Other medications to continue.
[2020-04-17 01:32] VITALS: TEMP 97.4
[2020-04-17 07:10] LABS: Glucose,Whole Blood 108 mg/dL (75-99)
[2020-04-17 07:53] LABS: Basophils # (A) 0.2 k/uL (0-0.2); Basophils % (A) 1 %; Eosinophils % (A) 0 %; HCT 38.4 % (39.0-53.0); HGB 11.8 gm/dL (13.0-17.5); Lymphocytes # (A) 2.3 k/uL (1.0-4.8); Lymphocytes % (A) 11 %; MCHC 30.7 g/dL (31.0-37.0); Macrocytosis Slight; Mean Platelet Volume 8.1; Monocytes % (A) 5 %; Neutrophils # (A) 17.5 k/uL (1.3-7.7); Neutrophils % (A) 83 %; Platelet Count 191 k/uL (150-450); RDW 14.7 % (11.5-15.5); WBC 21.1 k/uL (3.8-10.6)
[2020-04-17 08:21] LABS: Potassium 3.8 mmol/L (3.5-5.1)
[2020-04-17 08:22] LABS: ALT 93 U/L (4-49); AST 171 U/L (17-59); African American GFR (CKD) >90 (>60 ml/min/1.73 sqM); Albumin 2.7 g/dL (3.5-5.0); Albumin/Globulin Ratio 0.9; Alkaline Phosphatase 240 U/L (38-126); Anion Gap 3 mmol/L; Blood Urea Nitrogen 49 mg/dL (9-20); Calcium 8.7 mg/dL (8.4-10.2); Carbon Dioxide 30 mmol/L (22-30); Chloride 102 mmol/L (98-107); Globulin 2.9 g/dL; Glucose 107 mg/dL (74-99); Non-African American GFR(CKD) >90 (>60 ml/min/1.73 sqM); Sodium 135 mmol/L (137-145); Total Bilirubin 1.5 mg/dL (0.2-1.3); Total Protein 5.6 g/dL (6.3-8.2)
[2020-04-17] MEDS: dexAMETHasone 4 MG TAB PO SCH (12:42)
[2020-04-17] MEDS: FLUoxetine HCL 20 MG CAP PO SCH (12:43)
[2020-04-17] MEDS: LISINOPRIL-HCTZ 10-12.5 MG 1 EACH TAB PO SCH ×3 (12:43→21:03)
--- NOTE | 2020-04-17 14:38 | P.CNPUL ---
History of Present Illness Consult date: 04/17/20 Requesting physician: Brandon Kerr Reason for consult: other (Coffee-ground emesis, patient was transferred to the ICU early this a.m.) Chief complaint: Generalized weakness History of present illness: This is a 70-year-old white male with history of alcohol related liver cirrhosis and hepatitis C, patient resides at [facility]. Patient was evaluated about a month ago in the hospital for elevated alpha-fetoprotein and liver mass. Patient was noted to have a 7.17.15 cm hyperechoic mass in the right lobe of the liver. He was also found to have a thickened gallbladder wall, MRI also showed evidence of abnormal gallbladder, ascites, and abdominal wall thickening question also the possibility of portal vein thrombosis versus tumor thromboses with a central liver mass. At any rate patient was supposed to follow up regarding this abnormality at [facility], and he is also supposed to follow up with our local oncologist. Apparently the patient did not show up to his appointment and he could not get an appointment at [facility]. Yesterday the patient was brought in complaining of weakness, intermittent episodes of nausea and vomiting. Patient was felt to be dehydrated, admitted with the impression of dehydration and weakness, and early this morning he had few episodes of coffee-ground emesis. The rapid response team was called to see the patient early this morning, and I was notified about the patient having coffee-ground emesis and there was a concern that the patient may be having significant upper GI bleeding I have accepted the patient to be transferred to the ICU. However shortly after he arrived to the ICU, patient is apparently refusing medical care, and he is requesting to be transferred to [facility] to take care of his initial problem which seems to be most likely related to underlying hepatocarcinoma. I saw the patient in the ICU this morning, no further episodes of coffee-ground emesis, his hemoglobin is stable, his blood pressure is stable, patient is not in any form of distress, hence I will arrange for the patient to be transferred back to the regular medical floor in the meantime the admitting physician was notified by the nursing staff to address the issue of possibly transferring him to [facility]. The patient is a very poor historian, and he refuses to volunteer much information. Review of Systems ROS unobtainable: due to mental status Past Medical History Past Medical History: Chest Pain / Angina, Hypertension, Liver Disease, Syncope, Vascular Disorder Additional Past Medical History / Comment(s): Pt recently admitted to [facility] on 02/21/20 with transaminitis with liver mass and is to be evaluated at [facility] but pt states no appointment yet. Other hx: abdominal aortic thrombosis, hepatitis C, chronic upper back pain, sciatica. History of Any Multi-Drug Resistant Organisms: None Reported Past Surgical History: Orthopedic Surgery Additional Past Surgical History / Comment(s): Pt states bilateral knee arthrotomies d/t infection, R wrist fracture with surgery. Past Anesthesia/Blood Transfusion Reactions: No Reported Reaction Smoking Status: Current some day smoker - Past Family History Mother History Unknown: Yes Additional Family Medical History / Comment(s): Mother is 85 years of age with no major medical problems. Father History Unknown: Yes Family Medical History: CVA/TIA, Hypertension Additional Family Medical History / Comment(s): Father at age 75 with h istory of for CVAs and hypertension. Brother(s) Additional Family Medical History / Comment(s): He has 4 brothers that are healthy with no major medical problems. He has one sister that is healthy. He has 3 daughters with no major medical problems. Medications and Allergies Home Medications Medication Instructions Recorded Confirmed Type Omeprazole [PriLOSEC] 20 mg PO BID@0800,1600 02/19/20 04/14/20 History Dexamethasone [Decadron] 4 mg PO DAILY@0800 04/14/20 04/14/20 History FLUoxetine HCL 40 mg PO DAILY@0800 04/14/20 04/14/20 History Sulfamethoxazole/Trimethoprim 1 tab PO Q12H 04/14/20 04/14/20 History [Bactrim DS 800-160 mg] Allergies Allergy/AdvReac Type Severity Reaction Status Date / Time No Known Allergies Allergy Verified 04/14/20 19:06 Physical Exam Vitals: Vital Signs Temp Pulse Pulse Resp BP Pulse Ox 04/17/20 08:18 75 14 131/71 95 04/17/20 07:23 130/78 04/17/20 07:15 135/71 04/17/20 07:10 158/70 04/17/20 02:14 71 167/81 04/17/20 01:05 97.4 F L 72 16 97 04/16/20 21:09 58 L 187/77 04/16/20 19:05 97 F L 78 16 183/84 97 04/16/20 15:00 97.8 F 55 L 17 153/71 97 Intake and Output 04/16/20 04/17/20 04/17/20 22:59 06:59 14:59 Intake Total 75 Balance 75 Intake: IV 75 Sodium Chloride 0.9% 1, 75 000 ml @ 75 mls/hr IV . [id number] [facility] Rx#:[id number] Other: Voiding Method Toilet Urinal # Voids 0 1 # Bowel Movements 1 - Constitutional General appearance: Physical exam revealed a 70-year-old white male in no distress. - EENT Eyes: PERRLA, EOMI, no icterus. ENT: Dry mucous membranes, poor dentition, - Neck Neck: Supple, no neck masses, no JVD, no stridor. - Respiratory Respiratory: Symmetrical chest expansion, diminished breath sounds at the bases no rhonchi and no wheezes. - Cardiovascular Rhythm: regular rate and rhythm. Heart sounds: normal: S1, S2, no S3 gallop, no murmur. - Gastrointestinal General gastrointestinal: Flat, soft, nontender, no megaly, no rebound, no guarding. - Integumentary Integumentary: No rashes. - Neurologic Alert oriented 3, no gross focal neurologic deficits. However the patient is not very cooperative, and does not seem to volunteer much information. - Musculoskeletal Musculoskeletal: No deformities, generally weak, uncooperative. - Psychiatric Poor historian Psychiatric: Anxious mood, blunt affect, otherwise no gross focal neurologic deficits. Results - Laboratory Findings CBC and BMP: 04/17/20 07:35 04/17/20 07:35 Abnormal lab findings: Abnormal Labs 04/14/20 04/14/20 04/14/20 15:21 15:21 15:21 WBC 14.9 H RBC 4.01 L Hgb 12.6 L Hct MCV 102.1 H MCHC 30.9 L Neutrophils # 13.1 H Lymphocytes # 0.8 L Sodium 133 L BUN 28 H Glucose 168 H POC Glucose (mg/dL) Plasma Lactic Acid Alfa 4.9 H* Total Bilirubin 1.4 H AST 144 H ALT 69 H Alkaline Phosphatase 257 H Lactate Dehydrogenase Total Protein Albumin Tumor Marker AFP 1104/16/20 04/16/20 18:18 15:42 15:42 WBC RBC Hgb Hct MCV MCHC Neutrophils # Lymphocytes # Sodium BUN Glucose POC Glucose (mg/dL) Plasma Lactic Acid Alfa 2.2 H* Total Bilirubin AST ALT Alkaline Phosphatase Lactate Dehydrogenase 299 H Total Protein Albumin Tumor Marker AFP 55236.8 H 04/17/20 04/17/20 04/17/20 07:04 07:35 07:35 WBC 21.1 H RBC 3.80 L Hgb 11.8 L Hct 38.4 L MCV 101.0 H MCHC 30.7 L Neutrophils # 17.5 H Lymphocytes # Sodium 135 L BUN 49 H Glucose 107 H POC Glucose (mg/dL) 108 H Plasma Lactic Acid Alfa Total Bilirubin 1.5 H AST 171 H ALT 93 H Alkaline Phosphatase 240 H Lactate Dehydrogenase Total Protein 5.6 L Albumin 2.7 L Tumor Marker AFP - Diagnostic Findings Chest x-ray: image reviewed (No evidence of active disease.) Assessment and Plan Assessment: Impression: Acute upper GI bleeding, differential diagnoses includes erosive gastritis, epigastric ulcer disease, esophageal varices, patient will definitely need further diagnostic workup possibly EGD. History of bipolar disorder with psychotic features. History of liver mass, workup is in progress, patient is supposed to have follow-up on this liver mass at [facility]. History of hepatitis C. History of alcohol abuse. Tobacco dependence syndrome. Possible portal vein thrombosis or tumor thrombosis. Abnormal liver enzymes secondary to hepatic mass. Recommendation: Patient is hemodynamically stable, and no evidence of active bleeding, Patient will be seen by gastroenterology on consultation. Placed on Protonix 40 mg IV push twice a day. Admitting physician was notified about possibly making arrangements for the patient to be transferred to [facility], may eventually require surgical intervention for his liver mass. Oncology is recommending staging however the patient is refusing medical treatment according to the nurses. We will follow the patient on as-needed basis. Time with Patient: Greater than 30
[2020-04-17] MEDS: PANTOPRAZOLE 40 MG/10 ML VIAL IVP SCH ×2 (16:19→20:58)
--- NOTE | 2020-04-17 17:20 | P.PN ---
Progress Note - Text Progress Note Date: 04/17/20 Chief Complaint: Vomiting History of presenting complaint: This is a 70-year-old patient who follows with visiting physicians. Lives at [facility]. Patient was last here on . Had a MRI of the liver. It showed abnormal appearance of the gallbladder contracted and some abnormal wall thickening. New suspicious lesion next to the liver with local mass effect was felt to be present. Some expansion of the inferior medial segment of the left hepatic lobe. Concern is for cholangiocarcinoma. And possibly left-sided portal venous thrombus. Patient was seen by GI Dr. Greer last admission and oncology team Dr. Scott. Patient is supposed to follow-up and an different hospital being coordinated by oncology. Patient's face have not given him an appointment. Patient does get occasional abdominal pain on and off. Appetite is okay. No fever no chills. His last bowel movement was 2 days ago. Patient is hungry. Does use a walker to baseline. Liver ultrasound that Adama 7.1 cm hypoechoic masslike area of the right liver with internal vascularity. Patient not the best of historians. Per oncology team. Had set up an appointment for March [address] scans for staging. He did not show for any of his appointments. Today-early today the nurse called me from the medical floor the patient had some coffee-ground emesis. Patient moved to ICU. Patient been refusing most treatment this morning and afternoon. Refuses any CAT scans. Tired.. Review of systems: Was done for constitutional, cardiovascular, GI, pulmonary. relevant finding as above Active Medications Dexamethasone (Dexamethasone 4 Mg Tab) 4 mg PO DAILY@0800 [facility] Last Admin: 04/17/20 12:42 Dose: Not Given Documented by: Fluoxetine HCl (Fluoxetine Hcl 20 Mg Cap) 40 mg PO DAILY@0800 [facility] Last Admin: 04/17/20 12:43 Dose: Not Given Documented by: Lisinopril/HCTZ (Lisinopril-Hctz 10-12.5 Mg 1 Each Tab) 1 each PO BID [facility] Last Admin: 04/17/20 12:43 Dose: Not Given Documented by: Sodium Chloride (Saline 0.9%) 1,000 mls @ 75 mls/hr IV .[id number] [facility] Last Admin: 04/16/20 23:15 Dose: Not Given Documented by: Naloxone HCl (Naloxone 0.4 Mg/Ml 1 Ml Vial) 0.2 mg IV Q2M PRN PRN Reason: Opioid Reversal Ondansetron HCl (Ondansetron 4 Mg/2 Ml Vial) 4 mg IVP Q8HR PRN PRN Reason: Nausea And Vomiting Last Admin: 04/17/20 07:15 Dose: 4 mg Documented by: Pantoprazole Sodium (Pantoprazole 40 Mg/10 Ml Vial) 40 mg IVP BID [facility] Last Admin: 04/17/20 16:19 Dose: Not Given Documented by: Physical examination: VITAL SIGNS: Afebrile, 75, 14, 131/71, 95% room air GENERAL: Laying in bed, tired EYES: Pupils equal. Conjunctiva normal. HEENT: [External appearance of nose and ears normal, oral cavity missing teeth. NECK: JVD unable to assess; masses not palpable. HEART: First and second heart sounds are normal; no edema. LUNGS: Respiratory rate increased; decreased breath sounds. ABDOMEN: Soft, nontender, liver spleen not palpable, no masses palpable. PSYCH: [Alert and oriented x3; mood and affect anxious INVESTIGATIONS, reviewed in the clinical context: White count 21.1 hemoglobin 11.8 potassium 3.8 creatinine 0.75 bilirubin 1.5 AST 171 ALT 93 Tumor marker AFP 45500 Admission testing White count 14.9 hemoglobin 12.6 platelets 181 potassium 4.8 creatinine 1.22 Lactic acid 4.9 Total bilirubin 1.4 AST 144 ALT 69 Assessment: -This is a patient has a right liver lobe mass with adjoining questionable hepatic vein thrombosis, patient supposed to follow-up at [facility]. Patient did not make it to his appointments. Patient has very high tumor marker AFP -Upper GI bleed with coffee-ground emesis. -Depression not otherwise specified -Chronic gait dysfunction uses a walker -Mild cognitive impairment -Lactic acidosis likely type II -Hepatitis C Plan: Patient is refusing ordered neurological testing. Getting IV fluids. GI had been consulted. Patient smoked for the ICU earlier today. Consult hospice. Change CODE STATUS to DO NOT RESUSCITATE Advanced care planning: I talked to the the patient at the bedside. He does not want any treatment. He was to go back to his place. He wants hospice. CODE STATUS discussed.-DO NOT RESUSCITATE Does not want any further treatment was ordered neurological studies. I did speak to the nurse and then remained the same to the catalytic case operator. Plan to get the patient back to his place with hospice. Currently the patient is nothing by mouth. Time spent doing ACP about 20 minutes
[2020-04-17 18:52] VITALS: BP 74/52; PULSE 92; RESP 17
--- NOTE | 2020-04-17 19:10 | P.PN ---
Subjective Progress Note Date: 04/17/20 Principal diagnosis: Likely aggressive malignant process He is now in the care of ICU, Apparently yesterday had episode of coffe ground projectile emesis. Hemoglobin is stable. He continuously is refusing care, although during assessment yesterday stated he is open to work-up and would like to be treated for his likely hepatocellular versus cholangiocarcinoma. His AFP is now 22K, from 6K last month admission. He has refused CT scan, MRI brain. Discussion today related to patients personal goals of care. Patient continues coffee ground emesis, and refusing treatments and diagnostic work-up. He has agreed to hospice care. This is appropriate given his performance, clinical progression, and differential diagnosis. Objective - Vital Signs Vital signs: Vital Signs Temp 97.4 F L 04/17/20 01:05 Pulse 75 04/17/20 08:18 Resp 14 04/17/20 08:18 BP 131/71 04/17/20 08:18 Pulse Ox 95 04/17/20 08:18 Intake & Output 04/16/20 04/17/20 04/17/20 18:59 06:59 18:59 Intake Total 75 Balance 75 Intake: IV 75 Sodium Chloride 0.9% 1, 75 000 ml @ 75 mls/hr IV . [id number] [facility] Rx#:[id number] Other: Voiding Method Toilet Urinal # Voids 1 # Bowel Movements 1 - Exam - Constitutional General appearance: cooperative, no acute distress, thin - EENT Eyes: EOMI, poor dentition ENT: NA/AT - Neck Neck: normal ROM - Respiratory Respiratory: bilateral: diminished (Weak inspiration) - Cardiovascular Rhythm: regular Heart sounds: normal: S1, S2 - Gastrointestinal General gastrointestinal: soft, tenderness - Integumentary Integumentary: jaundiced - Neurologic HANS - Musculoskeletal Musculoskeletal: generalized weakness - Psychiatric Poor historian Psychiatric: A&O x's 3 - Labs CBC & Chem 7: 04/17/20 07:35 04/17/20 07:35 Labs: Abnormal Lab Results - Last 24 Hours (Table) 04/16/20 04/16/20 04/17/20 Range/Units 15:42 15:42 07:04 WBC (3.8-10.6) k/uL RBC (4.30-5.90) m/uL Hgb (13.0-17.5) gm/dL Hct (39.0-53.0) % MCV (80.0-100.0) fL MCHC (31.0-37.0) g/dL Neutrophils # (1.3-7.7) k/uL Sodium (137-145) mmol/L BUN (9-20) mg/dL Glucose (74-99) mg/dL POC Glucose (mg/dL) 108 H (75-99) mg/dL Total Bilirubin (0.2-1.3) mg/dL AST (17-59) U/L ALT (4-49) U/L Alkaline Phosphatase (38-126) U/L Lactate Dehydrogenase 299 H (120-246) U/L Total Protein (6.3-8.2) g/dL Albumin (3.5-5.0) g/dL Tumor Marker AFP 44653.8 H (0.0-7.9) ng/mL 04/17/20 04/17/20 Range/Units 07:35 07:35 WBC 21.1 H (3.8-10.6) k/uL RBC 3.80 L (4.30-5.90) m/uL Hgb 11.8 L (13.0-17.5) gm/dL Hct 38.4 L (39.0-53.0) % MCV 101.0 H (80.0-100.0) fL MCHC 30.7 L (31.0-37.0) g/dL Neutrophils # 17.5 H (1.3-7.7) k/uL Sodium 135 L (137-145) mmol/L BUN 49 H (9-20) mg/dL Glucose 107 H (74-99) mg/dL POC Glucose (mg/dL) (75-99) mg/dL Total Bilirubin 1.5 H (0.2-1.3) mg/dL AST 171 H (17-59) U/L ALT 93 H (4-49) U/L Alkaline Phosphatase 240 H (38-126) U/L Lactate Dehydrogenase (120-246) U/L Total Protein 5.6 L (6.3-8.2) g/dL Albumin 2.7 L (3.5-5.0) g/dL Tumor Marker AFP (0.0-7.9) ng/mL Assessment and Plan (1) Hepatitis C Current Visit: Yes Status: Acute Code(s): B19.20 - UNSPECIFIED VIRAL HEPATITIS C WITHOUT HEPATIC COMA SNOMED Code(s): 33553804 (2) Bipolar I disorder with depression, severe Current Visit: No Status: Acute Priority: High Code(s): F31.4 - BIPOLAR DISORD, CRNT EPSD DEPRESS, SEV, W/O PSYCH FEATURES SNOMED Code(s): 084735116329 (3) Bipolar disorder with psychotic features Current Visit: No Status: Acute Priority: High Code(s): F31.9 - BIPOLAR DISORDER, UNSPECIFIED SNOMED Code(s): 67010917 (4) Liver mass Current Visit: No Status: Acute Code(s): R16.0 - HEPATOMEGALY, NOT ELSEWHERE CLASSIFIED SNOMED Code(s): 418688848 (5) Nicotine dependence Current Visit: No Status: Acute Priority: Low Code(s): F17.200 - NICOTINE DEPENDENCE, UNSPECIFIED, UNCOMPLICATED SNOMED Code(s): 91168026 Plan: Plan: Assessment and Recommendations: Liver Mass and increased AFP - - Appears to be a contained mass in liver, therefore will need surgical evaluation at [facility] with Dr. Jeana Oliver - Our office set this up for 03/21/[address] scans for staging. He did not show for either nor did he follow-up in office as discussions are noted in outpatient chart - He will still need to be seen at [facility] for surgical evaluation in the interim will order restaging. Patient states he wants diagnostics and potential treatment. - Repeat AFP is almost 4x greater than 4 weeks prior = 09331 ([id number]) Portal Vein Thrombosis: [place] to be tumor thrombus - In which he was prescribed Aspirin at last discharge, does not appear he continued after discharge Increased LFTs Plan: - Staging CT chest, Abdomen, Pelvis, imaging Brain Mental status changes, bone scan - Discussion of compliance and states he wishes to continue with diagnostic and potential treatment although he appears quite weak and his overall performance declined since last admission. Rec PT/OT during stay. Patient continues to refuse assessment and diagnostic work-up goals of care discussed in detail and he has agreed to go home with hospice care. Discussed with ICU and primary team
[2020-04-17] MEDS: SODIUM CHLORIDE 0.9% 1,000 ML IV SCH ×2 (21:34)
[2020-04-17] MEDS ORDERED: HYDROcodone/APAP 5-325MG 1 EACH TAB PO PRN (21:55)
[2020-04-17] MEDS ORDERED: MELATONIN 3 MG TABLET PO ONE (23:17)
--- NOTE | 2020-04-18 07:00 | P.CONS ---
History of Present Illness - Reason for Consult Consult date: 04/17/20 coffee-ground emesis Requesting physician: Brandon Kerr - Chief Complaint nausea, vomiting, abdominal pain - History of Present Illness 70-year-old male with multiple medical comorbidities including cirrhosis, hepatitis C, hypertension, and recent diagnosis of hepatocellular carcinomawith MRI findings and significant elevation in AFP on recent admission consistent with HCC who presented to the hospital for nausea, vomiting and abdominal pain. The patient was previously seen and evaluated by both gastroenterology and oncology services on his last admission. Imaging and laboratory evaluations were consistent with hepatocellular carcinoma. The patient was given an appointment for repeat imaging, follow-upin the outpatient setting with oncology and referral to [facility] for multidisciplinary approach however failed to follow up as instructed. He came to the hospital with complaints of nausea, vomiting and abdominal pain. Laboratory evaluation significant for WBC 21.1, hemoglobin 11.8, platelet count 291,000 with total bilirubin 1.5, alkaline phosphatase 240, AST 171 and ALT 93. The patient's reports as he has been tolerating oral diet prior to presentation but has lost approximately 30 pounds in the last 5 months. After transferred to the ICU the patient was hemodynamically stable but having some episodes of coffee-ground emesis. Review of Systems REVIEW OF SYSTEMS: CONSTITUTIONAL: Denies any fevers, chills, but does report 30 pounds weight loss. CARDIOVASCULAR: Denies any chest pain, palpitations high or low blood pressures RESPIRATORY: Denies any shortness of breath, hemoptysis or cough. GENITOURINARY: No dysuria or hematuria. MUSCULOSKELETAL: No weakness reported. SKIN: Denies any new rashes or lesions, jaundice or pallor. PSYCHIATRIC: Denies any depression or anxiety currently but has been treated for underlying psychiatric disorders in the past. NEUROLOGY: Denies headache, denies any new focal deficits. EARS/NOSE/THROAT: No recent hearing change, congestion, nasal discharge or sore throat. EYES: No pain in eyes, discharge or change in vision. GASTROINTESTINAL: As per HPI. Past Medical History Past Medical History: Chest Pain / Angina, Hypertension, Liver Disease, Syncope, Vascular Disorder Additional Past Medical History / Comment(s): Pt recently admitted to [facility] on 02/21/20 with transaminitis with liver mass and is to be evaluated at [facility] but pt states no appointment yet. Other hx: abdominal aortic thrombosis, hepatitis C, chronic upper back pain, sciatica. History of Any Multi-Drug Resistant Organisms: None Reported Past Surgical History: Orthopedic Surgery Additional Past Surgical History / Comment(s): Pt states bilateral knee arthrotomies d/t infection, R wrist fracture with surgery. Past Anesthesia/Blood Transfusion Reactions: No Reported Reaction Smoking Status: Current some day smoker - Past Family History Mother History Unknown: Yes Additional Family Medical History / Comment(s): Mother is 85 years of age with no major medical problems. Father History Unknown: Yes Family Medical History: CVA/TIA, Hypertension Additional Family Medical History / Comment(s): Father at age 75 with history of for CVAs and hypertension. Brother(s) Additional Family Medical History / Comment(s): He has 4 brothers that are healthy with no major medical problems. He has one sister that is healthy. He has 3 daughters with no major medical problems. Medications and Allergies Home Medications Medication Instructions Recorded Confirmed Type Omeprazole [PriLOSEC] 20 mg PO BID@0800,1600 02/19/20 04/14/20 History Dexamethasone [Decadron] 4 mg PO DAILY@0800 04/14/20 04/14/20 History FLUoxetine HCL 40 mg PO DAILY@0800 04/14/20 04/14/20 History Sulfamethoxazole/Trimethoprim 1 tab PO Q12H 04/14/20 04/14/20 History [Bactrim DS 800-160 mg] Allergies Allergy/AdvReac Type Severity Reaction Status Date / Time No Known Allergies Allergy Verified 04/14/20 19:06 Physical Exam Vitals: Vital Signs Temp Pulse Pulse Resp BP Pulse Ox 04/17/20 08:18 75 14 131/71 95 04/17/20 07:23 130/78 04/17/20 07:15 135/71 04/17/20 07:10 158/70 04/17/20 02:14 71 167/81 04/17/20 01:05 97.4 F L 72 16 97 04/16/20 21:09 58 L 187/77 04/16/20 19:05 97 F L 78 16 183/84 97 04/16/20 15:00 97.8 F 55 L 17 153/71 97 Intake and Output 04/16/20 04/17/20 04/17/20 22:59 06:59 14:59 Intake Total 75 Balance 75 Intake: IV 75 Sodium Chloride 0.9% 1, 75 000 ml @ 75 mls/hr IV . [id number] [facility] Rx#:[id number] Other: Voiding Method Toilet Urinal # Voids 0 1 # Bowel Movements 1 On physical examination, patient appears comfortable in no apparent distress. HEAD: Normocephalic, atraumatic. EYES: No scleral icterus. No conjunctival injection. MOUTH: No lesions, tongue midline. NECK: Trachea midline, no gross abnormalities. CHEST: Clear to auscultation with no wheezing or rhonchi appreciated. HEART: Regular rate and rhythm. ABDOMEN: Soft, nontender to palpation. Bowel sounds are positive. No organomegaly. No guarding or rigidity. EXTREMITIES: No pedal edema. SKIN: No rashes, no jaundice. NEUROLOGIC: Alert and oriented x3. No focal deficits. Results CBC & Chem 7: 04/17/20 07:35 04/17/20 07:35 Labs: Abnormal Lab Results - Last 24 Hours (Table) 04/16/20 04/16/20 04/17/20 Range/Units 15:42 15:42 07:04 WBC (3.8-10.6) k/uL RBC (4.30-5.90) m/uL Hgb (13.0-17.5) gm/dL Hct (39.0-53.0) % MCV (80.0-100.0) fL MCHC (31.0-37.0) g/dL Neutrophils # (1.3-7.7) k/uL Sodium (137-145) mmol/L BUN (9-20) mg/dL Glucose (74-99) mg/dL POC Glucose (mg/dL) 108 H (75-99) mg/dL Total Bilirubin (0.2-1.3) mg/dL AST (17-59) U/L ALT (4-49) U/L Alkaline Phosphatase (38-126) U/L Lactate Dehydrogenase 299 H (120-246) U/L Total Protein (6.3-8.2) g/dL Albumin (3.5-5.0) g/dL Tumor Marker AFP 04508.8 H (0.0-7.9) ng/mL 04/17/20 04/17/20 Range/Units 07:35 07:35 WBC 21.1 H (3.8-10.6) k/uL RBC 3.80 L (4.30-5.90) m/uL Hgb 11.8 L (13.0-17.5) gm/dL Hct 38.4 L (39.0-53.0) % MCV 101.0 H (80.0-100.0) fL MCHC 30.7 L (31.0-37.0) g/dL Neutrophils # 17.5 H (1.3-7.7) k/uL Sodium 135 L (137-145) mmol/L BUN 49 H (9-20) mg/dL Glucose 107 H (74-99) mg/dL POC Glucose (mg/dL) (75-99) mg/dL Total Bilirubin 1.5 H (0.2-1.3) mg/dL AST 171 H (17-59) U/L ALT 93 H (4-49) U/L Alkaline Phosphatase 240 H (38-126) U/L Lactate Dehydrogenase (120-246) U/L Total Protein 5.6 L (6.3-8.2) g/dL Albumin 2.7 L (3.5-5.0) g/dL Tumor Marker AFP (0.0-7.9) ng/mL Chest x-ray: report reviewed (No acute cardiopulmonary process on chest x-ray) Assessment and Plan (1) Hepatocellular carcinoma Narrative/Plan: 70-year-old female with multiple medical comorbidities including hepatitis, alcohol abuse, cirrhosis and hepatocellular carcinoma which was recently diagnosed who presented to the hospital with nausea, vomiting and abdominal pain. The patient was previously seen in the hospital and diagnosed with hepatocellular carcinoma based on imaging and laboratory studies. The patient failed to follow-up with oncologyand for referral to [facility] as instructed on last admission. He presented back to the hospital with complaints of nausea, vomiting and abdominal pain and subsequently had some coffee-ground emesis. Status: Acute Code(s): C22.0 - LIVER CELL CARCINOMA SNOMED Code(s): 4823660 03 (2) Coffee ground emesis Status: Acute Code(s): K92.0 - HEMATEMESIS SNOMED Code(s): 78509698 (3) Hepatitis C Status: Acute Code(s): B19.20 - UNSPECIFIED VIRAL HEPATITIS C WITHOUT HEPATIC COMA SNOMED Code(s): 71520700 Plan: Supportive care Nothing by mouth Protonix 40 mg IV twice a day Continue to monitor hemoglobin and hematocrit issues as needed Continue other medical management Extensive discussion with the patient regarding endoscopy which was offered to the patient, at this time the patient is not interested in endoscopic evaluation and is asking for comfort care, all the risks, benefits and complications of both proceeding with endoscopy or comfort care have been discussed at length with his questions answered to his satisfaction Thank you for allowing us to participate in the care of the patient
--- NOTE | 2020-04-18 22:01 | P.DS ---
Providers Date of admission: 04/17/20 07:56 Expected date of discharge: 04/18/20 Attending physician: Brandon Kerr Consults: 04/15/20 12:19 Consult Physician Routine Consulting Provider: Ajit Scott Consult Reason/Comments: abd tumor Do you want consulting provider notified?: Yes 04/17/20 07:17 Consult Physician Stat Consulting Provider: Cal Shi Consult Reason/Comments: coffee ground emesis Do you want consulting provider notified?: Yes 04/17/20 07:40 Consult Physician Routine Consulting Provider: Radha Moctezuma Consult Reason/Comments: icu management Do you want consulting provider notified?: Yes Primary care physician: [facility] Course: Chief Complaint: Vomiting History of presenting complaint: This is a 70-year-old patient who follows with visiting physicians. Lives at [facility]. Patient was last here on . Had a MRI of the liver. It showed abnormal appearance of the gallbladder contracted and some abnormal wall thickening. New suspicious lesion next to the liver with local mass effect was felt to be present. Some expansion of the inferior medial segment of the left hepatic lobe. Concern is for cholangiocarcinoma. And possibly left-sided portal venous thrombus. Patient was seen by GI Dr. Greer last admission and oncology team Dr. Scott. Patient is supposed to follow-up and an different hospital being coordinated by oncology. Patient's face have not given him an appointment. Patient does get occasional abdominal pain on and off. Appetite is okay. No fever no chills. His last bowel movement was 2 days ago. Patient is hungry. Does use a walker to baseline. Liver ultrasound that Adama 7.1 cm hypoechoic masslike area of the right liver with internal vascularity. Patient not the best of historians. Per oncology team. Had set up an appointment for March [address] scans for staging. He did not show for any of his appointments. Patient subsequently had coffee-ground emesis. Moved to ICU. Patient subsequently denied any further testing. No CAT scans etc. Did not want to transfer to [facility]. I talked to the patient. Wanted to go home with hospice. This was arranged with [facility]. Today-early hours of today. Patient went into PDA. And . Family was notified. INVESTIGATIONS, reviewed in the clinical context: White count 21.1 hemoglobin 11.8 potassium 3.8 creatinine 0.75 bilirubin 1.5 AST 171 ALT 93 Tumor marker AFP 15895 Admission testing White count 14.9 hemoglobin 12.6 platelets 181 potassium 4.8 creatinine 1.22 Lactic acid 4.9 Total bilirubin 1.4 AST 144 ALT 69 Assessment: -This is a patient has a right liver lobe mass with adjoining questionable hepatic vein thrombosis, patient supposed to follow-up at [facility]. Patient did not make it to his appointments. Patient has very high tumor marker AFP-likely liver cancer -Upper GI bleed with coffee-ground emesis. -Depression not otherwise specified -Chronic gait dysfunction uses a walker -Mild cognitive impairment -Lactic acidosis likely type II -Hepatitis C -DO NOT RESUSCITATE Cause of : Liver cancer-likely Disposition: Patient Plan - Discharge Summary Discharge Rx Participant: No New Discharge Prescriptions: No Action Omeprazole [PriLOSEC] 20 mg PO BID@0800,1600 Sulfamethoxazole/Trimethoprim [Bactrim DS 800-160 mg] 1 tab PO Q12H FLUoxetine HCL 40 mg PO DAILY@0800 Dexamethasone [Decadron] 4 mg PO DAILY@0800 Discharge Medication List Omeprazole [PriLOSEC] 20 mg PO BID@0800,1600 02/19/20 [History] Dexamethasone [Decadron] 4 mg PO DAILY@0800 04/14/20 [History] FLUoxetine HCL 40 mg PO DAILY@0800 04/14/20 [History] Sulfamethoxazole/Trimethoprim [Bactrim DS 800-160 mg] 1 tab PO Q12H 04/14/20 [History] Follow up Appointment(s)/Referral(s): Andres Llanes MD [Primary Care Provider] - 1-2 days Activity/Diet/Wound Care/Special Instructions: Please call [facility] for transport on discharge, #[phone]. Discharge Disposition: - Preliminary Cause of Preliminary Cause of : Liver cancer
--- NOTE | 2020-04-23 14:29 | CDI ---
Documentation Clarification Form Mortality Review Date: 04/23/2020 02:13:35 PM From: Eve Fam RN, CCDS Admit Date: 04/17/2020 07:56:00 AM Patient Name: Denys Wood Visit Number: [id number] Discharge Date: 04/18/2020 06:30:00 AM ATTENTION: The Clinical Documentation Specialists (CDI) and [facility] Coding Staff appreciate your assistance in clarifying documentation. Please respond to the clarification below the line at the bottom and electronically sign. The CDI & [facility] Coding staff will review the response and follow-up if needed. Please note: Queries are made part of the Legal Health Record. If you have any questions, please contact the author of this message via ITS. Dr. Shi The patient had documented hematemesis that requires a cause and effect relationship to be documented if known. History/Risk Factors: ETOH Abuse, Hepatocelluar CA, Hepatitis C, Portal vein thrombosis Clinical Indicators: 04/17 0724 Nurses Note: patient was projectile vomiting large amounts of coffee ground emesis. This pattern chart writer and day shift RN went to room and witnessed the projectile emesis. A team was called." 04/17 Pulmonary Consult: " Acute upper GI bleeding, differential diagnoses includes erosive gastritis, epigastric ulcer disease, esophageal varices, patient will definitely need further diagnostic workup possibly EGD." 04/17 GI: "Coffee ground emesis." 04/14 & 04/17 Lab findings: Hgb 12.6/11.8, ALT 69/93, AST 144/171. Alk Phos 257/240, AFP tumor Marker: 86699.8 04/14 1457 Vital Signs: temp 96.8, HR 69, RR 18, B/P 162/78, Spo2 100% ra Treatment: Consults: GI, Oncology, Pulmonary 04/14 1516 Zofran 4 MG IVP x 1 followed by q 8 hrs. PRN nausea and vomiting 04/14 1516 1L 0.9% NS IVF bolus followed by 75 cc/hr. In your professional opinion, can you please clarify the cause of the hematemesis if known? Hematemesis r/t Hepatocellular CA Hepatitis C ETOH Liver disease Hepatic vein thrombosis Other, please specify Unable to determine (Last Revision: September 2017) Unable to determine MTDD
--- NOTE | 2020-04-23 14:43 | CDI ---
Documentation Clarification Form Date: 04/23/2020 02:31:07 PM From: Eve Fam RN, CCDS Admit Date: 04/17/2020 07:56:00 AM Patient Name: Denys Wood Visit Number: [id number] Discharge Date: 04/18/2020 06:30:00 AM ATTENTION: The Clinical Documentation Specialists (CDI) and [facility] Coding Staff appreciate your assistance in clarifying documentation. Please respond to the clarification below the line at the bottom and electronically sign. The CDI & [facility] Coding staff will review the response and follow-up if needed. Please note: Queries are made part of the Legal Health Record. If you have any questions, please contact the author of this message via ITS. Dr. Brandon Kerr Patient is documented as cachectic with a low BMI and a recent diagnosis of cancer. Please provide clinical significance to accurately reflect patient severity of illness and risk of mortality. History/Risk Factors: Hepatocellular CA, Hematemesis with Upper GIB, Hepatitis C, ETOH, chronic pain, depression, smoker Clinical Indicators: 04/15 Oncology Consult: "Weakness, dehydration. Pt is poor historian, poor appetite, thin cachectic." 04/17 GI Consult: "Denies any fevers, chills, but does report 30 pounds weight loss." 04/14-04/17 Labs: Total Protein 6.9/5.6, Albumin 3.5/2.7, AFP 67407.8, BUN 28/49 Current BMI: 19.2 Insufficient energy intake: maintained NPO Decreased hand mechanic chief strength: generalized weakness Treatment: Dietary Consult: No dietary consult Supplements: none 04/14 1L 0.9% NS IVF Bolus Lab monitoring: as pt. allowed- kept refusing patient care and testing In your professional opinion, can you please clarify if these findings signify one of the following conditions? Moderate Protein-Calorie Malnutrition Severe Protein-Calorie Malnutrition Other condition, please specify Unable to determine (Last Revision: December 2018) moderate protein calorie malnutrition from decreased oral intake MTDD
== END 2020-04-18 06:30 | disposition expired | DRG 377 ==
LOC: EC 14:36 → 4SSUR 16:27 → 6NMEDSUR 04-15 18:24 → 4SSUR 04-15 18:51 → 5NMEDONC 04-16 16:29 → OBSVTOIN 04-17 07:56 → 2SICU 04-17 08:32
PROVIDERS: ADMIT Hospitalist; ATTEND Hospitalist
DX: K92.0 Hematemesis (principal); I81 Portal vein thrombosis; C22.0 Liver cell carcinoma; E44.0 Moderate protein-calorie malnutrition; R64 Cachexia; E87.2 Acidosis; F31.5 Bipolar disorder, current episode depressed, severe, with psychotic features; Z68.1 Body mass index [BMI] 19.9 or less, adult; D72.829 Elevated white blood cell count, unspecified; K70.31 Alcoholic cirrhosis of liver with ascites; F10.21 Alcohol dependence, in remission; E86.0 Dehydration; B18.2 Chronic viral hepatitis C; Z66 Do not resuscitate; Z51.5 Encounter for palliative care; I10 Essential (primary) hypertension; R68.0 Hypothermia, not associated with low environmental temperature; R26.9 Unspecified abnormalities of gait and mobility; M54.30 Sciatica, unspecified side; G31.84 Mild cognitive impairment of uncertain or unknown etiology; F41.9 Anxiety disorder, unspecified; M54.6 Pain in thoracic spine; F17.200 Nicotine dependence, unspecified, uncomplicated; Z71.6 Tobacco abuse counseling; Z79.52 Long term (current) use of systemic steroids; Z79.899 Other long term (current) drug therapy; Z86.19 Personal history of other infectious and parasitic diseases; Z87.39 Personal history of other diseases of the musculoskeletal system and connective tissue; Z87.81 Personal history of (healed) traumatic fracture; Z98.890 Other specified postprocedural states; Z82.3 Family history of stroke; Z82.49 Family history of ischemic heart disease and other diseases of the circulatory system
CPT/HCPCS: 36415; 71046; 80053; 82105; 83605; 83615; 85025; 96361; 96374; 99285